=== PATIENT | male | born 1940 | race Caucasian/White ===

== ENCOUNTER → 2017-10-13 09:40 | Outpatient (CLI) | payer MEDICARE, BC, SELFPAY ==
[2017-10-13 11:01] LABS: Amphetamine Urine VISTA NEGATIVE (<1000 ng/mL); Barbiturate Urine VISTA POSITIVE (< 200 ng/mL); Benzodiazepine Urine VISTA NEGATIVE (< 200 ng/mL); Cocaine Urine VISTA NEGATIVE (< 300 ng/mL); Ecstacy Urine VISTA NEGATIVE (< 500 ng/mL); Methadone Urine VISTA NEGATIVE (< 300 ng/mL); PCP Urine VISTA NEGATIVE (< 25 ng/mL); THC Urine VISTA NEGATIVE (< 50 ng/mL); Vista UDS pH Range 5
== END ==
PROVIDERS: Family Provider Internal Medicine; PCP Internal Medicine; Visit Provider Anesthesiology Pain Medicine
DX: F11.20 Opioid dependence, uncomplicated (principal)
CPT/HCPCS: 80307

== ENCOUNTER → 2017-12-30 11:48 | Outpatient (CLI) | payer MEDICARE, BC, SELFPAY ==
--- NOTE | 2017-12-30 11:48 | DT_ITS ---
This patient was seen during an EMR downtime December 28, 2017 - January 04, 2018. This patient may have a combination of paper and electronic documentation or all paper documentation. All documentation is viewable within the e-chart portion of [facility] for each patient visit.
[2018-01-04 14:00] LABS: Vitamin B12 403 pg/mL (211-911)
[2018-01-04 15:58] LABS: Thyroid Stim Hormone (TSH) 0.75 uIU/mL (0.358-3.74)
== END ==
PROVIDERS: Family Provider Internal Medicine; PCP Internal Medicine; Visit Provider Psychiatry & Neurology Neurology
DX: R25.1 Tremor, unspecified (principal)
CPT/HCPCS: 36415; 82390; 82525; 82607; 84443

== ENCOUNTER → 2018-04-07 12:14 | Outpatient (CLI) | payer MEDICARE, BC, SELFPAY ==
[2018-04-09 07:07] LABS: Ceruloplasmin 38.6 mg/dL (16.0-31.0)
[2018-04-09 09:02] LABS: Copper, Serum or Plasma 166 ug/dL (72-166)
== END ==
PROVIDERS: Family Provider Internal Medicine; PCP Internal Medicine; Visit Provider Psychiatry & Neurology Neurology
DX: R25.1 Tremor, unspecified (principal)
CPT/HCPCS: 36415; 82390; 82525

== ENCOUNTER 2018-04-27 07:54 | Emergency (ER) | payer MEDICARE, BC, SELFPAY ==
[2018-04-27 07:55] VITALS: BP 148/79; PULSE 63; RESP 20; TEMP 37.1; O2SAT 98; BMI 23.8
--- NOTE | 2018-04-27 08:28 | RAD_ITS ---
STUDY: X-RAY CHEST REASON FOR EXAM: Male, 77 years old. One-month history of cough. TECHNIQUE: PA and lateral views of the chest. COMPARISON: Comparison is made with prior study dated January 24, 2017. FINDINGS: Since prior study, there has been progressive infiltration in the right lower lobe. Blunting of both costophrenic angles. Stable linear scarring in the left lower lobe. Normal size heart. Normal mediastinum and moises. Normal visualized pulmonary arteries. There is atherosclerotic calcification of the aortic arch with tortuosity. There are degenerative changes of the visualized thoracic spine. Normal visualized ribs, clavicles, and shoulders. There is no demonstrated abnormality of the visualized soft tissue structures of the upper abdomen. RAD/Chest PA and Lateral IMPRESSION: Progressive right lower lobe infiltrate. Blunting of both costophrenic angles. Stable linear scarring at the left lung base. Electronically Signed: Zachariah Santoro MD at 8:47 EDT Tel [phone], Service support ,
[2018-04-27 08:40] VITALS: O2SAT 95
--- NOTE | 2018-04-27 08:51 | CT_ITS ---
STUDY: CT CHEST WITHOUT CONTRAST REASON FOR EXAM: Male, 77 years old. Cough. Hemoptysis. Former smoker. RADIATION DOSAGE (If Supplied By Facility): CTDIvol = ( 12.54 ) mGy, DLP = ( 447.97 ) mGycm TECHNIQUE: Transaxial imaging was performed without the administration of intravenous contrast material. Multiplanar coronal and sagittal images were reformatted. Individualized dose optimization techniques were used for this CT. COMPARISON: None. FINDINGS: Diffuse emphysematous changes with multiple cystic changes in both lungs worse in the right upper lobe. Consolidation in the right lower lobe. This is superimposed on chronic interstitial fibrosis with bronchiectasis and honeycombing in the right lower lobe. Several tiny noncalcified nodules seen in the peripheral aspect of the right upper lobe and right middle lobe. There is a dominant 4.8 cm x 6.8 cm bulla in the anterior aspect of the left lower lobe. There is no demonstrated pleural abnormality. There are calcifications of the coronary arteries. There are multiple small lymph nodes within the mediastinum, which are normal in size and morphology most compatible with reactive lymph hyperplasia. Normal hilar regions. Normal unenhanced pulmonary arteries. There is atherosclerotic calcification of the aortic arch with tortuosity and elongation of the aortic arch and descending thoracic aorta. There are multi-level degenerative changes of the thoracic spine. There is no demonstrated abnormality of the visualized upper abdomen. CT/Chest without Contrast IMPRESSION: Right lower lobe consolidation superimposed on the emphysematous changes worse in the right lower lobe. Several tiny noncalcified nodules. A follow-up CT scan is recommended. Electronically Signed: Zachariah Santoro MD at 10:21 EDT Tel [phone], Service support ,
[2018-04-27 10:20] LABS: Absolute Lymphocyte Count 4.59 X10^3/ul (0.83-4.51); Basophil# 0.01 X10^3/uL; Basophil% 0.1 % (0-1); Eosinophil# 0.22 X10^3/uL; Eosinophils% 2.1 % (0-5); Hematocrit 38.3 % (40-54); Hemoglobin 12.3 g/dl (13.0-16.5); Lymphocyte # 4.59 X10^3/ul (4.0); Lymphocyte % 44.6 % (19-41); Mean Corp Hgb Conc 32.1 g/gl (32-36); Mean Corpuscular Hgb 27.1 pg (27.0-32.0); Mean Corpuscular Volume 84.4 fL (80-94); Mean Platelet Vol. 9.2 fl (6.2-12.0); Monocyte# 0.48 X10^3/uL; Monocyte% 4.7 % (0-10); Neutrophil # 4.96 X10^3/uL (2.7-7.7); Neutrophil % 48.1 % (47-70); POSITIVE COUNT NO; POSITIVE DIFFERENTIAL NO; POSITIVE MORPHOLOGY NO; Platelet Count 455 K/mm3 (150-450); RBC Distribution Width CV 14.3 % (11.6-14.6); RBC Distribution Width SD 44.4 fl (35.1-43.9); Red Blood Count 4.54 M/mm3 (4.6-6.2); White Blood Count 10.3 K/mm3 (4.4-11.0)
[2018-04-27 10:23] LABS: Anion Gap 6 (5-15); BUN 22 mg/dL (7-18); BUN/Creat Ratio 22.9 RATIO (10-20); Calcium,Total 9.4 mg/dL (8.5-10.1); Chloride 101 mmol/L (98-107); Creatinine, Serum 0.96 mg/dL (0.70-1.30); EST Glomerular Filtration Rate 80 mL/min (>60); Est Glom Filt Rate - Afr Amer 97 mL/min (>60); Estimated Creatinine Clearance 59.29 ml/min; Glucose 101 mg/dL (74-106); Potassium 5.1 mmol/L (3.5-5.1); Sodium Level 140 mmol/L (136-145)
[2018-04-27 10:25] LABS: Prothrombin Time (Protime)PT. 13.5 SECONDS (11.7-14.9)
[2018-04-27 10:36] VITALS: BP 162/68; PULSE 57; RESP 16; O2SAT 96
[2018-04-27] MEDS: levoFLOXacin IV 500 MG/100 ML BAG 100 MG IV (10:51)
--- NOTE | 2018-04-27 10:56 | ED.DCSUM_ITS ---
- ER Visit Summary Date of Service: 04/27/18 Chief Complaint: Bronchitis History of Present Illness: The patient is a 77 M who presents with chief complaint of bronchitis. He states he has been ill for about 1 month with persistent cough and sputum. He has it was initially seen in urgent care and treated with azithromycin. He was then seen by the nurse practitioner to his PCP and was given another round of azithromycin and also cough syrup with codeine. He saw the nurse practitioner again due to persistent cough and was now placed on amoxicillin. He states that today he had 2 episodes of hemoptysis which was mucus with blood streaks. He has been referred to pulmonology and has an appointment next month. He denies any pain. He denies any fever. He is not anticoagulated. Physical Examination: Afebrile vitals are unremarkable Moist mucous membrane Heart regular rate and rhythm Lungs clear, I do not appreciate rales rhonchi or wheezes Abdomen soft Alert Test Results: CBC BMP INR unremarkable. Chest x-ray shows right lower infiltrate. CT of the chest shows emphysematous changes and chronic interstitial changes with superimposed right lower lobe consolidation. Emergency Department Course and Treatment: Chest x-ray did show right lower infiltrate which radiology notes was progressed from prior but this was last year. Given his chronic symptoms I did obtain CT of the chest to further evaluate. This does show chronic interstitial changes but also superimposed consolidation. I do believe this represents a community-acquired pneumonia. Although clinically he appears well without hypoxia and does have stable vitals he has now been on 3 outpatient oral antibiotics without improvement so I do believe he is failed outpatient treatment. He will be discussed with the hospitalist and admitted. He was treated with IV Levaquin here. Treatment Plan: [] Disposition: Admit Impression: Community-acquired pneumonia, failed outpatient treatment This note was generated with [employer] dictation software. It may contain incorrect words, spelling, and punctuation that were not noted in review of the chart prior to signing ED Disposition - Plan for ED Patient: Chief Complaint: Cough Referrals: Dilshad Vallejo MD [Primary Care Provider] -
--- NOTE | 2018-04-27 11:37 | ED.DEP ---
ED Disposition - Plan for ED Patient: Chief Complaint: Cough Instructions: ED Pneumonia Adult Prescriptions: Levofloxacin [Levaquin] 750 mg PO DAILY #7 tab Referrals: Dilshad Vallejo MD [Primary Care Provider] -
[2018-04-27 12:15] VITALS: BP 140/80; PULSE 68; RESP 20; O2SAT 98
--- NOTE | 2018-04-28 15:56 | CM.ED ---
ED CALLBACK: Follow-up call placed to patient with no answer. No voicemail option. Will reattempt as time allows.
== END 2018-04-27 12:15 | disposition home or self-care (01) ==
PROVIDERS: Emergency Provider Emergency Medicine; Family Provider Internal Medicine; PCP Internal Medicine
DX: J18.9 Pneumonia, unspecified organism (principal); R04.2 Hemoptysis; I10 Essential (primary) hypertension; K21.9 Gastro-esophageal reflux disease without esophagitis; Z86.73 Personal history of transient ischemic attack (TIA), and cerebral infarction without residual deficits; Z79.899 Other long term (current) drug therapy
CPT/HCPCS: 71046; 71250; 80048; 85025; 85610; 96365; 99282; J7050; A4216

== ENCOUNTER 2018-05-04 14:13 | Inpatient (IN) | payer MEDICARE, BC, SELFPAY ==
[2018-05-04] VITALS (10 sets, daily range): BP systolic 131–158; BP diastolic 60–84; PULSE 65–94; RESP 20–22; TEMP 36.2–37.2; O2SAT 92–97; BMI 21.7; BMI 21.4; BMI 21.5
--- NOTE | 2018-05-04 15:15 | RAD_ITS ---
STUDY: X-RAY CHEST REASON FOR EXAM: Male, 77 years old. SOB. Pneumonia. TECHNIQUE: PA and lateral views. COMPARISON: 04/27/2018. FINDINGS: Mild airspace disease in the right lower lobe is decreased compared to the prior study. There is no pleural effusion. A large bulla or air cyst in the left lung base is unchanged. Upper lobes are clear bilaterally. Normal size heart. Normal mediastinum and moises. Normal visualized pulmonary arteries. There is mild atherosclerotic calcification of the aortic arch. Normal visualized thoracic spine. Normal visualized ribs, clavicles, and shoulders. There is no demonstrated abnormality of the visualized soft tissue structures of the upper abdomen. RAD/Chest PA and Lateral IMPRESSION: 1. Interval improvement in right lower lobe pneumonia. 2. Left lower lobe lung cyst or bulla. Electronically Signed: Romi Head MD at 16:06 EDT Tel , Service support ,
--- NOTE | 2018-05-04 15:27 | EKG12_ITS ---
Test Reason : SOB Blood Pressure : / mmHG Vent. Rate : 069 BPM Atrial Rate : 069 BPM P-R Int : 162 ms QRS Dur : 138 ms QT Int : 450 ms P-R-T Axes : 041 -57 -45 degrees QTc Int : 482 ms Sinus rhythm with occasional Premature ventricular complexes Right bundle branch block Left anterior fascicular block Bifascicular block Septal infarct , age undetermined T wave abnormality, consider lateral ischemia Abnormal ECG Confirmed by ANTONI GUNN, JOELLE ([id number]), loan expeditor HARSH ADAM ([id number]) on 05/06/2018 1:12:39 PM Referred By: DEVYN Confirmed By:JOELLE CORRALES MD
[2018-05-04] MEDS: Ipratropium/Albuterol Sulfate 3 ML AMPUL.NEB INHALATION (15:45)
[2018-05-04] MEDS: 0.9% Normal Saline 1,000 ML 150 ML IV (15:55)
[2018-05-04 15:56] LABS: Absolute Lymphocyte Count 5.69 X10^3/ul (0.83-4.51); Absolute Neutrophil Count 7.6 X10^3/uL (2.0-7.7); Basophil# 0.02 X10^3/uL; Basophil% 0.1 % (0-1); Eosinophil# 0.19 X10^3/uL; Eosinophils% 1.3 % (0-5); Hematocrit 40.6 % (40-54); Hemoglobin 13.2 g/dl (13.0-16.5); Lymphocyte # 5.69 X10^3/ul (4.0); Lymphocyte % 40.2 % (19-41); Mean Corp Hgb Conc 32.5 g/gl (32-36); Mean Platelet Vol. 8.7 fl (6.2-12.0); Monocyte# 0.62 X10^3/uL; Monocyte% 4.4 % (0-10); Neutrophil % 53.8 % (47-70); Platelet Count 364 K/mm3 (150-450); RBC Distribution Width CV 14.9 % (11.6-14.6); RBC Distribution Width SD 45.4 fl (35.1-43.9); Red Blood Count 4.89 M/mm3 (4.6-6.2); White Blood Count 14.2 K/mm3 (4.4-11.0)
[2018-05-04 16:00] LABS: D-Dimer Quantitative (DVT/PE) 0.85 FEU/ug/m (0.27-0.49)
--- NOTE | 2018-05-04 16:00 | CT_ITS ---
STUDY: CTA CHEST REASON FOR EXAM: Male, 77 years old. Dyspnea. RADIATION DOSAGE (If Supplied By Facility): CTDIvol = ( 9.47 ) mGy, DLP = ( 325.11 ) mGycm TECHNIQUE: The examination was performed with the intravenous administration of 100 ml of Isovue 370 contrast material. Post-processing of the angiographic images was performed, with multiplanar reformation and 3D reconstruction. Individualized dose optimization techniques were used for this CT. COMPARISON: None. FINDINGS: The heart and pericardium are normal. The aorta is normal in caliber, with no aneurysm or dissection. There is no mediastinal mass or adenopathy. There is no hilar or axillary adenopathy. There is no evidence of pulmonary embolus. Pulmonary arteries are unremarkable. There is no pleural effusion. Moderate centrilobular emphysematous changes are noted, greatest in the upper lobes. Large bullae are also noted in the lung bases. Mild airspace disease is noted in the right lower lobe consistent with pneumonia. Right kidney is moderately atrophic. Hypodensities in the liver measure up to 9 mm. These are too small to characterize. There is no osseous abnormality. CT/CTA Chest W/WO Contrast IMPRESSION: 1. Right lower lobe pneumonia. 2. COPD. 3. No evidence of pulmonary embolus or aortic dissection. 4. Atrophic right kidney. 5. Hepatic hypodensities, too small to characterize. Electronically Signed: Romi Head MD at 17:56 EDT Tel , Service support ,
--- NOTE | 2018-05-04 16:01 | ED.RN ---
CRITICAL D-DIMER RESULT CALLED FROM ANU, AND PRIMARY RN NOTIFIED
[2018-05-04 16:05] LABS: Anion Gap 7 (5-15); BUN 26 mg/dL (7-18); BUN/Creat Ratio 19.5 RATIO (10-20); Calcium,Total 8.8 mg/dL (8.5-10.1); Chloride 103 mmol/L (98-107); Creatinine, Serum 1.33 mg/dL (0.70-1.30); Differential Indicated SCAN CRITERIA MET; EST Glomerular Filtration Rate 55 mL/min (>60); Est Glom Filt Rate - Afr Amer 67 mL/min (>60); Estimated Creatinine Clearance 41.95 ml/min; Glucose 88 mg/dL (74-106); POSITIVE COUNT NO; POSITIVE DIFFERENTIAL YES; POSITIVE MORPHOLOGY NO; Potassium 4.3 mmol/L (3.5-5.1); Sodium Level 139 mmol/L (136-145)
[2018-05-04 16:08] LABS: Lactic Acid 1.5 mmol/L (0.4-2.0)
[2018-05-04 16:27] LABS: Differential Comment SCANNED
[2018-05-04] MEDS: DiphenhydrAMINE 50 MG/ML Syringe 25 MG IV (16:29)
[2018-05-04] MEDS: MethylPREDNISolone 125 MG/2 ML Vial IV (16:30)
[2018-05-04 16:58] LABS: Lipase 204 U/L (73-393)
[2018-05-04 17:08] LABS: AST(SGOT) 24 U/L (15-37); Alanine Aminotransfer ALT/SGPT 21 U/L (16-61); Albumin, Serum 2.8 g/dL (3.2-5.0); Alkaline Phosphatase 142 U/L (45-117); Bilirubin, Direct 0.17 mg/dL (0.00-0.30); Globulin 3.5 g/dL (2.2-4.2); Protein, Total 6.3 g/dL (6.4-8.2)
--- NOTE | 2018-05-04 18:20 | ED.DCSUM_ITS ---
- ER Visit Summary Date of Service: 05/04/18 Chief Complaint: [Breath and generalized weakness] History of Present Illness: The patient is a 77 M [presents the emergency department complaint of not feeling well for several weeks. Patient was seen in the emergency department 1 week ago and had a CT scan of his chest that showed a right lower lobe pneumonia. Patient was started on Levaquin and discharged home. Patient states that he is lost about 12 pounds in the last 2 weeks. Patient's been nauseated for the last several days and cannot keep his meds down. He complains of generalized weakness and having a hard time getting around. Patient states that about a week ago he had some episodes where he thought he had some hemoptysis but he was not sure if it was the red colored cough syrup that was making the phlegm looked that way. He denies any significant chest discomfort other than with cough. Patient does have a history of hypertension, TIA, high cholesterol, and GERD.] Physical Examination: [HEENT-PERRLA, EOMI. Cranial nerves II through XII grossly intact. TMs clear. Mucous membranes moist. No adenopathy. Cardiovascular-regular rate and rhythm without murmur or ectopy Lungs-aeration bilaterally. Patient has some expiratory wheezes bilaterally. Mild tachypnea. No accessory muscle use or retractions. Abdomen-normoactive bowel sounds, soft, nontender, no rebound or rigidity, no peritoneal signs. Extremities-intact ?4, normal range of motion, normal pulses, atraumatic] Test Results: [EKG obtained arrival showed a sinus rhythm with a ventricular rate 69 bpm with right bundle branch block and some nonspecific ST changes. CBC with differential showing a 14.2, hemoglobin 13, hematocrit 41, platelets 364. Chemistries unremarkable. Troponin was 0.018. D-dimer was 0.85 and lactate was 1.5. Chest x-ray showed improvement of right lower lobe pneumonia. CTA of the chest was obtained was negative for PE or dissection he did have a right sided consolidation.] Emergency Department Course and Treatment: [Patient was started on Zosyn and given a DuoNeb aerosol.] Treatment Plan: [Admit] Disposition: [Admit] Impression: [Pneumonia-failed outpatient therapy Generalized weakness] This note was generated with [employer] dictation software. It may contain incorrect words, spelling, and punctuation that were not noted in review of the chart prior to signing ED Disposition - Plan for ED Patient: Chief Complaint: Shortness of Breath Referrals: Dilshad Vallejo MD [Primary Care Provider] -
--- NOTE | 2018-05-04 18:27 | NURSING ---
MED SURG RLL PNEUMONIA ISIAH
--- NOTE | 2018-05-04 19:11 | PCM.HP.STD ---
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 He was seen a week ago in the ER and had a CT chest which diagnosed a RLL pneumonia. He was sent home on levaquin and has been taking that this past week and states he has been getting worse. He felt better the first 3 days and then the last two days he has had episodes of nausea and vomiting after the abx and he feels that he has gotten weaker, and has had a cough. He was unable to see his PCP so he presented to the ER. He states that he has been dealing with a respiratory issue since the beginning of march, and has been on a z-eleonora and cough syrup. He denies a h/o COPD which runs in the family. In the ER he was found to have an elevated D-dimer and a CTA r/o PE but demonstrated continued infiltrate. lactic acid was normal and CURB-65 score was 2 out of 5. 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) Anxiety (Chronic) Allergies Iodine and Iodide Containing Produc Allergy (Verified 04/27/18 07:57) Rash Sulfa (Sulfonamide Antibiotics) Allergy (Verified 04/27/18 07:57) Rash Home Medications: Ambulatory Orders Medication Instructions Recorded Atorvastatin Calcium 10 mg PO QHS 01/24/17 Hydrochlorothiazide 12.5 mg PO DAILY 01/24/17 Omeprazole [Prilosec] 20 mg PO DAILY 01/24/17 Primidone [Mysoline] 150 mg PO TID 01/24/17 Tamsulosin HCl [Flomax] 0.4 mg PO DAILY 01/24/17 Acetaminophen/Codeine #3 [Tylenol 1 tab PO BID 05/04/18 #3 Tablet] Amlodipine [Norvasc] 10 mg PO DAILY 05/04/18 Lisinopril [Zestril] 40 mg PO DAILY 05/04/18 Propranolol HCl [Propranolol HCl 120 mg PO DAILY 05/04/18 ER] Surgical History: - - laryngeal tumor resection Smoking Status: Former smoker Alcohol: None Drugs: None - *Family History Paternal History Items: Heart Disease, Pulmonary Disease Review of Systems Constitutional: Reports: Anorexia, Chills. Denies: Fever HEENT: Denies: Head Aches, Sinus Congestion, Sinus Drainage Cardiovascular: Denies: Chest Pain, Palpitations Respiratory: Reports: Cough, Shortness of Breath. Denies: Shortness of breath at rest, Sputum production Gastrointestinal: Denies: Abdominal Pain, Nausea, Vomiting Genitourinary: Denies: Dysuria Musculoskeletal: Denies: Joint Pain, Joint Tenderness Skin: Denies: Rash, Wounds Neurological: Denies: Numbness, Tingling, Focal weakness Psychiatric: Denies: Anxiety, Depression Hematologic/ Lymphatic: Denies: Easy Bruising, Easy Bleeding VTE Information - Inpt Only VTE Present on Admission: No Patient Problems: Active and Suspected Problems RLL pneumonia (Acute) - Physical Exam General: Alert, Oriented x3, Cooperative, No apparent distress HEENT: Atraumatic, PERRLA, EOMI, Normocephalic Oral: Moist Mucosa Neck: Supple, No JVD Lungs: Normal air movement, No rhonchi, No wheeze, Diminished Cardiovascular: Regular rate, Regular Rhythm, Normal S1, Normal S2, No murmurs Abdomen: Soft, Non Tender, Non-Distended, No Hepato-splenomegaly Extremities: No edema, Capillary Refill Less than 3 Seconds Skin: No rashes, No breakdown Musculoskeletal: No Tenderness to Palpation of Joints or Extremities Neurological: - - has an ue tremor, ? lead-pipe regidity Psych/Mental Status: Normal Affect, Appropriate Vital Signs Temp Pulse Resp BP Pulse Ox 97.1 F L 69 22 H 158/80 H 96 05/04/18 14:15 05/04/18 18:55 05/04/18 18:55 05/04/18 18:55 05/04/18 18:55 Oxygen Delivery Method Room Air Weight: 142 lb 13.753 oz Body Mass Index (BMI) 21.7 Laboratory Tests Past 24 Hrs 05/04/18 05/04/18 05/04/18 15:30 15:30 15:30 WBC 14.2 H RBC 4.89 Hgb 13.2 Hct 40.6 MCV 83.0 MCH 27.0 MCHC 32.5 RDW 14.9 H RDW Differential 45.4 H Plt Count 364 MPV 8.7 Immature Gran % (Auto) 0.200 Neut % (Auto) 53.8 Lymph % (Auto) 40.2 [place] % (Auto) 4.4 Eos % (Auto) 1.3 Baso % (Auto) 0.1 Absolute Neuts (auto) 7.6 Absolute Lymphs (auto) 5.69 H Total Counted Not Reportable Differential Comment SCANNED D-Dimer Quant (PE/DVT) 0.85 H* Sodium 139 Potassium 4.3 Chloride 103 Carbon Dioxide 29.0 Anion Gap 7 BUN 26 H Creatinine 1.33 H Estim Creat Clear Calc 41.95 Est GFR (MDRD) Af Amer 67 Est GFR (MDRD) Non-Af 55 L BUN/Creatinine Ratio 19.5 Glucose 88 Lactic Acid Calcium 8.8 Total Bilirubin Direct Bilirubin AST ALT Alkaline Phosphatase Troponin I 0.018 Total Protein Albumin Globulin Lipase 05/04/18 05/04/18 05/04/18 15:30 15:30 15:35 WBC RBC Hgb Hct MCV MCH MCHC RDW RDW Differential Plt Count MPV Immature Gran % (Auto) Neut % (Auto) Lymph % (Auto) [place] % (Auto) Eos % (Auto) Baso % (Auto) Absolute Neuts (auto) Absolute Lymphs (auto) Total Counted Differential Comment D-Dimer Quant (PE/DVT) Sodium Potassium Chloride Carbon Dioxide Anion Gap BUN Creatinine Estim Creat Clear Calc Est GFR (MDRD) Af Amer Est GFR (MDRD) Non-Af BUN/Creatinine Ratio Glucose Lactic Acid 1.5 Calcium Total Bilirubin 0.40 Direct Bilirubin 0.17 AST 24 ALT 21 Alkaline Phosphatase 142 H Troponin I Total Protein 6.3 L Albumin 2.8 L Globulin 3.5 Lipase 204 Assessment/Plan All Active Problems RLL pneumonia (Acute) 1. RLL Pneumonia/IVANIA - CXR in the ER is improving, but CTA continues to demonstrate pneumonia - DDimer is elevated but CTA r/o PE - Will transition to Unasyn and azithro. - Urine strep and legionella pending - IVF@100 - PT/OT and speech given his laryngeal tumor resection and h/o CVA ? aspiration 2. HTN/HLD/TIA - will c/w his norvasc, Lipitor, HCTZ and lisinopril - Stable 3. GERD - Stable - C/w PPI 4. 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 BPH - stable - C/w flomax DVT: Heparin Diet: Regular Code Visit Inpatient E&M: [id number] Init Hosp L3
[2018-05-04] MEDS: 0.9% Normal Saline 1,000 ML 100 ML IV (20:36)
[2018-05-04] MEDS: amLODIPine 10 MG Tablet PO (20:43)
[2018-05-04] MEDS: Atorvastatin Calcium 10 MG Tablet PO (20:43)
[2018-05-04] MEDS: Pantoprazole Sodium 20 MG Tablet PO (20:43)
[2018-05-04] MEDS: Tamsulosin HCl 0.4 MG Capsule PO (20:43)
[2018-05-04] MEDS: Heparin Injection (Vial) 5,000 UNIT/ML VIAL 5000 UNIT SC (20:44)
[2018-05-04] MEDS: Primidone 50 MG Tablet 150 MG PO (20:44)
[2018-05-05 01:46] VITALS: RESP 24
[2018-05-05 01:47] VITALS: BP 144/51; PULSE 74; RESP 24; TEMP 36.6; O2SAT 97
[2018-05-05] MEDS: Primidone 50 MG Tablet 150 MG PO ×3 (05:56→20:21)
[2018-05-05 06:04] LABS: Absolute Lymphocyte Count 5.81 X10^3/ul (0.83-4.51); Basophil# 0.01 X10^3/uL; Basophil% 0.1 % (0-1); Eosinophil# 0.02 X10^3/uL; Eosinophils% 0.2 % (0-5); Hematocrit 38.1 % (40-54); Hemoglobin 12.3 g/dl (13.0-16.5); Lymphocyte # 5.81 X10^3/ul (4.0); Lymphocyte % 52.2 % (19-41); Mean Corp Hgb Conc 32.3 g/gl (32-36); Mean Corpuscular Hgb 26.7 pg (27.0-32.0); Mean Corpuscular Volume 82.6 fL (80-94); Mean Platelet Vol. 8.7 fl (6.2-12.0); Monocyte# 0.34 X10^3/uL; Monocyte% 3.1 % (0-10); Neutrophil # 4.95 X10^3/uL (2.7-7.7); Neutrophil % 44.3 % (47-70); Platelet Count 310 K/mm3 (150-450); RBC Distribution Width CV 14.8 % (11.6-14.6); RBC Distribution Width SD 44.1 fl (35.1-43.9); Red Blood Count 4.61 M/mm3 (4.6-6.2); White Blood Count 11.1 K/mm3 (4.4-11.0)
[2018-05-05 06:05] LABS: Differential Indicated SCAN CRITERIA MET; POSITIVE COUNT NO; POSITIVE DIFFERENTIAL YES; POSITIVE MORPHOLOGY NO
[2018-05-05 06:09] LABS: Anion Gap 9 (5-15); BUN 26 mg/dL (7-18); BUN/Creat Ratio 21.1 RATIO (10-20); Calcium,Total 8.3 mg/dL (8.5-10.1); Chloride 107 mmol/L (98-107); Creatinine, Serum 1.23 mg/dL (0.70-1.30); EST Glomerular Filtration Rate 60 mL/min (>60); Est Glom Filt Rate - Afr Amer 73 mL/min (>60); Glucose 90 mg/dL (74-106); Sodium Level 142 mmol/L (136-145)
[2018-05-05 06:38] LABS: Differential Comment SCANNED; Reactive Lymphocyte 2+
[2018-05-05] MEDS: 0.9% Normal Saline 1,000 ML 100 ML IV (09:18)
[2018-05-05] MEDS: Propranolol LA 60 MG Capsule 120 MG PO (09:19)
[2018-05-05] MEDS: HYDROCHLOROTHIAZIDE 12.5 MG CAPSULE PO (09:19)
[2018-05-05] MEDS: Lisinopril 40 MG Tablet PO (09:20)
[2018-05-05] MEDS: amLODIPine 10 MG Tablet PO (09:25)
[2018-05-05] MEDS: Pantoprazole Sodium 20 MG Tablet PO (09:25)
[2018-05-05] MEDS: Heparin Injection (Vial) 5,000 UNIT/ML VIAL 5000 UNIT SC (09:25)
[2018-05-05 09:35] VITALS: BP 142/66; PULSE 79; RESP 18; TEMP 36.8; O2SAT 97
--- NOTE | 2018-05-05 11:50 | CASEMGMT ---
CELIA JIANG INITIAL REVIEW ASSESSMENT D/C PLAN: Home Face to Face with patient for initial transition planning/care coordination assessment. CELIA JIANG introduced self and role at [facility]. Care providers, pharmacy, and demographics verified. PCP: Dr. Vallejo [facility]erred [facility]acy: [facility] Insurance: [facility], [place] Prescription Benefit: Blue Cross Blue Shield: short term AARP: senior care Living Will/HPOA: States does not have either and is not interested in any further information. LNOK: Living Arrangements: Lives with and son. Live in a bi-level home with 5 steps going upstairs and 5 steps going down to basement level. Pt denies difficulty navigating stairs. There are no steps to enter into home. Transportation: Drives. able to drive pt home home from hospital on d/c and elsewhere if needed. DME: States only has hand rails on stairs. Denies using any other DME and denies needs. HHC: States has never had HHC in the past and declines any on D/C. Pt's plans on D/C: Wishes to return home and denieds any needs. PT/OT/ST evals pending. Pt states that even if PT/OT recommend further therapy he is not interested in doing any. States does not want HHC or out-pt therapy. Pt's voiced she thought it would be a good idea for pt to receive therapy if recommended d/t he has been becoming more weak since getting pneumonia but pt adamantly denied wanting to receive any therapy of any kind. Pt and both made aware that if he decides later, once he is discharged from hospital, to talk to his PCP to have arrangements made for therapy if he chooses to do so later. CM to follow for any further discharge planning needs that may arise. Zaria REID RN, CM
--- NOTE | 2018-05-05 13:30 | SP.MBSS_ITS ---
PRIMARY / SECONDARY DIAGNOSIS: dysphagia (R13.10) REFERRING PHYSICIAN: Dr. Faith Vela MD CURRENT DIET: regular textures, thin liquids DENTITION: upper / lower dentures in place MENTAL STATUS: appropriate for participation RESPIRATORY STATUS: O2 via room air PREVIOUS MODIFIED BARIUM SWALLOW STUDY: none REASON FOR REFERRAL: Patient is a 77 year old male referred for a modified barium swallow (MBS) study to objectively assess the Patients oropharyngeal swallow function under fluoroscopy secondary to recently diagnosed right lower lobe pneumonia with suspected aspiration component. Patient reports persistent respiratory issue since the beginning of March (ongoing productive cough, dyspnea) with evaluation via the Patients primary care provider; treated for right lower lobe pneumonia; noted nausea, emesis, and reported increased weakness over the last two days; treated for community acquired pneumonia with possible aspiration component; CURB-65 score: 2 (6.8% mortality risk). 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 Patient furthermore scheduled with [facility] neurology for possible Parkinson's disease. ADDITIONAL OBJECTIVE ASSESSMENT RESULTS: 04/27/2018 CXR revealed progressive right lower lobe infiltrate with blunting of both costophrenic angles; stable linear scarring at the left lung base. 05/04/2018 CXR revealed interval improvement in right lower lobe pneumonia; left lower lobe lung cyst or bulla. 05/04/[address] revealed right lower lobe pneumonia; COPD. 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 STUDY FINDINGS: Patient participated in a Modified Barium Swallow (MBS) study on 05/05/2018. Dr. Cain was the radiologist present for this evaluation. This study was recorded in the lateral view and images were sent to PACs for storage. The following consistencies were presented to this patient for analysis of oropharyngeal swallow function: thin liquids, nectar thickened liquids, pudding, and a regular textured, Isidra Doone cookie. Results of the MBS are as follows: PENETRATION / ASPIRATION SCALE (CASTRO): 1 = does not enter airway 2 = enters airway/above vocal folds/ejected 3 = enters airway/above vocal folds/not ejected 4 = enters airway/contacts vocal folds/ejected 5 = enters airway/contacts vocal folds/not ejected 6 = enters airway/below vocal folds/ejected 7 = enters airway/below vocal folds/not ejected despite effort 8 = enters airway/below vocal folds/no effort VIDEOFLOROSCOPIC SCALE SCORE (CASTRO): Grade I = aspiration of material that has penetrated into the laryngeal vestibule, intact cough reflex Grade II = aspiration < 10 % of the bolus, intact cough reflex Grade III = aspiration of < 10 % of the bolus, reduced cough reflex or aspiration of > 10 % of the bolus, intact cough reflex Grade IV = aspiration of > 10 % of the bolus, reduced cough reflex PENETRATION / ASPIRATION SCALE (SCORE) WITH VIDEOFLOROSCOPIC SCALE SCORE: Thin liquid - 5 mL tsp.: 1 Thin liquids via cup (single sip): 1 Thin liquids via cup (single sip): 1 Thin liquids via cup (single sip): 1 Thin liquids via cup (sequential swallows): 7 - Grade II Thin liquids via straw (single sip): 1 Thin liquids via straw (sequential swallows): 5 Pudding via spoon: 1 Regular textured cookie: 1 Thin liquids via cup (chin tuck): 1 Thin liquids via cup (chin tuck): 1 Thin liquids via cup (sequential swallows): 7 - Grade II [place] thickened liquids via cup (single sip): 1 [place] thickened liquids via cup (sequential swallows): 2 IMPRESSION: DIAGNOSIS: mild to moderate oropharyngeal dysphagia (R13.12) ORAL PHASE CHARACTERIZED BY: LABIAL SEAL: no labial escape TONGUE CONTROL DURING BOLUS MANIPULATION: cohesive bolus between tongue to palatal seal BOLUS PREPARATION / MASTICATION: timely and efficient chewing and mashing BOLUS TRANSPORT / LINGUAL MOTION: brisk tongue motion ORAL RESIDUE: residue collection on oral structures PHARYNGEAL PHASE CHARACTERIZED BY: INITIATION OF PHARYNGEAL SWALLOW: bolus head at posterior laryngeal surface of epiglottis at first hyoid excursion SOFT PALATE ELEVATION: no bolus between soft palate and pharyngeal wall LARYNGEAL ELEVATION: complete superior movement of thyroid cartilage with complete approximation of arytenoids cartilage to epiglottic petiole ANTERIOR HYOID EXCURSION: intermittent partial anterior movement EPIGLOTTIC MOVEMENT: complete epiglottic inversion LARYNGEAL VESTIBULE CLOSURE AT HEIGHT OF SWALLOW: incomplete laryngeal vestibule closure with narrow column of air/contrast in laryngeal vestibule PHARYNGEAL STRIPPING WAVE: pharyngeal stripping wave present / mildly diminished PHARYNGOESOPHAGEAL SEGMENT OPENING: partial distension and partial duration; partial obstruction of flow TONGUE BASE RETRACTION: narrow column of contrast between tongue base and posterior pharyngeal wall PHARYNGEAL RESIDUE: intermittent collection of residue within or on pharyngeal structures ESOPHAGEAL PHASE CHARACTERIZED BY: ESOPHAGEAL BOLUS CLEARANCE IN THE UPRIGHT POSITION: mild intermittent esophageal retention with retrograde flow below pharyngoesophageal segment (PES) EFFECTS OF TREATMENT STRATEGIES ATTEMPTED: Chin tuck posture = ineffective Reduced bolus size = effective DIET TEXTURE RECOMMENDATIONS: Will recommend a regular textured, thin liquid diet. 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 Swallow profile primarily marked by delayed pharyngeal swallow onset timing resulting in suboptimal bolus location upon swallow onset; reduced closure of the airway during deglutition attributed to reduced anterior hyoid excursion resulting in poor laryngeal vestibule closure / pressure / duration with insufficient laryngeal vestibule pressure generated to expel penetrated material; all deficits contributing to prandial penetration and subsequent grade II overt aspiration of thin liquids via cup (sequential swallows). All deficits ameliorated with bolus volume adjustments and appropriate positioning. No significant difference between nectar thickened liquid and thin liquid tolerance under fluoroscopy. Insufficient cough intensity to expel penetrated material / laryngotracheal aspiration. Patient noted to overtly aspirate during sequential trials of thin liquids, suggesting clinical assessment at bedside relying on identification of classic overt signs and symptoms of aspiration may be sufficient to assess for PO texture tolerance. RECOMMENDATIONS: Patient requires intensive skilled speech-language intervention targeting continued diet texture management; training and implementation of recommended compensatory strategies; Patient and caregiver education regarding dysphagia associated with chronic obstructive pulmonary disease, presbyphagia, and possible Parkinson?s disease pending workup completion. Would consider further workup via foster winder regarding the Patients persistent dysphonia, if not already completed. ADDITIONAL COMMENTS/RECOMMENDATIONS: Results and recommendations were discussed with the Patient immediately following MBS completion, with the Patient verbalizing understanding and agreement with all recommendations and education provided. IMAGE COUNT: [id number] G-CODES: SWALLOWING [id number] Current Status: CJ SWALLOWING G8997 Goal Status: CI SWALLOWING G8998 Discharge Status: THUAN David M.A., CCC-TIE INSPECTOR [facility] Speech-Language Pathology Department [email or web address]
--- NOTE | 2018-05-05 13:30 | RAD_ITS ---
STUDY: SWALLOWING STUDY REASON FOR EXAM: Male, 77 years old. Dysphagia. TECHNIQUE: The examination was performed with Speech Pathology in attendance. Under fluoroscopic observation, the patient ingested thin barium, thick barium, barium pudding and barium coated cracker. FLUOROSCOPY TIME: 2:56 minutes/seconds RADIOLOGIST INVOLVEMENT: Present during entire exam providing supervision. COMPARISON: None available. FINDINGS: Evaluation is limited as the soft tissue tissues of the shoulders partially obscure the inferior larynx and cervical esophagus. The following was observed during swallowing of the various mixtures of barium: Thin Barium: There was no finding of mild transient laryngeal penetration and aspiration without dotty aspiration below the vocal cords noted. Cough reflex noted. Thick Barium: There was no findings of aspiration or laryngeal penetration. Barium Pudding: There was no finding of aspiration or laryngeal penetration. Barium Coated Cracker: There was no finding of aspiration or laryngeal penetration. RAD/Swallowing Function w/Video IMPRESSION: Please see speech pathologist report same day for additional details. Mild transient laryngeal penetration and aspiration without dotty aspiration below the vocal cords noted. Increased risk for aspiration. Limitations noted above. The swallow study findings were discussed with the patient by the speech pathologist at the conclusion of the examination. Please see speech pathology report for more information and recommendations. The procedure was performed by Ivonne Medeiros under the direct supervision of Dr. Cain. Electronically Signed: Oleg Cain, at 15:07 EDT Tel , Service support ,
--- NOTE | 2018-05-05 14:20 | PN_ITS ---
Patient Problems: Active and Suspected Problems RLL pneumonia (Acute) Subjective: Pt continues to have productive cough. Mild dyspnea. Not requiring O2. Does not use O2 at home. Denies hx asthma/COPD. Does not smoke. C/o night sweats but that this is chronic. No fever or chills. Pt states as o/p he was getting better, but then got much worse after trying to take pills and vomiting them back up. He denies swallowing difficulties otherwise. - Physical Exam General: Alert, Oriented x3, Cooperative HEENT: Atraumatic, PERRLA, EOMI, Normocephalic Neck: Supple, No JVD, Negative Carotid Bruits Lungs: Rales Cardiovascular: Regular rate, No murmurs Abdomen: Bowel Sounds Present, Soft, Non Tender Extremities: No edema, Capillary Refill Less than 3 Seconds Skin: No rashes, No breakdown Musculoskeletal: No Tenderness to Palpation of Joints or Extremities Neurological: Cranial nerves II-XII grossly intact Psych/Mental Status: Normal Affect, Appropriate, Alert and oriented to time, place, person, mood and affect Vital Signs Temp Pulse Resp BP Pulse Ox 98.2 F 79 18 142/66 H 97 05/05/18 09:35 05/05/18 09:35 05/05/18 09:35 05/05/18 09:35 05/05/18 09:35 Oxygen Delivery Method Room Air Weight: 141 lb 6.119 oz Body Mass Index (BMI) 21.4 Intake and Output for Last 24 Hours 05/03/18 05/04/18 05/05/18 23:59 23:59 23:59 Intake Total 1174 / 1174 1092 / 1092 Balance 1174 / 1174 1092 / 1092 Microbiology Past 72 Hours 05/04/18 17:05 Gram Stain - Final Sputum, Expectorated/Coughed Respiratory Culture - Preliminary Appears to be normal respiratory shanon. Further studies to follow. 05/04/18 20:50 Streptococcus pneumoniae Antigen (M - Final Urine, Clean Catch 05/04/18 20:50 Legionella Antigen - Final Urine, Clean Catch Laboratory Tests Past 24 Hrs 05/04/18 05/04/18 05/04/18 15:30 15:30 15:30 WBC 14.2 H RBC 4.89 Hgb 13.2 Hct 40.6 MCV 83.0 MCH 27.0 MCHC 32.5 RDW 14.9 H RDW Differential 45.4 H Plt Count 364 MPV 8.7 Immature Gran % (Auto) 0.200 Neut % (Auto) 53.8 Lymph % (Auto) 40.2 [place] % (Auto) 4.4 Eos % (Auto) 1.3 Baso % (Auto) 0.1 Absolute Neuts (auto) 7.6 Absolute Lymphs (auto) 5.69 H Total Counted Not Reportable Differential Comment SCANNED Reactive Lymphocytes D-Dimer Quant (PE/DVT) 0.85 H* Sodium 139 Potassium 4.3 Chloride 103 Carbon Dioxide 29.0 Anion Gap 7 BUN 26 H Creatinine 1.33 H Estim Creat Clear Calc 41.95 Est GFR (MDRD) Af Amer 67 Est GFR (MDRD) Non-Af 55 L BUN/Creatinine Ratio 19.5 Glucose 88 Lactic Acid Calcium 8.8 Total Bilirubin Direct Bilirubin AST ALT Alkaline Phosphatase Troponin I 0.018 Total Protein Albumin Globulin Lipase 05/04/18 05/04/18 05/04/18 15:30 15:30 15:35 WBC RBC Hgb Hct MCV MCH MCHC RDW RDW Differential Plt Count MPV Immature Gran % (Auto) Neut % (Auto) Lymph % (Auto) [place] % (Auto) Eos % (Auto) Baso % (Auto) Absolute Neuts (auto) Absolute Lymphs (auto) Total Counted Differential Comment Reactive Lymphocytes D-Dimer Quant (PE/DVT) Sodium Potassium Chloride Carbon Dioxide Anion Gap BUN Creatinine Estim Creat Clear Calc Est GFR (MDRD) Af Amer Est GFR (MDRD) Non-Af BUN/Creatinine Ratio Glucose Lactic Acid 1.5 Calcium Total Bilirubin 0.40 Direct Bilirubin 0.17 AST 24 ALT 21 Alkaline Phosphatase 142 H Troponin I Total Protein 6.3 L Albumin 2.8 L Globulin 3.5 Lipase 204 05/05/18 05/05/18 05:40 05:40 WBC 11.1 H RBC 4.61 Hgb 12.3 L Hct 38.1 L MCV 82.6 MCH 26.7 L MCHC 32.3 RDW 14.8 H RDW Differential 44.1 H Plt Count 310 MPV 8.7 Immature Gran % (Auto) 0.100 Neut % (Auto) 44.3 L Lymph % (Auto) 52.2 H [place] % (Auto) 3.1 Eos % (Auto) 0.2 Baso % (Auto) 0.1 Absolute Neuts (auto) 5.0 Absolute Lymphs (auto) 5.81 H Total Counted Not Reportable Differential Comment SCANNED Reactive Lymphocytes 2+ D-Dimer Quant (PE/DVT) Sodium 142 Potassium 4.0 Chloride 107 Carbon Dioxide 26.0 Anion Gap 9 BUN 26 H Creatinine 1.23 Estim Creat Clear Calc 44.90 Est GFR (MDRD) Af Amer 73 Est GFR (MDRD) Non-Af 60 BUN/Creatinine Ratio 21.1 H Glucose 90 Lactic Acid Calcium 8.3 L Total Bilirubin Direct Bilirubin AST ALT Alkaline Phosphatase Troponin I Total Protein Albumin Globulin Lipase Medical Necessity - Tobacco Use Smoking Status: Former smoker Tobacco Use: Cigarettes Assessment/Plan All Active Problems RLL pneumonia (Acute) 1. RLL CAP pna failed outpatient therapy with levaquin. Continue unasyn/azithro. WBC improved. D dimer elevated but CTA without clots. Afebrile. Urine antigens neg. Sputum with normal respiratory shanon. Blood cultures pending. Check speech swallow eval given subjective, speech has ordered a video swallow study. 2. Hx TIA - not on asa, on statin. 3. HTN - stable 4. HLD - statin 5. Hx carotid arter dz 6. GERD - PPI 7. BPH - flomax DVT ppx: heparin DC planning: PTOT This patient was seen by Amaury Osorio PA-C under the supervision of Doctor Dane.
[2018-05-05 14:55] VITALS: BP 157/80; PULSE 85; RESP 16; TEMP 36.5; O2SAT 97
[2018-05-05] MEDS: Tamsulosin HCl 0.4 MG Capsule PO (18:09)
[2018-05-05] MEDS: Diphenoxylate/Atrop 1 Tablet PO ×2 (18:41→20:13)
[2018-05-05] MEDS: Ipratropium/Albuterol Sulfate 3 ML AMPUL.NEB INHALATION (18:53)
--- NOTE | 2018-05-05 19:01 | NURSING ---
reviewed and agree with charting by Kristin Polk, student nurse
[2018-05-05] MEDS: Atorvastatin Calcium 10 MG Tablet PO (20:22)
[2018-05-05 20:34] VITALS: BP 148/85; PULSE 72; RESP 18; TEMP 36.6; O2SAT 95
[2018-05-06] MEDS: Diphenoxylate/Atrop 1 Tablet PO ×2 (04:30→11:51)
[2018-05-06 04:31] VITALS: BP 160/77; PULSE 73; RESP 18; TEMP 36.6; O2SAT 96
[2018-05-06] MEDS: Primidone 50 MG Tablet 150 MG PO ×3 (06:22→16:49)
[2018-05-06] MEDS: Enoxaparin 40 MG/0.4 ML Syringe SC (06:22)
--- NOTE | 2018-05-06 07:08 | NURSING ---
0700 PT CALLS C/O CHEST PAIN. 10 DULL ACHY STERNAL PAIN. DENIES NAUSEA, JAW PAIN, ARM PAIN. 0705 CPS CALL FOR EKG. 0708 191/86 SPO2 95% HR 79 0710 CPS IN FOR EKG 0711 181/90 S[P2 97% HR 77
[2018-05-06 07:09] LABS: Absolute Lymphocyte Count 4.91 X10^3/ul (0.83-4.51); Absolute Neutrophil Count 3.6 X10^3/uL (2.0-7.7); Basophil# 0.01 X10^3/uL; Basophil% 0.1 % (0-1); Eosinophil# 0.13 X10^3/uL; Eosinophils% 1.4 % (0-5); Hematocrit 36.9 % (40-54); Lymphocyte # 4.91 X10^3/ul (4.0); Lymphocyte % 54.6 % (19-41); Mean Corp Hgb Conc 32.5 g/gl (32-36); Mean Corpuscular Hgb 26.9 pg (27.0-32.0); Mean Corpuscular Volume 82.7 fL (80-94); Mean Platelet Vol. 8.7 fl (6.2-12.0); Monocyte# 0.32 X10^3/uL; Monocyte% 3.6 % (0-10); Neutrophil # 3.61 X10^3/uL (2.7-7.7); Neutrophil % 40.2 % (47-70); Platelet Count 263 K/mm3 (150-450); RBC Distribution Width SD 45.6 fl (35.1-43.9); Red Blood Count 4.46 M/mm3 (4.6-6.2)
[2018-05-06 07:10] LABS: POSITIVE COUNT NO; POSITIVE DIFFERENTIAL NO; POSITIVE MORPHOLOGY NO
[2018-05-06 07:24] LABS: Anion Gap 7 (5-15); BUN 23 mg/dL (7-18); BUN/Creat Ratio 24.5 RATIO (10-20); Calcium,Total 8.1 mg/dL (8.5-10.1); Chloride 109 mmol/L (98-107); Creatinine, Serum 0.94 mg/dL (0.70-1.30); EST Glomerular Filtration Rate 83 mL/min (>60); Est Glom Filt Rate - Afr Amer 100 mL/min (>60); Estimated Creatinine Clearance 58.75 ml/min; Glucose 85 mg/dL (74-106); Potassium 4.2 mmol/L (3.5-5.1); Sodium Level 144 mmol/L (136-145)
--- NOTE | 2018-05-06 07:25 | PN_ITS ---
Patient Problems: Active and Suspected Problems RLL pneumonia (Acute) Subjective: Patient was seen and examined. He complains of severe substernal, left-sided chest pain that feels like a dullness, happened while he was lying in bed, did not radiate or was associated with diaphoresis or shortness of breath. Patient says it lasted for a few minutes and the only reason he reported up with that he has been told to call them if he has any pain. He attributes this to his pneumonia. He denies any history of heart condition. Has history of stroke. Initial EKG done shows septal T wave inversions in lead I, slight flattening of T waves in lead III, reversal of T waves in V4, V5, V6. Repeat EKG was requested as well as troponins Vitals/I&O's: Vital Signs Temp Pulse Resp BP Pulse Ox 97.9 F 73 18 160/77 H 96 05/06/18 04:31 05/06/18 04:31 05/06/18 04:31 05/06/18 04:31 05/06/18 04:31 Oxygen Delivery Method Room Air Weight: 64.13 kg Body Mass Index (BMI) 21.4 Intake and Output for Last 24 Hours 05/04/18 05/05/18 05/06/18 23:59 23:59 23:59 Intake Total 1174 / 1174 2392 / 2392 2835 / 2835 Balance 1174 / 1174 2392 / 2392 2835 / 2835 General: Alert, Oriented x3, Cooperative, No apparent distress HEENT: Atraumatic, PERRLA, EOMI, Normocephalic Oral: Moist Mucosa Neck: Supple, No JVD, Negative Carotid Bruits Lungs: Clear to auscultation, Normal air movement Cardiovascular: Regular rate, No murmurs Abdomen: Bowel Sounds Present, Soft, Non Tender, Non-Distended, No Hepato- splenomegaly Extremities: No edema, Capillary Refill Less than 3 Seconds Skin: No rashes, No breakdown Musculoskeletal: No Tenderness to Palpation of Joints or Extremities Neurological: Cranial nerves II-XII grossly intact, - - Tremors of the upper extremities Psych/Mental Status: Normal Affect, Appropriate Microbiology Past 72 Hours 05/05/18 16:30 Stool C. difficile DNA Amplification - Final 05/04/18 17:05 Sputum, Expectorated/Coughed Gram Stain - Final 05/04/18 17:05 Sputum, Expectorated/Coughed Respiratory Culture - Preliminary Appears to be normal respiratory shanon. Further studies to follow. 05/04/18 20:50 Urine, Clean Catch Streptococcus pneumoniae Antigen (M - Final 05/04/18 20:50 Urine, Clean Catch Legionella Antigen - Final Laboratory Results 05/06/18 06:45: WBC 9.0, RBC 4.46 L, Hgb 12.0 L, Hct 36.9 L, MCV 82.7, MCH 26.9 L, MCHC 32.5, RDW 15.0 H, RDW Differential 45.6 H, Plt Count 263, MPV 8.7, Immature Gran % (Auto) 0.100, Neut % (Auto) 40.2 L, Lymph % (Auto) 54.6 H, [place] % (Auto) 3.6, Eos % (Auto) 1.4, Baso % (Auto) 0.1, Absolute Neuts (auto) 3.6, Absolute Lymphs (auto) 4.91 H, Total Counted Not Reportable 05/06/18 06:45: Sodium 144, Potassium 4.2, Chloride 109 H, Carbon Dioxide 28.0, Anion Gap 7, BUN 23 H, Creatinine 0.94, Estim Creat Clear Calc 58.75, Est GFR (MDRD) Af Amer 100, Est GFR (MDRD) Non-Af 83, BUN/Creatinine Ratio 24.5 H, Glucose 85, Calcium 8.1 L 05/06/18 06:45: Troponin I Pending Current Medications Acetaminophen (Tylenol) 650 mg PO Q6H PRN PRN PRN Reason: PAIN Albuterol Sulfate (Ventolin Aerosols) 2.5 mg INHALATION Q2H PRN PRN PRN Reason: dyspnea, wheezing Albuterol/Ipratropium (Duoneb) 3 ml INHALATION Q4HWA.RT GLENDY Last Admin: 05/05/18 18:53 Dose: 3 ml Amlodipine Besylate (Norvasc) 10 mg PO DAILY GLENDY Last Admin: 05/05/18 09:25 Dose: 10 mg Atorvastatin Calcium (Lipitor) 10 mg PO QHS GLENDY Last Admin: 05/05/18 20:22 Dose: 10 mg Diphenoxylate HCl/Atropine (Lomotil) 1 tablet PO 4X/DAY PRN PRN PRN Reason: LOOSE STOOLS Last Admin: 05/06/18 04:30 Dose: 1 tablet Enoxaparin Sodium (Lovenox) 40 mg SC DAILY@0600 [facility] Last Admin: 05/06/18 06:22 Dose: 40 mg Hydrochlorothiazide (Hydrochlorothiazide) 12.5 mg PO DAILY [facility] Last Admin: 05/05/18 09:19 Dose: 12.5 mg Ampicillin Sodium/Sulbactam (Sodium 3 gm/ Sodium Chloride) 112 mls @ 150 mls/hr IV Q8 [facility] Last Admin: 05/06/18 06:22 Dose: 150 mls/hr Azithromycin 500 mg/ Dextrose 255 mls @ 250 mls/hr IV Q24@2200 [facility] Last Admin: 05/05/18 22:26 Dose: 250 mls/hr Sodium Chloride () 250 mls @ 15 mls/hr IV .[id number] PRN PRN Reason: SALINE FLUSH Lactobacillus Acidophilus (Acidophilus) 1 tablet PO 4X/DAY [facility] Last Admin: 05/05/18 22:26 Dose: Not Given Lisinopril (Zestril) 40 mg PO DAILY [facility] Last Admin: 05/05/18 09:20 Dose: 40 mg Magnesium Hydroxide (Milk Of Magnesia) 30 ml PO DAILY PRN PRN PRN Reason: Constipation Nutritional Formula (Lactose Free) (Ensure Enlive) 120 ml PO 4X/DAY [facility] Last Admin: 05/05/18 20:22 Dose: Not Given Pantoprazole Sodium (Protonix) 20 mg PO DAILY [facility] Last Admin: 05/05/18 09:25 Dose: 20 mg Primidone (Mysoline) 150 mg PO TID@0600,1200,1800 [facility] Last Admin: 05/06/18 06:22 Dose: 150 mg Propranolol HCl (Inderal La) 120 mg PO DAILY [facility] Last Admin: 05/05/18 09:19 Dose: 120 mg Sodium Chloride () 5 - 30 ml IV UD PRN PRN Reason: SALINE FLUSH Tamsulosin HCl (Flomax) 0.4 mg PO DAILY@1730 [facility] Last Admin: 05/05/18 18:09 Dose: 0.4 mg Medical Necessity - Tobacco Use Smoking Status: Former smoker Tobacco Use: Cigarettes Assessment/Plan All Active Problems RLL pneumonia (Acute) 27-year-old male with past medical history of TIA/CVA, carotid stenosis, hypertension, hyperlipidemia, essential tremors, who comes in with complaints of cough, shortness of breath and weight loss ongoing for a week. Patient was recently treated for right lower lobe pneumonia and discharged on oral Levaquin but was admitted with progressive weakness and ongoing shortness of breath. 1. Acute chest pain, unclear etiology, no history of CAD, EKG shows subtle T wave changes, initial troponin is 0.024, trend troponins, repeat EKG 2. Acute right lower lobe community-acquired pneumonia/aspiration pneumonia, on IV Unasyn and azithromycin, seen on CT scan of the chest Followed by speech therapy in the hospital and mild to moderate oropharyngeal dysphagia diagnosed. 3. Oropharyngeal dysphagia, mild to moderate, on a regular textured diet with thin liquids, followed by speech therapy 4. IVANIA, present on admission, resolved, encouraged to taking liberal fluids 5. Hypertension, uncontrolled, on amlodipine, HCTZ, lisinopril 6. Hyperlipidemia, on statin 7. Essential tremor, on propranolol, primidone 8. BPH, on Flomax 9. GERD, on PPI 10. DVT prophylaxis with Lovenox SC Code Visit Inpatient E&M: 45149 Subs Hosp L2
--- NOTE | 2018-05-06 07:32 | EKG12_ITS ---
Test Reason : REPEAT Blood Pressure : / mmHG Vent. Rate : 081 BPM Atrial Rate : 081 BPM P-R Int : 154 ms QRS Dur : 134 ms QT Int : 416 ms P-R-T Axes : 023 -46 071 degrees QTc Int : 483 ms Sinus rhythm with occasional Premature ventricular complexes Left axis deviation Right bundle branch block Septal infarct , age undetermined Abnormal ECG Confirmed by JAZZ GUNN, JUSTO ([id number]), editor trade journal JESS NOVAK ([id number]) on 05/17/2018 11:05:47 AM Referred By: AIDEN Confirmed By:JUSTO SCHULZ MD
--- NOTE | 2018-05-06 07:37 | NURSING ---
0720 DR DAVIS NOTIFIED. NEW ORDERS ENTERED. 0730 DR DAVIS IN TO ASSESS PT. REQUESTS REPEAT EKG. 0732 CPS NOTIFIED OF NEW ORDER.
--- NOTE | 2018-05-06 07:40 | NURSING ---
0733 bp 154/71 spo2 98% on ra hr 73 REPORT GIVEN TO CELIA DUNAWAY
[2018-05-06 08:00] VITALS: BP 148/70
--- NOTE | 2018-05-06 08:45 | EKG12_ITS ---
Test Reason : CP Blood Pressure : / mmHG Vent. Rate : 073 BPM Atrial Rate : 073 BPM P-R Int : 164 ms QRS Dur : 138 ms QT Int : 430 ms P-R-T Axes : 057 -47 -62 degrees QTc Int : 473 ms Normal sinus rhythm Right bundle branch block Left anterior fascicular block Bifascicular block Septal infarct , age undetermined Abnormal ECG Confirmed by JAZZ GUNN, JUSTO ([id number]), editor school photograph JESS NOVAK ([id number]) on 05/17/2018 11:06:03 AM Referred By: Confirmed By:JUSTO SCHULZ MD
[2018-05-06] MEDS: Propranolol LA 60 MG Capsule 120 MG PO (09:14)
[2018-05-06] MEDS: amLODIPine 10 MG Tablet PO (09:14)
[2018-05-06] MEDS: HYDROCHLOROTHIAZIDE 12.5 MG CAPSULE PO (09:14)
[2018-05-06 09:15] VITALS: BP 171/84; PULSE 69; RESP 18; TEMP 36.6; O2SAT 98
[2018-05-06] MEDS: Lisinopril 40 MG Tablet PO (09:15)
[2018-05-06] MEDS: Pantoprazole Sodium 20 MG Tablet PO (09:15)
[2018-05-06 14:20] VITALS: BP 138/67; PULSE 67; RESP 16; TEMP 36.5; O2SAT 97
[2018-05-06] MEDS: Tamsulosin HCl 0.4 MG Capsule PO (16:48)
[2018-05-06] MEDS: Atorvastatin Calcium 10 MG Tablet PO (16:49)
[2018-05-06 20:20] VITALS: BP 146/74; PULSE 65; RESP 16; TEMP 36.8; O2SAT 98
[2018-05-07] MEDS: Diphenoxylate/Atrop 1 Tablet PO (00:18)
[2018-05-07 02:20] VITALS: BP 150/69; PULSE 75; RESP 18; TEMP 36.9; O2SAT 95
[2018-05-07] MEDS: Enoxaparin 40 MG/0.4 ML Syringe SC (05:30)
[2018-05-07] MEDS: Primidone 50 MG Tablet 150 MG PO (05:30)
[2018-05-07 07:08] VITALS: O2SAT 95
--- NOTE | 2018-05-07 07:44 | DCINST_ITS ---
- Discharge Diagnoses Current Active Problems: Current Active and Chronic Problems RLL pneumonia (Acute) Essential tremor (Chronic) Reason(s) for Visit for Discharge Instructions: Cough, pneumonia You will use the following diet at home:: Cardiac Your food should be the consistency of: Regular Your liquids should be the consistency of: Regular/Thin Discharge Activity: Return to Normal Activity Additional Instructions: DIET TEXTURE RECOMMENDATIONS: Regular textured, thin liquid diet. COMPENSATORY STRATEGIES RECOMMENDED: sit upright at 90 degrees during meals,remain upright for 30-60 minutes post meal (GERD precaution). Complete your antibiotics. Follow-up with your neurologist. Follow-up with speech therapy in the outpatient. A listr of primary care doctors will be given to you per your request for new PCP. Allergies/Adverse Reactions: Allergies Iodine and Iodide Containing Produc Allergy (Verified 04/27/18 07:57) Rash Sulfa (Sulfonamide Antibiotics) Allergy (Verified 04/27/18 07:57) Rash Medications to take at Discharge Atorvastatin Calcium 10 mg PO QHS 01/24/17 Hydrochlorothiazide 12.5 mg PO DAILY 01/24/17 Omeprazole [Prilosec] 20 mg PO DAILY 01/24/17 Primidone [Mysoline] 150 mg PO TID 01/24/17 Tamsulosin HCl [Flomax] 0.4 mg PO DAILY 01/24/17 Amlodipine [Norvasc] 10 mg PO DAILY 05/04/18 Lisinopril [Zestril] 40 mg PO DAILY 05/04/18 Propranolol HCl [Propranolol HCl ER] 120 mg PO DAILY 05/04/18 Acetaminophen [Tylenol Tablet] 650 mg PO Q6H PRN PRN tablet 05/07/18 Acetaminophen/Codeine #3 [Tylenol #3 Tablet] 1 tablet PO BID 15 Days #30 tablet 05/07/18 Amox/Clavulanate Tablet [Augmentin Tablet] 875 mg PO Q12H #12 tablet 05/07/18 Azithromycin 500 mg PO X1 #1 tablet 05/07/18 Ensure Enlive 120 ml PO 4X/DAY #100 liquid 05/07/18 Lactobacillus Acidophilus [Acidophilus] 1 tablet PO 4X/DAY #30 tablet 05/07/18 The following prescriptions were given: Amox/Clavulanate Tablet [Augmentin Tablet] 875 mg PO Q12H #12 tablet Azithromycin 500 mg PO X1 #1 tablet Acetaminophen/Codeine #3 [Tylenol #3 Tablet] 1 tablet PO BID 15 Days #30 tablet Ensure Enlive 120 ml PO 4X/DAY #100 liquid Lactobacillus Acidophilus [Acidophilus] 1 tablet PO 4X/DAY #30 tablet Primary Care Physician: Dilshad Vallejo MD [Primary Care Provider] - Please follow up with your Primary Care Physician in: within 2 weeks Test Results: Test results from this visit will be discussed in further detail at your follow- up appointment, if applicable. When: Neurologist for follow-up on your tremors Proposed Discharge Date: 05/07/18
--- NOTE | 2018-05-07 07:49 | PCM.DC.SUM ---
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 Interval improvement in right lower lobe pneumonia. 2. Left lower lobe lung cyst or bulla. Electronically Signed: Romi Head MD at 16:06 EDT Tel , Service support , Chest CTA 05/04/18 16:00 IMPRESSION: 1. Right lower lobe pneumonia. 2. COPD. 3. No evidence of pulmonary embolus or aortic dissection. 4. Atrophic right kidney. 5. Hepatic hypodensities, too small to characterize. Electronically Signed: Romi Head MD at 17:56 EDT Tel , Service support , Videofluoroscopic Swallow 05/05/18 13:30 IMPRESSION: Please see speech pathologist report same day for additional details. Mild transient laryngeal penetration and aspiration without dotty aspiration below the vocal cords noted. Increased risk for aspiration. Limitations noted above. The swallow study findings were discussed with the patient by the speech pathologist at the conclusion of the examination. Please see speech pathology report for more information and recommendations. The procedure was performed by Ivonne Medeiros under the direct supervision of Dr. Cain. Electronically Signed: Oleg Cain at 15:07 EDT Tel , Service support , None Operations: None Procedures: None Summary of Care Provided: The patient is a 77 year old M with past medical history of TIA/CVA, carotid stenosis, hypertension, hyperlipidemia, essential tremors, who comes in with complaints of cough, shortness of breath and weight loss ongoing for a week. Patient was recently treated for right lower lobe pneumonia and discharged on oral Levaquin. He had complained of weight loss, nausea and questionable hemoptysis. Admitting blood work was significant for elevated d-dimer, CTA of the chest to rule out PE demonstrated persistent right lower lobe infiltrate. He was also found to have IVANIA secondary to dehydration. Patient was admitted to the telemetry bed, managed on IV fluids and IV antibiotics. He was seen by speech therapy for concerns of aspiration pneumonia. He was found to have mild to moderate oropharyngeal dysphagia. Recommendations were made by speech therapy. Patient was managed on IV Augmentin and azithromycin with improvement. During the course of his hospital stay, he had complained of chest pain, that was left-sided, worse with breathing. EKG had initially shown some subtle T wave changes, repeat EKGs were normal. Troponins were trended and were negative for any unstable angina or NSTEMI. He continued to improve and was discharged to follow-up with outpatient physical, occupational and speech therapy. He was recommended to follow-up in the outpatient with neurology for his bilateral upper extremity tremors, concerning for possible Parkinson's disease diagnosis. Subjective: On the day of discharge, patient felt well, denied any new complaints. Objective: General: Alert, Oriented x3, Cooperative, No apparent distress HEENT: Atraumatic, PERRLA, EOMI, Normocephalic Oral: Moist Mucosa Neck: Supple, No JVD, Negative Carotid Bruits Lungs: Clear to auscultation, Normal air movement Cardiovascular: Regular rate, No murmurs Abdomen: Bowel Sounds Present, Soft, Non Tender, Non-Distended, No Hepato-splenomegaly Extremities: No edema, Capillary Refill Less than 3 Seconds Skin: No rashes, No breakdown Musculoskeletal: No Tenderness to Palpation of Joints or Extremities Neurological: Cranial nerves II-XII grossly intact, - - Tremors of the upper extremities Psych/Mental Status: Normal Affect, Appropriate - Physical Exam Vital Signs Temp Pulse Resp BP Pulse Ox 98.4 F 75 18 150/69 H 95 05/07/18 02:20 05/07/18 02:20 05/07/18 02:20 05/07/18 02:20 05/07/18 07:08 Oxygen Delivery Method Room Air Weight: 64.13 kg Body Mass Index (BMI) 21.4 Intake and Output for Last 24 Hours 05/05/18 05/06/18 05/07/18 23:59 23:59 23:59 Intake Total 2392 / 2392 3671 / 3671 1035 / 1035 Output Total 200 / 200 Balance 2392 / 2392 3671 / 3671 835 / 835 Microbiology Past 72 Hours 05/04/18 17:05 Gram Stain - Final Sputum, Expectorated/Coughed Respiratory Culture - Final Presumptive C albicans 05/04/18 15:35 Blood Culture - Preliminary Blood Culture (Wb) - Right Forearm No growth in 48 hours. 05/04/18 15:30 Blood Culture - Preliminary Blood Culture (Wb) - Anticubital Left No growth in 48 hours. 05/05/18 16:30 C. difficile DNA Amplification - Final Stool 05/04/18 20:50 Streptococcus pneumoniae Antigen (M - Final Urine, Clean Catch 05/04/18 20:50 Legionella Antigen - Final Urine, Clean Catch Laboratory Tests Past 24 Hrs 05/06/18 05/06/18 09:42 12:32 Troponin I 0.029 0.030 Discharge Diet: Low fat/ Low Cholesterol, 2000 mg Sodium Diet, - - Thin liquids Discharge Activity: Return to Normal Activity Home Medications: Medications to take at Discharge Atorvastatin Calcium 10 mg PO QHS 01/24/17 Hydrochlorothiazide 12.5 mg PO DAILY 01/24/17 Omeprazole [Prilosec] 20 mg PO DAILY 01/24/17 Primidone [Mysoline] 150 mg PO TID 01/24/17 Tamsulosin HCl [Flomax] 0.4 mg PO DAILY 01/24/17 Amlodipine [Norvasc] 10 mg PO DAILY 05/04/18 Lisinopril [Zestril] 40 mg PO DAILY 05/04/18 Propranolol HCl [Propranolol HCl ER] 120 mg PO DAILY 05/04/18 Acetaminophen [Tylenol Tablet] 650 mg PO Q6H PRN PRN tablet 05/07/18 Acetaminophen/Codeine #3 [Tylenol #3 Tablet] 1 tablet PO BID 15 Days #30 tablet 05/07/18 Amox/Clavulanate Tablet [Augmentin Tablet] 875 mg PO Q12H #12 tablet 05/07/18 Azithromycin 500 mg PO X1 #1 tablet 05/07/18 Ensure Enlive 120 ml PO 4X/DAY #100 liquid 05/07/18 Lactobacillus Acidophilus [Acidophilus] 1 tablet PO 4X/DAY #30 tablet 05/07/18 Following Prescrptions Were Given to Patient: Amox/Clavulanate Tablet [Augmentin Tablet] 875 mg PO Q12H #12 tablet Azithromycin 500 mg PO X1 #1 tablet Acetaminophen/Codeine #3 [Tylenol #3 Tablet] 1 tablet PO BID 15 Days #30 tablet Ensure Enlive 120 ml PO 4X/DAY #100 liquid Lactobacillus Acidophilus [Acidophilus] 1 tablet PO 4X/DAY #30 tablet Primary Care Physician: Dilshad Vallejo MD [Primary Care Provider] - Please follow up with your Primary Care Physician in: within 2 weeks When: Neurologist for follow-up on your tremors Disposition: Home - Outpatient therapy at [facility] Minutes spent on discharge:: 40 Patient Condition:: Stable Medical Necessity - Tobacco Use Smoking Status: Former smoker Tobacco Use: Cigarettes Meaningful Use Info Meaningful Use Diagnoses (Choose all that apply): None applicable Code Visit Inpatient E&M: 85939 Disch Hosp
[2018-05-07 08:03] VITALS: BP 177/74; PULSE 79; RESP 18; TEMP 36.8; O2SAT 97
[2018-05-07] MEDS: HYDROCHLOROTHIAZIDE 12.5 MG CAPSULE PO (08:12)
[2018-05-07] MEDS: Lisinopril 40 MG Tablet PO (08:12)
[2018-05-07] MEDS: Pantoprazole Sodium 20 MG Tablet PO (08:12)
[2018-05-07] MEDS: amLODIPine 10 MG Tablet PO (08:12)
[2018-05-07] MEDS: Propranolol LA 60 MG Capsule 120 MG PO (08:13)
--- NOTE | 2018-05-07 11:01 | NURSING ---
patient requested information regarding PCP that has office in hospital and was adamant that his new doctor must be here. Given information for Dr. Horton, as well as other doctors in area. Patient notified this RN that he does not agree that he obtained pneumonia by aspiration- but due to the fact that he sweats at night and has air conditioner that blows on him. Pt refused any therapy evals. This RN spoke with patient had his and educated them on role that therapy can play in preventing future hospitalizations. Understanding verbalized. Patient voiced concern about having to pay out of pocket. Advised patient to call his insurance prior to going to make sure it will be covered by insurance. Again pt. and verbalized understanding. Patient given address and phone number for [facility] and advised to call for appointment. Educated to make sure order is taken with him to appointment- understanding verbalized. Hector with ST went in to reinforce education regarding follow up with therapy. Patient requested flu vaccine prior to d/c. He states that the nurse in ER told him to refuse upon arrival to unit and then at time of discharge tell staff that he wanted it. Flu vaccine given. Patient remained on unit for 30 minutes afterward prior to being discharged. Pt tolerated well. Wheelchair obtained and pt taken down to 's awaiting car. Pt discharge instructions given with list of times that meds were given and highlighted medication times that need to be taken for remainder of day. Pt verbalized understanding
--- NOTE | 2018-05-11 16:04 | CASEMGMT ---
CELIA JIANG Discharge Follow-Up Phone Call. LACE: 12 Strata: 4 Discharge Date: 05/07/18 Adm Dx: RLL Pneumonia CELIA JIANG spoke with pt to see how he has been doing since he left the hospital. Pt states he has been getting along pretty good. Pt reports he was able to pickle solution maker all of his prescriptions and denies having any questions. Pt reports that he was able to get established with a new PCP, Dr Rawls, and has already been in to see Dr Rawls on this past Thursday. Pt states he did start having some diarrhea since he has been home and that he did address this with Dr Rawls at the appt. Pt reports he went to [facility] today for Speech therapy appt but that he does not need physical or occupational therapy and is not interested in seeing any other therapists. Pt reports that he had an existing appt with his neurologist prior to coming to the hospital but that it isn't until October and that he is planning on calling tomorrow to get an earlier appt for his tremors. Pt denies having any questions about his discharge instructions or other questions/concerns. CELIA JIANG thanked pt for taking the time to talk to CELIA JIANG and thanked him for choosing [facility]. Zaria REID RN, CM
== END 2018-05-07 10:58 | disposition home or self-care (01) | DRG 190 ==
LOC: ED 15:41 → MS2 18:41
PROVIDERS: Physician Assistant; Admitting Provider Family Medicine; Emergency Provider Emergency Medicine; Family Provider Internal Medicine; PCP Internal Medicine; Visit Provider Internal Medicine
DX: J44.0 Chronic obstructive pulmonary disease with (acute) lower respiratory infection (principal); J18.9 Pneumonia, unspecified organism; J69.0 Pneumonitis due to inhalation of food and vomit; E86.0 Dehydration; I12.9 Hypertensive chronic kidney disease with stage 1 through stage 4 chronic kidney disease, or unspecified chronic kidney disease; N18.2 Chronic kidney disease, stage 2 (mild); I27.9 Pulmonary heart disease, unspecified; R13.12 Dysphagia, oropharyngeal phase; R74.8 Abnormal levels of other serum enzymes; E78.5 Hyperlipidemia, unspecified; N40.0 Benign prostatic hyperplasia without lower urinary tract symptoms; R19.7 Diarrhea, unspecified; K21.9 Gastro-esophageal reflux disease without esophagitis; F41.9 Anxiety disorder, unspecified; Z79.899 Other long term (current) drug therapy; Z87.891 Personal history of nicotine dependence; Z86.73 Personal history of transient ischemic attack (TIA), and cerebral infarction without residual deficits
CPT/HCPCS: 36415; 71046; 71275; 74230; 80048; 80076; 83605; 83690; 84484; 85025; 85379; 87040; 87070; 87205; 87449; 87493; 92526; 92611; 93005; 94640; 94760; 97162; 97165; 97802; 99285; J7030; J7040; Q9967; 90686; A4216; J0295

== ENCOUNTER 2018-05-11 08:21 | Outpatient (RCR) | payer MEDICARE, BC, SELFPAY ==
--- NOTE | 2018-05-11 11:48 | HP.SP.AD ---
History - History Date of Eval: 05/11/18 Medical Diagnosis (from RX): Oropharyngeal dysphagia Date of Onset of Diagnosis: 05/04/18 Previous speech therapy: Yes Results: In the Hospital during recent stay. Other Relevant Medical History/Diagnoses/Surgery: Pt had a growth removed in his throat at age 44. Patient reported that he has a an appointment to get his lungs evaluated on June 10 with a specialist. ssential tremor (Chronic). HTN (hypertension) (Chronic). Hyperlipidemia (Chronic). History of tobacco use (Chronic). Esophageal reflux (Chronic). 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 Carotid artery occlusion without infarction (Chronic). Spinal stenosis of lumbar region without neurogenic claudication (Chronic). 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 Anxiety (Chronic) Medications related to this diagnosis: Atorvastatin Calcium 10 mg PO QHS 01/24/17. Hydrochlorothiazide 12.5 mg PO DAILY 01/24/17. Omeprazole [Prilosec] 20 mg PO DAILY 01/24/17. Primidone [Mysoline] 150 mg PO TID 01/24/17. Tamsulosin HCl [Flomax] 0.4 mg PO DAILY 01/24/17. Amlodipine [Norvasc] 10 mg PO DAILY 05/04/18. Lisinopril [Zestril] 40 mg PO DAILY 05/04/18. Propranolol HCl [Propranolol HCl ER] 120 mg PO DAILY 05/04/18. Acetaminophen [Tylenol Tablet] 650 mg PO Q6H PRN PRN tablet 05/07/18. Acetaminophen/Codeine #3 [Tylenol #3 Tablet] 1 tablet PO BID 15 Days #30 tablet 05/07/18. Amox/Clavulanate Tablet [Augmentin Tablet] 875 mg PO Q12H #12 tablet 05/07/18. Azithromycin 500 mg PO X1 #1 tablet 05/07/18. Ensure Enlive 120 ml PO 4X/DAY #100 liquid 05/07/18. Lactobacillus Acidophilus [Acidophilus] 1 tablet PO 4X/DAY #30 tablet 05/07/18 Smoking Status: Former smoker Hx Smoking: Yes - quit at age 44 Years Smokin Hx Tobacco Use: No - Pain Is pain an issue with your current prescribed condition?: No - Personal Education History: 12th grade and most of college degree. Occupation: Retired. Right Hearing Abillity: Hard of Hearing Left Hearing Abillity: Hard of Hearing Visual Assistive Devices: Glasses Patients Living Arrangements: With Significant Other Patient Allergies - Allergies Allergies Iodine and Iodide Containing Produc Allergy (Verified 04/27/18 07:57) Rash Sulfa (Sulfonamide Antibiotics) Allergy (Verified 04/27/18 07:57) Rash Subjective Dysphagia - Symptoms Reported Symptoms/Problems with: Hx of Pneumonia - Current Diet Solids Current Diet: Regular - Current Diet Liquids Current Liquids: Thin [place] free water Protocol: No Objective Dysphagia - Administered by Administered by: Self - Thin Liquids Administred via: Cup Laryngeal Elevation: WFL Oral Holding: No Gagging: No - Regular Laryngeal Elevation: WFL Oral Holding: No Gagging: No Patient Report: No reported deficits by patient. - Results Swallowing Within Normal Limits: No Swallowing Diagnosis: Oropharyngeal Phase Dysphagia Severity: Mild Modified Barium Results Hx MBS Report Entered: Yes MBS Results (from prior exam): 05/11/18 11:46 Speech Therapy by John Vela Modified Barium Swallow Study MR#: [id number] Acct: [id number] Name: MELY HATCH Rep #: [id number] : [id number] 77 From: Hector David M.A. CFY-ELECTRICIAN HELPER [employer]OWER[employer] PRIMARY / SECONDARY DIAGNOSIS: dysphagia (R13.10) REFERRING PHYSICIAN: Dr. Faith Vela MD CURRENT DIET: regular textures, thin liquids DENTITION: upper / lower dentures in place MENTAL STATUS: appropriate for participation RESPIRATORY STATUS: O2 via room air PREVIOUS MODIFIED BARIUM SWALLOW STUDY: none REASON FOR REFERRAL: Patient is a 77 year old male referred for a modified barium swallow (MBS) study to objectively assess the Patients oropharyngeal swallow function under fluoroscopy secondary to recently diagnosed right lower lobe pneumonia with suspected aspiration component. Patient reports persistent respiratory issue since the beginning of March (ongoing productive cough, dyspnea) with evaluation via the Patients primary care provider; treated for right lower lobe pneumonia; noted nausea, emesis, and reported increased weakness over the last two days; treated for community acquired pneumonia with possible aspiration component; CURB-65 score: 2 (6.8% mortality risk). 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 Patient furthermore scheduled with [facility] neurology for possible Parkinson's disease. ADDITIONAL OBJECTIVE ASSESSMENT RESULTS: 04/27/2018 CXR revealed progressive right lower lobe infiltrate with blunting of both costophrenic angles; stable linear scarring at the left lung base. 05/04/2018 CXR revealed interval improvement in right lower lobe pneumonia; left lower lobe lung cyst or bulla. 05/04/[address] revealed right lower lobe pneumonia; COPD. 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 STUDY FINDINGS: Patient participated in a Modified Barium Swallow (MBS) study on 05/05/2018. Dr. Cain was the radiologist present for this evaluation. This study was recorded in the lateral view and images were sent to PACs for storage. The following consistencies were presented to this patient for analysis of oropharyngeal swallow function: thin liquids, nectar thickened liquids, pudding, and a regular textured, Isidra Doone cookie. Results of the MBS are as follows: PENETRATION / ASPIRATION SCALE (CASTRO): 1 = does not enter airway 2 = enters airway/above vocal folds/ejected 3 = enters airway/above vocal folds/not ejected 4 = enters airway/contacts vocal folds/ejected 5 = enters airway/contacts vocal folds/not ejected 6 = enters airway/below vocal folds/ejected 7 = enters airway/below vocal folds/not ejected despite effort 8 = enters airway/below vocal folds/no effort VIDEOFLOROSCOPIC SCALE SCORE (CASTRO): Grade I = aspiration of material that has penetrated into the laryngeal vestibule, intact cough reflex Grade II = aspiration < 10 % of the bolus, intact cough reflex Grade III = aspiration of < 10 % of the bolus, reduced cough reflex or aspiration of > 10 % of the bolus, intact cough reflex Grade IV = aspiration of > 10 % of the bolus, reduced cough reflex PENETRATION / ASPIRATION SCALE (SCORE) WITH VIDEOFLOROSCOPIC SCALE SCORE: Thin liquid - 5 mL tsp.: 1 Thin liquids via cup (single sip): 1 Thin liquids via cup (single sip): 1 Thin liquids via cup (single sip): 1 Thin liquids via cup (sequential swallows): 7 - Grade II Thin liquids via straw (single sip): 1 Thin liquids via straw (sequential swallows): 5 Pudding via spoon: 1 Regular textured cookie: 1 Thin liquids via cup (chin tuck): 1 Thin liquids via cup (chin tuck): 1 Thin liquids via cup (sequential swallows): 7 - Grade II [place] thickened liquids via cup (single sip): 1 [place] thickened liquids via cup (sequential swallows): 2 IMPRESSION: DIAGNOSIS: mild to moderate oropharyngeal dysphagia (R13.12) ORAL PHASE CHARACTERIZED BY: LABIAL SEAL: no labial escape TONGUE CONTROL DURING BOLUS MANIPULATION: cohesive bolus between tongue to palatal seal BOLUS PREPARATION / MASTICATION: timely and efficient chewing and mashing BOLUS TRANSPORT / LINGUAL MOTION: brisk tongue motion ORAL RESIDUE: residue collection on oral structures PHARYNGEAL PHASE CHARACTERIZED BY: INITIATION OF PHARYNGEAL SWALLOW: bolus head at posterior laryngeal surface of epiglottis at first hyoid excursion SOFT PALATE ELEVATION: no bolus between soft palate and pharyngeal wall LARYNGEAL ELEVATION: complete superior movement of thyroid cartilage with complete approximation of arytenoids cartilage to epiglottic petiole ANTERIOR HYOID EXCURSION: intermittent partial anterior movement EPIGLOTTIC MOVEMENT: complete epiglottic inversion LARYNGEAL VESTIBULE CLOSURE AT HEIGHT OF SWALLOW: incomplete laryngeal vestibule closure with narrow column of air/contrast in laryngeal vestibule PHARYNGEAL STRIPPING WAVE: pharyngeal stripping wave present / mildly diminished PHARYNGOESOPHAGEAL SEGMENT OPENING: partial distension and partial duration; partial obstruction of flow TONGUE BASE RETRACTION: narrow column of contrast between tongue base and posterior pharyngeal wall PHARYNGEAL RESIDUE: intermittent collection of residue within or on pharyngeal structures ESOPHAGEAL PHASE CHARACTERIZED BY: ESOPHAGEAL BOLUS CLEARANCE IN THE UPRIGHT POSITION: mild intermittent esophageal retention with retrograde flow below pharyngoesophageal segment (PES) EFFECTS OF TREATMENT STRATEGIES ATTEMPTED: Chin tuck posture = ineffective Reduced bolus size = effective DIET TEXTURE RECOMMENDATIONS: Will recommend a regular textured, thin liquid diet. COMPENSATORY STRATEGIES RECOMMENDED: Supervision, reduced bolus volume, reduced rate of intake, seated upright at 90 degrees during PO intake, remain upright for 30-60 minutes post meal (GERD precaution) INTERPRETATION OF RESULTS: Patient presents with mild to moderate oropharyngeal dysphagia (R13.12) likely influenced by a combination of factors, to include prior laryngeal tumor status post resection resulting in persistent and moderate dysphonia, chronic obstructive pulmonary disease (per recent imaging), prior cerebral infarction without residual deficit, and secondary presbyphagia; reported workup for Parkinson?s disease at [facility] ongoing, possibly representing another contributing factor. Swallow profile primarily marked by delayed pharyngeal swallow onset timing resulting in suboptimal bolus location upon swallow onset; reduced closure of the airway during deglutition attributed to reduced anterior hyoid excursion resulting in poor laryngeal vestibule closure / pressure / duration with insufficient laryngeal vestibule pressure generated to expel penetrated material; all deficits contributing to prandial penetration and subsequent grade II overt aspiration of thin liquids via cup (sequential swallows). All deficits ameliorated with bolus volume adjustments and appropriate positioning. No significant difference between nectar thickened liquid and thin liquid tolerance under fluoroscopy. Insufficient cough intensity to expel penetrated material / laryngotracheal aspiration. Patient noted to overtly aspirate during sequential trials of thin liquids, suggesting clinical assessment at bedside relying on identification of classic overt signs and symptoms of aspiration may be sufficient to assess for PO texture tolerance. RECOMMENDATIONS: Patient requires intensive skilled speech-language intervention targeting continued diet texture management; training and implementation of recommended compensatory strategies; Patient and caregiver education regarding dysphagia associated with chronic obstructive pulmonary disease, presbyphagia, and possible Parkinson?s disease pending workup completion. Would consider further workup via wafer fab operator regarding the Patients persistent dysphonia, if not already completed. ADDITIONAL COMMENTS/RECOMMENDATIONS: Results and recommendations were discussed with the Patient immediately following MBS completion, with the Patient verbalizing understanding and agreement with all recommendations and education provided. IMAGE COUNT: [id number] G-CODES: SWALLOWING [id number] Current Status: SWALLOWING G8997 Goal Status: SWALLOWING G8998 Discharge Status: THUAN David M.A., CCC-[employer]LECT[employer] Initialized on 05/11/18 11:46 - END OF NOTE Subjective Clinical Impression - Adult Clinical Impression Harshness: irregular vocal fold vibrations creating a 'raspy' or unmusical tone; a combination of hoarseness and breathiness: Present Other Impressions - Comments Voice -: Patient reported that his vioce has been raspy since he had surgery at age 44 for a growth removed from his throat. He stated his voice is at baseline. Volume was appropriate. Plan - Plan Plan: No further therapy necessary. - Recommendations MBS: No Treatment Warranted: No Education - Patient Instruction Patient Education: Diagnosis, Safety Precautions Other Education: Extensive education provided for swallow strategies. Provided in written and verbal form. Person Taught: Patient Teaching Method: Discussion, Handout Response to teaching: Verbalize understanding, Has Prior Knowledge
== END 2018-05-11 19:00 | disposition home or self-care (01) ==
LOC: SP 08:21
PROVIDERS: Family Provider Internal Medicine; PCP Internal Medicine; Referring Provider Internal Medicine
DX: R13.12 Dysphagia, oropharyngeal phase (principal); M48.061 Spinal stenosis, lumbar region without neurogenic claudication
CPT/HCPCS: 92610

== ENCOUNTER → 2018-07-01 11:01 | Outpatient (CLI) | payer MEDICARE, BC, SELFPAY ==
[2018-07-01 11:53] LABS: PSA,Total - Annual Screen 2.69 ng/mL (0.00-4.00)
== END ==
PROVIDERS: Family Provider Internal Medicine; PCP Internal Medicine; Referring Provider Urology; Visit Provider Urology
DX: Z12.5 Encounter for screening for malignant neoplasm of prostate (principal)
CPT/HCPCS: 36415; 84153; G0103

== ENCOUNTER → 2018-09-27 09:42 | Outpatient (CLI) | payer MEDICARE, BC, SELFPAY ==
--- NOTE | 2018-09-27 09:52 | RAD_ITS ---
STUDY: X-RAY - RIGHT SHOULDER REASON FOR EXAM: Male, 78 years old. Pain TECHNIQUE: 4 view(s) of the shoulder. COMPARISON: None. FINDINGS: Normal glenohumeral articulation. Mild degenerative changes at the acromioclavicular joint. Normal acromion. Normal humeral head and visualized proximal humerus. The soft tissue structures are unremarkable. Normal visualized pulmonary apex. RAD/Shoulder min 2 Views IMPRESSION: Mild degenerative changes of the shoulder. Electronically Signed: Kofi Syed DO at 20:56 EST Tel [phone], Service support ,
== END ==
PROVIDERS: Family Provider Internal Medicine; PCP Internal Medicine; Referring Provider Anesthesiology Pain Medicine; Visit Provider Anesthesiology Pain Medicine
DX: M25.511 Pain in right shoulder (principal)
CPT/HCPCS: 73030

== ENCOUNTER → 2018-10-05 11:56 | Outpatient (CLI) | payer MEDICARE, BC, SELFPAY ==
[2018-10-05 12:39] LABS: Hematocrit 42.2 % (40-54); Mean Corp Hgb Conc 33.2 g/gl (32-36); Mean Corpuscular Hgb 28.3 pg (27.0-32.0); Mean Corpuscular Volume 85.4 fL (80-94); Platelet Count 223 K/mm3 (150-450); RBC Distribution Width CV 14.6 % (11.6-14.6); RBC Distribution Width SD 44.9 fl (35.1-43.9); Red Blood Count 4.94 M/mm3 (4.6-6.2)
[2018-10-05 12:40] LABS: Scan Indicated on CBC? Y/N NO
[2018-10-05 13:12] LABS: ALB/GLOB Ratio 1.1 RATIO (0.9-2.4); AST(SGOT) 21 U/L (15-37); Alanine Aminotransfer ALT/SGPT 19 U/L (16-61); Albumin, Serum 3.5 g/dL (3.2-5.0); Alkaline Phosphatase 118 U/L (45-117); Anion Gap 8 (5-15); BUN 25 mg/dL (7-18); BUN/Creat Ratio 21.2 RATIO (10-20); Calcium,Total 8.7 mg/dL (8.5-10.1); Chloride 108 mmol/L (98-107); Creatinine, Serum 1.18 mg/dL (0.70-1.30); EST Glomerular Filtration Rate 63 mL/min (>60); Est Glom Filt Rate - Afr Amer 77 mL/min (>60); Globulin 3.1 g/dL (2.2-4.2); Glucose 94 mg/dL (74-106); Potassium 4.1 mmol/L (3.5-5.1); Protein, Total 6.6 g/dL (6.4-8.2); Sodium Level 147 mmol/L (136-145)
[2018-10-07 07:07] LABS: Ceruloplasmin 38.1 mg/dL (16.0-31.0)
[2018-10-08 09:11] LABS: Copper, Serum or Plasma 149 ug/dL (72-166)
== END ==
PROVIDERS: Family Provider Internal Medicine; PCP Internal Medicine; Referring Provider Psychiatry & Neurology Neurology; Visit Provider Psychiatry & Neurology Neurology
DX: R25.1 Tremor, unspecified (principal)
CPT/HCPCS: 36415; 80053; 82390; 82525; 85027

== ENCOUNTER → 2018-12-27 09:24 | Outpatient (CLI) | payer MEDICARE, BC, SELFPAY ==
--- NOTE | 2018-12-27 09:46 | RAD_ITS ---
STUDY: X-RAY - PELVIS AND BILATERAL HIPS REASON FOR EXAM: Male, 78 years old. Hip pain. TECHNIQUE: AP view of the pelvis.? 2 views of the right hip, and 2 views of the left hip were obtained. COMPARISON: None. FINDINGS: Surgical sutures are seen consistent with previous bilateral inguinal hernia repair. Normal bilateral iliac wings, sacroiliac joints and visualized sacrum. Normal bilateral superior and inferior pubic rami. Normal pubic symphysis. Normal bilateral ischial tuberosities. Normal visualized right femoral head. Normal right acetabulum. There is mild articular joint space narrowing of the right hip. Normal visualized left femoral head. Normal left acetabulum. There is mild articular joint space narrowing of the left hip. RAD/Hips B/L min 2 views w/ Pelvis IMPRESSION: No acute abnormality. Relatively mild osteoarthritis of both hips. Electronically Signed: Kwaku Najera MD at 17:46 EDT , Service support ,
== END ==
PROVIDERS: Family Provider Internal Medicine; PCP Internal Medicine; Referring Provider Anesthesiology Pain Medicine; Visit Provider Anesthesiology Pain Medicine
DX: M25.551 Pain in right hip (principal); M25.552 Pain in left hip
CPT/HCPCS: 73521

== ENCOUNTER → 2019-06-29 09:32 | Outpatient (CLI) | payer MEDICARE, BC, SELFPAY ==
--- NOTE | 2019-06-29 09:35 | RAD_ITS ---
STUDY: X-RAY - RIGHT SHOULDER REASON FOR EXAM: Male, 79 years old. Pain TECHNIQUE: 4 view(s) of the shoulder. COMPARISON: None. FINDINGS: Normal glenohumeral articulation. Normal acromioclavicular joint. Normal acromion. There is a fracture through the distal aspect of the clavicle. Normal humeral head and visualized proximal humerus. The soft tissue structures are unremarkable. Normal visualized pulmonary apex. RAD/Shoulder min 2 Views IMPRESSION: Distal clavicular fracture. Electronically Signed: Kofi Syed DO at 23:55 EST Tel [phone], Service support ,
== END ==
PROVIDERS: Family Provider Internal Medicine; PCP Internal Medicine; Referring Provider Anesthesiology Pain Medicine; Visit Provider Anesthesiology Pain Medicine
DX: S42.031A Displaced fracture of lateral end of right clavicle, initial encounter for closed fracture (principal); W19.XXXA Unspecified fall, initial encounter; Y93.9 Activity, unspecified; Y92.9 Unspecified place or not applicable; Y99.9 Unspecified external cause status
CPT/HCPCS: 73030

== ENCOUNTER 2019-12-19 12:14 | Emergency (ER) | payer MEDICARE, BC, SELFPAY ==
[2019-12-19 12:15] VITALS: BP 136/60; PULSE 60; RESP 14; TEMP 36.7; O2SAT 97; BMI 22.4
--- NOTE | 2019-12-19 12:36 | ED.VIS.GEN ---
History of Present Illness Chief Complaint: Wound Check Informant: Patient Narrative: Patient presents with concern for infection to his bellybutton. He states he would have been having abdominal pain for several weeks. He contacted his physician who worked him up for gallbladder disease and nothing was found. Patient states his pain dissipated. He is scheduled to have a colonoscopy this coming . Patient states that today he noted black material in his bellybutton is concerned he may have a scab or infection. He denies that it is painful. 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 residual deficit Status: Chronic (11) Spinal stenosis of lumbar region without neurogenic claudication Status: Chronic Past Medical History - Allergies and Home Meds Allergies/Adverse Reactions: Allergies Iodine and Iodide Containing Produc Allergy (Verified 12/19/19 12:15) Rash Sulfa (Sulfonamide Antibiotics) Allergy (Verified 12/19/19 12:15) Rash Primary Care Physician: Ivett Rawls MD [Primary Care Provider] - Prior records reviewed: Yes Surgical History: - - laryngeal tumor resection Smoking Status: Former smoker - Family History Paternal Family History: Reports: Heart Disease, Pulmonary Disease Review of Systems General: Denies: Chills, Fever Eyes: Denies: Visual changes - bilaterally ENT: Denies: Bilateral ear pain Cardiovascular: Denies: Chest pain Respiratory: Denies: Dyspnea Gastrointestinal: Denies: Abdominal pain Skin: Reports: Wounds Neurological: Denies: Headache Hematologic: Denies: Easy bruising, Easy bleeding Allergy: Denies: Uticaria Physical Exam Vital Signs/Narrative: Vital Signs Temp Pulse Resp BP Pulse Ox 12/19/19 12:15 98.1 F 60 14 136/60 H 97 Inital Vital Signs reviewed: Yes General: Well nourished, Well developed ENT: Moist mucous membranes Neck: Supple Cardiovascular: Regular rate, Regular rhythm Respiratory: No distress Abdomen: Soft, Nontender, - - Dark area noted within patient's umbilicus. No surrounding drainage or tenderness. Neurological: Alert, Oriented x3 Psychological: Normal affect Diagnostic/Tx/Re-eval - Medical Decision Making Patient's umbilicus was cleansed. There is a thick sticky material with some hair stuck to the inside of his umbilicus. Once this is cleansed there is no evidence of scab or open wound. ED Disposition - Plan for ED Patient: Disposition: Home or Assisted Living Diagnosis: Visit for wound check Instructions: Wound Care Referrals: Ivett Rawls MD [Primary Care Provider] -
[2019-12-19 12:57] VITALS: RESP 16
== END 2019-12-19 12:59 | disposition home or self-care (01) ==
LOC: ED 12:49
PROVIDERS: Emergency Provider Emergency Medicine; PCP Internal Medicine
DX: R10.9 Unspecified abdominal pain (principal); I12.9 Hypertensive chronic kidney disease with stage 1 through stage 4 chronic kidney disease, or unspecified chronic kidney disease; N18.2 Chronic kidney disease, stage 2 (mild); N41.1 Chronic prostatitis; E78.5 Hyperlipidemia, unspecified; M48.061 Spinal stenosis, lumbar region without neurogenic claudication; G25.0 Essential tremor; K21.9 Gastro-esophageal reflux disease without esophagitis; F41.9 Anxiety disorder, unspecified; Z79.899 Other long term (current) drug therapy; Z88.8 Allergy status to other drugs, medicaments and biological substances; Z88.2 Allergy status to sulfonamides; Z87.891 Personal history of nicotine dependence; Z86.73 Personal history of transient ischemic attack (TIA), and cerebral infarction without residual deficits
CPT/HCPCS: 99282

== ENCOUNTER → 2019-12-26 09:07 | Outpatient (CLI) | payer MEDICARE, BC, SELFPAY ==
[2019-12-19 12:15] VITALS: BMI 22.4
--- NOTE | 2019-12-26 09:20 | RAD_ITS ---
STUDY: X-RAY - LEFT KNEE REASON FOR EXAM: Male, 79 years old. PAIN IN LEFT KNEE FOR A LONG TIME. TECHNIQUE: 2 view(s) of the knee. COMPARISON: None. FINDINGS: Normal visualized distal femur. Normal visualized proximal tibia and fibula. Normal proximal tibiofibular articulation. There is mild degenerative arthrosis of the medial femorotibial compartment. Normal lateral femorotibial compartment. Normal patellofemoral articulation. The soft tissue structures are unremarkable. RAD/Knee 1 or 2 Views IMPRESSION: Mild medial compartment arthrosis, otherwise unremarkable left knee Electronically Signed: Per Bañuelos MD at 17:24 EDT , Service support ,
== END ==
PROVIDERS: PCP Internal Medicine; Referring Provider Anesthesiology Pain Medicine; Visit Provider Anesthesiology Pain Medicine
DX: M25.562 Pain in left knee (principal)
CPT/HCPCS: 73560

== ENCOUNTER 2020-01-28 11:23 | Emergency (ER) | payer MEDICARE, BC, SELFPAY ==
[2020-01-28 11:24] VITALS: BP 139/67; PULSE 63; RESP 17; O2SAT 98
[2020-01-28 11:26] VITALS: BP 139/86; PULSE 63; RESP 20; TEMP 36.9; O2SAT 98; BMI 21.4
--- NOTE | 2020-01-28 11:26 | EKG12_ITS ---
Test Reason : CP SHINGLES Blood Pressure : / mmHG Vent. Rate : 063 BPM Atrial Rate : 063 BPM P-R Int : 168 ms QRS Dur : 146 ms QT Int : 438 ms P-R-T Axes : 036 -50 -54 degrees QTc Int : 448 ms Sinus rhythm with Premature atrial complexes Right bundle branch block Left anterior fascicular block Bifascicular block T wave abnormality, consider inferolateral ischemia Abnormal ECG Confirmed by AUGUST FERRARA ([id number]), editor in chief newspaper ANGEL LUIS MARADIAGA ([id number]) on 01/30/2020 2:07:35 PM Referred By: ROSELINE Confirmed By:AUGUST FERRARA
--- NOTE | 2020-01-28 11:30 | ED.DCSUM_ITS ---
History of Present Illness Chief Complaint: Chest Pain Informant: Patient Onset: Days Current Severity: Mild Maximum Severity: Mild Narrative: Patient present secondary to left-sided chest pain. He states he noted some t ingling last night and then more pain today. On arrival to the ER room he is noted to have a rash consistent with shingles. He was not aware that he had shingles. He denies fever or chills. - Past Medical History (1) COPD (chronic obstructive pulmonary disease) Status: Chronic (2) History of common carotid artery stent placement Status: Chronic (3) Anxiety Status: Chronic (4) CKD (chronic kidney disease), stage II Status: Chronic (5) Esophageal reflux Status: Chronic (6) Essential tremor Status: Chronic (7) HTN (hypertension) Status: Chronic (8) Hyperlipidemia Status: Chronic (9) Personal history of transient ischemic attack (TIA) and cerebral infarction without residual deficit Status: Chronic (10) Spinal stenosis of lumbar region without neurogenic claudication Status: Chronic Past Medical History - Allergies and Home Meds Allergies/Adverse Reactions: Allergies Iodine and Iodide Containing Produc Allergy (Verified 12/19/19 12:15) Rash Sulfa (Sulfonamide Antibiotics) Allergy (Verified 12/19/19 12:15) Rash Primary Care Physician: Ivett Rawls MD [Primary Care Provider] - Prior records reviewed: Yes Surgical History: - - laryngeal tumor resection Lives: Spouse/ Significant Other Smoking Status: Former smoker - Family History Paternal Family History: Reports: Heart Disease, Pulmonary Disease Review of Systems General: Denies: Chills, Fever Eyes: Denies: Visual changes - bilaterally ENT: Denies: Bilateral ear pain Cardiovascular: Reports: Chest pain. Denies: Palpitations Respiratory: Denies: Dyspnea, Cough Gastrointestinal: Denies: Abdominal pain, Nausea, Vomiting, Diarrhea Genitourinary: Denies: Dysuria Musculoskeletal: Denies: Swelling, Extremity Pain Skin: Reports: Rash Neurological: Denies: Headache Hematologic: Denies: Easy bruising, Easy bleeding Physical Exam Inital Vital Signs reviewed: Yes General: Well nourished, Well developed Head: Normocephalic ENT: Moist mucous membranes Neck: Supple Cardiovascular: Regular rate, Regular rhythm Respiratory: No distress, CTA bilaterally Abdomen: Soft, Nontender Skin: Normal color, - - Erythematous rash around the left chest consistent with shingles. Neurological: Alert, Oriented x3 Psychological: Normal affect Diagnostic/Tx/Re-eval Chest X-Ray - ED: 1 View, Read by ED Physician, Chronic Changes 01/28/20 11:46 Chest 1 View (Portable) [RAD] Stat Laboratory Results 01/28/20 01/28/20 11:34 11:34 WBC 7.2 RBC 4.95 Hgb 14.4 Hct 43.3 MCV 87.5 MCH 29.1 MCHC 33.3 RDW Std Deviation 45.1 H RDW Coeff of Aj 14.3 Plt Count 139 L MPV 9.4 Immature Gran % (Auto) 0.300 Neut % (Auto) 47.5 Lymph % (Auto) 44.6 H [place] % (Auto) 5.2 Eos % (Auto) 2.1 Baso % (Auto) 0.3 Absolute Neuts (auto) 3.4 Absolute Lymphs (auto) 3.20 Nucleated RBC % 0 Sodium 140 Potassium 4.2 Chloride 107 Carbon Dioxide 30.0 Anion Gap 3 L BUN 30 H Creatinine 1.11 Estim Creat Clear Calc 47.95 Est GFR (MDRD) Af Amer 82 Est GFR (MDRD) Non-Af 68 BUN/Creatinine Ratio 27.0 H Glucose 97 Calcium 8.6 Troponin I < 0.015 - EKG Initial EKG Interpretation: Sinus Rhythm - Sinus at 63 with bifascicular block. Largely unchanged when compared to prior study of April 2018. - Medical Decision Making Patient was given prednisone and acyclovir here. Test results discussed with patient and at bedside. He will be given a one-week supply of acyclovir and a 5-day burst of steroids. Patient is given return instructions. ED Disposition - Plan for ED Patient: Disposition: Home or Assisted Living Diagnosis: Shingles Instructions: ED Shingles Prescriptions: Prednisone [Deltasone] 40 mg PO DAILY #10 tab Transmission Status: Pending to [facility] Acyclovir [Zovirax] 800 mg PO 5X/DAY #35 tab Transmission Status: Pending to [facility] Referrals: Ivett Rawls MD [Primary Care Provider] - 1-2 Weeks
[2020-01-28] MEDS: Acyclovir 800 MG Tablet PO (11:38)
[2020-01-28] MEDS: predniSONE 20 MG Tablet 40 MG PO (11:38)
--- NOTE | 2020-01-28 11:46 | RAD_ITS ---
STUDY: X-RAY CHEST REASON FOR EXAM: Male, 79 years old. Chest pain that started yesterday Now shingle like rash discovered. TECHNIQUE: Single AP portable view of the chest. COMPARISON: May 04, 2018 chest x-ray FINDINGS: Is improved aeration of the lung bases when compared to prior study. History scarring in the right costophrenic angle. There is no demonstrated pleural abnormality. Normal size heart. Normal mediastinum and moises. Normal visualized pulmonary arteries. There is atherosclerotic calcification of the aortic arch with tortuosity. There are diffuse degenerative changes of the visualized thoracic spine. Normal visualized ribs, clavicles, and shoulders. There is no demonstrated abnormality of the visualized soft tissue structures of the upper abdomen. RAD/Chest 1 View (Portable) IMPRESSION: Minimal scarring remaining at the right lung base improved aeration of the lung bases when compared to prior study. Electronically Signed: Raegan Paris MD at 12:16 EDT Tel , Service support ,
[2020-01-28 11:57] LABS: Absolute Neutrophil Count 3.4 X10^3/uL (2.0-7.7); Basophil# 0.02 X10^3/uL; Basophil% 0.3 % (0-1); Eosinophil# 0.15 X10^3/uL; Eosinophils% 2.1 % (0-5); Hematocrit 43.3 % (40-54); Hemoglobin 14.4 g/dL (13.0-16.5); Lymphocyte % 44.6 % (19-41); Mean Corp Hgb Conc 33.3 g/dL (32-36); Mean Corpuscular Hgb 29.1 pg (27.0-32.0); Mean Corpuscular Volume 87.5 fL (80-94); Mean Platelet Vol. 9.4 fl (6.2-12.0); Monocyte# 0.37 X10^3/uL; Monocyte% 5.2 % (0-10); NRBC Flagged by Analyzer 0 % (0-5); Neutrophil # 3.41 X10^3/uL (2.7-7.7); Neutrophil % 47.5 % (47-70); Platelet Count 139 K/mm3 (150-450); RBC Distribution Width CV 14.3 % (11.6-14.6); RBC Distribution Width SD 45.1 fl (35.1-43.9); Red Blood Count 4.95 M/mm3 (4.6-6.2); White Blood Count 7.2 K/mm3 (4.4-11.0)
[2020-01-28 11:58] LABS: Anion Gap 3 (5-15); BUN 30 mg/dL (7-18); Calcium,Total 8.6 mg/dL (8.5-10.1); Chloride 107 mmol/L (98-107); Creatinine, Serum 1.11 mg/dL (0.70-1.30); EST Glomerular Filtration Rate 68 mL/min (>60); Est Glom Filt Rate - Afr Amer 82 mL/min (>60); Estimated Creatinine Clearance 47.95 ml/min; Glucose 97 mg/dL (74-106); Potassium 4.2 mmol/L (3.5-5.1); Sodium Level 140 mmol/L (136-145)
== END 2020-01-28 12:35 | disposition home or self-care (01) ==
PROVIDERS: Emergency Provider Emergency Medicine; PCP Internal Medicine
DX: B02.9 Zoster without complications (principal); I12.9 Hypertensive chronic kidney disease with stage 1 through stage 4 chronic kidney disease, or unspecified chronic kidney disease; N18.2 Chronic kidney disease, stage 2 (mild); J44.9 Chronic obstructive pulmonary disease, unspecified; G25.0 Essential tremor; E78.5 Hyperlipidemia, unspecified; M48.061 Spinal stenosis, lumbar region without neurogenic claudication; K21.9 Gastro-esophageal reflux disease without esophagitis; F41.9 Anxiety disorder, unspecified; Z86.73 Personal history of transient ischemic attack (TIA), and cerebral infarction without residual deficits; Z87.891 Personal history of nicotine dependence
CPT/HCPCS: 71045; 80048; 84484; 85025; 93005; 99285; A4216

== ENCOUNTER 2020-02-27 15:25 | Emergency (ER) | payer MEDICARE, BC, SELFPAY ==
[2020-02-27 15:26] VITALS: BP 139/75; PULSE 59; RESP 17; TEMP 36.6; O2SAT 97; BMI 22.6
--- NOTE | 2020-02-27 16:04 | CT_ITS ---
STUDY: CT ABDOMEN AND PELVIS WITHOUT CONTRAST REASON FOR EXAM: Male, 79 years old. Abdominal PAIN X 3 DAYS RADIATION DOSAGE (If Supplied By Facility): CTDIvol = ( 6.64 ) mGy, DLP = ( 308.57 ) mGycm TECHNIQUE: Transaxial images were obtained from the dome of the diaphragm to the symphysis pubis without oral contrast, and without intravenous contrast. Sagittal and coronal images were reconstructed. Individualized dose optimization techniques were used for this CT. COMPARISON: None. FINDINGS: There are chronic interstitial fibrotic changes of the lung bases. Blebs and bulla seen in both lung bases. The visualized portions of the heart are within normal limits. Normal liver. The gallbladder is contracted. Normal spleen. Normal pancreas. Normal bilateral adrenal glands. No acute abnormalities of the kidneys. Extensive scarring of the right kidney resulting in atrophy. Evaluation of the GI tract is limited by absence of oral contrast. Cannot exclude stomach wall thickening. No dilated loops of bowel or evidence for obstruction. Cannot exclude segmental thickening of the lyn of the small or large bowel. Cannot exclude enteritis or colitis. Moderate diffuse fecal retention. Appendix within normal limits. There is diffuse atherosclerotic calcification of the abdominal aorta, without a demonstrated aneurysm. Normal inferior vena cava. Normal retroperitoneum. Normal urinary bladder. There are findings consistent with previous surgical repair of bilateral inguinal hernias, currently negative abdominal wall. There are diffuse degenerative changes of the visualized lumbar spine. CT/Abdomen/Pelvis without Cont IMPRESSION: No definite acute or significant abnormality seen. Electronically Signed: Kwaku Najera MD at 17:13 EDT , Service support ,
--- NOTE | 2020-02-27 16:05 | EKG12_ITS ---
Test Reason : Blood Pressure : / mmHG Vent. Rate : 053 BPM Atrial Rate : 053 BPM P-R Int : 168 ms QRS Dur : 142 ms QT Int : 478 ms P-R-T Axes : 039 -48 -56 degrees QTc Int : 448 ms Sinus bradycardia Right bundle branch block Left anterior fascicular block Bifascicular block Minimal voltage criteria for LVH, may be normal variant T wave abnormality, consider lateral ischemia Abnormal ECG Confirmed by ANTONI GUNN, JOELLE ([id number]), offline editor SONIA MEANS ([id number]) on 02/29/2020 10:58:37 AM Referred By: AINSLEY Confirmed By:JOELLE CORRALES MD
[2020-02-27 16:40] VITALS: BP 174/70; PULSE 56; RESP 18; O2SAT 98
--- NOTE | 2020-02-27 16:40 | ED.VISSUMM ---
- ER Visit Summary Date of Service: 02/27/20 Chief Complaint: Abdominal pain History of Present Illness: The patient is a [address] Otero. Patient reports that for the past 3 days he has had left upper quadrant abdominal pain. Reports that yesterday and the day before the pain lasted 2 to 3 hours. Today it had lasted all day. He describes it as a sharp pain that is 8 out of 10 at worst and he is pain-free currently. Pain is worsened by movement. It is relieved by gabapentin. He denies any associated nausea or vomiting. No diarrhea. His last bowel movements today. No mild hematochezia. No dysuria or frequency. He denies chest pain or shortness of breath. Patient reports that he has a history of shingles that were diagnosed January 27. He states that he has been using 4% lidocaine gel on them. He feels that when he put that on my nipple today that the pain became much worse. Patient also had a colonoscopy approximately [address] Ramírez. Physical Examination: Vitals: Stable. Afebrile. General: Well-nourished and well-developed. Head: Normocephalic atraumatic. Neck: Supple, no lymphadenopathy. No JVD. Nontender. Cardiovascular: Regular rate and rhythm. 2 out of 6 systolic murmur. Respiratory: No respiratory distress. Clear to auscultation bilaterally. Abdominal: Soft, nontender, nondistended, normal bowel sounds. No guarding, rebound, or peritoneal signs. Back: Nontender. Extremities: Nontender, no edema. Skin: Healing rash consistent with shingles on the left that is just beneath his pectoralis major muscle. There are multiple healed areas. There are no scabbed lesions at this point. There is no erythema, induration, or fluctuance to suggest infection. Neurologic: Alert and oriented ?3. Cranial nerves II through XII are intact. Normal strength and sensation. Psych: Normal affect. Test Results: EKG is sinus bradycardia at 53 with a bifascicular block. The only change from January 27 is the rate. At that time his rate was 63. CBC shows an H&H 12.9 30.4, 7 neutrophils with 36, lymphocytes 54. Chem-7 shows a chloride of 126. LFTs show an total protein of 6.2 and albumin of 3.0. UA is normal. Troponin is negative. Clinical Impression(s) from Imaging Studies Abdomen/Pelvis CT 02/27/20 16:04 IMPRESSION: No definite acute or significant abnormality seen. Electronically Signed: Kwaku Najera MD at 17:13 EDT , Service support , Emergency Department Course and Treatment: Patient denies any pain or nausea at this point. He refused medications. He is resting comfortably. Treatment Plan: I had a prolonged scratch the patient and his this time I do not have an explanation for his pain. However, it does not appear to be cardiac in origin. He will be discharged with instructions to follow-up his primary care physician 1 to 2 days if not improving. Return to the emergency department for any worsening symptoms. Disposition: To home in improved and stable condition. Impression: 1. Abdominal pain, uncertain cause. 2. Shingles in a T6 distribution on the left, improving. This note was generated with [employer] dictation software. It may contain incorrect words, spelling, and punctuation that were not noted in review of the chart prior to signing ED Disposition - Plan for ED Patient: Disposition: Home or Assisted Living Instructions: ED Unknown Causes of Abdominal Pain Male Referrals: Ivett Rawls MD [Primary Care Provider] - 1-2 Days if not improving
[2020-02-27 16:48] LABS: Absolute Lymphocyte Count 5.18 X10^3/uL (0.83-4.51); Absolute Neutrophil Count 3.4 X10^3/uL (2.0-7.7); Basophil# 0.03 X10^3/uL; Basophil% 0.3 % (0-1); Eosinophil# 0.18 X10^3/uL; Eosinophils% 1.9 % (0-5); Hematocrit 38.4 % (40-54); Hemoglobin 12.9 g/dL (13.0-16.5); Lymphocyte # 5.18 X10^3/ul (4.0); Lymphocyte % 54.4 % (19-41); Mean Corp Hgb Conc 33.6 g/dL (32-36); Mean Corpuscular Hgb 29.9 pg (27.0-32.0); Mean Corpuscular Volume 88.9 fL (80-94); Mean Platelet Vol. 9.1 fl (6.2-12.0); Monocyte# 0.68 X10^3/uL; Monocyte% 7.1 % (0-10); NRBC Flagged by Analyzer 0 % (0-5); Neutrophil # 3.44 X10^3/uL (2.7-7.7); Neutrophil % 36.1 % (47-70); POSITIVE DIFFERENTIAL YES; Platelet Count 221 K/mm3 (150-450); RBC Distribution Width CV 15.3 % (11.6-14.6); RBC Distribution Width SD 49.1 fl (35.1-43.9); Red Blood Count 4.32 M/mm3 (4.6-6.2); White Blood Count 9.5 K/mm3 (4.4-11.0)
[2020-02-27 16:50] LABS: Bacteria 0 SEEN /hpf (None Seen); Mucous, Urine 0 SEEN /hpf (<or=2+); Red Blood Cells-Urine 0 SEEN /hpf (0-5); White Blood Cells 0 SEEN /hpf (0-5)
[2020-02-27 16:55] LABS: Color, Urine Yellow (Yellow); Glucose, Dipstick Normal (Normal); Ketone-Dipstick Negative (Negative); Leukocyte Esterase-Dipstick Negative /ul (Negative); Nitrite-Dipstick Negative (Negative); Occult Blood-Urine Negative /ul (Negative); Protein-Dipstick Negative (Negative); Urine Bilirubin Dipstick Negative (Negative); Urine Clarity Sl. Cloudy (Clear); Urine Urobilinogen Normal (Normal)
[2020-02-27 17:02] LABS: Differential Indicated SCAN CRITERIA MET
[2020-02-27 17:05] LABS: Squamous Epithelial Cells - UA 0-5 SEEN /hpf (0-5)
[2020-02-27 17:06] LABS: ALB/GLOB Ratio 0.9 RATIO (0.9-2.4); AST(SGOT) 19 U/L (15-37); Alanine Aminotransfer ALT/SGPT 18 U/L (16-61); Alkaline Phosphatase 106 U/L (45-117); Anion Gap 3 (5-15); BUN 26 mg/dL (7-18); BUN/Creat Ratio 24.8 RATIO (10-20); Calcium,Total 8.6 mg/dL (8.5-10.1); Chloride 109 mmol/L (98-107); Creatinine, Serum 1.05 mg/dL (0.70-1.30); EST Glomerular Filtration Rate 72 mL/min (>60); Est Glom Filt Rate - Afr Amer 87 mL/min (>60); Globulin 3.2 g/dL (2.2-4.2); Glucose 77 mg/dL (74-106); Potassium 4.2 mmol/L (3.5-5.1); Protein, Total 6.2 g/dL (6.4-8.2); Sodium Level 143 mmol/L (136-145)
[2020-02-27 17:48] LABS: Platelet Estimate ADEQUATE (ADEQ); Reactive Lymphocyte 1+; Red Cell Morphology NORM C+C NORMAL (NORM C&C)
[2020-02-27 17:56] VITALS: BP 124/83; PULSE 71; RESP 16; O2SAT 97
== END 2020-02-27 18:06 | disposition home or self-care (01) ==
LOC: ED 17:08
PROVIDERS: Emergency Provider Emergency Medicine; PCP Internal Medicine
DX: R10.12 Left upper quadrant pain (principal); B02.9 Zoster without complications; I45.10 Unspecified right bundle-branch block; I10 Essential (primary) hypertension; J44.9 Chronic obstructive pulmonary disease, unspecified; Z86.73 Personal history of transient ischemic attack (TIA), and cerebral infarction without residual deficits; Z79.899 Other long term (current) drug therapy
CPT/HCPCS: 74176; 80053; 81001; 84484; 85025; 93005; 99283; A4216

== ENCOUNTER → 2020-12-21 08:00 | Outpatient (CLI) | payer MEDICARE, BC, SELFPAY ==
[2020-12-20 16:12] VITALS: BMI 22.6
[2020-12-21 13:10] LABS: Absolute Lymphocyte Count 4.18 X10^3/uL (0.83-4.51); Absolute Neutrophil Count 5.1 X10^3/uL (2.0-7.7); Basophil# 0.04 X10^3/uL; Basophil% 0.4 % (0-1); Eosinophil# 0.21 X10^3/uL; Eosinophils% 2.1 % (0-5); Hematocrit 46.6 % (40-54); Hemoglobin 14.8 g/dL (13.0-16.5); Lymphocyte # 4.18 X10^3/ul (0.83-4.51); Lymphocyte % 41.2 % (19-41); Mean Corp Hgb Conc 31.8 g/dL (32-36); Mean Corpuscular Hgb 27.3 pg (27.0-32.0); Mean Platelet Vol. 10.1 fl (6.2-12.0); Monocyte# 0.59 X10^3/uL; Monocyte% 5.8 % (0-10); NRBC Flagged by Analyzer 0 % (0-5); Neutrophil # 5.09 X10^3/uL (2.7-7.7); Neutrophil % 50.2 % (47-70); Platelet Count 254 K/mm3 (150-450); RBC Distribution Width CV 15.8 % (11.6-14.6); RBC Distribution Width SD 48.7 fl (35.1-43.9); Red Blood Count 5.42 M/mm3 (4.6-6.2); White Blood Count 10.1 K/mm3 (4.4-11.0)
[2020-12-21 13:24] LABS: Vitamin D,25 Hydroxy 18.9 ng/mL
[2020-12-21 13:39] LABS: ALB/GLOB Ratio 1.1 RATIO (0.9-2.4); AST(SGOT) 26 U/L (15-37); Alanine Aminotransfer ALT/SGPT 21 U/L (16-61); Albumin, Serum 3.5 g/dL (3.2-5.0); Alkaline Phosphatase 135 U/L (45-117); Anion Gap 4 (5-15); BUN 23 mg/dL (7-18); BUN/Creat Ratio 20.7 RATIO (10-20); Chloride 103 mmol/L (98-107); Creatinine, Serum 1.11 mg/dL (0.70-1.30); EST Glomerular Filtration Rate 68 mL/min (>60); Est Glom Filt Rate - Afr Amer 82 mL/min (>60); Globulin 3.3 g/dL (2.2-4.2); Glucose 102 mg/dL (74-106); PSA,Total - Annual Screen 2.42 ng/mL (0.00-4.00); Potassium 4.2 mmol/L (3.5-5.1); Protein, Total 6.8 g/dL (6.4-8.2); Sodium Level 140 mmol/L (136-145); Thyroid Stim Hormone (TSH) 0.93 uIU/mL (0.358-3.74)
== END ==
PROVIDERS: PCP Internal Medicine; Visit Provider Internal Medicine
DX: E55.9 Vitamin D deficiency, unspecified (principal); F41.9 Anxiety disorder, unspecified; I27.9 Pulmonary heart disease, unspecified; I12.9 Hypertensive chronic kidney disease with stage 1 through stage 4 chronic kidney disease, or unspecified chronic kidney disease; N18.2 Chronic kidney disease, stage 2 (mild); J44.9 Chronic obstructive pulmonary disease, unspecified; G25.0 Essential tremor; M19.90 Unspecified osteoarthritis, unspecified site; Z12.5 Encounter for screening for malignant neoplasm of prostate
CPT/HCPCS: 36415; 80053; 82306; 84153; 84443; 85025; G0103

== ENCOUNTER 2021-08-20 13:27 | Outpatient (CLI) | payer MEDICARE, BC, SELFPAY ==
[2021-08-20 15:15] LABS: Absolute Lymphocyte Count 3.76 X10^3/uL (0.83-4.51); Absolute Neutrophil Count 3.6 X10^3/uL (2.0-7.7); Basophil# 0.02 X10^3/uL; Basophil% 0.3 % (0-1); Eosinophil# 0.18 X10^3/uL; Eosinophils% 2.3 % (0-5); Hematocrit 42.4 % (40-54); Hemoglobin 14.1 g/dL (13.0-16.5); Lymphocyte # 3.76 X10^3/ul (0.83-4.51); Lymphocyte % 47.8 % (19-41); Mean Corp Hgb Conc 33.3 g/dL (32-36); Mean Corpuscular Hgb 29.3 pg (27.0-32.0); Mean Platelet Vol. 10.1 fl (6.2-12.0); Monocyte# 0.35 X10^3/uL; Monocyte% 4.4 % (0-10); NRBC Flagged by Analyzer 0 % (0-5); Neutrophil # 3.55 X10^3/uL (2.7-7.7); Neutrophil % 45.1 % (47-70); Platelet Count 195 K/mm3 (150-450); RBC Distribution Width CV 13.8 % (11.6-14.6); RBC Distribution Width SD 44.2 fl (35.1-43.9); Red Blood Count 4.82 M/mm3 (4.6-6.2); White Blood Count 7.9 K/mm3 (4.4-11.0)
[2021-08-20 15:29] LABS: Vitamin D,25 Hydroxy 40.3 ng/mL
[2021-08-20 15:36] LABS: ALB/GLOB Ratio 1.1 RATIO (0.9-2.4); AST(SGOT) 24 U/L (15-37); Alanine Aminotransfer ALT/SGPT 22 U/L (16-61); Albumin, Serum 3.2 g/dL (3.2-5.0); Alkaline Phosphatase 138 U/L (45-117); Anion Gap 7 (5-15); BUN 27 mg/dL (7-18); BUN/Creat Ratio 22.7 RATIO (10-20); Calcium,Total 8.6 mg/dL (8.5-10.1); Chloride 106 mmol/L (98-107); Cholesterol 149 mg/dL (200); Creatinine, Serum 1.19 mg/dL (0.70-1.30); EST Glomerular Filtration Rate 62 mL/min (>60); Est Glom Filt Rate - Afr Amer 75 mL/min (>60); Globulin 2.9 g/dL (2.2-4.2); Glucose 91 mg/dL (74-106); High Density Lipoprotein 70 mg/dL; Lipase 288 U/L (73-393); Potassium 3.7 mmol/L (3.5-5.1); Protein, Total 6.1 g/dL (6.4-8.2); Sodium Level 142 mmol/L (136-145); Triglycerides 80 mg/dL; Very Low Density Lipoprotein 16 mg/dL (5-40)
== END 2021-08-20 23:59 | disposition short-term general hospital (02) ==
LOC: BIMLAB 13:29
PROVIDERS: PCP Internal Medicine; Visit Provider Internal Medicine
DX: I65.29 Occlusion and stenosis of unspecified carotid artery (principal); J44.9 Chronic obstructive pulmonary disease, unspecified; E55.9 Vitamin D deficiency, unspecified; M19.90 Unspecified osteoarthritis, unspecified site; M48.061 Spinal stenosis, lumbar region without neurogenic claudication; N18.2 Chronic kidney disease, stage 2 (mild); Z87.891 Personal history of nicotine dependence; E78.5 Hyperlipidemia, unspecified; I12.9 Hypertensive chronic kidney disease with stage 1 through stage 4 chronic kidney disease, or unspecified chronic kidney disease; Z98.890 Other specified postprocedural states; Z95.828 Presence of other vascular implants and grafts; G25.0 Essential tremor; R10.9 Unspecified abdominal pain
CPT/HCPCS: 36415; 80053; 80061; 82306; 83690; 84443; 85025

== ENCOUNTER 2022-04-02 17:07 | Emergency (ER) | payer MEDICARE, BC, SELFPAY ==
[2022-04-02 17:09] VITALS: BP 134/51; PULSE 64; RESP 14; TEMP 36.6; O2SAT 95; BMI 20.8
--- NOTE | 2022-04-02 17:52 | ED.VIS.GI ---
HPI HPI - GI History of Present Illness Chief Complaint: Abd Pain Informant: patient and spouse/S.O. Abdominal Pain/Flank Pain Onset: Today and Hours Context: Gradual Onset Timing: Continuous Location: RLQ Current Severity: Moderate Maximum Severity: Moderate Nausea/Vomiting/Emesis GI Symptom: Negative for Nausea or Vomiting Diarrhea/Melena/Hematochezia GI Symptom: Negative for Diarrhea, Melena or Hematochezia Associated Symptoms Associated Symptoms: Negative for Dysuria, Frequency, Hematuria or Urgency Narrative Narrative: 81-year-old male with right lower quadrant pain its been there all day since 530 this morning. Constant pain. Nothing specific makes it better or worse. He denies any nausea, vomiting or diarrhea. Has had recent constipation but took a stool softener and had a bowel movement today. Denies any dysuria. No fever or chills. He has had a prior hernia repair but no other abdominal surgery. 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), stage II COPD (chronic obstructive pulmonary disease) Esophageal reflux Essential tremor Hearing problem Heart murmur History of common carotid artery stent placement History of stroke History of tobacco use HTN (hypertension) Hyperlipidemia IBS (irritable bowel syndrome) Osteoarthritis Personal history of transient ischemic attack (TIA) and cerebral infarction without residual deficit Pneumonia RLL pneumonia Spinal stenosis of lumbar region without neurogenic claudication Stroke Home Medications ibuprofen 400 mg tablet 400 mg PO Q8H 07/18/21 [History Last Taken Unknown] budesonide-formoterol HFA 160 mcg-4.5 mcg/actuation aerosol inhaler (Symbicort) 2 puff inhalation BID #3 ea 07/29/21 [Rx Last Taken Unknown] amlodipine 10 mg tablet 10 mg PO DAILY blood pressure #90 tabs 02/13/22 [Rx Last Taken Unknown] lisinopril 40 mg tablet 40 mg PO DAILY blood pressure #90 tabs 02/13/22 [Rx Last Taken Unknown] omeprazole 20 mg capsule,delayed release 20 mg PO DAILY gerd #90 caps 02/13/22 [Rx Last Taken Unknown] atorvastatin 10 mg tablet (Lipitor) 40 mg PO QHS 03/26/22 [History Last Taken Unknown] hydralazine 50 mg tablet 50 mg PO BID 03/26/22 [History Last Taken Unknown] propranolol 80 mg capsule,24 hr,extended release 80 mg PO DAILY 03/26/22 [History Last Taken Unknown] quetiapine 25 mg tablet (Seroquel) 25 mg PO .COMPLEX 03/26/22 [History Last Taken Unknown] quetiapine 25 mg tablet (Seroquel) 50 mg PO QHS 03/26/22 [History Last Taken Unknown] tamsulosin 0.4 mg capsule (Flomax) 0.4 mg PO QHS #30 caps 04/02/22 [Rx Last Taken Unknown] Allergy/AdvReac Type Severity Reaction Status Date / Time Iodine and Iodide Containing Allergy Rash Verified 04/02/22 17:24 Produc Sulfa (Sulfonamide Allergy Rash Verified 04/02/22 17:24 Antibiotics) Family History Daughter Alcoholism Sister Alcoholism Surgical History History of colonoscopy History of hernia repair Social History Smoking Status: Former smoker quit date: 07/27/78 Tobacco: How many years used: 30 alcohol intake: never substance use type: does not use what type of physical activity do you participate in: none ROS ROS ED ROS Narrative Right lower quadrant abdominal pain. Denies vomiting, diarrhea or fever. Recent constipation with a bowel movement today. Review of Systems ROS Unobtainable: Denies due to encephalopathy Constitutional Constitutional ED: Denies chills or fever(s) ENT ENT ED: Denies ear pain Cardiovascular Cardiovascular: Denies chest pain Respiratory/Chest Respiratory/Chest: Denies cough Gastrointestinal Gastrointestinal: Reports abdominal pain and constipation; Denies diarrhea, melena, nausea or vomiting Genitourinary Genitourinary ED: Denies dysuria or hematuria Musculoskeletal Musculoskeletal: Denies arthralgias Integumentary Denies abscess Neurologic Neurologic: Denies headache(s) Psychiatric Psychiatric: Denies anxiety Endocrine Endocrinology: Denies polydipsia Hematologic/Lymphatic Hematologic/Lymphatic: Denies easy bleeding Allergic/Immunologic Allergic/Immunologic ED: Denies mouth swelling EXAM Physical Exam Narrative Exam Narrative: 7-year-old male distress. Vital signs stable afebrile. H EENT unremarkable. Moist Ri[place] members. Neck nontender. Lungs clear. Heart regular rhythm. Abdomen soft nondistended. Normal bowel sounds. No peritoneal signs. Reproducible tender right lower quadrant. No obvious hernia or mass. No pulsatile mass. Right upper quadrant unremarkable. Left-sided abdomen nontender. No obstruction. Moving all 4 extremities. Nontender. Neurologically is awake and alert. Answering questions following commands. Const Vital Signs: 04/02/22 17:09 04/02/22 19:49 Temperature 97.8 F Temperature Source Temporal Pulse Rate 64 61 Respiratory Rate 14 16 Blood Pressure 134/51 H 129/55 H Blood Pressure Mean 78 79 Pulse Ox 95 95 Oxygen Delivery Method Room Air Room Air Positive well nourished and well developed; Negative for obese, cachectic, contractures or unkempt General Appearance ED: well developed and NAD; Negative for unkempt, cachectic, contractures or pallor Nutritional Appearance: Negative for cachectic or obese HEENT Reports moist mucous membranes normocephalic and atraumatic; Negative for trauma or tenderness Eyes PERRL and EOMs intact bilaterally General Eye ED: Negative for pale conjunctiva Neck no lymphadenopathy, supple and no JVD General: Negative for tenderness Carotids: Negative for other Lymph Lymphatic: Negative for other Resp normal respiratory effort and clear to auscultation bilaterally Effort and Inspection: Negative for respiratory distress Auscultation: Negative for rales, rhonchi or wheezes Cardio regular rate, regular rhythm, S1 normal heart sound, S2 normal heart sound and no murmurs Rate: Negative for bradycardia Rhythm: Negative for abnormal rhythm GI non-distended and no masses; Negative for non-tender Inspection: Negative for abdominal distention Auscultation: normoactive bowel sounds Palpation: soft and tender; Negative for guarding, rigid, hepatomegaly, splenomegaly, hernia, mass or pulsatile mass Back/Spine no CVA tenderness General Back: Negative for CVA tenderness Cervical Spine: Negative for cervical spine tenderness Thoracic Spine / Upper Back: Negative for thoracic spinal tenderness Lumbar Spine / Lower Back: Negative for lumbar spinal tenderness Coccyx: Negative for other Extremity full ROM General Extremety ED: Negative for edema General Extremity: Negative for edema Neuro CN's II-XII intact bilaterally and moves all extremities Sensorium / Orientation: alert, oriented to person, oriented to place and oriented to time; Negative for orientation impaired, confused, lethargic or stuporous Sensory Exam: No sensory level loss detected Motor Exam: strength 5/5 throughout Psych mental status grossly normal and thought process normal Appearance: Negative for unkempt Attitude: No agitated Mood & Affect: Negative for depressed, anxious or tearful Skin no wounds General Skin Exam: Negative for jaundice or pallor Lesions: no lesions and No lesion noted Rashes: no rashes Trauma: Negative for abrasion Nails: Negative for discolored MDM MDM MDM Narrative Medical decision making narrative: 79-year-old male with right lower quadrant abdominal pain. Treated with morphine for pain Zofran. CAT scan labs being obtained concern for possible appendicitis versus other etiologies. He has a allergy to CAT scan dye so will be pretreated with Solu-Medrol and Benadryl prior to the CAT scan being obtained. CAT scan unremarkable per the radiologist. Patient was having difficulty giving us a urine sample. Nurses did a bladder scan was over 400. Placed a Vergara catheter again greater than 400 cc of urine out. Appear to be orange but not bloody or cloudy. His pain resolved. This may be secondary to urinary retention. Patient be discharged home. Started on Flomax. And follow-up with his urologist Dr. Scott Willson. Repeat exam at 1015 his abdomen is benign. No hernia. External exam is unremarkable. No hernia or mass. Circumcised. Lab Data Attestation: I reviewed the patient's lab results. Lab results narrative: CBC shows a white count 9.6. H&H 11.5 and 34. Platelets 195. Electrolytes sodium 146 gap is 7 BUN 31 creatinine 1 consistent with dehydration. Liver enzymes unremarkable lipase normal 182. Urine also is normal. CAT scan unremarkable per the radiologist. Labs: Laboratory Results - last 24 hr 04/02/22 04/02/22 04/02/22 18:00 18:00 20:30 WBC 9.6 RBC 3.98 L Hgb 11.5 L Hct 34.9 L MCV 87.7 MCH 28.9 MCHC 33.0 RDW Std Deviation 45.2 H RDW Coeff of Aj 14.0 Plt Count 195 MPV 9.3 Immature Gran % (Auto) 0.300 Neut % (Auto) 52.6 Lymph % (Auto) 36.0 [place] % (Auto) 8.0 Eos % (Auto) 2.7 Baso % (Auto) 0.4 Absolute Neuts (auto) 5.0 Absolute Lymphs (auto) 3.45 Nucleated RBC % 0 Sodium 146 H Potassium 4.2 Chloride 114 H Carbon Dioxide 25.0 Anion Gap 7 BUN 31 H Creatinine 1.09 Estim Creat Clear Calc 45.93 Est GFR (MDRD) Af Amer 83 Est GFR (MDRD) Non-Af 69 BUN/Creatinine Ratio 28.4 H Glucose 95 Calcium 9.3 Total Bilirubin 0.90 AST 22 ALT 20 Alkaline Phosphatase 82 Total Protein 6.0 L Albumin 3.0 L Globulin 3.0 Albumin/Globulin Ratio 1.0 Lipase 182 Urine Color Yellow Urine Clarity Clear Urine pH 5.0 Ur Specific [place] 1.020 Urine Protein 15 H Urine Glucose (UA) Normal Urine Ketones Negative Urine Occult Blood Negative Urine Nitrite Negative Urine Bilirubin Negative Urine Urobilinogen 1 H Ur Leukocyte Esterase Negative Urine RBC 0 SEEN Urine WBC 0 SEEN Ur Squamous Epith Cells 0 SEEN Urine Bacteria 0 SEEN Urine Mucus 0 SEEN Radiography Diagnostic Testing: Clinical Impression(s) from Imaging Studies Abdomen/Pelvis CT 04/02/22 19:22 IMPRESSION: No acute abnormalities in the abdomen or pelvis. Electronically Signed: Rudolph Graham MD at 20:11 EDT , Discharge Plan Triage Chief Complaint: Abd Pain ED Provider: Gaurav Toro Dx/Rx/DC Orders Clinical Impression: Abdominal pain, COPD (chronic obstructive pulmonary disease), Acute on chronic urinary retention Instructions: Abdominal Pain, ED Urinary Retention, Male Prescriptions: New tamsulosin [Flomax] 0.4 mg capsule 0.4 mg PO QHS Qty: 30 0RF No Action ibuprofen 400 mg tablet 400 mg PO Q8H hydralazine 50 mg tablet 50 mg PO BID atorvastatin [Lipitor] 10 mg tablet 40 mg PO QHS Rx Instructions: 40mg in total propranolol 80 mg capsule,extended release 24 hr 80 mg PO DAILY quetiapine [Seroquel] 25 mg tablet 50 mg PO QHS quetiapine [Seroquel] 25 mg tablet 25 mg PO .COMPLEX Rx Instructions: 25 mg orally am; budesonide-formoterol [Symbicort] 160-4.5 mcg/actuation HFA aerosol inhaler 2 puff inhalation BID Qty: 3 3RF Rx Instructions: Please fill for 90-day supply, 3 inhalers. amlodipine 10 mg tablet 10 mg PO DAILY Qty: 90 1RF lisinopril 40 mg tablet 40 mg PO DAILY Qty: 90 1RF omeprazole 20 mg capsule,delayed release(DR/EC) 20 mg PO DAILY Qty: 90 1RF Primary Care Provider: Leda Verdin Referrals: All Willson MD [Med Staff - Active Staff] - As soon as possible Leda Verdin MD [Primary Care Provider] - As Needed Activity Restrictions/Additional Instructions: Your abdominal pain we cannot find any specific cause it may be secondary to urinary retention due to enlarged prostate. You will be started on Flomax to help you urinate. Call and follow-up with your urologist Dr. Scott Willson. Return if feeling worse or unable to urinate. At this time you do not need a urinary catheter. Disposition Disposition: Home, Self Care
[2022-04-02] MEDS: Ondansetron 4 MG/2 ML Vial IV (17:58)
[2022-04-02] MEDS: Morphine 4 MG/ML Syringe 6 MG IV (17:58)
[2022-04-02] MEDS: 0.9% Normal Saline 1,000 ML 1000 ML IV (18:00)
[2022-04-02] MEDS: MethylPREDNISolone 125 MG/2 ML Vial IV (18:11)
[2022-04-02 18:15] LABS: Absolute Lymphocyte Count 3.45 X10^3/uL (0.83-4.51); Basophil# 0.04 X10^3/uL; Basophil% 0.4 % (0-1); Eosinophil# 0.26 X10^3/uL; Eosinophils% 2.7 % (0-5); Hematocrit 34.9 % (40-54); Hemoglobin 11.5 g/dL (13.0-16.5); Lymphocyte # 3.45 X10^3/ul (0.83-4.51); Mean Corpuscular Hgb 28.9 pg (27.0-32.0); Mean Corpuscular Volume 87.7 fL (80-94); Mean Platelet Vol. 9.3 fl (6.2-12.0); Monocyte# 0.77 X10^3/uL; NRBC Flagged by Analyzer 0 % (0-5); Neutrophil # 5.04 X10^3/uL (2.7-7.7); Neutrophil % 52.6 % (47-70); Platelet Count 195 K/mm3 (150-450); RBC Distribution Width SD 45.2 fl (35.1-43.9); Red Blood Count 3.98 M/mm3 (4.6-6.2); White Blood Count 9.6 K/mm3 (4.4-11.0)
[2022-04-02] MEDS: DiphenhydrAMINE 50 MG/ML Syringe 25 MG IV (18:15)
[2022-04-02 18:36] LABS: AST(SGOT) 22 U/L (15-37); Alanine Aminotransfer ALT/SGPT 20 U/L (16-61); Alkaline Phosphatase 82 U/L (45-117); Anion Gap 7 (5-15); BUN 31 mg/dL (7-18); BUN/Creat Ratio 28.4 RATIO (10-20); Calcium,Total 9.3 mg/dL (8.5-10.1); Chloride 114 mmol/L (98-107); Creatinine, Serum 1.09 mg/dL (0.70-1.30); EST Glomerular Filtration Rate 69 mL/min (>60); Est Glom Filt Rate - Afr Amer 83 mL/min (>60); Estimated Creatinine Clearance 45.93 ml/min; Glucose 95 mg/dL (74-106); Lipase 182 U/L (73-393); Potassium 4.2 mmol/L (3.5-5.1); Sodium Level 146 mmol/L (136-145)
--- NOTE | 2022-04-02 19:22 | CT_ITS ---
INDICATION: RLQ abd pain EXAMINATION: CT Abdomen And Pelvis W/ Contrast Injection TECHNIQUE: Helically acquired images were obtained of the abdomen and pelvis after IV contrast. A radiation dose optimization technique was used for this scan. IV Contrast dosage and agent: IV 100mL [id number]-300 Oral contrast: None. COMPARISON: None. FINDINGS: Visualized lung bases: Severe emphysematous changes. Liver: Scattered subcentimeter hypodensities are too small to characterize but most likely cysts. Gallbladder: Unremarkable Spleen: Unremarkable Pancreas: Unremarkable Adrenal Glands: Unremarkable Kidneys: Right kidney is atrophic. Vasculature: Severe aortoiliac atherosclerotic disease. GI Tract: Scattered diverticula throughout the colon without evidence of inflammation. The appendix is normal. Lymphadenopathy: None Peritoneum: No ascites. Bladder: Unremarkable Reproductive organs: Unremarkable Bones/Soft tissues: There are diffuse degenerative changes of the spine. CT/Abdomen/Pelvis W IV Cont ONLY IMPRESSION: No acute abnormalities in the abdomen or pelvis. Electronically Signed: Rudolph Graham MD at 20:11 EDT ,
[2022-04-02 19:49] VITALS: BP 129/55; PULSE 61; RESP 16; O2SAT 95
--- NOTE | 2022-04-02 20:40 | ED.RN ---
PT ASSISTED UP TO RESTROOM, WAS UNABLE TO URINATE FOR URINE SAMPLE. PT ASSISTED BACK TO ROOM AND BLADDER SCANNED FOR 350ML. PT STRAIGHT CATHED FOR A URINE SAMPLE. BLADDER EMPTIED. DR. OLIVEIRA INFORMED.
[2022-04-02 20:41] LABS: Bacteria 0 SEEN /hpf (None Seen); Mucous, Urine 0 SEEN /hpf (<or=2+); Red Blood Cells-Urine 0 SEEN /hpf (0-5); Squamous Epithelial Cells - UA 0 SEEN /hpf (0-5); White Blood Cells 0 SEEN /hpf (0-5)
[2022-04-02 20:43] LABS: Color, Urine Yellow (Yellow); Glucose, Dipstick Normal (Normal); Ketone-Dipstick Negative (Negative); Leukocyte Esterase-Dipstick Negative /ul (Negative); Nitrite-Dipstick Negative (Negative); Occult Blood-Urine Negative /ul (Negative); Protein-Dipstick 15 mg/dl (Negative); Urine Bilirubin Dipstick Negative (Negative); Urine Clarity Clear (Clear); Urine Urobilinogen 1 mg/dl (Normal)
[2022-04-02 22:21] VITALS: BP 141/93; PULSE 57; PULSE 73; RESP 16; O2SAT 96
== END 2022-04-02 22:23 | disposition home or self-care (01) ==
PROVIDERS: Emergency Provider Emergency Medicine; PCP Internal Medicine; Visit Provider Emergency Medicine
DX: R33.9 Retention of urine, unspecified (principal); J44.9 Chronic obstructive pulmonary disease, unspecified; R10.31 Right lower quadrant pain; Z91.041 Radiographic dye allergy status; I13.10 Hypertensive heart and chronic kidney disease without heart failure, with stage 1 through stage 4 chronic kidney disease, or unspecified chronic kidney disease; N18.2 Chronic kidney disease, stage 2 (mild); E78.5 Hyperlipidemia, unspecified; K21.9 Gastro-esophageal reflux disease without esophagitis; M19.90 Unspecified osteoarthritis, unspecified site; Z79.899 Other long term (current) drug therapy; Z86.73 Personal history of transient ischemic attack (TIA), and cerebral infarction without residual deficits; Z87.891 Personal history of nicotine dependence
CPT/HCPCS: 74177; 80053; 81001; 83690; 85025; 96361; 96374; 96375; 99282; J7030; Q9967; A4216; J2405

== ENCOUNTER → 2022-09-29 | Outpatient (CLI) | payer MEDICARE, BC, SELFPAY ==
[2022-09-29 10:39] LABS: Anion Gap 8 (5-15); BUN 41 mg/dL (7-18); BUN/Creat Ratio 29.3 RATIO (10-20); Calcium,Total 9.1 mg/dL (8.5-10.1); Chloride 113 mmol/L (98-107); EST Glomerular Filtration Rate 51 mL/min (>60); Est Glom Filt Rate - Afr Amer 62 mL/min (>60); Glucose 108 mg/dL (74-106); Magnesium 2.1 mg/dL (1.6-2.6); Potassium 4.5 mmol/L (3.5-5.1); Sodium Level 146 mmol/L (136-145)
== END | disposition home or self-care (01) ==
LOC: LAB 09:33
PROVIDERS: PCP Internal Medicine; Referring Provider Internal Medicine; Visit Provider Internal Medicine
DX: I12.9 Hypertensive chronic kidney disease with stage 1 through stage 4 chronic kidney disease, or unspecified chronic kidney disease (principal); N18.2 Chronic kidney disease, stage 2 (mild); R60.0 Localized edema
CPT/HCPCS: 36415; 80048; 83735

== ENCOUNTER → 2022-10-17 | Outpatient (CLI) | payer MEDICARE, BC, SELFPAY ==
[2022-10-17 08:51] LABS: Absolute Lymphocyte Count 3.25 X10^3/uL (0.83-4.51); Absolute Neutrophil Count 5.5 X10^3/uL (2.0-7.7); Basophil# 0.01 X10^3/uL; Basophil% 0.1 % (0-1); Hematocrit 39.2 % (40-54); Hemoglobin 12.2 g/dL (13.0-16.5); Lymphocyte # 3.25 X10^3/ul (0.83-4.51); Mean Corp Hgb Conc 31.1 g/dL (32-36); Mean Corpuscular Volume 80.3 fL (80-94); Mean Platelet Vol. 9.3 fl (6.2-12.0); Monocyte# 0.45 X10^3/uL; Monocyte% 4.8 % (0-10); NRBC Flagged by Analyzer 0 % (0-5); Neutrophil # 5.52 X10^3/uL (2.7-7.7); Neutrophil % 59.6 % (47-70); Platelet Count 251 K/mm3 (150-450); RBC Distribution Width CV 16.1 % (11.6-14.6); RBC Distribution Width SD 46.6 fl (35.1-43.9); Red Blood Count 4.88 M/mm3 (4.6-6.2); White Blood Count 9.3 K/mm3 (4.4-11.0)
[2022-10-17 09:08] LABS: Vitamin D,25 Hydroxy 48.1 ng/mL
[2022-10-17 09:16] LABS: ALB/GLOB Ratio 1.1 RATIO (0.9-2.4); AST(SGOT) 20 U/L (15-37); Alanine Aminotransfer ALT/SGPT 19 U/L (16-61); Albumin, Serum 3.3 g/dL (3.2-5.0); Alkaline Phosphatase 83 U/L (45-117); Anion Gap 6 (5-15); BUN 39 mg/dL (7-18); BUN/Creat Ratio 26.9 RATIO (10-20); Calcium,Total 8.9 mg/dL (8.5-10.1); Chloride 114 mmol/L (98-107); Cholesterol 122 mg/dL (200); Creatinine, Serum 1.45 mg/dL (0.70-1.30); EST Glomerular Filtration Rate 49 mL/min (>60); Est Glom Filt Rate - Afr Amer 60 mL/min (>60); Globulin 3.1 g/dL (2.2-4.2); Glucose 106 mg/dL (74-106); High Density Lipoprotein 62 mg/dL; PSA,Total - Annual Screen 0.62 ng/mL (0.00-4.00); Potassium 4.2 mmol/L (3.5-5.1); Protein, Total 6.4 g/dL (6.4-8.2); Sodium Level 145 mmol/L (136-145); Thyroid Stim Hormone (TSH) 0.54 uIU/mL (0.358-3.74); Triglycerides 69 mg/dL; Very Low Density Lipoprotein 14 mg/dL (5-40)
== END | disposition home or self-care (01) ==
LOC: LAB 08:08
PROVIDERS: PCP Internal Medicine; Referring Provider Internal Medicine; Visit Provider Internal Medicine
DX: E55.9 Vitamin D deficiency, unspecified (principal); J44.9 Chronic obstructive pulmonary disease, unspecified; N18.2 Chronic kidney disease, stage 2 (mild); G25.0 Essential tremor; I12.9 Hypertensive chronic kidney disease with stage 1 through stage 4 chronic kidney disease, or unspecified chronic kidney disease; E78.5 Hyperlipidemia, unspecified; Z87.891 Personal history of nicotine dependence; Z86.73 Personal history of transient ischemic attack (TIA), and cerebral infarction without residual deficits; Z12.5 Encounter for screening for malignant neoplasm of prostate
CPT/HCPCS: 36415; 80053; 80061; 82306; 84153; 84443; 85025; G0103

== ENCOUNTER 2022-12-21 10:58 | Emergency (ER) | payer MEDICARE, BC, SELFPAY ==
[2022-12-21 10:58] VITALS: BP 175/79; PULSE 59; RESP 16; TEMP 36.7; O2SAT 100
--- NOTE | 2022-12-21 11:15 | RAD_ITS ---
STUDY: X-RAY - RIGHT ELBOW REASON FOR EXAM: Male, 82 years old. Fall TECHNIQUE: 3 view(s) of the elbow. COMPARISON: None. FINDINGS: There is no evidence of fracture or dislocation. There is soft tissue swelling overlying the olecranon. There are no radiodense foreign bodies. RAD/Elbow min 3 Views IMPRESSION: No fracture or dislocation in the right elbow. Soft tissue swelling overlying the olecranon. Electronically Signed: Peewee Garcia MD at 12:14 EDT ,
--- NOTE | 2022-12-21 11:15 | EX.ED.UPPERE ---
HPI History of Present Illness Chief Complaint: Upper Extremity Injury Detail of Chief Complaint: Fall with injury to both elbows Informant: patient and spouse/S.O. Narrative Narrative: Patient presents to the emergency department complaint of a fall that occurred 2 weeks ago. Patient states that he caught himself on his elbows. He denies striking his head or loss consciousness. Patient thought he was getting better but noticed that he can continue to have swelling to the posterior aspect of the elbows and his convinced him to come get evaluated for this. Patient denies any fevers or chills or sweats. Denies any other injuries. 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), stage II COPD (chronic obstructive pulmonary disease) Degenerative disc disease Esophageal reflux Essential tremor Hearing problem Heart murmur History of common carotid artery stent placement History of stroke History of tobacco use HTN (hypertension) Hyperlipidemia IBS (irritable bowel syndrome) Osteoarthritis Personal history of transient ischemic attack (TIA) and cerebral infarction without residual deficit Pneumonia RLL pneumonia Spinal stenosis of lumbar region without neurogenic claudication Stroke Home Medications ibuprofen 400 mg tablet 400 mg PO Q8H 07/18/21 [History Last Taken Unknown] omeprazole 20 mg capsule,delayed release 20 mg PO DAILY gerd #90 caps 02/13/22 [Rx Last Taken Unknown] tamsulosin 0.4 mg capsule (Flomax) 0.4 mg PO QHS #30 caps 04/02/22 [Rx Last Taken Unknown] hydralazine 50 mg tablet 50 mg PO BID #180 tabs 04/14/22 [Rx Last Taken Unknown] propranolol 80 mg capsule,24 hr,extended release 80 mg PO DAILY #90 caps 04/14/22 [Rx Last Taken Unknown] quetiapine 25 mg tablet (Seroquel) See Rx Instructions PO .COMPLEX #270 tabs 04/14/22 [Rx Last Taken Unknown] finasteride 5 mg tablet 5 mg PO DAILY 04/23/22 [History Last Taken Unknown] Disability Placard #1 ea 05/20/22 [Rx Last Taken Unknown] bumetanide 1 mg tablet 1 mg PO DAILY 09/18/22 [History Last Taken Unknown] Symbicort 160 mcg-4.5 mcg/actuation HFA aerosol inhaler (budesonide-formoterol) 2 puff inhalation BID #10.2 grams 10/17/22 [Rx Last Taken Unknown] lisinopril 40 mg tablet 40 mg PO DAILY blood pressure #90 tabs 10/22/22 [Rx Last Taken Unknown] atorvastatin 40 mg tablet 40 mg PO QHS #90 tabs 12/02/22 [Rx Last Taken Unknown] Allergy/AdvReac Type Severity Reaction Status Date / Time Iodine and Iodide Containing Allergy Rash Verified 12/21/22 11:00 Produc Sulfa (Sulfonamide Allergy Rash Verified 12/21/22 11:00 Antibiotics) Family History Daughter Alcoholism Sister Alcoholism Surgical History History of colonoscopy History of hernia repair Social History Smoking Status: Former smoker quit date: 07/27/78 Tobacco: How many years used: 30 alcohol intake: never substance use type: does not use what type of physical activity do you participate in: none ROS ROS ED Review of Systems ROS Unobtainable: other Constitutional Constitutional ED: Reports lethargy; Denies chills, fever(s), sweats or weight loss Eyes Eyes: Denies blurry vision, change in vision or diplopia ENT ENT ED: Denies rhinorrhea or sore throat Cardiovascular Cardiovascular: Denies chest pain, orthopnea or racing heartbeat Respiratory/Chest Respiratory/Chest: Denies cough, dyspnea, dyspnea on exertion, orthopnea or sputum Gastrointestinal Gastrointestinal: Denies abdominal pain, diarrhea, nausea or vomiting Genitourinary Genitourinary ED: Denies dysuria, hematuria or urinary frequency Musculoskeletal Musculoskeletal: Reports other Details: Bilateral elbow pain and swelling ; Denies arthralgias, back pain, myalgias or neck pain Integumentary Denies abscess, Abrasions or rash Neurologic Neurologic: Denies headache(s) or weakness Psychiatric Psychiatric: Denies anxiety, depression or suicidal thoughts Endocrine Endocrinology: Denies polydipsia, polyphagia or polyuria Hematologic/Lymphatic Hematologic/Lymphatic: Denies easy bleeding, easy bruising or lymphadenopathy Allergic/Immunologic Allergic/Immunologic ED: Denies mouth swelling, tongue swelling or urticaria EXAM Physical Exam Const Vital Signs: 12/21/22 10:58 Temperature 98.0 F Temperature Source Temporal Pulse Rate 59 L Respiratory Rate 16 Blood Pressure 175/79 H Blood Pressure Mean 111 Pulse Ox 100 Oxygen Delivery Method Room Air Positive well nourished and well developed General Appearance ED: well developed and NAD HEENT Reports TM's clear and moist mucous membranes normocephalic and atraumatic; Negative for trauma or tenderness Tympanic Membrane ED: Yes TM's clear Eyes PERRL and EOMs intact bilaterally General Eye ED: Negative for pale conjunctiva or scleral icterus Neck no lymphadenopathy, supple and no JVD General: Negative for tenderness Chest Wall inspection of chest normal and palpation of chest normal Chest: Negative for tenderness Resp normal respiratory effort and clear to auscultation bilaterally Effort and Inspection: Negative for respiratory distress or pain with movement Auscultation: Negative for rhonchi, wheezes or diminished lung sounds Cardio regular rate, regular rhythm, S1 normal heart sound, S2 normal heart sound and no murmurs Peripheral Pulses: pulses 2+ throughout GI normal to inspection, nondistended, normoactive bowel sounds, soft to palpation, non-tender, non-distended and no masses Back/Spine no CVA tenderness and no thoracic nor lumbar tenderness Extremity Extremity Narrative: Upper extremities-patient has soft tissue swelling noted to both posterior olecranon bursa without evidence of erythema or cellulitic changes. Neurovascularly intact distally. Patient has some mild tenderness to palpation over both olecranon's. No obvious deformity. There is no ecchymosis or bruising. General Extremety ED: Negative for edema General Extremity: Negative for edema Neuro oriented x3, CN's II-XII intact bilaterally, no sensory deficits noted and gait normal Sensorium / Orientation: awake, alert, oriented to person, oriented to place and oriented to time Motor Exam: strength 5/5 throughout and strength abnormal Psych mental status grossly normal Skin no rashes or lesions noted and no wounds MDM MDM MDM Narrative Medical decision making narrative: Patient presents after a fall with injury to both elbows 2 weeks ago. Continues to have some discomfort and swelling. Clinically looks like olecranon bursitis bilaterally from prior trauma. No evidence of cellulitis or infection. Patient had x-rays that were negative for fracture or dislocation. At this point suspect a traumatic bilateral olecranon bursitis and elbow contusions. No signs of infection at this time. No antibiotics indicated. Patient advised to follow-up with primary care physician within next 5 to 7 days. Advised to return if increasing pain, redness, swelling, fever, or condition worsening way. Radiography Diagnostic Testing: Three-view x-ray of bilateral elbows obtained interpreted by myself no acute fractures or dislocations. There was evidence of some soft tissue swelling over the olecranon. Radiology in agreement. Discharge Plan Triage Chief Complaint: Upper Extremity Injury ED Provider: Davie Rosas Dx/Rx/DC Orders Clinical Impression: Bursitis, olecranon, Contusion of elbow Instructions: ED Contusion, Elbow, ED Bursitis Elbow Olecranon Prescriptions: No Action ibuprofen 400 mg tablet 400 mg PO Q8H finasteride 5 mg tablet 5 mg PO DAILY (DME) Disability Placard See Rx Instructions .Route .MEDSUPPLY Qty: 1 0RF Rx Instructions: . bumetanide 1 mg tablet 1 mg PO DAILY tamsulosin [Flomax] 0.4 mg capsule 0.4 mg PO QHS Qty: 30 0RF omeprazole 20 mg capsule,delayed release(DR/EC) 20 mg PO DAILY Qty: 90 1RF hydralazine 50 mg tablet 50 mg PO BID Qty: 180 3RF propranolol 80 mg capsule,extended release 24hr 80 mg PO DAILY Qty: 90 3RF quetiapine [Seroquel] 25 mg tablet See Rx Instructions PO .COMPLEX Qty: 270 3RF Rx Instructions: Take 1 tab each morning and 2 tabs each evening; budesonide-formoterol [Symbicort] 160-4.5 mcg/actuation HFA aerosol inhaler 2 puff inhalation BID Qty: 10.2 3RF Rx Instructions: Please fill for 90-day supply, 3 inhalers. lisinopril 40 mg tablet 40 mg PO DAILY Qty: 90 3RF atorvastatin 40 mg tablet 40 mg PO QHS Qty: 90 3RF Rx Instructions: 40mg in total Primary Care Provider: Leda Verdin Referrals: Leda Verdin MD [Primary Care Provider] - 5-7 Days Disposition Disposition: Home, Self Care
--- NOTE | 2022-12-21 11:19 | RAD_ITS ---
STUDY: X-RAY - LEFT ELBOW REASON FOR EXAM: Male, 82 years old. Fall TECHNIQUE: 3 view(s) of the elbow. COMPARISON: None. FINDINGS: There is no evidence of fracture or dislocation. There is soft tissue swelling noted overlying the olecranon. There are no radiodense foreign bodies. RAD/Elbow min 3 Views IMPRESSION: No fracture or dislocation in the left elbow. Soft tissue swelling overlying the olecranon. Electronically Signed: Peewee Garcia MD at 12:11 EDT ,
== END 2022-12-21 12:50 | disposition home or self-care (01) ==
PROVIDERS: Emergency Provider Emergency Medicine; PCP Internal Medicine; Visit Provider Emergency Medicine
DX: M70.21 Olecranon bursitis, right elbow (principal); M70.22 Olecranon bursitis, left elbow; N18.2 Chronic kidney disease, stage 2 (mild); S50.01XA Contusion of right elbow, initial encounter; S50.02XA Contusion of left elbow, initial encounter; Z86.73 Personal history of transient ischemic attack (TIA), and cerebral infarction without residual deficits; W19.XXXA Unspecified fall, initial encounter; Z87.891 Personal history of nicotine dependence
CPT/HCPCS: 73080; 99282

== ENCOUNTER → 2023-04-22 | Outpatient (CLI) | payer MEDICARE, BC, SELFPAY ==
[2023-04-22 10:59] LABS: Absolute Lymphocyte Count 4.26 X10^3/uL (0.83-4.51); Absolute Neutrophil Count 5.6 X10^3/uL (2.0-7.7); Basophil# 0.02 X10^3/uL; Basophil% 0.2 % (0-1); Eosinophil# 0.27 X10^3/uL; Eosinophils% 2.5 % (0-5); Hematocrit 36.9 % (40-54); Hemoglobin 11.9 g/dL (13.0-16.5); Lymphocyte # 4.26 X10^3/ul (0.83-4.51); Lymphocyte % 39.9 % (19-41); Mean Corp Hgb Conc 32.2 g/dL (32-36); Mean Corpuscular Volume 83.9 fL (80-94); Mean Platelet Vol. 9.8 fl (6.2-12.0); Monocyte# 0.52 X10^3/uL; Monocyte% 4.9 % (0-10); NRBC Flagged by Analyzer 0 % (0-5); Neutrophil # 5.57 X10^3/uL (2.7-7.7); Neutrophil % 52.2 % (47-70); Platelet Count 210 K/mm3 (150-450); RBC Distribution Width CV 15.5 % (11.6-14.6); White Blood Count 10.7 K/mm3 (4.4-11.0)
[2023-04-22 11:23] LABS: ALB/GLOB Ratio 1.1 RATIO (0.9-2.4); AST(SGOT) 16 U/L (15-37); Alanine Aminotransfer ALT/SGPT 21 U/L (16-61); Albumin, Serum 3.1 g/dL (3.2-5.0); Alkaline Phosphatase 70 U/L (45-117); Anion Gap 2 (5-15); BUN 49 mg/dL (7-18); BUN/Creat Ratio 25.3 RATIO (10-20); Calcium,Total 8.6 mg/dL (8.5-10.1); Chloride 118 mmol/L (98-107); Creatinine, Serum 1.94 mg/dL (0.70-1.30); EST Glomerular Filtration Rate 35 mL/min (>60); Est Glom Filt Rate - Afr Amer 43 mL/min (>60); Globulin 2.8 g/dL (2.2-4.2); Glucose 106 mg/dL (74-106); Magnesium 2.3 mg/dL (1.6-2.6); Potassium 4.4 mmol/L (3.5-5.1); Protein, Total 5.9 g/dL (6.4-8.2); Sodium Level 147 mmol/L (136-145)
== END | disposition home or self-care (01) ==
LOC: LAB 10:41
PROVIDERS: PCP Internal Medicine; Referring Provider Internal Medicine; Visit Provider Internal Medicine
DX: I12.9 Hypertensive chronic kidney disease with stage 1 through stage 4 chronic kidney disease, or unspecified chronic kidney disease (principal); J44.9 Chronic obstructive pulmonary disease, unspecified; N18.2 Chronic kidney disease, stage 2 (mild); Z86.73 Personal history of transient ischemic attack (TIA), and cerebral infarction without residual deficits
CPT/HCPCS: 36415; 80053; 83735; 85025

== ENCOUNTER → 2023-06-30 | Outpatient (CLI) | payer MEDICARE, BC, SELFPAY ==
[2023-06-30 09:38] LABS: Anion Gap 4 (5-15); BUN 42 mg/dL (7-18); BUN/Creat Ratio 18.9 RATIO (10-20); Calcium,Total 8.7 mg/dL (8.5-10.1); Chloride 115 mmol/L (98-107); Creatinine, Serum 2.22 mg/dL (0.70-1.30); EST Glomerular Filtration Rate 30 mL/min (>60); Est Glom Filt Rate - Afr Amer 37 mL/min (>60); Glucose 106 mg/dL (74-106); Potassium 4.6 mmol/L (3.5-5.1); Sodium Level 145 mmol/L (136-145)
[2023-06-30 10:13] LABS: Protein, Urine (Random) 40.7 mg/dL (<11.9); Protein:Creat Ratio 395 mg/g CRE (0-200)
== END | disposition home or self-care (01) ==
LOC: LAB 08:28
PROVIDERS: PCP Internal Medicine; Referring Provider Internal Medicine Nephrology; Visit Provider Internal Medicine Nephrology
DX: N18.2 Chronic kidney disease, stage 2 (mild) (principal)
CPT/HCPCS: 36415; 80048; 82570; 84156

== ENCOUNTER → 2023-07-06 | Outpatient (CLI) | payer MEDICARE, BC, SELFPAY ==
--- NOTE | 2023-07-06 12:06 | US_ITS ---
STUDY: RENAL ULTRASOUND - COMPLETE REASON FOR EXAM: Male, 83 years old. CKD, STAGE 2 TECHNIQUE: Ultrasound evaluation of the kidneys was performed with real-time and static baca-scale imaging. COMPARISON: None. FINDINGS: RIGHT KIDNEY: Normal location of the right kidney, which is normal in size. The right kidney measures 10.3 cm x 5.7 cm x 4.5 cm. There is diffuse thinning of the renal cortex. The renal cortex measures 5.4 cm. There is no right renal mass or cyst. There are no right renal calculi. There is no right hydronephrosis. DISTAL RIGHT URETER: There is non-visualization of the distal right ureter. There is no demonstrated right ureterovesical junction calculus. There is a visualized right ureteral jet. LEFT KIDNEY: Normal location of the left kidney, which is normal in size. The left kidney measures 9.6 cm x 3.7 cm x 4.1 cm. There is diffuse thinning of the renal cortex. The renal cortex measures 0.9 cm. There is a 2 cm x 1.7 cm x 1.7 cm cyst in the lower pole. There are no left renal calculi. There is no left hydronephrosis. DISTAL LEFT URETER: There is non-visualization of the distal left ureter. There is no demonstrated left ureterovesical junction calculus. There is no demonstrated left ureteral jet. BLADDER: The distended urinary bladder has a volume of 91 ml. There is a normal wall thickness of the distended urinary bladder. There is no demonstrated mass within the urinary bladder. There are no demonstrated bladder calculi. US/Kidney and Bladder IMPRESSION: Mild degree of bilateral renal cortical thinning. Small cyst in the lower pole of the left kidney. Electronically Signed: Zachariah Santoro MD at 13:14 EST ,
== END | disposition home or self-care (01) ==
LOC: US 12:05
PROVIDERS: PCP Internal Medicine; Referring Provider Internal Medicine Nephrology; Visit Provider Internal Medicine Nephrology
DX: N18.2 Chronic kidney disease, stage 2 (mild) (principal)
CPT/HCPCS: 76770

== ENCOUNTER → 2023-08-31 | Outpatient (CLI) | payer MEDICARE, BC, SELFPAY ==
--- OUTSIDE RECORDS SUMMARY | 2023-08-31 12:31 | XMS RPT_ITS | CCD ---
Author Name Unknown Address [address] [place] [address] Organization [facility] Care Team Providers Care Professor Of Rhetoric Name Role Phone RAHEEL AMIN Admitting Unavailable RAHEEL AMIN Attending Unavailable ANISHA GUNN, DR JACKY Flaherty Primary Care Physician John PT, Salena Unavailable Unavailable PHYSICIAN, NOT RECORDED Primary Care Physician U gisselle FITZPATRICK MD, ALEX Primary Care Physician [phone] COLLEEN HOWELL Referring Unavailable COLLEEN HOWELL Primary Care Unavailable GARY WEN Attending Unavailable NANETTE GUNN, ALEX Primary Care Unavailable NANETTE GUNN, ALEX Primary Care Unavailable MARY MORILLO MD Attending Unavail able NANETTE GUNN, ALEX Primary Care Unavailable CYNDY SOLE MOLDING MACHINE OPERATOR-MEDICAL RECORDS CODER, ENRIQUE Admitting Unavailab lolita MULLER, LOREN Consulting Unavailab YRIS Sanz DO Attending Unavailable Allergies Allergy Classification Reported Allergen(s) Allergy Type Date of Onset Reaction(s) Facility (9 sources) Ciprofloxacin; Translations: [CIPROFLOXACIN] Drug Allergy 7 [facility] Repository (2 sources) Codeine; Translations: [CODEINE] Drug Allergy 8 [facility] (2 sources) Contrast media; Translations: [CONTRAST DYE] Propensity to adverse reactions to drug (disorder) 9 [facility] (2 sources) Doxycycline; Translations: [DOXYCYCLINE] Drug Allergy 4 [facility] Repository (5 sources) Iodine; Translations: [iodine] Drug Allergy Weal (disorder) [facility] CV Medications Current Medications Medication Drug Class(es) Dates Sig (Normalized) Sig (Original) amLODIPine 10 mg oral tablet (4 sources) Dihydropyridine Calcium Channel Zoe Start: 03-18-2022 amLODIPine 10 mg oral tablet Dose : 10 mg = 1 tab(s), Oral, qDay, # 30 tab(s), 0 Refill(s), [facility]: [id number], 170, cm, 03/11/22 18:36:00 EDT, Height Start Date: 03/18/22 Status: Ordered Problems Active Problems Problem Classification Problem Date Documented Da te Episodic/Chronic Acute and unspecified renal failure (1 source) Acute renal failure syndrome; Translations: [Acute kidney failure, unspecified] Onset: 3 Episodic Acute cerebrovascular disease (7 sources) Ischemic stroke 05-28-2015 Chronic Anxiety disorders (7 sources) Anxiety 05-28-2015 Chronic Cardiac and circulatory congenital anomalies (5 sources) Patent foramen ovale 04-11-2022 Chronic Cardiac dysrhythmias (10 sources) Atrial fibrillation; Translations: [Nonsustained ventricular tachycardia ] Onset: 3 04-11-2022 Chronic Chronic kidney disease (7 sources) Chronic kidney disease stage 3 05-28-2015 Chronic Chronic obstructive pulmonary disease and bronchiectasis (7 sources) Chronic obstructive lung disease 12-24-2018 Chronic Congestive heart failure; nonhypertensive (3 sources) Heart failure; Translations: [Heart failure, unspecified] Onset: 3 Chronic Disorders of lipid metabolism (8 sources) Hyperlipidemia; Translations: [Mixed hyperlipidemia] Onset: 6 05-28-2015 Chronic Esophageal disorders (7 sources) Gastroesophageal reflux disease 05-28-2015 Chronic Essential hypertension (9 sources) Hypertensive disorder; Translations: [Essential (primary) hypertension] Onset: 6 05-28-2015 Chronic Genitourinary symptoms and ill-defined conditions (1 source) Unspecified urinary incontinence; Translations: [Unspecified urinary incontinence] Onset: 4 Chronic Inflammatory conditions of male genital organs (7 sources) Chronic prostatitis 05-28-2015 Chronic Malaise and fatigue (5 sources) Asthenia 03-12-2022 Episodic Nonspecific chest pain (4 sources) Chest pain 05-12-2022 Episodic Nutritional deficiencies (7 sources) Vitamin D deficiency 05-28-2015 Chronic Other and ill-defined heart disease (5 sources) Left ventricular hypertrophy 09-16-2022 Chronic Other circulatory disease (7 sources) Disorder of carotid artery 05-28-2015 Chronic Other connective tissue disease (14 sources) H/O: musculoskeletal disease 05-28-2015 Episodic Other connective tissue disease (7 sources) H/O: osteoarthritis 05-28-2015 Episodic Other connective tissue disease (7 sources) Pain in lower limb 05-28-2015 Episodic Other fractures (1 source) Closed fracture of one rib; Translations: [Fracture of one rib, unspecified side, initial encounter for closed fracture] Onset: 1 Episodic Other gastrointestinal disorders (7 sources) Irritable bowel syndrome 05-28-2015 Chronic Other lower respiratory disease (1 source) Other nonspecific abnormal finding of lung field; Translations: [Other nonspecific abnormal finding of lung field] Onset: 8 Episodic Other nervous system disorders (7 sources) Intermittent tremor 05-28-2015 Episodic Other nutritional; endocrine; and metabolic disorders (5 sources) Amyloidosis; Translations: [Amyloidosis, unspecified] Onset: 3 05-12-2022 Chronic Natalie-; endo-; and myocarditis; cardiomyopathy (except that caused by tuberculosis or sexually transmitted disease) (3 sources) Cardiomyopathy 08-12-2022 Chronic Pleurisy; pneumothorax; pulmonary collapse (1 source) Pleural effusion; Translations: [Pleural effusion, not elsewhere classified] Onset: 3 Episodic Pneumonia (except that caused by tuberculosis or sexually transmitted disease) (2 sources) Pneumonia, unspecified organism; Translations: [Pneumonia] Onset: 8 Episodic Residual codes; unclassified (5 sources) Agitation due to dementia 03-12-2022 Chronic Residual codes; unclassified (7 sources) Chronic back pain 05-28-2015 Episodic Residual codes; unclassified (1 source) Localized edema; Translations: [Localized edema] Onset: 3 Episodic Spondylosis; intervertebral disc disorders; other back problems (7 sources) Degeneration of lumbar intervertebral disc 05-28-2015 Chronic Past or Other Problems Problem Classification Problem Date Documented Da te Episodic/Chronic Diabetes mellitus without complication (1 source) Hyperglycemia, unspecified; Translations: [Elevated blood sugar] Onset: 10-29-2020 Episodic Results Test Name Value Interpretation Reference Range Facil ity Vital Signs Date Time Vital Sign Value Performing Clinician Faci lity 08-01-2023 07:00-0500 Diastolic Blood Pressure Non-Invasive 83 mm[Hg] DR GARY WEN MD [facility] 08-01-2023 07:00-0500 Heart rate 86 /min DR GARY WEN MD [facility] 08-01-2023 07:00-0500 Respiratory rate 16 /min DR GARY WEN MD [facility] 08-01-2023 07:00-0500 Systolic Blood Pressure Non-Invasive 166 mm[Hg] DR GARY WEN MD [facility] 08-01-2023 04:03-0500 Body height 172.[address] GARY WEN MD [facility] 08-01-2023 04:03-0500 Body temperature 97.34 [degF] DR GARY WEN MD [facility] 08-01-2023 04:03-0500 Body weight 57.[address] GARY WEN MD [facility] 08-01-2023 04:03-0500 Diastolic Blood Pressure Non-Invasive 138 mm[Hg] DR GARY WEN MD [facility] 08-01-2023 04:03-0500 Heart rate 110 /min DR GARY WEN MD [facility] 08-01-2023 04:03-0500 Respiratory rate 18 /min DR GARY WEN MD [facility] 08-01-2023 04:03-0500 Systolic Blood Pressure Non-Invasive 152 mm[Hg] DR GARY WEN MD [facility] 07-15-2023 13:16-0500 Body temperature 97.34 [degF] ENRIQUE NAYLOR APRN-MEDICAL RECORDS CODER [facility] 07-15-2023 13:16-0500 Diastolic Blood Pressure Non-Invasive 73 mm[Hg] ENRIQUE NAYLOR SOLE MOLDING MACHINE OPERATOR-MEDICAL RECORDS CODER [facility] 07-15-2023 13:16-0500 Heart rate 62 /min ENRIQUE NAYLOR SOLE MOLDING MACHINE OPERATOR-MEDICAL RECORDS CODER [facility] 07-15-2023 13:16-0500 Reason For Taking VItal Signs ENRIQUE NAYLOR SOLE MOLDING MACHINE OPERATOR-MEDICAL RECORDS CODER [facility] 07-15-2023 13:16-0500 Respiratory rate 18 /min ENRIQUE NAYLOR SOLE MOLDING MACHINE OPERATOR-MEDICAL RECORDS CODER [facility] 07-15-2023 13:16-0500 Systolic Blood Pressure Non-Invasive 132 mm[Hg] ENRIQUE NAYLOR SOLE MOLDING MACHINE OPERATOR-MEDICAL RECORDS CODER [facility] 07-15-2023 10:20-0500 Heart rate 78 /min ENRIQUE NAYLOR SOLE MOLDING MACHINE OPERATOR-MEDICAL RECORDS CODER [facility] 07-15-2023 10:20-0500 Respiratory rate 20 /min ENRIQUE NAYLOR SOLE MOLDING MACHINE OPERATOR-MEDICAL RECORDS CODER [facility] 07-15-2023 09:44-0500 Diastolic Blood Pressure Non-Invasive 67 mm[Hg] ENRIQUE NAYLOR SOLE MOLDING MACHINE OPERATOR-MEDICAL RECORDS CODER [facility] 07-15-2023 09:44-0500 Heart rate 68 /min ENRIQUE NAYLOR SOLE MOLDING MACHINE OPERATOR-MEDICAL RECORDS CODER [facility] 07-15-2023 09:44-0500 Systolic Blood Pressure Non-Invasive 168 mm[Hg] ENRIQUE NAYLOR SOLE MOLDING MACHINE OPERATOR-MEDICAL RECORDS CODER [facility] 07-15-2023 07:22-0500 Body temperature 98.06 [degF] ENRIQUE NAYLOR SOLE MOLDING MACHINE OPERATOR-MEDICAL RECORDS CODER [facility] 07-15-2023 07:22-0500 Diastolic Blood Pressure Non-Invasive 68 mm[Hg] ENRIQUE NAYLOR SOLE MOLDING MACHINE OPERATOR-MEDICAL RECORDS CODER [facility] 07-15-2023 07:22-0500 Heart rate 43 /min ENRIQUE NAYLOR SOLE MOLDING MACHINE OPERATOR-MEDICAL RECORDS CODER [facility] 07-15-2023 07:22-0500 Respiratory rate 16 /min ENRIQUE NAYLOR SOLE MOLDING MACHINE OPERATOR-MEDICAL RECORDS CODER [facility] 07-15-2023 07:22-0500 Systolic Blood Pressure Non-Invasive 168 mm[Hg] ENRIQUE NAYLOR SOLE MOLDING MACHINE OPERATOR-MEDICAL RECORDS CODER [facility] 07-15-2023 04:25-0500 Body temperature 97.52 [degF] ENRIQUE NAYLOR SOLE MOLDING MACHINE OPERATOR-MEDICAL RECORDS CODER [facility] 07-15-2023 04:25-0500 Heart rate 48 /min ENRIQUE NAYLOR SOLE MOLDING MACHINE OPERATOR-MEDICAL RECORDS CODER [facility] 07-15-2023 04:25-0500 Reason For Taking VItal Signs ENRIQUE NAYLOR SOLE MOLDING MACHINE OPERATOR-MEDICAL RECORDS CODER [facility] 07-14-2023 23:50-0500 Heart rate 61 /min ENRIQUE NAYLOR SOLE MOLDING MACHINE OPERATOR-MEDICAL RECORDS CODER [facility] 07-14-2023 23:50-0500 Reason For Taking VItal Signs ENRIQUE NAYLOR SOLE MOLDING MACHINE OPERATOR-MEDICAL RECORDS CODER [facility] 07-14-2023 18:41-0500 Body temperature 98.06 [degF] ENRIQUE NAYLOR SOLE MOLDING MACHINE OPERATOR-MEDICAL RECORDS CODER [facility] 07-14-2023 18:41-0500 Heart rate 55 /min ENRIQUE NAYLOR SOLE MOLDING MACHINE OPERATOR-MEDICAL RECORDS CODER [facility] 07-14-2023 18:25-0500 Heart rate 60 /min ENRIQUE CYNDY SOLE MOLDING MACHINE OPERATOR-MEDICAL RECORDS CODER [facility] 07-14-2023 11:30-0500 Heart rate 57 /min ENRIQUE NAYLOR SOLE MOLDING MACHINE OPERATOR-MEDICAL RECORDS CODER [facility] 07-12-2023 07:45-0500 Blood Pressure Cuff Size ENRIQUE NAYLOR SOLE MOLDING MACHINE OPERATOR-MEDICAL RECORDS CODER [facility] 07-12-2023 07:45-0500 Blood Pressure Location ENRIQUE NAYLOR SOLE MOLDING MACHINE OPERATOR-MEDICAL RECORDS CODER [facility] 07-12-2023 07:45-0500 Blood Pressure Method ENRIQUE NAYLOR SOLE MOLDING MACHINE OPERATOR-MEDICAL RECORDS CODER [facility] 07-12-2023 04:26-0500 Body height 172.7 cm ENRIQUE NAYLOR SOLE MOLDING MACHINE OPERATOR-MEDICAL RECORDS CODER [facility] 07-12-2023 04:26-0500 Body weight 59.4 kg ENRIQUE NAYLOR SOLE MOLDING MACHINE OPERATOR-MEDICAL RECORDS CODER [facility] 07-12-2023 04:26-0500 Body weight 19.92 kg/m2 ENRIQUE NAYLOR SOLE MOLDING MACHINE OPERATOR-MEDICAL RECORDS CODER [facility] 09-14-2022 19:50-0500 Diastolic Blood Pressure Non-Invasive 62 1 MARY MORILLO MD [facility] 09-14-2022 19:50-0500 Heart rate 72 /min MARY MORILLO MD [facility] 09-14-2022 19:50-0500 Respiratory rate 18 /min MARY MORILLO MD [facility] 09-14-2022 19:50-0500 Systolic Blood Pressure Non-Invasive 146 1 MARY MORILLO MD [facility] 09-14-2022 18:07-0500 Body temperature 97.52 [degF] MARY MORILLO MD [facility] 09-14-2022 18:07-0500 Diastolic Blood Pressure Non-Invasive 65 1 MARY MORILLO MD [facility] 09-14-2022 18:07-0500 Heart rate 61 /min MARY MORILLO MD [facility] 09-14-2022 18:07-0500 Respiratory rate 18 /min MARY MORILLO MD [facility] 09-14-2022 18:07-0500 Systolic Blood Pressure Non-Invasive 145 1 MARY MORILLO MD [facility] 02-22-2022 10:13-0400 Diastolic blood pressure 78 mm[Hg] BRADY ADAM DO [facility] 02-22-2022 10:13-0400 Heart rate 45 /min BRADY ADAM DO [facility] 02-22-2022 10:13-0400 Respiratory rate 16 /min BRADY ADAM DO [facility] 02-22-2022 10:13-0400 Systolic blood pressure 132 mm[Hg] BRADY ADAM DO [facility] 02-22-2022 09:18-0400 Diastolic blood pressure 86 mm[Hg] BRADY ADAM DO [facility] 02-22-2022 09:18-0400 Heart rate 43 /min BRADY ADAM DO [facility] 02-22-2022 09:18-0400 Respiratory rate 15 /min BRADY ADAM DO [facility] 02-22-2022 09:18-0400 Systolic blood pressure 110 mm[Hg] BRADY ADAM DO [facility] 02-22-2022 09:03-0400 Diastolic blood pressure 94 mm[Hg] BRADY ADAM DO [facility] 02-22-2022 09:03-0400 Heart rate 42 /min BRADY ADAM DO [facility] 02-22-2022 09:03-0400 Respiratory rate 14 /min BRADY ADAM DO [facility] 02-22-2022 09:03-0400 Systolic blood pressure 131 mm[Hg] BRADY ADAM DO [facility] 02-22-2022 08:38-0400 Heart rate 43 /min BRADY ADAM DO [facility] 02-22-2022 08:20-0400 Heart rate 43 /min BRADY ADAM DO [facility] 02-22-2022 06:46-0400 Body temperature 98.78 [degF] BRADY ADAM DO [facility] 07-17-2021 17:08-0500 Diastolic blood pressure 80 mm[Hg] MARY MORILLO MD [facility] 07-17-2021 17:08-0500 Heart rate 63 /min MARY MORILLO MD [facility] 07-17-2021 17:08-0500 Mean blood pressure 116 mm[Hg] MARY MORILLO MD [facility] 07-17-2021 17:08-0500 Respiratory rate 16 /min MARY MORILLO MD [facility] 07-17-2021 17:08-0500 Systolic blood pressure 189 mm[Hg] MARY MORILLO MD [facility] 07-17-2021 15:51-0500 Body temperature 98.24 [degF] MARY MORILLO MD [facility] 07-17-2021 15:51-0500 Diastolic blood pressure 86 mm[Hg] MARY MORILLO MD [facility] 07-17-2021 15:51-0500 Heart rate 65 /min MARY MORILLO MD [facility] 07-17-2021 15:51-0500 Mean blood pressure 124 mm[Hg] MARY MORILLO MD [facility] 07-17-2021 15:51-0500 Respiratory rate 16 /min MARY MORILLO MD [facility] 07-17-2021 15:51-0500 Systolic blood pressure 200 mm[Hg] MARY MORILLO MD [facility] Encounters Encounter Date Encounter Type Care Provider Facility Start: 08-01-2023 End: 08-01-2023 Emergency department patient visit GARY WEN Facility:B Start: 08-01-2023 End: 08-01-2023 Emergency department patient visit DR GARY WEN MD [facility] Start: 07-12-2023 End: 07-15-2023 Evaluation and management of inpatient ALEX FITZPATRICK MD Facility:[facility] Start: 07-11-2023 End: 07-15-2023 Evaluation and management of inpatient ENRIQUE NAYLOR SOLE MOLDING MACHINE OPERATOR-MEDICAL RECORDS CODER [facility] Start: 09-14-2022 End: 09-14-2022 Emergency department patient visit ALEX FITZPATRICK MD Facility:[facility] Start: 09-14-2022 End: 09-14-2022 Emergency department patient visit MARY MORILLO MD [facility] Start: 06-05-2022 End: 06-05-2022 Patient encounter procedure DARA GREY [facility] Start: 04-15-2022 End: 04-15-2022 Patient encounter procedure DARA GREY MD [facility] Start: 02-22-2022 End: 02-22-2022 Emergency department patient visit BRADY ADAM DO [facility] Start: 07-17-2021 End: 07-17-2021 Emergency department patient visit MARY MORILLO MD [facility] Start: 10-29-2020 End: 10-29-2020 ambulatory COLLEEN [facility] Start: 07-07-2018 End: 07-07-2018 Patient encounter procedure [facility] Procedures Date Procedure Procedure Detail Performing Clinician Start: 06-05-2022 Cardiovascular stres s testing MARY MORILLO MD Immunizations Immunization Date Immunization Notes Care Provider Fa brittani 01-07-2020 tetanus toxoid, redu abner diphtheria toxoid, and acellular pertussis vaccine, adsorbed; Translations: [Boostrix (Tdap)] MARY MORILLO MD [facility] 05-28-2015 tetanus toxoid, redu abner diphtheria toxoid, and acellular pertussis vaccine, adsorbed MARY MORILLO MD [facility] Payers Date Payer Category Payer Unknown [id number] 2004 Medicare [id number] 1940 Unknown [id number] 1940 Unknown [id number] 1940 Unknown [id number] Social History Date Type Detail Facility Start: 12-24-2018 Ex-smoker (finding) [facility] Sex Assigned At [facility] Start: 07-11-2023 Tobacco smoking status Never s moked tobacco (finding) [facility] Functional Status Date Assessment Result Facility 08-01-2023 Functional Status ID band on, Allergy Band on, Safety level maintained [facility] 07-15-2023 Functional Status Nurse Safety C hecks q2hrs Performed 7am-3pm [facility] 07-15-2023 Functional Status Sequential Com pression Device bilateral knee high removed/off [facility] 07-15-2023 Functional Status Kaushik Storm [facility] 07-15-2023 Functional Status Identified as high risk, Fall ID band on, Bed alert on, Door open, Non-Slip footwear, Room check performed [facility] 07-15-2023 Functional Status Kaushik Storm [facility] 07-14-2023 Functional Status Kaushik [facility] 07-14-2023 Functional Status Kaushik [facility] 07-14-2023 Functional Status Kaushik [facility] 07-14-2023 Functional Status Min A 1 Kaushik [facility] 07-14-2023 Functional Status Supervised Kaushik [facility] 07-14-2023 Functional Status Breakfast Percent 85 [facility] 07-13-2023 Functional Status Kaushik Storm [facility] 07-13-2023 Functional Status Split level home [facility] 07-13-2023 Functional Status Kaushik Storm [facility] 07-13-2023 Functional Status Kaushik Storm [facility] 07-13-2023 Functional Status Kaushik Storm [facility] 07-13-2023 Functional Status Repositions self [facility] 07-12-2023 Functional Status Kaushik Storm [facility] 07-12-2023 Functional Status Kaushik Storm [facility] 07-12-2023 Functional Status Sensory Defici ts Cognitive deficit [facility] 09-14-2022 Functional Status Independent Comfort Emeterio shrestha [facility] 09-14-2022 Functional Status Standard Safet y ID band on, Allergy Band on, Call device within reach, Bed in low position, Wheels locked, Upper/Half-Length side-rails up, Phone within reach, personal items within reach, Bedside Cart Locked, Visitor at bedside [facility] 02-22-2022 Functional Status Assistive Device None A [facility] 02-22-2022 Functional Status Standard Safet y ID band on, Call device within reach, Bed in low position, Wheels locked [facility] Mental Status Date Assessment Result Facility 08-01-2023 Mental Status Forgetful, Follows simple commands [facility] 07-15-2023 Mental Status Not oriented to time, Forgetful [facility] 07-14-2023 Mental Status [facility] 07-14-2023 Mental Status [facility] 07-14-2023 Mental Status [facility] 09-14-2022 Mental Status Orientation Oriented x 4 [facility] 09-14-2022 Mental Status [facility] 02-22-2022 Mental Status Orientation Does not intera ct [facility] 02-22-2022 Mental Status [facility] Clinical Notes 07-17-2021 to 08-01-2023 Note Date & Type Note Facility 08-01-2023 Hospital Discharge instructions Patient Education 08/01/2023 06:42:03 Urinary Incontinence, Male (Adult) Urinary Incontinence (Male) Urinary incontinence means not being able to control the release of urine from the bladder. Causes Common causes of urinary incontinence in men include: Infection Certain medicines Aging Poor pelvic muscle tone Bladder spasms Obesity Urinary retention Nervous system diseases, diabetes, sleep apnea, urinary tract infections, prostate surgery, and pelvic trauma can also cause incontinence. Constipation and smoking have also been identified as risk factors. Symptoms Urge incontinence (also called overactive bladder ) is a sudden urge to urinate even though there may not be much urine in the bladder. The need to urinate often during the night is common. It is due to bladder spasms. Stress incontinence is involuntary urine leakage that can occur with sneezing, coughing, and other actions that put stress on the bladder. Treatment Treatment of urinary incontinence depends on the cause. Infections of the bladder are treated with antibiotics. Urinary retention is treated with a bladder catheter. Home care Follow these guidelines when caring for yourself at home: Don't consume foods and drinks that may irritate the bladder. These include drinks containing alcohol, caffeinate, or carbonation; chocolate; and acidic fruits and juices. Limit fluid intake to 6 to 8 cups a day. Lose weight if you are overweight. This will reduce your symptoms. If needed, wear absorbent pads to catch urine. Change pads frequently to maintain hygiene and prevent skin and bladder infections. Bathe daily to maintain good hygiene. If an antibiotic was prescribed to treat a bladder infection, be sure to take it until finished, even if you are feeling better before then. This is to make sure your infection has cleared. If a catheter was left in place, it is important to keep bacteria from getting into the collection bag. Don't disconnect the catheter from the collection bag. Use a leg band to secure the catheter drainage tube, so it does not pull on the catheter. Drain the collection bag when it becomes full using the drain spout at the bottom of the bag. Don't disconnect the bag from the catheter. Don't pull on or try to remove a catheter. The catheter must be removed by a healthcare provider. Follow-up care Follow up with your healthcare provider, or as advised. When to seek medical advice Call your healthcare provider right away if any of these occur: Fever over 100.4 F (38 C), or as directed by your healthcare provider Bladder pain or fullness Abdominal swelling, nausea, or vomiting Back pain Weakness, dizziness, or fainting If a catheter was left in place, return if: oCatheter falls out oCatheter stops draining for 6 hours 4671-2225 [employer]. [address] [place] [address], [place] [address]. All rights reserved. This information is not intended as a substitute for professional medical care. Always follow your healthcare professional's instructions. Follow Up Care 08/01/2023 03:57:29 With:JOEL BROOKE Address: [address] [place] [phone] Business (1) When:2-4 days [facility] 08-01-2023 Note Discharge Instructions Thank you for allowing [facility] to assist you with your healthcare needs. The following is important discharge information regarding your hospital visit. Diagnosis from Today's Visit Frequent Urination Urinary incontinence What to Do Next Instructions from Your Care Team No qualifying data available. Post Acute Orders No qualifying data available. You Need to Schedule the Following Appointments Follow Up with JOEL BROOKE When Within 2-4 days Where: [address] [place] [phone] Business (1) Allergies Cipro iodine (Hives) Medications Please ask your primary doctor or pharmacist before taking any other medication not listed, including over the counter drugs, herbal medications, vitamins and or supplements as they may interact with your home medications. What How Much When Instructions Last Dose Unchanged aspirin 81 Milligram by mouth Once a day Unchanged atorvastatin (atorvastatin 40 mg oral tablet) 1 tab(s) by mouth Once a day Unchanged budesonide-formoterol (Symbicort 160 mcg-4.5 mcg/ inh Inhaler) 2 puff(s) by inhalation Two (2) times a day Unchanged carvedilol (Coreg 25 mg oral tablet) 1 tab(s) by mouth Two (2) times a day Unchanged cholecalciferol (cholecalciferol 1000 intl units oral tablet) 1 tab(s) by mouth Every day Unchanged finasteride (finasteride 5 mg oral tablet) take 1 tablet by mouth once daily Unchanged hydrALAZINE (hydrALAZINE 25 mg oral tablet) 4 tab(s) by mouth Two (2) times a day Unchanged hydrocortisone/ neomycin/ polymyxin B otic (hydrocortisone/ neomycin/ polymyxin B 1%-0.35%-10,000 units/ mL otic solution) 4 Drops Both ears Three (3) times a day Unchanged QUEtiapine (SEROquel 25 mg oral tablet) 2 tab(s) by mouth Once a day (in the evening) Unchanged QUEtiapine (SEROquel 25 mg oral tablet) 1 tab(s) by mouth Once a day (in the morning) Please take this list to your next doctor s visit. Bring all medications you take, including over the counter medications, herbals and other supplements with you to your doctor s visit. Patients and families are reminded to discard old lists and to update any records with all medication providers or retail pharmacies. Education Materials Urinary Incontinence (Male) Urinary incontinence means not being able to control the release of urine from the bladder. Causes Common causes of urinary incontinence in men include: Infection Certain medicines Aging Poor pelvic muscle tone Bladder spasms Obesity Urinary retention Nervous system diseases, diabetes, sleep apnea, urinary tract infections, prostate surgery, and pelvic trauma can also cause incontinence. Constipation and smoking have also been identified as risk factors. Symptoms Urge incontinence (also called overactive bladder ) is a sudden urge to urinate even though there may not be much urine in the bladder. The need to urinate often during the night is common. It is due to bladder spasms. Stress incontinence is involuntary urine leakage that can occur with sneezing, coughing, and other actions that put stress on the bladder. Treatment Treatment of urinary incontinence depends on the cause. Infections of the bladder are treated with antibiotics. Urinary retention is treated with a bladder catheter. Home care Follow these guidelines when caring for yourself at home: Don't consume foods and drinks that may irritate the bladder. These include drinks containing alcohol, caffeinate, or carbonation; chocolate; and acidic fruits and juices. Limit fluid intake to 6 to 8 cups a day. Lose weight if you are overweight. This will reduce your symptoms. If needed, wear absorbent pads to catch urine. Change pads frequently to maintain hygiene and prevent skin and bladder infections. Bathe daily to maintain good hygiene. If an antibiotic was prescribed to treat a bladder infection, be sure to take it until finished, even if you are feeling better before then. This is to make sure your infection has cleared. If a catheter was left in place, it is important to keep bacteria from getting into the collection bag. Don't disconnect the catheter from the collection bag. Use a leg band to secure the catheter drainage tube, so it does not pull on the catheter. Drain the collection bag when it becomes full using the drain spout at the bottom of the bag. Don't disconnect the bag from the catheter. Don't pull on or try to remove a catheter. The catheter must be removed by a healthcare provider. Follow-up care Follow up with your healthcare provider, or as advised. When to seek medical advice Call your healthcare provider right away if any of these occur: Fever over 100.4 F (38 C), or as directed by your healthcare provider Bladder pain or fullness Abdominal swelling, nausea, or vomiting Back pain Weakness, dizziness, or fainting If a catheter was left in place, return if: oCatheter falls out oCatheter stops draining for 6 hours [id number] [employer]. [address] [place] [address]. All rights reserved. This information is not intended as a substitute for professional medical care. Always follow your healthcare professional's instructions. Additional Information VACCINATE! IT SAVES LIVES! Members of the community who have not yet received the COVID-19 vaccine and would like to receive it can visit one of [facility] vaccine clinics. There are many vaccine clinic locations within the [facility]. For locations and available times, please visit [email or web address] It is important to note that some COVID mobile vaccine clinics are held outdoors and may be canceled in rainy or stormy conditions. To learn more about pediatric vaccinations (ages 5-11), we invite you to visit the [facility] webpage. [email or web address] [email or web address]-Freq [email or web address] To learn more about the COVID-19 vaccine, we invite you to visit the CDC website for a list of frequently asked questions. https://www.cdc.gov/coronavirus/ 2019-ncov/vaccines/faq.html [facility] Patient Portal Access Instructions: Stay connected with your healthcare team and access your personal medical information anytime with the [facility] Patient Portal. If you would like a full copy of your medical records please contact the [facility] Medical Records Department Thursday through Thursday between 8a.m. and 4:30p.m. Please follow the directions below to access the portal: 1.Access the email account you provided upon registration to the [facility].2.Look for an invitation email from [facility].3.Open the email and access the invitation link: Accept Invitation to [facility]4.Fill in the required dennis to create your account. Sign into [email or web address] with your username and password that you created in the above steps to stay up to date. You can then view a summary of results, a summary of your visits, and the ability to download your summaries to your computer or send the information securely to a physician. Remember that your healthcare information is confidential, so carefully consider who you will allow to register on the [employer] Patient Portal for access to your information. You can also access the [employer] Patient Portal on the [employer]. Simply click on Health Records under [employer] and then click on the [employer] logo. HOW TO SAFELY DISPOSE OF PRESCRIPTION MEDICATIONS Please use one of the following methods to safely dispose of your unused medications. 1.Use a drug disposal kit: the drug disposal pouch allows you to safely discard your old and unused drugs. Ask your nurse to give you one when you are discharged.2.Visit a local take-back location: Many local pharmacies and police departments have programs that collect old and unwanted prescription drugs. Call your local pharmacy or go to http://Pyreos/7A0Vg9l to find one close to you.3.Make use of household items: Use cat litter or old coffee grounds to dispose medications if other options are not available. Mix your drugs with these household products, seal them in an airtight container and throw it into the garbage. Call [facility]: [phone] to be sure your drugs can be disposed of in this way. Some medicines may require a different approach.4.Never flush your medications down the toilet. IF YOU HAVE BEEN PRESCRIBED AN OPIOIDS FOR PAIN If you have been prescribed an opioid (such as hydrocodone, oxycodone or morphine), it is critical to understand the possible side effects and risks of opioid pain medications. Even when taken as directed, opioids can have several side effects including: Tolerance, meaning you might need to take more of a medication for the same pain relief. Nausea, vomiting and/or constipation. Sleepiness, dizziness, dry mouth, confusion, depression or itching. Physical dependence, meaning you have withdrawal symptoms when a medication is stopped ? this can develop within a few days. KNOW YOUR RESPONSIBILITIES It is important to know exactly how much and how often to take the opioid pain medications you are prescribed. Never take opioids in higher amounts or more often than prescribed. Do not combine opioids with alcohol or other drugs that cause drowsiness, such as benzodiazepines, also known as benzos, including diazepam and alprazolam, muscle relaxants or sleep aids. Never sell or share prescription opioids. This is illegal. Store opioids in a secure place and out of reach of others (including children, family, friends and visitors). The last page(s) of this document has been signed and retained as a CHART COPY Signatures Patient Education Materials Urinary Incontinence, Male (Adult) Medication Leaflets My discharge plan and instructions have been reviewed and explained to me and I,MELY HATCH understand my current condition and have read and understand these discharge instructions. I have received a written copy of the plan/instructions. If I have questions, I am aware that I should contact my doctor. Patient/Supply Requirements Officer Signature: Date/Time: Relationship to Patient: Witness Name/Signature: Date/Time: [facility] 07-18-2023 Note . MICRO - Microbiology PROCEDURE: Blood Culture (bacterial) [*1] SOURCE: Blood BODY SITE: COLLECTED DATE/TIME: 07/12/2023 06:34 EST RECEIVED DATE/TIME: 07/12/2023 23:30 EST START DATE/TIME: 07/12/2023 23:30 EST FREE TEXT SOURCE: FINAL REPORTS Final Report [] Verified Date/Time/Personnel: 07/17/2023 23:59 EST Blood Culture: No Growth at 5 days. PRELIMINARY REPORTS Preliminary Report [] Verified Date/Time/Personnel: 07/13/2023 01:59 EST Culture has been received in lab and is no growth to date. Routine cultures are held for 5 days. Performing Locations *1: This test was performed at: [address], [address] , [facility]) 07-18-2023 Note . MICRO - Microbiology PROCEDURE: Blood Culture (bacterial) [*1] SOURCE: Blood BODY SITE: COLLECTED DATE/TIME: 07/12/2023 06:34 EST RECEIVED DATE/TIME: 07/12/2023 23:30 EST START DATE/TIME: 07/12/2023 23:30 EST FREE TEXT SOURCE: FINAL REPORTS Final Report [] Verified Date/Time/Personnel: 07/17/2023 23:59 EST Blood Culture: No Growth at 5 days. PRELIMINARY REPORTS Preliminary Report [] Verified Date/Time/Personnel: 07/13/2023 01:59 EST Culture has been received in lab and is no growth to date. Routine cultures are held for 5 days. Performing Locations *1: This test was performed at: [address], [id number] [place] [address] ([place]) 07-15-2023 Hospital Discharge instructions Patient Education 07/15/2023 14:33:40 5- Lomeli Care (04/2018)(CUSTOM) Lomeli Catheter Care, Adult A Lomeli catheter is a soft, flexible tube that is placed into the bladder to drain urine. A Lomeli catheter may be inserted if: You leak urine or are not able to control when you urinate (urinary incontinence). You are not able to urinate when you need to (urinary retention). You had prostate surgery or surgery on the genitals. You have certain medical conditions, such as multiple sclerosis, dementia, or a spinal cord injury. If you are going home with a Lomeli catheter in place, follow the instructions below. TAKING CARE OF THE CATHETER 1.Wash your hands with soap and water. 2.Using mild soap and warm water on a clean washcloth: Clean the area on your body closest to the catheter insertion site using a circular motion, moving away from the catheter. Never wipe toward the catheter because this could sweep bacteria up into the urethra and cause infection. 3.Remove all traces of soap. Pat the area dry with a clean towel. For males, reposition the foreskin. 4.Attach the catheter to your leg so there is no tension on the catheter. Use adhesive tape or a leg strap. If you are using adhesive tape, remove any sticky residue left behind by the previous tape you used. 5.Keep the drainage bag below the level of the bladder, but keep it off the floor. 6.Check throughout the day to be sure the catheter is working and urine is draining freely. Make sure the tubing does not become kinked. 7.Do not pull on the catheter or try to remove it. Pulling could damage internal tissues. TAKING CARE OF THE DRAINAGE BAGS You will be given two drainage bags to take home. One is a large overnight drainage bag, and the other is a smaller leg bag that fits underneath clothing. You may wear the overnight bag at any time, but you should never wear the smaller leg bag at night. Follow the instructions below for how to empty, change, and clean your drainage bags. Emptying the Drainage Bag You must empty your drainage bag when it is ? full or at least 2 3 times a day. 1.Wash your hands with soap and water. 2.Keep the drainage bag below your hips, below the level of your bladder. This stops urine from going back into the tubing and into your bladder. 3.Hold the dirty bag over the toilet or a clean container. 4.Open the pour spout at the bottom of the bag and empty the urine into the toilet or container. Do not let the pour spout touch the toilet, container, or any other surface. Doing so can place bacteria on the bag, which can cause an infection. 5.Clean the pour spout with a gauze pad or cotton ball that has rubbing alcohol on it. 6.Close the pour spout. 7.Attach the bag to your leg with adhesive tape or a leg strap. 8.Wash your hands well. Changing the Drainage Bag Change your drainage bag once a month or sooner if it starts to smell bad or look dirty. Below are steps to follow when changing the drainage bag. 1.Wash your hands with soap and water. 2. Pinch off the rubber catheter so that urine does not spill out. 3.Disconnect the catheter tube from the drainage tube at the connection valve. Do not let the tubes touch any surface. 4.Clean the end of the catheter tube with an alcohol wipe. Use a different alcohol wipe to clean the end of the drainage tube. 5.Connect the catheter tube to the drainage tube of the clean drainage bag. 6.Attach the new bag to the leg with adhesive tape or a leg strap. Avoid attaching the new bag too tightly. 7.Wash your hands well. Cleaning the Drainage Bag 1.Wash your hands with soap and water. 2.Wash the bag in warm, soapy water. 3.Rinse the bag thoroughly with warm water. 4.Fill the bag with a solution of white vinegar and water (1 cup vinegar to 3 cups of warm water. Close the bag and soak it for 30 minutes in the solution. 5.Rinse the bag with warm water. 6.Hang the bag to dry with the pour spout open and hanging downward. 7.Store the clean bag (once it is dry) in a clean plastic bag. 8.Wash your hands well. PREVENTING INFECTION Wash your hands before and after handling your catheter. Take showers daily and wash the area where the catheter enters your body. Do not take baths. Replace wet leg straps with dry ones, if this applies. Do not use powders, sprays, or lotions on the genital area. Only use creams, lotions, or ointments as directed by your caregiver. For females, wipe from front to back after each bowel movement. Drink enough fluids to keep your urine clear or pale yellow unless you have a fluid restriction. Do not let the drainage bag or tubing touch or lie on the floor. Wear cotton underwear to absorb moisture and to keep your pelts skinner. SEEK MEDICAL CARE IF: Your urine is cloudy or smells unusually bad. Your catheter becomes clogged. You are not draining urine into the bag or your bladder feels full. Your catheter starts to leak. SEEK IMMEDIATE MEDICAL CARE IF: You have pain, swelling, redness, or pus where the catheter enters the body. You have pain in the abdomen, legs, lower back, or bladder. You have a fever. You see blood fill the catheter, or your urine is pink or red. You have nausea, vomiting, or chills. Your catheter gets pulled out. MAKE SURE YOU: Understand these instructions. Will watch your condition. Will get help right away if you are not doing well or get worse. Document Released: 07/13/2006 Document Revised: 06/29/2013 Document Reviewed: 07/14/2014 ExitCare Patient Information 2015 [employer] [facility]. This information is not intended to replace advice given to you by your health care provider. Make sure you discuss any questions you have with your health care provider. 07/15/2023 14:33:37 Indwelling Urinary Catheter Care, Adult Indwelling Urinary Catheter Care, Adult An indwelling urinary catheter is a thin, flexible, germ-free (sterile) tube that is placed into the bladder to help drain urine out of the body. The catheter is inserted into the part of the body that drains urine from the bladder (urethra). Urine drains from the catheter into a drainage bag outside of the body. Taking good care of your catheter will keep it working properly and help to prevent problems from developing. What are the risks? Bacteria may get into your bladder and cause a urinary tract infection. Urine flow can become blocked. This can happen if the catheter is not working correctly, or if you have sediment or a blood clot in your bladder or the catheter. Tissue near the catheter may become irritated and bleed. How to wear your catheter and your drainage bag Supplies needed Adhesive tape or a leg strap. Alcohol wipe or soap and water (if you use tape). A clean towel (if you use tape). Overnight drainage bag. Smaller drainage bag (leg bag). Wearing your catheter and bag Use adhesive tape or a leg strap to attach your catheter to your leg. Make sure the catheter is not pulled tight. If a leg strap gets wet, replace it with a dry one. If you use adhesive tape: 1.Use an alcohol wipe or soap and water to wash off any stickiness on your skin where you had tape before. 2.Use a clean towel to pat-dry the area. 3.Apply the new tape. You should have received a large overnight drainage bag and a smaller leg bag that fits underneath clothing. You may wear the overnight bag at any time, but you should not wear the leg bag at night. Always wear the leg bag below your knee. Make sure the overnight drainage bag is always lower than the level of your bladder, but do not let it touch the floor. Before you go to sleep, hang the bag inside a wastebasket that is covered by a clean plastic bag. How to care for your skin around the catheter Supplies needed A clean washcloth. Water and mild soap. A clean towel. Caring for your skin and catheter Every day, use a clean washcloth and soapy water to clean the skin around your catheter. 1.Wash your hands with soap and water. 2.Wet a washcloth in warm water and mild soap. 3.Clean the skin around your urethra. ?If you are female: ?Use one hand to gently spread the folds of skin around your vagina (labia). ?With the washcloth in your other hand, wipe the inner side of your labia on each side. Do this in a bawms-lq-peum direction. ?If you are male: ?Use one hand to pull back any skin that covers the end of your penis (foreskin). ?With the washcloth in your other hand, wipe your penis in small circles. Start wiping at the tip of your penis, then move outward from the catheter. ?Move the foreskin back in place, if this applies. 4.With your free hand, hold the catheter close to where it enters your body. Keep holding the catheter during cleaning so it does not get pulled out. 5.Use your other hand to clean the catheter with the washcloth. ?Only wipe downward on the catheter. ?Do not wipe upward toward your body, because that may push bacteria into your urethra and cause infection. 6.Use a clean towel to pat-dry the catheter and the skin around it. Make sure to wipe off all soap. 7.Wash your hands with soap and water. Shower every day. Do not take baths. Do not use cream, ointment, or lotion on the area where the catheter enters your body, unless your health care provider tells you to do that. Do not use powders, sprays, or lotions on your genital area. Check your skin around the catheter every day for signs of infection. Check for: ?Redness, swelling, or pain. ?Fluid or blood. ?Warmth. ?Pus or a bad smell. How to empty the drainage bag Supplies needed Rubbing alcohol. Gauze pad or cotton ball. Adhesive tape or a leg strap. Emptying the bag Empty your drainage bag (your overnight drainage bag or your leg bag) when it is ? full, or at least 2 3 times a day. Clean the drainage bag according to the stained glass window designer's instructions or as told by your health care provider. 1.Wash your hands with soap and water. 2.Detach the drainage bag from your leg. 3.Hold the drainage bag over the toilet or a clean container. Make sure the drainage bag is lower than your hips and bladder. This stops urine from going back into the tubing and into your bladder. 4.Open the pour spout at the bottom of the bag. 5.Empty the urine into the toilet or container. Do not let the pour spout touch any surface. This precaution is important to prevent bacteria from getting in the bag and causing infection. 6.Apply rubbing alcohol to a gauze pad or cotton ball. 7.Use the gauze pad or cotton ball to clean the pour spout. 8.Close the pour spout. 9.Attach the bag to your leg with adhesive tape or a leg strap. 10.Wash your hands with soap and water. How to change the drainage bag Supplies needed: Alcohol wipes. A clean drainage bag. Adhesive tape or a leg strap. Changing the bag Replace your drainage bag with a clean bag if it leaks, starts to smell bad, or looks dirty. 1.Wash your hands with soap and water. 2.Detach the dirty drainage bag from your leg. 3.Pinch the catheter with your fingers so that urine does not spill out. 4.Disconnect the catheter tube from the drainage tube at the connection valve. Do not let the tubes touch any surface. 5.Clean the end of the catheter tube with an alcohol wipe. Use a different alcohol wipe to clean the end of the drainage tube. 6.Connect the catheter tube to the drainage tube of the clean bag. 7.Attach the clean bag to your leg with adhesive tape or a leg strap. Avoid attaching the new bag too tightly. 8.Wash your hands with soap and water. General instructions Never pull on your catheter or try to remove it. Pulling can damage your internal tissues. Always wash your hands before and after you handle your catheter or drainage bag. Use a mild, fragrance-free soap. If soap and water are not available, use hand head greenskeeper. Always make sure there are no twists or bends (kinks) in the catheter tube. Always make sure there are no leaks in the catheter or drainage bag. Drink enough fluid to keep your urine pale yellow. Do not take baths, swim, or use a hot tub. If you are female, wipe from front to back after having a bowel movement. Contact a health care provider if: Your urine is cloudy. Your urine smells unusually bad. Your catheter gets clogged. Your catheter starts to leak. Your bladder feels full. Get help right away if: You have redness, swelling, or pain where the catheter enters your body. You have fluid, blood, pus, or a bad smell coming from the area where the catheter enters your body. The area where the catheter enters your body feels warm to the touch. You have a fever. You have pain in your abdomen, legs, lower back, or bladder. You see blood in the catheter. Your urine is pink or red. You have nausea, vomiting, or chills. Your urine is not draining into the bag. Your catheter gets pulled out. Summary An indwelling urinary catheter is a thin, flexible, germ-free (sterile) tube that is placed into the bladder to help drain urine out of the body. The catheter is inserted into the part of the body that drains urine from the bladder (urethra). Take good care of your catheter to keep it working properly and help prevent problems from developing. Always wash your hands before and after you handle your catheter or drainage bag. Never pull on your catheter or try to remove it. This information is not intended to replace advice given to you by your health care provider. Make sure you discuss any questions you have with your health care provider. Document Released: 07/13/2006 Document Revised: 11/04/2019 Document Reviewed: 02/26/2018 [place] Patient Education 2020 [employer]. 07/15/2023 12:00:23 Heart Failure Exacerbation Heart Failure Exacerbation Heart failure is a condition in which the heart does not fill up with enough blood, and therefore does not pump enough blood and oxygen to the body. When this happens, parts of the body do not get the blood and oxygen they need to function properly. This can cause symptoms such as breathing problems, fatigue, swelling, and confusion. Heart failure exacerbation refers to heart failure symptoms that get worse. The symptoms may get worse suddenly or develop slowly over time. Heart failure exacerbation is a serious medical problem that should be treated right away. What are the causes? A heart failure exacerbation can be triggered by: Not taking your heart failure medicines correctly. Infections. Eating an unhealthy diet or a diet that is high in salt (sodium). Drinking too much fluid. Drinking alcohol. Taking illegal drugs, such as cocaine or methamphetamine. Not exercising. Other causes include: Other heart conditions such as an irregular heartbeat (arrhythmia). Anemia. Other medical problems, such as kidney failure. Sometimes the cause of the exacerbation is not known. What are the signs or symptoms? When heart failure symptoms suddenly or slowly get worse, this may be a sign of heart failure exacerbation. Symptoms of heart failure include: Breathing problems or shortness of breath. Chronic coughing or wheezing. Fatigue. Nausea or lack of appetite. Feeling light-headed. Confusion or memory loss. Increased heart rate or irregular heartbeat. Buildup of fluid in the legs, ankles, feet, or abdomen. Difficulty breathing when lying down. How is this diagnosed? This condition is diagnosed based on: Your symptoms and medical history. A physical exam. You may also have tests, including: Electrocardiogram (ECG). This test measures the electrical activity of your heart. Echocardiogram. This test uses sound waves to take a picture of your heart to see how well it works. Blood tests. Imaging tests, such as: ?Chest X-ray. ?MRI. ?Ultrasound. Stress test. This test examines how well your heart functions when you exercise. Your heart is monitored while you exercise on a treadmill or exercise bike. If you cannot exercise, medicines may be used to increase your heartbeat in place of exercise. Cardiac catheterization. During this test, a thin, flexible tube (catheter) is inserted into a blood vessel and threaded up to your heart. This test allows your health care provider to check the arteries that lead to your heart (coronary arteries). Right heart catheterization. During this test, the pressure in your heart is measured. How is this treated? This condition may be treated by: Adjusting your heart medicines. Maintaining a healthy lifestyle. This includes: ?Eating a heart-healthy diet that is low in sodium. ?Not using any products that contain nicotine or tobacco, such as cigarettes and e-cigarettes. ?Regular exercise. ?Monitoring your fluid intake. ?Monitoring your weight and reporting changes to your health care provider. Treating sleep apnea, if you have this condition. Surgery. This may include: ?Implanting a device that helps both sides of your heart contract at the same time (cardiac resynchronization therapy device). This can help with heart function and relieve heart failure symptoms. ?Implanting a device that can correct heart rhythm problems (implantable cardioverter defibrillator). ?Connecting a device to your heart to help it pump blood (ventricular assist device). ?Heart transplant. Follow these instructions at home: Medicines Take [id number] and prescription medicines only as told by your health care provider. Do not stop taking your medicines or change the amount you take. If you are having problems or side effects from your medicines, talk to your health care provider. If you are having difficulty paying for your medicines, contact a social worker delinquency prevention or your clinic. There are many programs to assist with medicine costs. Talk to your health care provider before starting any new medicines or supplements. Make sure your health care provider and pharmacist have a list of all the medicines you are taking. Eating and drinking Avoid drinking alcohol. Eat a heart-healthy diet as told by your health care provider. This includes: ?Plenty of fruits and vegetables. ?Lean proteins. ?Low-fat dairy. ?Whole grains. ?Foods that are low in sodium. Activity Exercise regularly as told by your health care provider. Balance exercise with rest. Ask your health care provider what activities are safe for you. This includes sexual activity, exercise, and daily tasks at home or work. Lifestyle Do not use any products that contain nicotine or tobacco, such as cigarettes and e-cigarettes. If you need help quitting, ask your health care provider. Maintain a healthy weight. Ask your health care provider what weight is healthy for you. Consider joining a patient support group. This can help with emotional problems you may have, such as stress and anxiety. General instructions Talk to your health care provider about flu and pneumonia vaccines. Keep a list of medicines that you are taking. This may help in emergency situations. Keep all follow-up visits as told by your health care provider. This is important. Contact a health care provider if: You have questions about your medicines or you miss a dose. You feel anxious, depressed, or stressed. You have swelling in your feet, ankles, legs, or abdomen. You have shortness of breath during activity or exercise. You have a cough. You have a fever. You have trouble sleeping. You gain 2 3 lb (1 1.4 kg) in 24 hours or 5 lb (2.3 kg) in a week. Get help right away if: You have chest pain. You have shortness of breath while resting. You have severe fatigue. You are confused. You have severe dizziness. You have a rapid or irregular heartbeat. You have nausea or you vomit. You have a cough that is worse at night or you cannot lie flat. You have a cough that will not go away. You have severe depression or sadness. Summary When heart failure symptoms get worse, it is called heart failure exacerbation. Common causes of this condition include taking medicines incorrectly, infections, and drinking alcohol. This condition may be treated by adjusting medicines, maintaining a healthy lifestyle, or surgery. Do not stop taking your medicines or change the amount you take. If you are having problems or side effects from your medicines, talk to your health care provider. This information is not intended to replace advice given to you by your health care provider. Make sure you discuss any questions you have with your health care provider. Document Released: 11/24/2017 Document Revised: 06/25/2018 Document Reviewed: 11/24/2017 [place] Patient Education 2020 [employer]. 07/15/2023 12:00:17 Acute Kidney Injury, Adult Acute Kidney Injury, Adult Acute kidney injury is a sudden worsening of kidney function. The kidneys are organs that have several jobs. They filter the blood to remove waste products and extra fluid. They also maintain a healthy balance of minerals and hormones in the body, which helps control blood pressure and keep bones strong. With this condition, your kidneys do not do their jobs as well as they should. This condition ranges from mild to severe. Over time it may develop into long-lasting (chronic) kidney disease. Early detection and treatment may prevent acute kidney injury from developing into a chronic condition. What are the causes? Common causes of this condition include: A problem with blood flow to the kidneys. This may be caused by: ?Low blood pressure (hypotension) or shock. ?Blood loss. ?Heart and blood vessel (cardiovascular) disease. ?Severe palumbo. ?Liver disease. Direct damage to the kidneys. This may be caused by: ?Certain medicines. ?A kidney infection. ?Poisoning. ?Being around or in contact with toxic substances. ?A surgical wound. ?A hard, direct hit to the kidney area. A sudden blockage of urine flow. This may be caused by: ?Cancer. ?Kidney stones. ?An enlarged prostate in males. What are the signs or symptoms? Symptoms of this condition may not be obvious until the condition becomes severe. Symptoms of this condition can include: Tiredness (lethargy), or difficulty staying awake. Nausea or vomiting. Swelling (edema) of the face, legs, ankles, or feet. Problems with urination, such as: ?Abdominal pain, or pain along the side of your stomach (flank). ?Decreased urine production. ?Decrease in the force of urine flow. Muscle twitches and cramps, especially in the legs. Confusion or trouble concentrating. Loss of appetite. Fever. How is this diagnosed? This condition may be diagnosed with tests, including: Blood tests. Urine tests. Imaging tests. A test in which a sample of tissue is removed from the kidneys to be examined under a microscope (kidney biopsy). How is this treated? Treatment for this condition depends on the cause and how severe the condition is. In mild cases, treatment may not be needed. The kidneys may heal on their own. In more severe cases, treatment will involve: Treating the cause of the kidney injury. This may involve changing any medicines you are taking or adjusting your dosage. Fluids. You may need specialized IV fluids to balance your body's needs. Having a catheter placed to drain urine and prevent blockages. Preventing problems from occurring. This may mean avoiding certain medicines or procedures that can cause further injury to the kidneys. In some cases treatment may also require: A procedure to remove toxic wastes from the body (dialysis or continuous renal replacement therapy - CRRT). Surgery. This may be done to repair a torn kidney, or to remove the blockage from the urinary system. Follow these instructions at home: Medicines Take sdti-yum-andmcza and prescription medicines only as told by your health care provider. Do not take any new medicines without your health care provider's approval. Many medicines can worsen your kidney damage. Do not take any vitamin and mineral supplements without your health care provider's approval. Many nutritional supplements can worsen your kidney damage. Lifestyle If your health care provider prescribed changes to your diet, follow them. You may need to decrease the amount of protein you eat. Achieve and maintain a healthy weight. If you need help with this, ask your health care provider. Start or continue an exercise plan. Try to exercise at least 30 minutes a day, 5 days a week. Do not use any tobacco products, such as cigarettes, chewing tobacco, and e-cigarettes. If you need help quitting, ask your health care provider. General instructions Keep track of your blood pressure. Report changes in your blood pressure as told by your health care provider. Stay up to date with immunizations. Ask your health care provider which immunizations you need. Keep all follow-up visits as told by your health care provider. This is important. Where to find more information [employer]: www.aakp.org National Kidney Foundation: www.kidney.org [employer]: www.akfinc.org Life [employer] Rehabilitation Program: ?www.lifeoptions.org ?www.kidneyschool.org Contact a health care provider if: Your symptoms get worse. You develop new symptoms. Get help right away if: You develop symptoms of worsening kidney disease, which include: ?Headaches. ?Abnormally dark or light skin. ?Easy bruising. ?Frequent hiccups. ?Chest pain. ?Shortness of breath. ?End of menstruation in women. ?Seizures. ?Confusion or altered mental status. ?Abdominal or back pain. ?Itchiness. You have a fever. Your body is producing less urine. You have pain or bleeding when you urinate. Summary Acute kidney injury is a sudden worsening of kidney function. Acute kidney injury can be caused by problems with blood flow to the kidneys, direct damage to the kidneys, and sudden blockage of urine flow. Symptoms of this condition may not be obvious until it becomes severe. Symptoms may include edema, lethargy, confusion, nausea or vomiting, and problems passing urine. This condition can usually be diagnosed with blood tests, urine tests, and imaging tests. Sometimes a kidney biopsy is done to diagnose this condition. Treatment for this condition often involves treating the underlying cause. It is treated with fluids, medicines, dialysis, diet changes, or surgery. This information is not intended to replace advice given to you by your health care provider. Make sure you discuss any questions you have with your health care provider. Document Released: 01/26/2012 Document Revised: 06/25/2018 Document Reviewed: 07/03/2017 [place] Patient Education 2020 [employer]. Follow Up Care 07/11/2023 23:21:28 With:ALEX FITZPATRICK MD Address: [address] [place] [address] [place] [phone] When:3-5 days Comments:Please call to schedule your post-hospital follow-up appointment. [facility] Note Discharge Instructions Thank you for allowing [facility] to assist you with your healthcare needs. The following is important discharge information regarding your hospital visit. Your Care Team ALEX FITZPATRICK MD Your Diagnosis IVANIA (acute kidney injury) Amyloidosis CHF exacerbation HTN (hypertension) Pleural effusion Pneumonia PVCs (premature ventricular contractions) What to do next Instructions From Your Doctor You were admitted due to shortness of breath we believe was from a CHF exacerbation. We consulted cardiology (Loren Florian CNP) to help with managing medications in light of your worsening kidney function. We gave you Lasix 40 mg IV daily for 2 days with improvement in your shortness of breath. You are now on room air with acceptable oxygen saturations. We did have to insert a lomeli catheter due to urinary retention. Due to the difficulty nursing had in inserting the catheter, we feel that it would be best to leave it in place to go home. Please follow-up with your urologist as soon as possible to see what they recommend. We also recommend scheduling an appointment with your pallet rectifier due to your kidney function being a little worse than it was earlier this month. We recommend stopping the Lisinopril and starting Hydralazine twice daily. A prescription will be sent in for the hydralazine. Please follow-up with Dr. Mohr, [facility], in the next 2-3 weeks for further recommendations. Please follow-up with your PCP in the next week or so for post-hospitalization follow-up. If you have any new or worsening symptoms, please return to the ED. Follow Up Appointments Follow Up with ALEX FITZPATRICK MD When Within 3-5 days Why: Please call to schedule your post-hospital follow-up appointment. Where: [address] [facility] [address] [place] [address]- [phone] The Following Activity and Diet Have Been Ordered for You Discharge Activity - Ordered -- Resume your pre-hospitalization activity, 07/15/23 12:06:00 EST Discharge Diet - Ordered -- No changes were made to your diet during your hospital stay. Please resume your pre hospitalization diet on discharge., 07/15/23 12:06:00 EST Allergies Cipro iodine (Hives) Medications Please ask your primary doctor or pharmacist before taking any other medication not listed, including over the counter drugs, herbal medications, vitamins and or supplements as they may interact with your home medications. What How Much When Instructions Last Dose Changed hydrALAZINE (hydrALAZINE 25 mg oral tablet) 4 tab(s) by mouth Two (2) times a day Pickup at [facility] #[id number] Unchanged aspirin 81 Milligram by mouth Once a day Unchanged atorvastatin (atorvastatin 40 mg oral tablet) 1 tab(s) by mouth Once a day Unchanged budesonide-formoterol (Symbicort 160 mcg-4.5 mcg/ inh Inhaler) 2 puff(s) by inhalation Two (2) times a day Unchanged carvedilol (Coreg 25 mg oral tablet) 1 tab(s) by mouth Two (2) times a day Unchanged cholecalciferol (cholecalciferol 1000 intl units oral tablet) 1 tab(s) by mouth Every day Unchanged finasteride (finasteride 5 mg oral tablet) take 1 tablet by mouth once daily Unchanged hydrocortisone/ neomycin/ polymyxin B otic (hydrocortisone/ neomycin/ polymyxin B 1%-0.35%-10,000 units/ mL otic solution) 4 Drops Both ears Three (3) times a day Unchanged QUEtiapine (SEROquel 25 mg oral tablet) 2 tab(s) by mouth Once a day (in the evening) Unchanged QUEtiapine (SEROquel 25 mg oral tablet) 1 tab(s) by mouth Once a day (in the morning) Pharmacy Information [facility] #[id number]: [address], [place] [phone] What How Much When Why Comments Stop Taking bumetanide (bumetanide 1 mg oral tablet) 1 tab(s) by mouth Every day Dependent edema Stop Taking lisinopril (lisinopril 40 mg oral tablet) 1 tab(s) by mouth Every day Stop Taking lisinopril (Zestril 40 mg oral tablet) 1 tab(s) by mouth Every day Please take this list to your next doctor s visit. Bring all medications you take, including over the counter medications, herbals and other supplements with you to your doctor s visit. Patients and families are reminded to discard old lists and to update any records with all medication providers or retail pharmacies. Education Materials Lomeli Catheter Care, Adult A Lomeli catheter is a soft, flexible tube that is placed into the bladder to drain urine. A Lo[place]li catheter may be inserted if: You leak urine or are not able to control when you urinate (urinary incontinence). You are not able to urinate when you need to (urinary retention). You had prostate surgery or surgery on the genitals. You have certain medical conditions, such as multiple sclerosis, dementia, or a spinal cord injury. If you are going home with a Lomeli catheter in place, follow the instructions below. TAKING CARE OF THE CATHETER 1. Wash your hands with soap and water. 2. Using mild soap and warm water on a clean washcloth: Clean the area on your body closest to the catheter insertion site using a circular motion, moving away from the catheter. Never wipe toward the catheter because this could sweep bacteria up into the urethra and cause infection. 3. Remove all traces of soap. Pat the area dry with a clean towel. For males, reposition the foreskin. 4. Attach the catheter to your leg so there is no tension on the catheter. Use adhesive tape or a leg strap. If you are using adhesive tape, remove any sticky residue left behind by the previous tape you used. 5. Keep the drainage bag below the level of the bladder, but keep it off the floor. 6. Check throughout the day to be sure the catheter is working and urine is draining freely. Make sure the tubing does not become kinked. 7. Do not pull on the catheter or try to remove it. Pulling could damage internal tissues. TAKING CARE OF THE DRAINAGE BAGS You will be given two drainage bags to take home. One is a large overnight drainage bag, and the other is a smaller leg bag that fits underneath clothing. You may wear the overnight bag at any time, but you should never wear the smaller leg bag at night. Follow the instructions below for how to empty, change, and clean your drainage bags. Emptying the Drainage Bag You must empty your drainage bag when it is ? full or at least 2 3 times a day. 1. Wash your hands with soap and water. 2. Keep the drainage bag below your hips, below the level of your bladder. This stops urine from going back into the tubing and into your bladder. 3. Hold the dirty bag over the toilet or a clean container. 4. Open the pour spout at the bottom of the bag and empty the urine into the toilet or container. Do not let the pour spout touch the toilet, container, or any other surface. Doing so can place bacteria on the bag, which can cause an infection. 5. Clean the pour spout with a gauze pad or cotton ball that has rubbing alcohol on it. 6. Close the pour spout. 7. Attach the bag to your leg with adhesive tape or a leg strap. 8. Wash your hands well. Changing the Drainage Bag Change your drainage bag once a month or sooner if it starts to smell bad or look dirty. Below are steps to follow when changing the drainage bag. 1. Wash your hands with soap and water. 2. Pinch off the rubber catheter so that urine does not spill out. 3. Disconnect the catheter tube from the drainage tube at the connection valve. Do not let the tubes touch any surface. 4. Clean the end of the catheter tube with an alcohol wipe. Use a different alcohol wipe to clean the end of the drainage tube. 5. Connect the catheter tube to the drainage tube of the clean drainage bag. 6. Attach the new bag to the leg with adhesive tape or a leg strap. Avoid attaching the new bag too tightly. 7. Wash your hands well. Cleaning the Drainage Bag 1. Wash your hands with soap and water. 2. Wash the bag in warm, soapy water. 3. Rinse the bag thoroughly with warm water. 4. Fill the bag with a solution of white vinegar and water (1 cup vinegar to 3 cups of warm water. Close the bag and soak it for 30 minutes in the solution. 5. Rinse the bag with warm water. 6. Hang the bag to dry with the pour spout open and hanging downward. 7. Store the clean bag (once it is dry) in a clean plastic bag. 8. Wash your hands well. PREVENTING INFECTION Wash your hands before and after handling your catheter. Take showers daily and wash the area where the catheter enters your body. Do not take baths. Replace wet leg straps with dry ones, if this applies. Do not use powders, sprays, or lotions on the genital area. Only use creams, lotions, or ointments as directed by your caregiver. For females, wipe from front to back after each bowel movement. Drink enough fluids to keep your urine clear or pale yellow unless you have a fluid restriction. Do not let the drainage bag or tubing touch or lie on the floor. Wear cotton underwear to absorb moisture and to keep your pelts skinner. SEEK MEDICAL CARE IF: Your urine is cloudy or smells unusually bad. Your catheter becomes clogged. You are not draining urine into the bag or your bladder feels full. Your catheter starts to leak. SEEK IMMEDIATE MEDICAL CARE IF: You have pain, swelling, redness, or pus where the catheter enters the body. You have pain in the abdomen, legs, lower back, or bladder. You have a fever. You see blood fill the catheter, or your urine is pink or red. You have nausea, vomiting, or chills. Your catheter gets pulled out. MAKE SURE YOU: Understand these instructions. Will watch your condition. Will get help right away if you are not doing well or get worse. Document Released: 07/13/2006 Document Revised: 06/29/2013 Document Reviewed: 07/14/2014 [facility] Patient Information 2015 [employer]. This information is not intended to replace advice given to you by your health care provider. Make sure you discuss any questions you have with your health care provider. Indwelling Urinary Catheter Care, Adult An indwelling urinary catheter is a thin, flexible, germ-free (sterile) tube that is placed into the bladder to help drain urine out of the body. The catheter is inserted into the part of the body that drains urine from the bladder (urethra). Urine drains from the catheter into a drainage bag outside of the body. Taking good care of your catheter will keep it working properly and help to prevent problems from developing. What are the risks? Bacteria may get into your bladder and cause a urinary tract infection. Urine flow can become blocked. This can happen if the catheter is not working correctly, or if you have sediment or a blood clot in your bladder or the catheter. Tissue near the catheter may become irritated and bleed. How to wear your catheter and your drainage bag Supplies needed Adhesive tape or a leg strap. Alcohol wipe or soap and water (if you use tape). A clean towel (if you use tape). Overnight drainage bag. Smaller drainage bag (leg bag). Wearing your catheter and bag Use adhesive tape or a leg strap to attach your catheter to your leg. Make sure the catheter is not pulled tight. If a leg strap gets wet, replace it with a dry one. If you use adhesive tape: 1. Use an alcohol wipe or soap and water to wash off any stickiness on your skin where you had tape before. 2. Use a clean towel to pat-dry the area. 3. Apply the new tape. You should have received a large overnight drainage bag and a smaller leg bag that fits underneath clothing. You may wear the overnight bag at any time, but you should not wear the leg bag at night. Always wear the leg bag below your knee. Make sure the overnight drainage bag is always lower than the level of your bladder, but do not let it touch the floor. Before you go to sleep, hang the bag inside a wastebasket that is covered by a clean plastic bag. How to care for your skin around the catheter Supplies needed A clean washcloth. Water and mild soap. A clean towel. Caring for your skin and catheter Every day, use a clean washcloth and soapy water to clean the skin around your catheter. 1. Wash your hands with soap and water. 2. Wet a washcloth in warm water and mild soap. 3. Clean the skin around your urethra. ? If you are female: ? Use one hand to gently spread the folds of skin around your vagina (labia). ? With the washcloth in your other hand, wipe the inner side of your labia on each side. Do this in a xoubs-zj-[id number] direction. ? If you are male: ? Use one hand to pull back any skin that covers the end of your penis (foreskin). ? With the washcloth in your other hand, wipe your penis in small circles. Start wiping at the tip of your penis, then move outward from the catheter. ? Move the foreskin back in place, if this applies. 4. With your free hand, hold the catheter close to where it enters your body. Keep holding the catheter during cleaning so it does not get pulled out. 5. Use your other hand to clean the catheter with the washcloth. ? Only wipe downward on the catheter. ? Do not wipe upward toward your body, because that may push bacteria into your urethra and cause infection. 6. Use a clean towel to pat-dry the catheter and the skin around it. Make sure to wipe off all soap. 7. Wash your hands with soap and water. Shower every day. Do not take baths. Do not use cream, ointment, or lotion on the area where the catheter enters your body, unless your health care provider tells you to do that. Do not use powders, sprays, or lotions on your genital area. Check your skin around the catheter every day for signs of infection. Check for: ? Redness, swelling, or pain. ? Fluid or blood. ? Warmth. ? Pus or a bad smell. How to empty the drainage bag Supplies needed Rubbing alcohol. Gauze pad or cotton ball. Adhesive tape or a leg strap. Emptying the bag Empty your drainage bag (your overnight drainage bag or your leg bag) when it is ? full, or at least 2 3 times a day. Clean the drainage bag according to the stained glass window designer's instructions or as told by your health care provider. 1. Wash your hands with soap and water. 2. Detach the drainage bag from your leg. 3. Hold the drainage bag over the toilet or a clean container. Make sure the drainage bag is lower than your hips and bladder. This stops urine from going back into the tubing and into your bladder. 4. Open the pour spout at the bottom of the bag. 5. Empty the urine into the toilet or container. Do not let the pour spout touch any surface. This precaution is important to prevent bacteria from getting in the bag and causing infection. 6. Apply rubbing alcohol to a gauze pad or cotton ball. 7. Use the gauze pad or cotton ball to clean the pour spout. 8. Close the pour spout. 9. Attach the bag to your leg with adhesive tape or a leg strap. 10. Wash your hands with soap and water. How to change the drainage bag Supplies needed: Alcohol wipes. A clean drainage bag. Adhesive tape or a leg strap. Changing the bag Replace your drainage bag with a clean bag if it leaks, starts to smell bad, or looks dirty. 1. Wash your hands with soap and water. 2. Detach the dirty drainage bag from your leg. 3. Pinch the catheter with your fingers so that urine does not spill out. 4. Disconnect the catheter tube from the drainage tube at the connection valve. Do not let the tubes touch any surface. 5. Clean the end of the catheter tube with an alcohol wipe. Use a different alcohol wipe to clean the end of the drainage tube. 6. Connect the catheter tube to the drainage tube of the clean bag. 7. Attach the clean bag to your leg with adhesive tape or a leg strap. Avoid attaching the new bag too tightly. 8. Wash your hands with soap and water. General instructions Never pull on your catheter or try to remove it. Pulling can damage your internal tissues. Always wash your hands before and after you handle your catheter or drainage bag. Use a mild, fragrance-free soap. If soap and water are not available, use hand head greenskeeper. Always make sure there are no twists or bends (kinks) in the catheter tube. Always make sure there are no leaks in the catheter or drainage bag. Drink enough fluid to keep your urine pale yellow. Do not take baths, swim, or use a hot tub. If you are female, wipe from front to back after having a bowel movement. Contact a health care provider if: Your urine is cloudy. Your urine smells unusually bad. Your catheter gets clogged. Your catheter starts to leak. Your bladder feels full. Get help right away if: You have redness, swelling, or pain where the catheter enters your body. You have fluid, blood, pus, or a bad smell coming from the area where the catheter enters your body. The area where the catheter enters your body feels warm to the touch. You have a fever. You have pain in your abdomen, legs, lower back, or bladder. You see blood in the catheter. Your urine is pink or red. You have nausea, vomiting, or chills. Your urine is not draining into the bag. Your catheter gets pulled out. Summary An indwelling urinary catheter is a thin, flexible, germ-free (sterile) tube that is placed into the bladder to help drain urine out of the body. The catheter is inserted into the part of the body that drains urine from the bladder (urethra). Take good care of your catheter to keep it working properly and help prevent problems from developing. Always wash your hands before and after you handle your catheter or drainage bag. Never pull on your catheter or try to remove it. This information is not intended to replace advice given to you by your health care provider. Make sure you discuss any questions you have with your health care provider. Document Released: 07/13/2006 Document Revised: 11/04/2019 Document Reviewed: 02/26/2018 [employer] Patient Education 2020 [employer]. Heart Failure Exacerbation Heart failure is a condition in which the heart does not fill up with enough blood, and therefore does not pump enough blood and oxygen to the body. When this happens, parts of the body do not get the blood and oxygen they need to function properly. This can cause symptoms such as breathing problems, fatigue, swelling, and confusion. Heart failure exacerbation refers to heart failure symptoms that get worse. The symptoms may get worse suddenly or develop slowly over time. Heart failure exacerbation is a serious medical problem that should be treated right away. What are the causes? A heart failure exacerbation can be triggered by: Not taking your heart failure medicines correctly. Infections. Eating an unhealthy diet or a diet that is high in salt (sodium). Drinking too much fluid. Drinking alcohol. Taking illegal drugs, such as cocaine or methamphetamine. Not exercising. Other causes include: Other heart conditions such as an irregular heartbeat (arrhythmia). Anemia. Other medical problems, such as kidney failure. Sometimes the cause of the exacerbation is not known. What are the signs or symptoms? When heart failure symptoms suddenly or slowly get worse, this may be a sign of heart failure exacerbation. Symptoms of heart failure include: Breathing problems or shortness of breath. Chronic coughing or wheezing. Fatigue. Nausea or lack of appetite. Feeling light-headed. Confusion or memory loss. Increased heart rate or irregular heartbeat. Buildup of fluid in the legs, ankles, feet, or abdomen. Difficulty breathing when lying down. How is this diagnosed? This condition is diagnosed based on: Your symptoms and medical history. A physical exam. You may also have tests, including: Electrocardiogram (ECG). This test measures the electrical activity of your heart. Echocardiogram. This test uses sound waves to take a picture of your heart to see how well it works. Blood tests. Imaging tests, such as: ? Chest X-ray. ? MRI. ? Ultrasound. Stress test. This test examines how well your heart functions when you exercise. Your heart is monitored while you exercise on a treadmill or exercise bike. If you cannot exercise, medicines may be used to increase your heartbeat in place of exercise. Cardiac catheterization. During this test, a thin, flexible tube (catheter) is inserted into a blood vessel and threaded up to your heart. This test allows your health care provider to check the arteries that lead to your heart (coronary arteries). Right heart catheterization. During this test, the pressure in your heart is measured. How is this treated? This condition may be treated by: Adjusting your heart medicines. Maintaining a healthy lifestyle. This includes: ? Eating a heart-healthy diet that is low in sodium. ? Not using any products that contain nicotine or tobacco, such as cigarettes and e-cigarettes. ? Regular exercise. ? Monitoring your fluid intake. ? Monitoring your weight and reporting changes to your health care provider. Treating sleep apnea, if you have this condition. Surgery. This may include: ? Implanting a device that helps both sides of your heart contract at the same time (cardiac resynchronization therapy device). This can help with heart function and relieve heart failure symptoms. ? Implanting a device that can correct heart rhythm problems (implantable cardioverter defibrillator). ? Connecting a device to your heart to help it pump blood (ventricular assist device). ? Heart transplant. Follow these instructions at home: Medicines Take zfmv-rqa-[id number] and prescription medicines only as told by your health care provider. Do not stop taking your medicines or change the amount you take. If you are having problems or side effects from your medicines, talk to your health care provider. If you are having difficulty paying for your medicines, contact a social worker delinquency prevention or your clinic. There are many programs to assist with medicine costs. Talk to your health care provider before starting any new medicines or supplements. Make sure your health care provider and pharmacist have a list of all the medicines you are taking. Eating and drinking Avoid drinking alcohol. Eat a heart-healthy diet as told by your health care provider. This includes: ? Plenty of fruits and vegetables. ? Lean proteins. ? Low-fat dairy. ? Whole grains. ? Foods that are low in sodium. Activity Exercise regularly as told by your health care provider. Balance exercise with rest. Ask your health care provider what activities are safe for you. This includes sexual activity, exercise, and daily tasks at home or work. Lifestyle Do not use any products that contain nicotine or tobacco, such as cigarettes and e-cigarettes. If you need help quitting, ask your health care provider. Maintain a healthy weight. Ask your health care provider what weight is healthy for you. Consider joining a patient support group. This can help with emotional problems you may have, such as stress and anxiety. General instructions Talk to your health care provider about flu and pneumonia vaccines. Keep a list of medicines that you are taking. This may help in emergency situations. Keep all follow-up visits as told by your health care provider. This is important. Contact a health care provider if: You have questions about your medicines or you miss a dose. You feel anxious, depressed, or stressed. You have swelling in your feet, ankles, legs, or abdomen. You have shortness of breath during activity or exercise. You have a cough. You have a fever. You have trouble sleeping. You gain 2 3 lb (1 1.4 kg) in 24 hours or 5 lb (2.3 kg) in a week. Get help right away if: You have chest pain. You have shortness of breath while resting. You have severe fatigue. You are confused. You have severe dizziness. You have a rapid or irregular heartbeat. You have nausea or you vomit. You have a cough that is worse at night or you cannot lie flat. You have a cough that will not go away. You have severe depression or sadness. Summary When heart failure symptoms get worse, it is called heart failure exacerbation. Common causes of this condition include taking medicines incorrectly, infections, and drinking alcohol. This condition may be treated by adjusting medicines, maintaining a healthy lifestyle, or surgery. Do not stop taking your medicines or change the amount you take. If you are having problems or side effects from your medicines, talk to your health care provider. This information is not intended to replace advice given to you by your health care provider. Make sure you discuss any questions you have with your health care provider. Document Released: 11/24/2017 Document Revised: 06/25/2018 Document Reviewed: 11/24/2017 [employer] Patient Education 2020 [employer] Acute Kidney Injury, Adult Acute kidney injury is a sudden worsening of kidney function. The kidneys are organs that have several jobs. They filter the blood to remove waste products and extra fluid. They also maintain a healthy balance of minerals and hormones in the body, which helps control blood pressure and keep bones strong. With this condition, your kidneys do not do their jobs as well as they should. This condition ranges from mild to severe. Over time it may develop into long-lasting (chronic) kidney disease. Early detection and treatment may prevent acute kidney injury from developing into a chronic condition. What are the causes? Common causes of this condition include: A problem with blood flow to the kidneys. This may be caused by: ? Low blood pressure (hypotension) or shock. ? Blood loss. ? Heart and blood vessel (cardiovascular) disease. ? Severe palumbo. ? Liver disease. Direct damage to the kidneys. This may be caused by: ? Certain medicines. ? A kidney infection. ? Poisoning. ? Being around or in contact with toxic substances. ? A surgical wound. ? A hard, direct hit to the kidney area. A sudden blockage of urine flow. This may be caused by: ? Cancer. ? Kidney stones. ? An enlarged prostate in males. What are the signs or symptoms? Symptoms of this condition may not be obvious until the condition becomes severe. Symptoms of this condition can include: Tiredness (lethargy), or difficulty staying awake. Nausea or vomiting. Swelling (edema) of the face, legs, ankles, or feet. Problems with urination, such as: ? Abdominal pain, or pain along the side of your stomach (flank). ? Decreased urine production. ? Decrease in the force of urine flow. Muscle twitches and cramps, especially in the legs. Confusion or trouble concentrating. Loss of appetite. Fever. How is this diagnosed? This condition may be diagnosed with tests, including: Blood tests. Urine tests. Imaging tests. A test in which a sample of tissue is removed from the kidneys to be examined under a microscope (kidney biopsy). How is this treated? Treatment for this condition depends on the cause and how severe the condition is. In mild cases, treatment may not be needed. The kidneys may heal on their own. In more severe cases, treatment will involve: Treating the cause of the kidney injury. This may involve changing any medicines you are taking or adjusting your dosage. Fluids. You may need specialized IV fluids to balance your body's needs. Having a catheter placed to drain urine and prevent blockages. Preventing problems from occurring. This may mean avoiding certain medicines or procedures that can cause further injury to the kidneys. In some cases treatment may also require: A procedure to remove toxic wastes from the body (dialysis or continuous renal replacement therapy - CRRT). Surgery. This may be done to repair a torn kidney, or to remove the blockage from the urinary system. Follow these instructions at home: Medicines Take oxnp-ura-trifhya and prescription medicines only as told by your health care provider. Do not take any new medicines without your health care provider's approval. Many medicines can worsen your kidney damage. Do not take any vitamin and mineral supplements without your health care provider's approval. Many nutritional supplements can worsen your kidney damage. Lifestyle If your health care provider prescribed changes to your diet, follow them. You may need to decrease the amount of protein you eat. Achieve and maintain a healthy weight. If you need help with this, ask your health care provider. Start or continue an exercise plan. Try to exercise at least 30 minutes a day, 5 days a week. Do not use any tobacco products, such as cigarettes, chewing tobacco, and e-cigarettes. If you need help quitting, ask your health care provider. General instructions Keep track of your blood pressure. Report changes in your blood pressure as told by your health care provider. Stay up to date with immunizations. Ask your health care provider which immunizations you need. Keep all follow-up visits as told by your health care provider. This is important. Where to find more information [employer]: www.aakp.org National Kidney Foundation: www.kidney.org [employer]: www.akfinc.org Life Options Rehabilitation Program: ? www.lifeoptions.org ? www.kidneyschool.org Contact a health care provider if: Your symptoms get worse. You develop new symptoms. Get help right away if: You develop symptoms of worsening kidney disease, which include: ? Headaches. ? Abnormally dark or light skin. ? Easy bruising. ? Frequent hiccups. ? Chest pain. ? Shortness of breath. ? End of menstruation in women. ? Seizures. ? Confusion or altered mental status. ? Abdominal or back pain. ? Itchiness. You have a fever. Your body is producing less urine. You have pain or bleeding when you urinate. Summary Acute kidney injury is a sudden worsening of kidney function. Acute kidney injury can be caused by problems with blood flow to the kidneys, direct damage to the kidneys, and sudden blockage of urine flow. Symptoms of this condition may not be obvious until it becomes severe. Symptoms may include edema, lethargy, confusion, nausea or vomiting, and problems passing urine. This condition can usually be diagnosed with blood tests, urine tests, and imaging tests. Sometimes a kidney biopsy is done to diagnose this condition. Treatment for this condition often involves treating the underlying cause. It is treated with fluids, medicines, dialysis, diet changes, or surgery. This information is not intended to replace advice given to you by your health care provider. Make sure you discuss any questions you have with your health care provider. Document Released: 01/26/2012 Document Revised: 06/25/2018 Document Reviewed: 07/03/2017 [employer] Patient Education 2020 [employer]. Additional Information VACCINATE! IT SAVES LIVES! Members of the community who have not yet received the COVID-19 vaccine and would like to receive it can visit one of [facility] vaccine clinics. There are many vaccine clinic locations within the [facility] [address] [facility]. For locations and available times, please visit https://[email or web address].o ido.gov/. It is important to note that some COVID mobile vaccine clinics are held outdoors and may be canceled in rainy or stormy conditions. To learn more about pediatric vaccinations (ages 5-11), we invite you to visit the [employer] [facility] webpage. https://www.Anedots.org/p ages/5532-Jdrbo-Jkjfgrhwpbo-Freq cpviyg-Knvdb-Akyqtdzku.html To learn more about the COVID-19 vaccine, we invite you to visit the CDC website for a list of frequently asked questions.https://www.cdc.gov/co ronavirus/2019-ncov/vaccines/faq .html [employer] Patient Portal Access Instructions: Stay connected with your healthcare team and access your personal medical information anytime with the [employer] Patient Portal. Please follow the directions below to create your [facility] [employer] account: 1.Access the email account you provided upon registration to the hospital/physician office.2.Look for an invitation email from [facility].3.Open the email and access the invitation link: Accept Invitation to [facility] [employer].4.Fill in the required dennis to create your account. To access your account, visit [email or web address]. Click the blue button labeled Access Patient Portal and then log in with the username and password that you created in the steps above. You will be able to view your test results, lab results, a summary of your visits, upcoming appointments and more. There is also a convenient messaging option where you can send secure messages to your provider. In addition, you will have the ability to download any documents or summaries to your computer and/or send the information securely to a physician. Remember that your healthcare information is confidential, so carefully consider who you will allow to register on the [facility] to your information. You can also access the [facility] on the [employer] te. Simply click on Patient Portal and then log into your account. If you would like to receive a full copy of your medical records, please contact the [facility] Records Department by calling [phone], Thursday through Thursday between 8 a.m. and 4:30 p.m. HOW TO SAFELY DISPOSE OF PRESCRIPTION MEDICATIONS Please use one of the following methods to safely dispose of your unused medications. 1.Use a drug disposal kit: the drug disposal pouch allows you to safely discard your old and unused drugs. Ask your nurse to give you one when you are discharged.2.Visit a local take-back location: Many local pharmacies and police departments have programs that collect old and unwanted prescription drugs. Call your local pharmacy or go to http://[employer].TrulySocial/6U7Wt2q to find one close to you.3.Make use of household items: Use cat litter or old coffee grounds to dispose medications if other options are not available. Mix your drugs with these household products, seal them in an airtight container and throw it into the garbage. Call [facility]: [phone] to be sure your drugs can be disposed of in this way. Some medicines may require a different approach.4.Never flush your medications down the toilet. IF YOU HAVE BEEN PRESCRIBED AN OPIOID FOR PAIN If you have been prescribed an opioid (such as hydrocodone, oxycodone or morphine), it is critical to understand the possible side effects and risks of opioid pain medications. Even when taken as directed, opioids can have several side effects including: Tolerance, meaning you might need to take more of a medication for the same pain relief. Nausea, vomiting and/or constipation. Sleepiness, dizziness, dry mouth, confusion, depression or itching. Physical dependence, meaning you have withdrawal symptoms when a medication is stopped, can develop within a few days. KNOW YOUR RESPONSIBILITIES It is important to know exactly how much and how often to take the opioid pain medications you are prescribed. Never take opioids in higher amounts or more often than prescribed. Do not combine opioids with alcohol or other drugs that cause drowsiness, such as benzodiazepines, also known as benzos, including diazepam and alprazolam, muscle relaxants or sleep aids. Never sell or share prescription opioids. This is illegal. Store opioids in a secure place and out of reach of others (including children, family, friends and visitors). The last page of this document has been signed and retained as a CHART COPY. Signatures Patient Education Materials - [facility] (04/2018)(CUSTOM) Indwelling Urinary Catheter Care, Adult Heart Failure Exacerbation Acute Kidney Injury, Adult Medication Leaflets My discharge plan and instructions have been reviewed and explained to me and I,MELY HATCH understand my current condition and have read and understand these discharge instructions. I have received a written copy of the plan/instructions. If I have questions, I am aware that I should contact my doctor. Patient/Supply Requirements Officer Signature: Date/Time: Relationship to Patient: Witness Name/Signature: Date/Time: [facility] 07-14-2023 Note Date of Service 07/14/2023 Chief Complaint weakness Subjective Patient seen and evaluated this morning while resting in bed. He appears to be much calmer today over yesterday. He denies any new problems or concerns. He states that he feels pretty good this morning. Patient was just taken off of oxygen this morning and seems to do well off oxygen during the day. He has been dropping to the lower 90's though overnight and ends up back on oxygen. We will check him for oxygen needs at home tomorrow. Cardiology saw patient today and recommended giving another dose of IV lasix today and observing another night. Patient's kidney function has stayed about the same despite having a catheter placed yesterday. He apparently is seeing a pallet rectifier in [place] due to worsening renal function. Patient just saw a Dr. Wharton on 06/30 and had a creatinine of 2.22 and GFR of 30 at that visit. He had a lomeli catheter placed yesterday due to urinary retention. 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 We will recheck renal function again in the morning. If patient's overall status is improved, we will discharge him home tomorrow. All questions answered. Objective Vitals and Measurements T: 36.5 C (Oral) TMIN: 36.4 C (Oral) TMAX: 36.8 C (Oral) HR: 62 RR: 16 BP: 169/61 SpO2: 95% WT: 59.5 kg Intake and Output 7AM Yesterday to 7AM Today Intake and Output (Last 24 hours) Intake Output Urinary Catheter Output: 1575.00 Total Summary Total Intake 0.00 Total Output 1575.00 Physical Exam General: No acute distress. Patient is alert, calm, chronically ill-appearing. Skin: No rash. Skin is warm, dry and intact. HEENT: Head is normocephalic, atraumatic. Pupils are equal, round and reactive. Neck: Supple. No lymphadenopathy, thyromegaly. Lungs: Bilaterally clear but diminished without crepitation or wheeze. Unlabored. Heart: Heart is regular rhythm, S1, S2. No murmurs, gallops or rubs. Abdomen: Abdomen is soft, nontender. Bowels sounds present in all quadrants. Extremities: No clubbing, cyanosis, or edema. Peripheral pulses palpable. No calf tenderness. Neurological: Patient is awake and alert to person. Following simple commands, moving all extremities. Weight Current Weight Dosing Weight: 59.4 kg (07/12/23) Current Weight: 59.5 kg (07/14/23) Current Weight: 61.1 kg (07/13/23) Medications Medications (22) Active Scheduled: (11) albuterol - ipratropium 2.5 mg-0.5 mg/3 mL Inhal Sarai UD 3 mL, Inhalation, QIDRT aspirin 81 mg Chewable 81 mg 1 tab(s), Oral, qDay atorvastatin 40 mg tablet 40 mg 1 tab(s), Oral, qDay budesonide 0.5 mg/2 mL Susp UD 0.5 mg 2 mL, Inhalation, BIDRT carvedilol 12.5 mg tablet 25 mg 2 tab(s), Oral, BID finasteride 5 mg tablet 5 mg 1 tab(s), Oral, qDay hydralazine 25 mg Tablet 100 mg 4 tab(s), Oral, BID hydrocortisone/neomycin/polymyxi n B OTIC SUSPENSION 1%-0.35%-85414 u/mL 4 drop(s), Ear, both, TID pantoprazole 20 mg EC tablet 40 mg 2 tab(s), Oral, BIDAC QUEtiapine 25 mg tablet 50 mg 2 tab(s), Oral, qPM QUEtiapine 25 mg tablet 25 mg 1 tab(s), Oral, qAM Continuous: (0) PRN: (11) acetaminophen 325 mg Tablet 650 mg 2 tab(s), Oral, q4h acetaminophen 325 mg Tablet 650 mg 2 tab(s), Oral, q4h Al hydrox/Mg hydrox/simethicone 200-200-20 mg/5 mL Susp UD 15 mL, Oral, q4h albuterol - ipratropium 2.5 mg-0.5 mg/3 mL Inhal Sarai UD 3 mL, Inhalation, q4hRT calcium carbonate 500 mg Chewable 500 mg 1 tab(s), Chewed, TID diphenhyDRAMINE 50 mg/mL (1 mL) INJ 25 mg 0.5 mL, IV Push, Once docusate sodium 100 mg Capsule 100 mg 1 cap(s), Oral, BID haloperidol 1 mg Tablet 0.5 mg 0.5 tab(s), Oral, TID LORAZEPam 0.5 mg tablet 0.25 mg 0.5 tab(s), Oral, q6h melatonin 3 mg tablet 6 mg 2 tab(s), Oral, qHS ondansetron 2 mg/ 1 mL 2 mL INJ 4 mg 2 mL, IV Push, q4h Lab Results 07/14 05:29 Glucose Level: 82 L Sodium Level: 147 H Potassium Level: 4.1 BUN: 42 H Creatinine Lvl (s): 2.53 H 07/13 05:10 WBC: 8.4 Hgb: 11.9 L Hct: 36.2 L Platelet: 165 Neutrophil %: 52.2 Glucose Level: 96 Sodium Level: 148 H Potassium Level: 4.5 BUN: 45 H Creatinine Lvl (s): 2.41 H Imaging Results and Diagnostics US Renal Result Date: July 14, 2023 Verified By: KAREEN MCKEON MD CLINICAL STATEMENT: IMPRESSION: 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 No evidence of obstruction. Areas of severe cortical scarring in the right kidney. Collapsed urinary bladder with Lomeli catheter in place. I have personally reviewed the images of this examination, agree with resident's findings and interpretation. CT Thorax w/o Contrast Result Date: July 13, 2023 Verified By: CHAN MYRICK MD CLINICAL STATEMENT: IMPRESSION: 1. Prominent emphysema.2. Small right and small to moderate left pleural effusions, with some adjacent atelectasis.3. Bilateral lower lobe small airway wall thickening and mucous plugging compatible with bronchitis. No focal pneumonia is visible.4. Right lower lobe nodule. See recommendations below. RECOMMENDATIONS:11 mm right solid pulmonary nodule. Per Fleischner Society Guidelines,consider a non-contrast Chest CT at 3 months, a PET/CT, or tissue sampling. These guidelines do not apply to immunocompromised patients and patients with cancer. Follow up in patients with significant comorbidities as clinically warranted. For lung cancer screening, adhere to Lung-RADS guidelines.Reference: Radiology. 2017; 284(1):228-43. XR Chest 1 View Result Date: July 11, 2023 Verified By: MARIA LUISA GUNN, JUAN JOSÉ Dickerson CLINICAL STATEMENT: IMPRESSION: Heterogeneous bilateral lung infiltrates may represent pulmonary edema or atypical pneumonia. Small bilateral pleural effusions. EKG No qualifying data available. Assessment/Plan 1. IVANIA (acute kidney injury) Acute, new onset, unknown etiology. Patient follows with a pallet rectifier in [place], Dr. Wharton for worsening renal function. Last creatinine on 06/30 was 2.22 and GFR 30. This morning creatinine 2.53/GFR 24. Will encourage PO intake and hold off on additional IV fluids for now. Cardiology consulted and ordered 40 mg Lasix IV x 1 again today. If patient's overall status is improved tomorrow, we will discharge him home and have him follow-up with his pallet rectifier. Repeat BMP in the am. 2. Pneumonia Resolved. 3. CHF exacerbation Acute on chronic. Patient had seen Dr. Mohr in 07/2022 and was supposed to follow-up in 3 months but never did. Consulted Loren Florian CNP for recommendation on management of this CHF exacerbation. Repeated echocardiogram this am - no report yet. Cardiology ordered 40 mg Lasix IV x 1 today. Will check patient tomorrow to see if he requires home oxygen. Weaned to room air currently. BNP trending down. 4. HTN (hypertension) Chronic. Continue current home antihypertensives. SBP goal of 140 or less. 5. Amyloidosis Chronic. Patient had been referred to oncology but unsure whether he followed up. DVT prophylaxis with SCDs. Code status: Full Code. Labs, diagnostic test and progress notes reviewed as noted in HPI. Plan of care discussed with patient. All questions answered. Patient verbalizes understanding and is agreeable with plan of care. This case was discussed with collaborating physician, Dr. Yris Carranza. Time Spent 35 minutes spent reviewing past diagnostic tests, reviewing lab results, vital sign trends, medical history, reviewing medications and ordering home medications, examining patient, collaborating with physician, and documenting in chart. Digitally Signed by SALENA RAMOS on 07/14/2023 05:06 PM [facility] 07-14-2023 Note Date of Service 07/14/23 Chief Complaint CHF Subjective This is a pleasant 83-year-old male patient who was admitted to the hospital for shortness of breath and weakness. Patient has had some confusion and agitation in the last 24 hours. He denies chest pain, chest pressure, dizziness, diaphoresis, and syncope. Patient had gone to the bathroom and it felt very shaky and his heart was racing so his called EMS. EMS reported patient was tachypneic and placed him on oxygen. They transported him to the emergency room. In the emergency room chest x-ray showed bilateral lung infiltrates which represent pulmonary edema versus atypical pneumonia. Small bilateral pleural effusions were also noted. BNP was elevated along with creatinine. Patient was admitted for further evaluation. Yesterday I saw patient and I ordered a CT of the chest for further evaluation of pleural effusion and give patient 40 mg of Lasix IV. Historical data has seen Dr. Mohr in the past. He has a history of cardiomyopathy, nonsustained VT, amyloid, and hypertension. Last echocardiogram was 03/10/2022 and it showed an EF of 45 to 50%. Last stress test was 06/05/2022 and it showed no ischemia. Holter monitor done in March 2022 showed 6% PVC burden. Echo Summary: 1. Left ventricle: The cavity size is mildly increased. Wall thickness is moderately increased. Systolic function is mildly reduced by visual assessment. The estimated ejection fraction is 45-50%. There is mild diffuse hypokinesis. Regional wall motion abnormalities cannot be excluded. Grade I diastolic dysfunction. 2. Ventricular septum: Thickness is moderately increased. 3. Aortic valve: Right coronary cusp mobility is mildly restricted. There is mild regurgitation. 4. Mitral valve: There is mild regurgitation. 5. Right ventricle: The RV systolic pressure by Doppler is 65 mm Hg. 6. Atrial septum: There is a possible, small patent foramen ovale. Recommendations: Consider Definity for better assessment of LV function. Mod LVH. Consider infiltrative cardiomyopathy. [1] (06/05/2022 10:16 EST NM Myocardial Spect Rest/Stress) IMPRESSION: 1. No reversible perfusion defects suggestive of ischemia. 2. No fixed defect suggestive of myocardial infarct. 3. Mildly Reduced systolic function with LVEF 40% with mild global hypokinesis 4. Abnormality attenuation artifact is present. 5. No prior studies for comparison. Objective Vitals and Measurements T: 36.5 C (Oral) TMIN: 36.4 C (Oral) TMAX: 36.8 C (Oral) HR: 57(Monitored) RR: 16 BP: 169/61 SpO2: 96% WT: 59.5 kg Intake and Output 7AM Yesterday to 7AM Today Intake and Output (Last 24 hours) Intake Output Urinary Catheter Output: 2024. Total Summary Total Intake 0.00 Total Output 2024. Fluid Balance -2024. Physical Exam GENERAL: Well nourished; no acute distress. PSYCHIATRIC: Alert and oriented x 3, cooperative, mood normal, affect normal. HEAD: Normocephalic, nontraumatic head. EYES: No drainage noted. NECK: Supple, no posterior midline tenderness. Normal range of motion. No JVD noted. CARDIAC: Regular rate, regular rhythm, no murmurs noted. No S3 or S4 noted. RESPIRATORY: Regular rate and depth; no distress, lung sounds clear bilaterally. ABDOMEN: Soft, nontender. Normal bowel sounds. EXTREMITIES: No edema noted. Dorsalis Pedis pulse +2/4 bilaterally. Posterior Tibialis pulse +2/4 bilaterally. DERM: Warm and dry. Normal turgor. Weight Current Weight Dosing Weight: 59.4 kg (07/12/23) Current Weight: 59.5 kg (07/14/23) Current Weight: 61.1 kg (07/13/23) Medications Medications (23) Active Scheduled: (12) albuterol - ipratropium 2.5 mg-0.5 mg/3 mL Inhal Sarai UD 3 mL, Inhalation, QIDRT aspirin 81 mg Chewable 81 mg 1 tab(s), Oral, qDay atorvastatin 40 mg tablet 40 mg 1 tab(s), Oral, qDay budesonide 0.5 mg/2 mL Susp UD 0.5 mg 2 mL, Inhalation, BIDRT carvedilol 12.5 mg tablet 25 mg 2 tab(s), Oral, BID finasteride 5 mg tablet 5 mg 1 tab(s), Oral, qDay furosemide 40 mg/4 mL vial 40 mg 4 mL, IV Push, Once hydralazine 50 mg Tablet 100 mg 2 tab(s), Oral, BID hydrocortisone/neomycin/polymyxi n B OTIC SUSPENSION 1%-0.35%-58634 u/mL 4 drop(s), Ear, both, TID pantoprazole 20 mg EC tablet 40 mg 2 tab(s), Oral, BIDAC QUEtiapine 25 mg tablet 50 mg 2 tab(s), Oral, qPM QUEtiapine 25 mg tablet 25 mg 1 tab(s), Oral, qAM Continuous: (0) PRN: (11) acetaminophen 325 mg Tablet 650 mg 2 tab(s), Oral, q4h acetaminophen 325 mg Tablet 650 mg 2 tab(s), Oral, q4h Al hydrox/Mg hydrox/simethicone 200-200-20 mg/5 mL Susp UD 15 mL, Oral, q4h albuterol - ipratropium 2.5 mg-0.5 mg/3 mL Inhal Sarai UD 3 mL, Inhalation, q4hRT calcium carbonate 500 mg Chewable 500 mg 1 tab(s), Chewed, TID diphenhyDRAMINE 50 mg/mL (1 mL) INJ 25 mg 0.5 mL, IV Push, Once docusate sodium 100 mg Capsule 100 mg 1 cap(s), Oral, BID haloperidol 1 mg Tablet 0.5 mg 0.5 tab(s), Oral, TID LORAZEPam 0.5 mg tablet 0.25 mg 0.5 tab(s), Oral, q6h melatonin 3 mg tablet 6 mg 2 tab(s), Oral, qHS ondansetron 2 mg/ 1 mL 2 mL INJ 4 mg 2 mL, IV Push, q4h Lab Results 07/14 05:29 Glucose Level: 82 L Sodium Level: 147 H Potassium Level: 4.1 BUN: 42 H Creatinine Lvl (s): 2.53 H 07/13 05:10 WBC: 8.4 Hgb: 11.9 L Hct: 36.2 L Platelet: 165 Neutrophil %: 52.2 Glucose Level: 96 Sodium Level: 148 H Potassium Level: 4.5 BUN: 45 H Creatinine Lvl (s): 2.41 H EKG No qualifying data available. Assessment/Plan 1. Pleural effusion CT of the chest shows mild to moderate left pleural effusion and mild right pleural effusion. Breathing appears improved today. Will give 1 more dose of Lasix 40 mg IV push. 2. CHF exacerbation Patient continues to appear euvolemic. He was given Lasix 40 mg IV push yesterday. Creatinine bumped a smidge up to 2.53. BNP was improved. Will give patient 1 more dose of Lasix 40 mg IV push today. 3. PVCs (premature ventricular contractions) Patient has a history of frequent PVCs. He is on carvedilol. 4. HTN (hypertension) Blood pressure elevated. Will hold lisinopril due to creatinine. Will increase hydralazine to 100 mg twice daily. 5. IVANIA (acute kidney injury) Creatinine 2.5 today after being given a dose of Lasix 40 mg yesterday. Patient did start with the pallet rectifier last month at [facility]. They did do a renal ultrasound which patient is waiting for results. They have an appointment with her pallet rectifier 08/03/2023. 6. Amyloidosis Patient had been referred to oncology, it does not look like he followed through with that. Orders: furosemide, Start: 07/14/23 14:00:00 EST, Dose = 40 mg, = 4 mL, IV Push, Once, Stop: 07/14/23 14:00:00 EST, 07/14/23 13:49:00 EST hydrALAZINE, Start: 07/14/23 13:50:00 EST, Dose = 100 mg, = 2 tab(s), Oral, BID, 07/14/23 13:50:00 EST I reviewed notes, labs, and tests from hospitalist TE today. I discussed plan of care with hospitalist TE Salena Ramos. This note was generated using a voice recognition system. There may be incorrect words, spelling's, and punctuation that were missed in checking this note before saving. Time Spent 37 Digitally Signed by LOREN FLORIAN on 07/14/2023 01:56 PM [facility] 07-14-2023 Note ORIGINAL EXAMINATION: ULTRASOUND OF THE KIDNEYS 07/14/2023 8:35 am COMPARISON: None. HISTORY: ORDERING SYSTEM PROVIDED HISTORY: Reason for Exam: r/o obstructive uropathy FINDINGS: The urinary bladder is collapsed with Lomeli catheter in place limiting evaluation. The right kidney measures 10.1 x 4.1 x 4.3 cm. Increased renal cortical echogenicity and areas of high-grade renal cortical thinning. No solid renal mass. No hydronephrosis or evidence of nephrolithiasis. The left kidney measures 8.1 x 4.2 x 4.3 cm. Slight increased renal cortical echogenicity. Borderline renal cortical thickness.. No solid renal mass. Simple renal cyst in the lower pole measures up to 1.8 cm. No hydronephrosis or evidence of nephrolithiasis. 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 No evidence of obstruction. Areas of severe cortical scarring in the right kidney. Collapsed urinary bladder with Lomeli catheter in place. I have personally reviewed the images of this examination, agree with resident's findings and interpretation. Interpreted by: Kareen Mckeon MD Preliminary Report By: Rudolph Muniz Electronically signed By Kareen Mckeon MD Dictated Date: 07/14/2023 10:11:30 AM Prelim Date: 07/14/2023 11:07:42 AM Sign Date: 07/14/2023 11:07:42 AM Ordering Provider: SALENA RAMOS [facility] 07-13-2023 Note Date of Service 07/13/2023 Chief Complaint shortness of breath Subjective Patient seen and evaluated this morning while resting in bed. He is more agitated today and constantly yelling for help. He states that he is having chest pain because the last person in his room was jabbing things into his chest. Patient explained that the echocardiogram should not cause chest pain. When asked how bad his pain is, he states I'm not having pain right now but I am just upset about it. Patient was already given lorazepam x 1 dose to calm him before the CT of the chest. It has already apparently worn off and he is constantly trying to get out of bed. Patient is on Seroquel in the morning and should have gotten that dose. Nursing calling to see if patient can have a sitter or asking patient's to come back in to sit with him. Patient's renal function was the same again today. Cardiology consulted and recommended noncontrast CT of the chest to better evaluate his pleural effusions. They also ordered 40 mg Lasix IV x 1 today. Patient denies any fever, chills, cough, shortness of breath, abdominal pain, or nausea. All questions answered. Objective Vitals and Measurements T: 36.8 C (Oral) TMIN: 36.6 C (Oral) TMAX: 36.8 C (Oral) HR: 57 RR: 16 BP: 176/82 SpO2: 99% WT: 61.1 kg Intake and Output 7AM Yesterday to 7AM Today Intake and Output (Last 24 hours) Intake Oral Intake 720.00 Output Urine Voided 200.00 Stool Count 1.00 Urine Count 1.00 Total Summary Total Intake 720.00 Total Output 200.00 Fluid Balance 520.00 Physical Exam General: Moderate distress. Patient is alert, chronically ill-appearing. Skin: No rash. Skin is warm, dry and intact. HEENT: Head is normocephalic, atraumatic. Pupils are equal, round and reactive. Neck: Supple. No lymphadenopathy, thyromegaly. Lungs: Bilaterally clear but diminished without crepitation or wheeze. Unlabored. Heart: Heart is regular rhythm, S1, S2. No murmurs, gallops or rubs. Abdomen: Abdomen is soft, nontender. Bowels sounds present in all quadrants. Extremities: No clubbing, cyanosis, or edema. Peripheral pulses palpable. No calf tenderness. Neurological: Patient is awake and alert to person only. Following simple commands, moving all extremities. Weight Current Weight Dosing Weight: 59.4 kg (07/12/23) Current Weight: 61.1 kg (07/13/23) Medications Medications (20) Active Scheduled: (11) albuterol - ipratropium 2.5 mg-0.5 mg/3 mL Inhal Sarai UD 3 mL, Inhalation, QIDRT aspirin 81 mg Chewable 81 mg 1 tab(s), Oral, qDay atorvastatin 40 mg tablet 40 mg 1 tab(s), Oral, qDay budesonide 0.5 mg/2 mL Susp UD 0.5 mg 2 mL, Inhalation, BIDRT carvedilol 12.5 mg tablet 25 mg 2 tab(s), Oral, BID finasteride 5 mg tablet 5 mg 1 tab(s), Oral, qDay hydralazine 25 mg Tablet 50 mg 2 tab(s), Oral, BID hydrocortisone/neomycin/polymyxi n B OTIC SUSPENSION 1%-0.35%-11558 u/mL 4 drop(s), Ear, both, TID pantoprazole 20 mg EC tablet 40 mg 2 tab(s), Oral, BIDAC QUEtiapine 25 mg tablet 50 mg 2 tab(s), Oral, qPM QUEtiapine 25 mg tablet 25 mg 1 tab(s), Oral, qAM Continuous: (0) PRN: (9) acetaminophen 325 mg Tablet 650 mg 2 tab(s), Oral, q4h acetaminophen 325 mg Tablet 650 mg 2 tab(s), Oral, q4h Al hydrox/Mg hydrox/simethicone 200-200-20 mg/5 mL Susp UD 15 mL, Oral, q4h albuterol - ipratropium 2.5 mg-0.5 mg/3 mL Inhal Sarai UD 3 mL, Inhalation, q4hRT calcium carbonate 500 mg Chewable 500 mg 1 tab(s), Chewed, TID diphenhyDRAMINE 50 mg/mL (1 mL) INJ 25 mg 0.5 mL, IV Push, Once docusate sodium 100 mg Capsule 100 mg 1 cap(s), Oral, BID melatonin 3 mg tablet 6 mg 2 tab(s), Oral, qHS ondansetron 2 mg/ 1 mL 2 mL INJ 4 mg 2 mL, IV Push, q4h Lab Results 07/13 05:10 WBC: 8.4 Hgb: 11.9 L Hct: 36.2 L Platelet: 165 Neutrophil %: 52.2 Glucose Level: 96 Sodium Level: 148 H Potassium Level: 4.5 BUN: 45 H Creatinine Lvl (s): 2.41 H 07/12 06:34 WBC: 7.5 Hgb: 11.3 L Hct: 34.2 L Platelet: 156 Neutrophil %: 53.4 Glucose Level: 132 H Sodium Level: 150 H Potassium Level: 4.9 BUN: 50 H Creatinine Lvl (s): 2.40 H Imaging Results and Diagnostics CT Thorax w/o Contrast Result Date: July 13, 2023 Verified By: CHAN MYRICK MD CLINICAL STATEMENT: IMPRESSION: 1. Prominent emphysema. 2. Small right and small to moderate left pleural effusions, with some adjacent atelectasis. 3. Bilateral lower lobe small airway wall thickening and mucous plugging compatible with bronchitis. No focal pneumonia is visible.4. Right lower lobe nodule. See recommendations below. RECOMMENDATIONS:11 mm right solid pulmonary nodule. Per Fleischner Society Guidelines,consider a non-contrast Chest CT at 3 months, a PET/CT, or tissue sampling. These guidelines do not apply to immunocompromised patients and patients with cancer. Follow up in patients with significant comorbidities as clinically warranted. For lung cancer screening, adhere to Lung-RADS guidelines.Reference: Radiology. 2017; 284(1):228-43. XR Chest 1 View Result Date: July 11, 2023 Verified By: MARIA LUISA GUNN, JUAN JOSÉ Dickerson CLINICAL STATEMENT: IMPRESSION: Heterogeneous bilateral lung infiltrates may represent pulmonary edema or atypical pneumonia. Small bilateral pleural effusions. EKG No qualifying data available. Assessment/Plan 1. IVANIA (acute kidney injury) Acute, new onset, unknown etiology. Creatinine from 08/2022 was 1.45 but up to 2.71 on arrival last night. Baseline GFR 46 - down to 23 on arrival. Patient administered 500 cc NS in ED. Renal function about the same this morning - creatinine to 2.41/GFR 26. Will encourage PO intake and hold off on additional IV fluids for now. Cardiology consulted and ordered 40 mg Lasix IV x 1. Repeat BMP in the am. 2. Pneumonia Resolved. Patient has no leukocytosis and is afebrile. Will hold off on additional antibiotics at this point. Atypicals negative. 3. CHF exacerbation Acute on chronic. Patient had seen Dr. Mohr in 07/2022 and was supposed to follow-up in 3 months but never did. Consulted Loren Florian CNP for recommendation on management of this CHF exacerbation. Repeated echocardiogram this am - no report yet. Cardiology ordered 40 mg Lasix IV as well as CT of the chest. Monitor oxygen saturations. Weaned to room air currently. BNP greater than 35,000 this am. 4. HTN (hypertension) Chronic. Continue current home antihypertensives. SBP goal of 140 or less. 5. Amyloidosis Chronic. Patient had been referred to oncology but unsure whether he followed up. DVT prophylaxis with SCDs. Code status: Full Code. Labs, diagnostic test and progress notes reviewed as noted in HPI. Plan of care discussed with patient. All questions answered. Patient verbalizes understanding and is agreeable with plan of care. This case was discussed with collaborating physician, Dr. Yris Carranza. Time Spent 35 minutes spent reviewing past diagnostic tests, reviewing lab results, vital sign trends, medical history, reviewing medications and ordering home medications, examining patient, discussed plan of care with cardiology and nursing, collaborating with physician, and documenting in chart. Digitally Signed by SALENA RAMOS on 07/13/2023 02:01 PM [facility] 12-18-2023 Note ORIGINAL EXAMINATION: CT OF THE CHEST WITHOUT CONTRAST 07/13/2023 9:45 am TECHNIQUE: CT of the chest was performed without the administration of intravenous contrast. Multiplanar reformatted images are provided for review. Automated exposure control, iterative reconstruction, and/or weight based adjustment of the mA/kV was utilized to reduce the radiation dose to as low as reasonably achievable. COMPARISON: Chest x-ray July 12, 2023 HISTORY: ORDERING SYSTEM PROVIDED HISTORY: Reason for Exam: pleural effusion FINDINGS: [id number] degenerative changes are noted in the spine. No other osseous abnormality seen. Prominent emphysema is evident and there are scattered areas of pulmonary and pleural scarring seen. An 11 mm nodule is present at the right lower lobe. There is some scarring identified at the inferior lingula next to a cystic airspace. No lobar consolidation is visible. Small right and small to moderate left pleural effusions are present, with some adjacent atelectasis. There is additional bilateral lower lobe small airway wall thickening and scattered mucous plugging noted. No definite mediastinal adenopathy is evident within the constraints of a noncontrast exam. Coronary calcification is visible. No additional contributory finding. IMPRESSION: 1. Prominent emphysema. 2. Small right and small to moderate left pleural effusions, with some adjacent atelectasis. 3. Bilateral lower lobe small airway wall thickening and mucous plugging compatible with bronchitis. No focal pneumonia is visible. 4. Right lower lobe nodule. See recommendations below. RECOMMENDATIONS: 11 mm right solid pulmonary nodule. Per Fleischner Society Guidelines, consider a non-contrast Chest CT at 3 months, a PET/CT, or tissue sampling. These guidelines do not apply to immunocompromised patients and patients with cancer. Follow up in patients with significant comorbidities as clinically warranted. For lung cancer screening, adhere to Lung-RADS guidelines. Reference: Radiology. 2017; 284(1):228-43. Interpreted by: Chan Myrick MD Preliminary Report By: Chan Myrick MD Electronically signed By Chan Myrick MD Dictated Date: 07/13/2023 10:07:48 AM Prelim Date: 07/13/2023 10:19:01 AM Sign Date: 07/13/2023 10:19:01 AM Ordering Provider: [facility]12-18-2023 Note. MICRO - Microbiology PROCEDURE: Legionella Urine Ag [*1] SOURCE: Urine BODY SITE: COLLECTED DATE/TIME: 07/12/2023 02:27 EST RECEIVED DATE/TIME: 07/12/2023 23:18 EST START DATE/TIME: 07/12/2023 23:18 EST FREE TEXT SOURCE: FINAL REPORTS Final Report [] Verified Date/Time/Personnel: 07/12/2023 23:38 EST Presumptive negative for L. pneumophila serogroup 1 antigen in urine, suggesting no recent or current infection. Legionnaire's disease cannot be ruled out since other serogroups and species may also cause disease. Performing Locations *1: This test was performed at: [facility], [address] [place] [address], [phone] , [facility] ([place])07-12-2023 Evaluation + Plan noteExtracted from: Title:History and Physical Author:SALENA RAMOS APRN-MEDICAL RECORDS CODER Date:07/12/23 1. IVANIA (acute kidney injury) Acute, new onset, unknown etiology. Creatinine from 08/2022 was 1.45 but up to 2.71 on arrival last night. Baseline GFR 46 - down to 23 on arrival. Patient administered 500 cc NS last night in ED with improved in creatinine to 2.40/GFR 26. Will encourage PO intake and hold off on additional IV fluids for now. Repeat BMP in the am. 2. Pneumonia Acute, questionable atypical on x-ray. Patient has no leukocytosis and is afebrile. Will hold off on additional antibiotics at this point. Atypicals pending. 3. CHF exacerbation Acute on chronic. Patient had seen Dr. Mohr in 07/2022 and was supposed to follow-up in 3 months but never did. Will consult Loren Florian CNP for recommendation on management of this CHF exacerbation. Will obtain echocardiogram in the am. Monitor oxygen saturations and consider low-dose bumex if requiring more oxygen. BNP greater than 35,000 this am. 4. HTN (hypertension) Chronic. Continue current home antihypertensives. SBP goal of 140 or less. 5. Amyloidosis Chronic. Patient had been referred to oncology but unsure whether he followed up. DVT prophylaxis with SCDs. Code status: Full Code. Labs, diagnostic test and progress notes reviewed as noted in HPI. Plan of care discussed with patient. All questions answered. Patient verbalizes understanding and is agreeable with plan of care. This case was discussed with collaborating physician, Dr. Yris Carranza. 75 minutes spent reviewing past diagnostic tests, reviewing lab results, vital sign trends, medical history, reviewing medications and ordering home medications, examining patient, discussed plan of care with nursing, collaborating with physician, and documenting in chart. [facility] 12-17-2023 Note Date of Service 07/12/2023 Chief Complaint c/o weakness and sob today s/p cough x 1 week History of Present Illness Patient is an 83-year-old male, who follows with Dr. Alex Fitzpatrick with a past medical history significant for hypertension, hyperlipidemia, amyloidosis, chronic kidney disease, CVA and dementia, presented to [facility] emergency department with the chief complaint of shortness of breath and weakness. Patient reports that he has been feeling intermittently weak for the past week. Last night, he got up to use the bathroom and felt very shaky and like his heart was racing. He had his call EMS. On arrival, EMS reported that patient was tachypneic and placed him on oxygen. This seemed to improve his overall respiratory status right away. He also reports some intermittent mild left chest pressure. Patient last saw Dr. Mohr about a year ago for his cardiac issues. He was supposed to follow-up in 3 months but there is no record of this having taken place. Patient reports a nonproductive cough. He denies any fever, chills, abdominal pain, nausea or dysuria. In the emergency department, chest x-ray revealed heterogeneous bilateral lung infiltrates which may represent pulmonary edema or atypical pneumonia. Small bilateral pleural effusions. CBC remarkablefor hemoglobin 11.7 and hematocrit 35.9. BMP significant for glucose 148, sodium 150, BUN 54 and creatinine 2.71. BNP 60594. Troponin negative. COVID-19, RSV, and Flu A and B negative. Urinalysis unremarkable. Patient was administered 500cc NS, 2 grams Ceftriaxone IV and 500 mg Azithromycin IV in the ED. The case was discussed with the ED physician who recommended admission due to hypoxia with a recorded oxygen saturation of 88% on room air as well as an acute kidney injury. Patient will be transferred to telemetry for further evaluation and treatment. We will discontinue Ceftriaxone 1 gram IV and Azithromycin 500 mg IV as this is likely a CHF exacerbation. We will check mycoplasma antibodyand urine for legionella and strep pneumoniae. We will continue breathing treatments as needed and s cheduled. Continue supplemental oxygen as needed to maintain oxygen saturations above 92%. Baselinecreatinine 1.45 from 08/2022 but up to 2.71 last night on arrival. Patient was given 500 cc NS. Willencourage PO intake and hold off on additional IV fluids due to history of CHF. BNP markedly elevated but patient not taking a diuretic at home. Repeat echocardiogram in the am. Consider cardiology consult for further recommendations. Repeat CBC, BMP and BNP in the am. Patient seen and evaluated this morning while resting in bed. He had taken his oxygen off and it was wrapped around his hand. Replaced oxygen at this time. Patient states that he is breathing better this morning and denies any complaints. Faint crackles auscultated in all dennis. Patient advised that we will continue antibiotics for today and work to get him off oxygen. All questions answered. Review of Systems Review of Systems: Reviewed in detail, including general health, HEENT, cardiovascular, respiratory, gastrointestinal, genitourinary, endocrine, musculoskeletal, neurologic, vascular, skin, and psychiatric. All are negative except for those listed in the History of Present Illness. Physical Exam Vitals and Measurements T: 36.6 C (Oral) TMIN: 36.4 C (Oral) TMAX: 36.6 C (Oral) HR: 84 RR: 24 BP: 187/67 SpO2: 96% HT: 172.7 cm WT: 59.4 kg BMI: 19.92 Weight Dosing Weight: 59.4 kg (07/12/23) General: No acute distress. Patient is alert, chronically ill-appearing. Skin: No rash. Skin is warm, dry and intact. HEENT: Head is normocephalic, atraumatic. Pupils are equal, round and reactive. Neck: Supple. No lymphadenopathy, thyromegaly. Lungs: Faint, scattered crackles auscultated in all dennis. Unlabored. Heart: Heart is irregular rhythm. No murmurs, gallops or rubs. Abdomen: Abdomen is soft, nontender. Bowels sounds present in all quadrants. Extremities: No clubbing, cyanosis; trace of lower extremity edema. Peripheral pulses palpable. No calf tenderness. Neurological: Patient is awake and alert to person. Following simple commands, moving all extremities. Lab Results 07/12 06:34 WBC: 7.5 Hgb: 11.3 L Hct: 34.2 L Platelet: 156 Neutrophil %: 53.4 Glucose Level: 132 H Sodium Level: 150 H Potassium Level: 4.9 BUN: 50 H Creatinine Lvl (s): 2.40 H 07/11 23:29 WBC: 8.9 Hgb: 11.7 L Hct: 35.9 L Platelet: 180 Neutrophil %: 57.4 Glucose Level: 148 H Sodium Level: 150 H Potassium Level: 4.8 BUN: 54 H Creatinine Lvl (s): 2.71 H Imaging Results and Diagnostics XR Chest 1 View Result Date: July 11, 2023 Verified By: MARIA LUISA GUNN, JUAN JOSÉ Dickerson CLINICAL STATEMENT: IMPRESSION: Heterogeneous bilateral lung infiltrates may represent pulmonary edema or atypical pneumonia. Small bilateral pleural effusions. Assessment/Plan 1. IVANIA (acute kidney injury) Acute, new onset, unknown etiology. Creatinine from 08/2022 was 1.45 but up to 2.71 on arrival last night. Baseline GFR 46 - down to 23 on arrival. Patient administered 500 cc NS last night in ED withimproved in creatinine to 2.40/GFR 26. Will encourage PO intake and hold off on additional IV fluids for now. Repeat BMP in the am. 2. Pneumonia Acute, questionable atypical on x-ray. Patient has no leukocytosis and is afebrile. Will hold off on additional antibiotics at this point. Atypicals pending. 3. CHF exacerbation Acute on chronic. Patient had seen Dr. Mohr in 07/2022 and was supposed to follow-up in 3 months but never did. Will consult Loren Florian CNP for recommendation on management of this CHF exacerbation. Will obtain echocardiogram in the am. Monitor oxygen saturations and consider low-dose bumex if requiring more oxygen. BNP greater than 35,000 this am. 4. HTN (hypertension) Chronic. Continue current home antihypertensives. SBP goal of 140 or less. 5. Amyloidosis Chronic. Patient had been referred to oncology but unsure whether he followed up. DVT prophylaxis with SCDs. Code status: Full Code. Labs, diagnostic test and progress notes reviewed as noted in HPI. Plan of care discussed with patient. All questions answered. Patient verbalizes understanding and is agreeable with plan of care. This case was discussed with collaborating physician, Dr. Yris Carranza. 75 minutes spent reviewing past diagnostic tests, reviewing lab results, vital sign trends, medicalhistory, reviewing medications and ordering home medications, examining patient, discussed plan of care with nursing, collaborating with physician, and documenting in chart. Problem List/Past Medical History Ongoing Acute leg pain Agitation due to dementia Amyloidosis Anxiety Asthenia Atrial fibrillation Cardiomyopathy Carotid arterial disease Chest pain Chronic back pain Chronic kidney disease (CKD) stage G3a/A2, moderately decreased glomerular filtration rate (GFR) between 45-59 mL/min/1.73 square meter and albuminuria creatinine ratio between 30-299 mg/g Chronic prostatitis COPD (chronic obstructive pulmonary disease) Disc degeneration, lumbar GERD (gastroesophageal reflux disease) History of osteopenia History of spinal stenosis HTN (hypertension) Hx of osteoarthritis Hyperlipidemia IBS (irritable bowel syndrome) LVH (left ventricular hypertrophy) NSVT (nonsustained ventricular tachycardia) Occasional tremors PFO (patent foramen ovale) Resolved stroke Vitamin D deficiency Historical No qualifying data Procedure/Surgical History Cardiovascular stress testin06/05/22 Ultrasound of carotid artery: 03/10/22 Echocardiogram: 03/10/22 Stent Inguinal hernia Medications Home Medications (12) Active aspirin 81 mg, Oral, qDay atorvastatin 40 mg oral tablet 40 mg = 1 tab(s), Oral, qDay bumetanide 1 mg oral tablet 1 mg = 1 tab(s), Oral, Daily cholecalciferol 1000 intl units oral tablet 1,000 unit(s) = 1 tab(s), Oral, Daily Coreg 25 mg oral tablet 25 mg = 1 tab(s), Oral, BID finasteride 5 mg oral tablet hydrALAZINE 50 mg oral tablet 50 mg = 1 tab(s), Oral, BID hydrocortisone/neomycin/polymyxin B 1%-0.35%-10,000 units/mL otic solution 4 drop(s), Ear, both, TID SEROquel 25 mg oral tablet 25 mg = 1 tab(s), Oral, qAM SEROquel 25 mg oral tablet 50 mg = 2 tab(s), Oral, qPM Symbicort 160 mcg-4.5 mcg/inh Inhaler 2 puff(s), Inhalation, BID Zestril 40 mg oral tablet 40 mg = 1 tab(s), Oral, Daily Allergies Cipro iodine (Hives) Social History Smoking Status - 05/28/2015 Never smoker Alcohol Use: Never., 12/24/2018 Nutrition/Health Caffeine intake amount: none., 04/11/2022 Substance Abuse Use: Never., 12/24/2018 Tobacco Nicotine Use: Never (less than 100 in lifetime)., 07/11/2023 Tobacco Use: Former smoker, quit more than 30 days ago., 12/24/2018 Family History Family history is unknown Immunizations tetanus/diphth/pertuss (Tdap) adult/adol: 0.5 mL (01/07/20) tetanus/diphth/pertuss (Tdap) adult/adol: 0.5 mL (05/28/15) Code Status Code Status - Ordered -- 07/12/23 2:24:00 EST, Full Code, Constant Order Digitally Signed by SALENA RAMOS on 07/12/2023 03:07 PM [facility]12-16-2023 Note ORIGINAL EXAMINATION: ONE XRAY VIEW OF THE CHEST 07/11/2023 11:59 pm COMPARISON: Chest x-ray on 09/14/2022 HISTORY: ORDERING SYSTEM PROVIDED HISTORY: Reason for Exam: sob FINDINGS: The heart size is normal. Small bilateral pleural effusions are increased in size since 09/14/2022. There are increased widespread bilateral lung infiltrates that are predominantly interstitial with mild patchy airspace disease. There is no pneumothorax. No acute skeletal abnormality is present. IMPRESSION: Heterogeneous bilateral lung infiltrates may represent pulmonary edema or atypical pneumonia. Small bilateral pleural effusions. Interpreted by: Juan José Ruiz MD Preliminary Report By: Juan José Ruiz MD Electronically signed By Juan José Ruiz MD Dictated Date: 07/12/2023 12:04:50 AM Prelim Date: 07/12/2023 12:06:38 AM Sign Date: 07/12/2023 12:06:38 AM Ordering [facility] NoteSinus rhythm Multiform ventricular premature complexes Probable left atrial enlargement RBBB and LAFB LVH with secondary repolarization abnormality Electronic Signature: GARY WEN MD 07/11/2023 23:53:42[facility] 12-16-2023 SARS-CoV-2 (COVID-19) RNA TYESHA+probe Ql (Nph) Negative *NA* (07/11/23 11:29 PM)AO Auto Urine [id number] Hospital Discharge instructions Patient Education 09/14/2022 19:12:19 PERIPHERAL EDEMA, Bilateral Leg Swelling in Both Legs Swelling of the feet, ankles, and legs is called edema. It is caused by excess fluid that has collected in the tissues. Extra fluid in the body settles in the lowest part because of gravity. This is why the legs and feet are most affected. Some of the causes for edema include: Disease of the heart like congestive heart failure Standing or sitting for long periods of time. Sitting with your legs in the down position may do this. Infection of the feet or legs Blood pooling in the veins of your legs (venous insufficiency) Dilated veins in your lower leg (varicose veins) Garters or other clothing that is tight on your legs. This will cause blood to pool in your legs because the clothing limits blood flow. Some medicines. These include hormones like control pills. They also include some blood pressure medicines like calcium channel blockers and steroids. Other medicines include some antidepressants like MAO inhibitors and tricyclics. Menstrual periods that cause you to retain fluids Many types of renal disease Liver failure or cirrhosis . Some swelling is normal, but a sudden increase in leg swelling or weight gain can be a sign of a dangerous complication of .. Poor nutrition Medical treatment will depend on what is causing the swelling in your legs. Your health care provider may prescribe water pills (diuretics) to get rid of the extra fluid. Home care Follow these guidelines when caring for yourself at home: Don't wear clothing like garters that is tight on your legs. Keep your legs up while lying or sitting. If infection, injury, or recent surgery is causing the swelling, stay off your legs as much as possible until symptoms get better. If your health care provider says that your leg swelling is caused by venous insufficiency or varicose veins, don't sit or preforming machine operator one place for long periods of time. Take breaks and walk about every few hours. Brisk walking is a good exercise. It helps circulate the blood that has collected in your leg. Talk with your provider about using support stockings to stop daytime leg swelling. If your provider says that heart disease is causing your leg swelling, follow a low-salt diet to stop extra fluid from staying in your body. Follow-up care Follow up with your health care provider, or as advised. When to seek medical advice Call your health care provider right away if any of these occur: New shortness of breath or chest pain Shortness of breath or chest pain that gets worse Swelling in both legs or ankles that gets worse Swelling of the abdomen Redness, warmth, or swelling in one leg Fever of 100.4 F (38 C) or higher, or as directed by your health care provider Yellow color to your skin or eyes Rapid, unexplained weight gain [phone] [employer]. [address] [place] [address], [place] [address]. All rights reserved. This information is not intended as a substitute for professional medical care. Always follow yourhealthcare professional's instructions. Follow Up Care 09/14/2022 17:54:20 With:ALEX FITZPATRICK MD Address: [address] [place] [phone] When:3-5 days [facility] 02-19-2023 Note Discharge Instructions Thank you for allowing [facility] to assist you with your healthcare needs. The following is importantdischarge information regarding your hospital visit. Diagnosis from Today's Visit Dependent edema Edema of lower extremity What to Do Next Instructions from Your Care Team No qualifying data available. Post Acute Orders No qualifying data available. You Need to Schedule the Following Appointments Follow Up with ALEX FITZPATRICK MD When Within 3-5 days Where: [address] [facility] [address] [place] [address]- [phone] Allergies Cipro iodine (Hives) Medications Please ask your primary doctor or pharmacist before taking any other medication not listed, including over the counter drugs, herbal medications, vitamins and or supplements as they may interact withyour home medications. What How Much When Why Instructions Last Dose New bumetanide (bumetanide 1 mg oral tablet) 1 tab(s) by mouth Every day Dependent edema Printed Prescription Unchanged aspirin 81 Milligram by mouth Once a day Unchanged atorvastatin (atorvastatin 40 mg oral tablet) 1 tab(s) by mouth Once a day Unchanged budesonide-formoterol (Symbicort 160 mcg-4.5 mcg/ inh Inhaler) 2 puff(s) by inhalation Two (2) times a day Unchanged carvedilol (Coreg 25 mg oral tablet) 1 tab(s) by mouth Twice daily with meals Unchanged cholecalciferol (cholecalciferol 1000 intl units oral tablet) 1 tab(s) by mouth Every day Unchanged finasteride (finasteride 5 mg oral tablet) take 1 tablet by mouth once daily Unchanged hydrALAZINE (hydrALAZINE 50 mg oral tablet) 1 tab(s) by mouth Two (2) times a day Unchanged lisinopril (Zestril 40 mg oral tablet) 1 tab(s) by mouth Every day Unchanged metoprolol (Metoprolol Succinate ER 50 mg oral TABLET extended release) 1 tab(s) by mouth Once a day Unchanged metoprolol (Metoprolol Succinate ER 50 mg oral TABLET extended release) 1 tab(s) by mouth Once a day Unchanged omeprazole (NF) (PriLOSEC 20 mg oral delayed release capsule (NF)) 1 cap by mouth Once a day before a meal Unchanged propranolol (propranolol 80 mg oral capsule, extended release) 1 cap by mouth Every day Unchanged QUEtiapine (SEROquel 25 mg oral tablet) 2 tab(s) by mouth Once a day (in the evening) Unchanged QUEtiapine (SEROquel 25 mg oral tablet) 1 tab(s) by mouth Once a day (in the morning) Please take this list to your next doctor s visit. Bring all medications you take, including over the counter medications, herbals and other supplements with you to your doctor s visit. Patients and families are reminded to discard old lists and to update any records with all medication providers or retail pharmacies. Education Materials Leg Swelling in Both Legs Swelling of the feet, ankles, and legs is called edema. It is caused by excess fluid that has collected in the tissues. Extra fluid in the body settles in the lowest part because of gravity. This is why the legs and feet are most affected. Some of the causes for edema include: Disease of the heart like congestive heart failure Standing or sitting for long periods of time. Sitting with your legs in the down position may do this. Infection of the feet or legs Blood pooling in the veins of your legs (venous insufficiency) Dilated veins in your lower leg (varicose veins) Garters or other clothing that is tight on your legs. This will cause blood to pool in your legs because the clothing limits blood flow. Some medicines. These include hormones like control pills. They also include some blood pressure medicines like calcium channel blockers and steroids. Other medicines include some antidepressants like MAO inhibitors and tricyclics. Menstrual periods that cause you to retain fluids Many types of renal disease Liver failure or cirrhosis . Some swelling is normal, but a sudden increase in leg swelling or weight gain can be a sign of a dangerous complication of .. Poor nutrition Medical treatment will depend on what is causing the swelling in your legs. Your health care provider may prescribe water pills (diuretics) to get rid of the extra fluid. Home care Follow these guidelines when caring for yourself at home: Don't wear clothing like garters that is tight on your legs. Keep your legs up while lying or sitting. If infection, injury, or recent surgery is causing the swelling, stay off your legs as much as possible until symptoms get better. If your health care provider says that your leg swelling is caused by venous insufficiency or varicose veins, don't sit or preforming machine operator one place for long periods of time. Take breaks and walk about every few hours. Brisk walking is a good exercise. It helps circulate the blood that has collected in your leg. Talk with your provider about using support stockings to stop daytime leg swelling. If your provider says that heart disease is causing your leg swelling, follow a low-salt diet to stop extra fluid from staying in your body. Follow-up care Follow up with your health care provider, or as advised. When to seek medical advice Call your health care provider right away if any of these occur: New shortness of breath or chest pain Shortness of breath or chest pain that gets worse Swelling in both legs or ankles that gets worse Swelling of the abdomen Redness, warmth, or swelling in one leg Fever of 100.4 F (38 C) or higher, or as directed by your health care provider Yellow color to your skin or eyes Rapid, unexplained weight gain [id number] [employer]. [address] [place] [address]. All rights reserved. This information is not intended as a substitute for professional medical care. Always follow yourhealthcare professional's instructions. Additional Information VACCINATE! IT SAVES LIVES! Members of the community who have not yet received the COVID-19 vaccine and would like to receive it can visit one of [facility] vaccine clinics. There are many vaccine clinic locations within the [facility]. For locations and available times, please visit www.[email or web address].[place].gov/. It is important to note that some COVID mobile vaccine clinics are held outdoors and may be canceled in rainy or stormy conditions. To learn more about pediatric vaccinations (ages 5-11), we invite you to visit the [facility] webpage. [email or web address] learn more about the COVID-19 vaccine, we invite you to visit the CDC website for a list of frequently asked questions. https://www.cdc.gov/coronavirus/2019-ncov/vaccines/faq.html [facility] Patient Portal Access Instructions: Stay connected with your healthcare team and access your personal medical information anytime with the [facility] Patient Portal. If you would like a full copy of your medical records please contact the [facility] Medical Records Department Thursday through Thursday between 8a.m. and 4:30p.m. Please follow the directions below to access the portal: 1.Access the email account you provided upon registration to the [facility].2.Look for an invitation email from [facility].3.Open the email and access the invitation link: Accept Invitation to [facility]4.Fill in the required dennis to create your account. Sign into [email or web address] with your username and password that you created in the above steps to stay up to date. You can then view a summary of results, a summary of your visits, and the ability to download your summaries to your computer or send the information securely to a physician. Remember that your healthcare information is confidential, so carefully consider who you will allow to register on the [facility] Patient Portal for access to your information. You can also access the [facility] Patient Portal on the [employer] te. Simply click on Health Records under [employer]Collect and then click on the [facility] logo. HOW TO SAFELY DISPOSE OF PRESCRIPTION MEDICATIONS Please use one of the following methods to safely dispose of your unused medications. 1.Use a drug disposal kit: the drug disposal pouch allows you to safely discard your old and unuseddrugs. Ask your nurse to give you one when you are discharged.2.Visit a local take-back location: Many local pharmacies and police departments have programs that collect old and unwanted prescriptiondrugs. Call your local pharmacy or go to http://[employer].TrulySocial/1U5Um6e to find one close to you.3.Make use of household items: Use cat litter or old coffee grounds to dispose medications if other options arenot available. Mix your drugs with these household products, seal them in an airtight container andthrow it into the garbage. Call [facility]: [phone] to be sure your drugs can be disposed of in this way. Some medicines may require a different approach.4.Never flush your medications down the toilet. IF YOU HAVE BEEN PRESCRIBED AN OPIOIDS FOR PAIN If you have been prescribed an opioid (such as hydrocodone, oxycodone or morphine), it is critical to understand the possible side effects and risks of opioid pain medications. Even when taken as directed, opioids can have several side effects including: Tolerance, meaning you might need to take more of a medication for the same pain relief. Nausea, vomiting and/or constipation. Sleepiness, dizziness, dry mouth, confusion, depression or itching. Physical dependence, meaning you have withdrawal symptoms when a medication is stopped ? this can develop within a few days. KNOW YOUR RESPONSIBILITIES It is important to know exactly how much and how often to take the opioid pain medications you are prescribed. Never take opioids in higher amounts or more often than prescribed. Do not combine opioids with alcohol or other drugs that cause drowsiness, such as benzodiazepines, also known as benzos,including diazepam and alprazolam, muscle relaxants or sleep aids. Never sell or share prescriptionopioids. This is illegal. Store opioids in a secure place and out of reach of others (including children, family, friends and visitors). The last page(s) of this document has been signed and retained as a CHART COPY Signatures Patient Education Materials PERIPHERAL EDEMA, Bilateral Medication Leaflets My discharge plan and instructions have been reviewed and explained to me and I,MELY HATCH understand my current condition and have read and understand these discharge instructions. I have received a written copy of the plan/instructions. If I have questions, I am aware that I should contact my doctor. Patient/Supply Requirements Officer Signature: Date/Time: Relationship to Patient: Witness Name/Signature: Date/Time: [facility]02-19-2023 Note ORIGINAL EXAMINATION: ONE XRAY VIEW OF THE CHEST 09/14/2022 6:46 pm COMPARISON: 03/05/2022. HISTORY: ORDERING SYSTEM PROVIDED HISTORY: Reason for Exam: chest pain FINDINGS: Stable heart size. Atherosclerotic aorta. There is improved right mid to lower lung aeration from prior exam. Similar opacities of right lower lung zone are seen. Small bilateral pleural effusions are centrally unchanged. No congestion or pulmonary no visible pneumothorax. Suspect skin fold of the left upper lung zone. Advanced degenerative changes of the spine. IMPRESSION: 1. Small bilateral pleural effusions with adjacent bilateral mild subsegmental atelectasis and/or pneumonia. Right mid to lower lung zone aeration has improved from prior exam 03/05/2022. Interpreted by: Brady Gerardo DO Preliminary Report By: Brady Gerardo DO Electronically signed By Brady Gerrado DO Dictated Date: 09/14/2022 6:56:09 PM Prelim Date: 09/14/2022 6:57:36 PM Sign Date: 09/14/2022 6:57:36 PM Ordering Provider: [facility]02-19-2023 Note ORIGINAL EXAMINATION: ONE XRAY VIEW OF THE CHEST 09/14/2022 6:46 pm COMPARISON: 03/05/2022. HISTORY: ORDERING SYSTEM PROVIDED HISTORY: Reason for Exam: chest pain FINDINGS: Stable heart size. Atherosclerotic aorta. There is improved right mid to lower lung aeration from prior exam. Similar opacities of right lower lung zone are seen. Small bilateral pleural effusions are centrally unchanged. No congestion or pulmonary no visible pneumothorax. Suspect skin fold of the left upper lung zone. Advanced degenerative changes of the spine. IMPRESSION: 1. Small bilateral pleural effusions with adjacent bilateral mild subsegmental atelectasis and/or pneumonia. Right mid to lower lung zone aeration has improved from prior exam 03/05/2022. Interpreted by: Brady Gerardo DO Preliminary Report By: Brady Gerardo DO Electronically signed By Brady Gerardo DO Dictated Date: 09/14/2022 6:56:09 PM Prelim Date: 09/14/2022 6:57:36 PM Sign Date: 09/14/2022 6:57:36 PM Ordering Provider: [facility]11-10-2022 Note ORIGINAL NM MYOCARDIAL SPECT STRESS/REST CLINICAL STATEMENT: Chest pain TECHNIQUE: Adenosine dose:33.6 mg Radiopharmaceutical (stress): Tc-99m Sestamibi Dose:27 mCi Radiopharmaceutical (rest): Tc-99m Sestamibi Dose:7.9 mCi SPECT acquisition and processing Reconstruction and reorientation of SPECT images into short axis, vertical and horizontal long axisplanes Quantitative LVEF assessment COMPARISON:None REPORT:Low-dose CT demonstrates coronary and aortic calcifications. Previous coronary stent appreciated. The rotating planar images demonstrates minimal motion from patient. Image quality is adequate. SPECT Perfusion images reveal decreased radiotracer uptake in the inferior myocardial segments on rest and stress images which improves with attenuation correction. This is consistent with diaphragmatic attenuation artifact. Remaining myocardial segments with homogenous radiotracer uptake. No evidence of ischemia or infarct. Gated SPECT images demonstrate normal myocardial thickening and wall motion. LVEF 40% with end-diastolic volume 145 mL. TID ratio is 0.96 IMPRESSION: 1. No reversible perfusion defects suggestive of ischemia. 2. No fixed defect suggestive of myocardial infarct. 3. Mildly Reduced systolic function with LVEF 40% with mild global hypokinesis 4. Abnormality attenuation artifact is present. 5. No prior studies for comparison. Interpreted By: Kayode Haywood MD Preliminary Report By: Mila Matias Electronically Signed By: Kayode Haywood MD Dictated Date: 06/05/2022 10:37:12 AM Prelim Date: 06/05/2022 11:16:29 AM Sign Date: 06/05/2022 12:27:17 PM Ordering Provider:[facility]11-10-2022 Note ORIGINAL NM MYOCARDIAL SPECT STRESS/REST CLINICAL STATEMENT: Chest pain TECHNIQUE: Adenosine dose:33.6 mg Radiopharmaceutical (stress): Tc-99m Sestamibi Dose:27 mCi Radiopharmaceutical (rest): Tc-99m Sestamibi Dose:7.9 mCi SPECT acquisition and processing Reconstruction and reorientation of SPECT images into short axis, vertical and horizontal long axisplanes Quantitative LVEF assessment COMPARISON:None REPORT:Low-dose CT demonstrates coronary and aortic calcifications. Previous coronary stent appreciated. The rotating planar images demonstrates minimal motion from patient. Image quality is adequate. SPECT Perfusion images reveal decreased radiotracer uptake in the inferior myocardial segments on rest and stress images which improves with attenuation correction. This is consistent with diaphragmatic attenuation artifact. Remaining myocardial segments with homogenous radiotracer uptake. No evidence of ischemia or infarct. Gated SPECT images demonstrate normal myocardial thickening and wall motion. LVEF 40% with end-diastolic volume 145 mL. TID ratio is 0.96 IMPRESSION: 1. No reversible perfusion defects suggestive of ischemia. 2. No fixed defect suggestive of myocardial infarct. 3. Mildly Reduced systolic function with LVEF 40% with mild global hypokinesis 4. Abnormality attenuation artifact is present. 5. No prior studies for comparison. Interpreted By: Kayode Haywood MD Preliminary Report By: Mila Matias Electronically Signed By: Kayode Haywood MD Dictated Date: 06/05/2022 10:37:12 AM Prelim Date: 06/05/2022 11:16:29 AM Sign Date: 06/05/2022 12:27:17 PM Ordering Provider:[facility]09-20-2022 Evaluation + Plan note Diagnostic Tests Pending * .Immunofixation Screen, Serum 04/15/22 * SILVA (urine) 04/15/22 * [place]/Lambda, Free, Serum 04/15/22 [facility] 07-30-2022 Note ORIGINAL EXAMINATION: CT OF THE HEAD WITHOUT CONTRAST 02/22/2022 7:38 am TECHNIQUE: CT of the head was performed without the administration of intravenous contrast. Automated exposure control, iterative reconstruction, and/or weight based adjustment of the mA/kV was utilized to reduce the radiation dose to as low as reasonably achievable. COMPARISON: None. HISTORY: ORDERING SYSTEM PROVIDED HISTORY: Reason for Exam: Altered mental status FINDINGS: BRAIN/VENTRICLES: There is no acute intracranial hemorrhage, mass effect or midline shift. No abnormal extra-axial fluid collection. The stephens-white differentiation is maintained without evidence of an acute infarct. There is no evidence of hydrocephalus. Moderate generalized parenchymal volume loss with commensurate ventricular, sulcal and cisternal enlargement. Remote left parietal infarct with encephalomalacia. 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 ORBITS: Right intra-ocular lens implant. The visualized portion of the orbits demonstrate no acute abnormality. SINUSES: Left maxillary sinus is opacified. SOFT TISSUES/SKULL: No acute abnormality of the visualized skull or soft tissues. IMPRESSION: No acute intracranial hemorrhage or acute large vessel territory infarct. Remote left parietal infarct with encephalomalacia. Left maxillary sinusitis. I have personally reviewed the images of this examination, and agree with the resident's findings and interpretation. Interpreted by: Juan José Ruiz MD Preliminary Report By: Rosalva Nunes Electronically signed By Juan José Ruiz MD Dictated Date: 02/22/2022 7:44:49 AM Prelim Date: 02/22/2022 7:51:11 AM Sign Date: 02/22/2022 8:07:24 AM Ordering Provider: [facility]07-30-2022 Note ORIGINAL EXAMINATION: ONE XRAY VIEW OF THE CHEST 02/22/2022 7:37 am COMPARISON: Chest x-ray on 07/17/2021 HISTORY: ORDERING SYSTEM PROVIDED HISTORY: Reason for Exam: Altered mental status FINDINGS: The cardiomediastinal silhouette is within normal limits. There is elevation of the left hemidiaphragm. Patchy bibasilar airspace disease. No large pleural effusion, vascular congestion or pneumothorax. There are degenerative changes throughout the thoracic spine. IMPRESSION: Patchy bibasilar airspace disease could reflect atelectasis versus consolidation. I have personally reviewed the images of this examination, and agree with the resident's findings and interpretation. Interpreted by: Juan José Ruiz MD Preliminary Report By: Rosalva Nunes Electronically signed By Juan José Ruiz MD Dictated Date: 02/22/2022 7:43:27 AM Prelim Date: 02/22/2022 7:44:43 AM Sign Date: 02/22/2022 8:05:31 AM Ordering Provider: [facility]07-30-2022 Note ORIGINAL EXAMINATION: CT OF THE CERVICAL SPINE WITHOUT CONTRAST 02/22/2022 7:39 am TECHNIQUE: CT of the cervical spine was performed without the administration of intravenous contrast. Multiplanar reformatted images are provided for review. Automated exposure control, iterative reconstruction, and/or weight based adjustment of the mA/kV was utilized to reduce the radiation dose to as low as reasonably achievable. COMPARISON: None. HISTORY: ORDERING SYSTEM PROVIDED HISTORY: Reason for Exam: Altered mental status FINDINGS: BONES/ALIGNMENT: There is no acute fracture or traumatic malalignment. DEGENERATIVE CHANGES: There is moderately severe multilevel degenerative disc disease. SOFT TISSUES: There is no prevertebral soft tissue swelling. Lung apices are emphysematous. IMPRESSION: No acute abnormality of the cervical spine. Interpreted by: Juan José Ruiz MD Preliminary Report By: Juan José Ruiz MD Electronically signed By Juan José Ruiz MD Dictated Date: 02/22/2022 7:48:11 AM Prelim Date: 02/22/2022 7:50:27 AM Sign Date: 02/22/2022 7:50:27 AM Ordering Provider: [facility]07-30-2022 SARS-CoV-2 (COVID-19) RNA TYESHA+probe Ql (Nph)Negative (02/22/22 7:43 AM)AO Auto Urine [id number] Note ORIGINAL EXAMINATION: CT OF THE CERVICAL SPINE WITHOUT CONTRAST 02/22/2022 7:39 am TECHNIQUE: CT of the cervical spine was performed without the administration of intravenous contrast. Multiplanar reformatted images are provided for review. Automated exposure control, iterative reconstruction, and/or weight based adjustment of the mA/kV was utilized to reduce the radiation dose to as low as reasonably achievable. COMPARISON: None. HISTORY: ORDERING SYSTEM PROVIDED HISTORY: Reason for Exam: Altered mental status FINDINGS: BONES/ALIGNMENT: There is no acute fracture or traumatic malalignment. DEGENERATIVE CHANGES: There is moderately severe multilevel degenerative disc disease. SOFT TISSUES: There is no prevertebral soft tissue swelling. Lung apices are emphysematous. IMPRESSION: No acute abnormality of the cervical spine. Interpreted by: Juan José Ruiz MD Preliminary Report By: Juan José Ruiz MD Electronically signed By Juan José Ruiz MD Dictated Date: 02/22/2022 7:48:11 AM Prelim Date: 02/22/2022 7:50:27 AM Sign Date: 02/22/2022 7:50:27 AM Ordering Provider: [facility]07-30-2022 Note ORIGINAL EXAMINATION: CT OF THE HEAD WITHOUT CONTRAST 02/22/2022 7:38 am TECHNIQUE: CT of the head was performed without the administration of intravenous contrast. Automated exposure control, iterative reconstruction, and/or weight based adjustment of the mA/kV was utilized to reduce the radiation dose to as low as reasonably achievable. COMPARISON: None. HISTORY: ORDERING SYSTEM PROVIDED HISTORY: Reason for Exam: Altered mental status FINDINGS: BRAIN/VENTRICLES: There is no acute intracranial hemorrhage, mass effect or midline shift. No abnormal extra-axial fluid collection. The stephens-white differentiation is maintained without evidence of an acute infarct. There is no evidence of hydrocephalus. Moderate generalized parenchymal volume loss with commensurate ventricular, sulcal and cisternal enlargement. Remote left parietal infarct with encephalomalacia. 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 ORBITS: Right intra-ocular lens implant. The visualized portion of the orbits demonstrate no acute abnormality. SINUSES: Left maxillary sinus is opacified. SOFT TISSUES/SKULL: No acute abnormality of the visualized skull or soft tissues. IMPRESSION: No acute intracranial hemorrhage or acute large vessel territory infarct. Remote left parietal infarct with encephalomalacia. Left maxillary sinusitis. I have personally reviewed the images of this examination, and agree with the resident's findings and interpretation. Interpreted by: Juan José Ruiz MD Preliminary Report By: Rosalva Nunes Electronically signed By Juan José Ruiz MD Dictated Date: 02/22/2022 7:44:49 AM Prelim Date: 02/22/2022 7:51:11 AM Sign Date: 02/22/2022 8:07:24 AM Ordering Provider: [facility]07-30-2022 Note ORIGINAL EXAMINATION: ONE XRAY VIEW OF THE CHEST 02/22/2022 7:37 am COMPARISON: Chest x-ray on 07/17/2021 HISTORY: ORDERING SYSTEM PROVIDED HISTORY: Reason for Exam: Altered mental status FINDINGS: The cardiomediastinal silhouette is within normal limits. There is elevation of the left hemidiaphragm. Patchy bibasilar airspace disease. No large pleural effusion, vascular congestion or pneumothorax. There are degenerative changes throughout the thoracic spine. IMPRESSION: Patchy bibasilar airspace disease could reflect atelectasis versus consolidation. I have personally reviewed the images of this examination, and agree with the resident's findings and interpretation. Interpreted by: Juan José Ruiz MD Preliminary Report By: Rosalva Nunes Electronically signed By Juan José Ruiz MD Dictated Date: 02/22/2022 7:43:27 AM Prelim Date: 02/22/2022 7:44:43 AM Sign Date: 02/22/2022 8:05:31 AM Ordering Provider: [facility]12-22-2021 Hospital Discharge instructions Patient Education 07/17/2021 18:23:16 FRACTURE, Rib Rib Fracture You have a fracture (break) of one or more ribs. Rib fractures do not require a cast like other bones. They will heal by themselves in about 4-6 weeks. The first 3-4 weeks will be the most painful because deep breathing, coughing or changing position from sitting to lying down, may cause the brokenends to move slightly. Home Care: Rest. You should not be doing any heavy lifting or strenuous exertion until the pain goes away. Because it hurts to breathe when you have a broken rib, there is risk of getting pneumonia from poor airflow through your lungs. To prevent this: Take four very deep breaths at least four times a day (exhale through pursed lips as if you are blowing up a balloon). If an incentive spirometer (breathing exercise device) was given to you, use it at least four times a day, or as directed. Apply an ice pack (ice cubes in a plastic bag, wrapped in a towel) over the injured area for 20 minutes every 1-2 hours the first day. Continue with ice packs 3-4 times a day for the next two days, then as needed for the relief of pain and swelling. You may use acetaminophen (Tylenol) or ibuprofen (Motrin, Advil) to control pain, unless another pain medicine was prescribed. [NOTE: If you have chronic liver or kidney disease or ever had a stomachulcer or GI bleeding, talk with your doctor before using these medicines.] If your pain is not controlled by the treatment given, contact your doctor. Sometimes a stronger pain medicine may be needed. A nerve block (numbing the nerve between the ribs) can be performed in case of severe pain. Follow Up with your doctor during the next week, or as advised. Rarely, a broken rib will cause complicationswithin the first few days that may not be evident during your initial exam (such as, collapsed lung, bleeding around the lung or into the abdomen, or pneumonia). Therefore, watch for the signs below. [NOTE: If x-rays were taken, they will be reviewed by a radiologist. You will be notified of any new findings that may affect your care.] Get Prompt Medical Attention if any of the following occur: Shortness of breath Increasing chest pain with breathing Dizziness, weakness or fainting New or worsening abdominal pain Fever of 100.4 F (38 C) or higher, or as directed by your healthcare provider Congested cough [id number] [employer]. [address] [place] [address], [place] [address]. All rights reserved. This information is not intended as a substitute for professional medical care. Always follow yourhealthcare professional's instructions. Follow Up Care 07/17/2021 15:41:54 With:JACKY LANCASTER MD, Internal Medicine Address: [address] [place] [id number] When:2-4 days [facility] Evaluation + Plan note No data available for this section [facility] Evaluation + Plan note Future Appointments Appointment Date:07/11/2022 09:15:00 AM Scheduled Provider: Location:[facility] Appointment Type:CV [facility] Discharge instructions No data available for this section [facility] Note* BRADY ADAM DO: SIGN, VERIFY Event Display: EKG [ED AO] - CV Authored Date: [id number] [facility] [facility] Progress note No data available for this section [facility] Summary Purpose Family History No Family History Records FoundNo Family History Records Found No data available for this section No data available for this section No Family History Records Found Advance Directives No Advanced Directives Records FoundNo Advanced Directives Records FoundNo Advanced Directives Records Found Procedure Findings Note HNO ID: [id number] Author: Justina Amin Service: Pulmonary Disease Author Type: Physician Type: Operative Report Filed: 07/07/2018 12:39 PM Note Text: See Epic Procedure note. Raheel Amin MD, [facility] [place] [address] P: [phone] F: [phone] Additional Source Comments (unrecognized sect ion and content) No Status Records FoundNo Status Records FoundNo Status Records Found INFORMATION SOURCE (unrecogn ized section and content) DATE CREATED AUTHOR AUTHOR'S ORGANIZ ATION 05/30/2022 [facility] DATE CREATED AUTHOR AUTHOR'S ORGANIZ ATION 08/07/2023 [facility] ([place] Care Team (unrecognized sect ion and content) Care Team Personnel Name: Jevon Lopezrdeb Martino PT Position: P3 Scheduling - [employer] Advanced Member Role: Other Name: PHYSICIAN, NOT RECORDED Member Role: Primary Care Physician Care Team Related Persons Name: JEREMIAS HATCH Address: Home [address] Care Team Personnel Name: Jevon Lopez PT Position: P3 Scheduling - [employer]k [employer]ader Advanced Member Role: Other Name: ALEX FITZPATRICK MD Member Role: Primary Care Physician Address: Address: [address] [place] [address]- Care Team Related Persons Name: HOLDEN, JEREMIAS Dickerson Address: Home [address] [place] [id number] Care Team Personnel Name: Jevon Lopez PT Position: P3 Scheduling - Raw [employer]k Grader Advanced Member Role: Other Name: ALEX FITZPATRICK MD Member Role: Primary Care Physician Address: Address: [address] [place], [place] [id number]- Care Team Related Persons Name: JEREMIAS HATCH Address: Home [address] [place], [place] [id number] Care Team Personnel Name: Jevon Lopez PT Position: P3 Scheduling - [employer]k Grader Advanced Member Role: Other Name: ALEX FITZPATRICK MD Member Role: Primary Care Physician Address: Address: [address] [place] [address] [place] [address]- Name: DUYEN NUR MD Position: ED Physician Member Role: ED Physician Address: Address: [address] [place] [address]- Care Team Related Persons Name: JEREMIAS HATCH Address: Home [address] [place], [place] [id number] [place] Patient Care team informatio n (unrecognized section and content) Care Team Personnel Name: Jevon Lopez Clerk Salena PT Position: P3 Scheduling - Raw Silk Grader Advanced Member Role: Other Name: ALEX FITZPATRICK MD Member Role: Primary Care Physician Address: Address: [address] [place] [address]- Name: GARY WEN MD Position: ED Physician Member Role: ED Physician Address: Address: [address] [place] [address] Care Team Related Persons Name: JEREMIAS HATCH Address: Home [address] [place] [id number] Care Team Personnel Name: Jevon Lopez Clerk [place] PT Position: P3 Scheduling - Raw Silk Grader Advanced Member Role: Other Name: ALEX FITZPATRICK MD Member Role: Primary Care Physician Address: Address: [address] [place] [address]- Name: GARY WEN MD Position: ED Physician Member Role: ED Physician Address: Address: [address] [place] [address] Care Team Related Persons Name: JEREMIAS HATCH Address: Home [address] [place], [place] [id number] FOR RECORDS PERTAINING TO PATIENTS WHO ARE OR HAVE BEEN ENROLLED IN A CHEMICAL DEPENDENCY/SUBSTANCEABUSE PROGRAM, SOME INFORMATION MAY BE OMITTED. This clinical summary was aggregated from multiple sources. Caution should be exercised in using it in the provision of clinical care. This summary normalizes information from multiple sources, and as a consequence, information in this document may materially change the coding, format and clinical context of patient data. In addition, data may be omitted in some cases. CLINICAL DECISIONS SHOULD BE BASED ON THE PRIMARY CLINICAL RECORDS. [facility] [employer] provides no warranty or guarantee of the accuracy or completeness of information in this document.
--- NOTE | 2023-08-31 12:35 | RAD_ITS ---
STUDY: X-RAY CHEST REASON FOR EXAM: Male, 83 years old. cough/copd TECHNIQUE: Frontal and lateral views of the chest. COMPARISON: 01/28/2020. FINDINGS: There is hyperinflation of the lungs consistent with chronic obstructive lung disease (COPD). Probable scarring and fibrosis along with bullous disease. Possible atelectasis or infiltrate in the mid and lower right lung. Probable bilateral small pleural effusions. Normal size heart. Normal mediastinum and moises. Normal visualized pulmonary arteries. There is atherosclerotic calcification of the aortic arch with tortuosity. Normal visualized thoracic spine. Normal visualized ribs, clavicles, and shoulders. There is no demonstrated abnormality of the visualized soft tissue structures of the upper abdomen. 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 CT scan is recommended. Electronically Signed: Kwaku Najera MD at 23:01 EST ,
[2023-08-31 12:40] LABS: Absolute Lymphocyte Count 3.46 X10^3/uL (0.83-4.51); Absolute Neutrophil Count 4.1 X10^3/uL (2.0-7.7); Basophil# 0.02 X10^3/uL; Basophil% 0.3 % (0-1); Eosinophil# 0.07 X10^3/uL; Eosinophils% 0.9 % (0-5); Hematocrit 39.5 % (40-54); Hemoglobin 12.2 g/dL (13.0-16.5); Lymphocyte # 3.46 X10^3/ul (0.83-4.51); Lymphocyte % 43.5 % (19-41); Mean Corp Hgb Conc 30.9 g/dL (32-36); Mean Corpuscular Hgb 25.1 pg (27.0-32.0); Mean Corpuscular Volume 81.3 fL (80-94); Mean Platelet Vol. 9.8 fl (6.2-12.0); Monocyte# 0.33 X10^3/uL; Monocyte% 4.2 % (0-10); NRBC Flagged by Analyzer 0 % (0-5); Neutrophil # 4.05 X10^3/uL (2.7-7.7); Neutrophil % 50.8 % (47-70); Platelet Count 234 K/mm3 (150-450); RBC Distribution Width SD 49.8 fl (35.1-43.9); Red Blood Count 4.86 M/mm3 (4.6-6.2)
[2023-08-31 13:11] LABS: Vitamin D,25 Hydroxy 35.5 ng/mL
[2023-08-31 13:20] LABS: ALB/GLOB Ratio 1.1 RATIO (0.9-2.4); AST(SGOT) 22 U/L (15-37); Alanine Aminotransfer ALT/SGPT 31 U/L (16-61); Albumin, Serum 3.1 g/dL (3.2-5.0); Alkaline Phosphatase 114 U/L (45-117); Anion Gap 4 (5-15); BUN 36 mg/dL (7-18); BUN/Creat Ratio 18.7 RATIO (10-20); Calcium,Total 8.8 mg/dL (8.5-10.1); Chloride 111 mmol/L (98-107); Cholesterol 127 mg/dL (200); Creatinine, Serum 1.93 mg/dL (0.70-1.30); EST Glomerular Filtration Rate 35 mL/min (>60); Est Glom Filt Rate - Afr Amer 43 mL/min (>60); Globulin 2.8 g/dL (2.2-4.2); Glucose 119 mg/dL (74-106); High Density Lipoprotein 66 mg/dL; Potassium 4.1 mmol/L (3.5-5.1); Protein, Total 5.9 g/dL (6.4-8.2); Sodium Level 141 mmol/L (136-145); Thyroid Stim Hormone (TSH) 1.38 uIU/mL (0.358-3.74); Triglycerides 68 mg/dL; Very Low Density Lipoprotein 14 mg/dL (5-40)
[2023-08-31 16:36] LABS: Color, Urine Yellow (Yellow); Glucose, Dipstick Normal (Normal); Ketone-Dipstick Negative (Negative); Leukocyte Esterase-Dipstick 25 /ul (Negative); Nitrite-Dipstick Negative (Negative); Occult Blood-Urine Negative /ul (Negative); Protein-Dipstick 100 mg/dl (Negative); Specific Gravity, Urine 1.025 (1.002-1.030); Urine Clarity Clear (Clear); Urine Urobilinogen 1 mg/dl (Normal)
[2023-08-31 16:49] LABS: Urine Bilirubin Dipstick 1 mg/dL (Negative)
[2023-08-31 16:56] LABS: Protein, Urine (Random) 116.6 mg/dL (<11.9); Protein:Creat Ratio 720 mg/g CRE (0-200)
== END | disposition home or self-care (01) ==
PROVIDERS: PCP Internal Medicine; Referring Provider Internal Medicine Nephrology; Visit Provider Internal Medicine Nephrology
DX: I12.9 Hypertensive chronic kidney disease with stage 1 through stage 4 chronic kidney disease, or unspecified chronic kidney disease (principal); J44.9 Chronic obstructive pulmonary disease, unspecified; N18.32 Chronic kidney disease, stage 3b; F41.9 Anxiety disorder, unspecified; D89.0 Polyclonal hypergammaglobulinemia; E78.5 Hyperlipidemia, unspecified; G25.0 Essential tremor; E55.9 Vitamin D deficiency, unspecified; R05.9 Cough, unspecified; I65.29 Occlusion and stenosis of unspecified carotid artery; Z13.220 Encounter for screening for lipoid disorders; Z86.73 Personal history of transient ischemic attack (TIA), and cerebral infarction without residual deficits
CPT/HCPCS: 71046; 80053; 80061; 81002; 82306; 82570; 83735; 84156; 84443; 85025

== ENCOUNTER → 2023-09-17 | Outpatient (CLI) | payer MEDICARE, BC, SELFPAY ==
[2023-09-17 10:30] VITALS: PULSE 61; PULSE 69; PULSE 71; PULSE 72; PULSE 73; O2SAT 91; O2SAT 92; O2SAT 94; O2SAT 95
--- NOTE | 2023-09-17 10:51 | CPS ---
Pt arrived this morning for his PFT. After multiple attempts to do PFT pt was not able to perform proper techniques due to the inability to follow commands. It was decided to cancel the PFT and to proceed with pt's walk test so he did not need to come back next week. During walk pt needed multiple breaks to sit in wheelchair and rest. At 5 minutes 30 seconds the test was ended with pt sitting in chair.
--- OUTSIDE RECORDS SUMMARY | 2023-09-17 10:59 | XMS RPT_ITS | CCD ---
Author Name Unknown Address [address] [place] [address] Organization [facility] Care Team Providers Care Hardscape Foreman Name Role Phone RAHEEL AMIN Admitting Unavailable [...] NANETTE GUNN, ALEX Primary Care Unavailable CYNDY RETAIL PARTS PROFESSIONAL-SAW CLEANER, ENRIQUE Admitting Unavailab lolita MULLER, LOREN Consulting Unavailab YRIS Sanz DO Attending Unavailable Allergies Allergy Classification Reported Allergen(s) Allergy Type Date of Onset Reaction(s) Facility (9 sources) Ciprofloxacin; Translations: [CIPROFLOXACIN] Drug Allergy 7 [facility] Repository (2 sources) Codeine; Translations: [CODEINE] Drug Allergy 8 [facility] Repository (2 sources) Contrast media; Translations: [CONTRAST DYE] Propensity to adverse reactions to drug (disorder) 9 [facility] Repository (2 sources) Doxycycline; Translations: [DOXYCYCLINE] Drug Allergy 4 [facility] Repository (5 sources) Iodine; Translations: [iodine] Drug Allergy Weal (disorder) [facility] CV Medications Current Medications Medication Drug Class(es) Dates Sig (Normalized) Sig (Original) amLODIPine 10 mg oral tablet (4 sources) Dihydropyridine Calcium Channel Zoe Start: 03-18-2022 amLODIPine 10 mg oral tablet Dose : 10 mg = 1 tab(s), Oral, qDay, # 30 tab(s), 0 Refill(s), [facility]: [id number], 170, cm, 03/11/22 18:36:00 EDT, Height Start [...] Non-Invasive 83 mm[Hg] DR GARY WEN MD [facility] 08-01-2023 07:00-0500 Heart rate 86 /min DR GARY WEN MD [facility] 08-01-2023 07:00-0500 Respiratory rate 16 /min DR GARY WEN MD [facility] 08-01-2023 07:00-0500 Systolic Blood Pressure Non-Invasive 166 mm[Hg] DR GARY WEN MD [facility] 08-01-2023 04:03-0500 Body height 172.[address] GARY WEN MD [facility] 08-01-2023 04:03-0500 Body temperature 97.34 [degF] DR GARY WEN MD [facility] 08-01-2023 04:03-0500 Body weight 57.[address] GARY WEN MD [facility] 08-01-2023 04:03-0500 Diastolic Blood Pressure Non-Invasive 138 mm[Hg] DR GARY WEN MD [facility] 08-01-2023 04:03-0500 Heart rate 110 /min DR GARY WEN MD [facility] 08-01-2023 04:03-0500 Respiratory rate 18 /min DR GARY WEN MD [facility] 08-01-2023 04:03-0500 Systolic Blood Pressure Non-Invasive 152 mm[Hg] DR GARY WEN MD [facility] 07-15-2023 13:16-0500 Body temperature 97.34 [degF] ENRIQUE NAYLOR APRN-SAW CLEANER [facility] 07-15-2023 13:16-0500 Diastolic Blood Pressure Non-Invasive 73 mm[Hg] ENRIQUE NAYLOR RETAIL PARTS PROFESSIONAL-SAW CLEANER [facility] 07-15-2023 13:16-0500 Heart rate 62 /min ENRIQUE NAYLOR RETAIL PARTS PROFESSIONAL-SAW CLEANER [facility] 07-15-2023 13:16-0500 Reason For Taking VItal Signs ENRIQUE NAYLOR RETAIL PARTS PROFESSIONAL-SAW CLEANER [facility] 07-15-2023 13:16-0500 Respiratory rate 18 /min ENRIQUE NAYLOR RETAIL PARTS PROFESSIONAL-SAW CLEANER [facility] 07-15-2023 13:16-0500 Systolic Blood Pressure Non-Invasive 132 mm[Hg] ENRIQUE NAYLOR RETAIL PARTS PROFESSIONAL-SAW CLEANER [facility] 07-15-2023 10:20-0500 Heart rate 78 /min ENRIQUE NAYLOR RETAIL PARTS PROFESSIONAL-SAW CLEANER [facility] 07-15-2023 10:20-0500 Respiratory rate 20 /min ENRIQUE NAYLOR RETAIL PARTS PROFESSIONAL-SAW CLEANER [facility] 07-15-2023 09:44-0500 Diastolic Blood Pressure Non-Invasive 67 mm[Hg] ENRIQUE NAYLOR RETAIL PARTS PROFESSIONAL-SAW CLEANER [facility] 07-15-2023 09:44-0500 Heart rate 68 /min ENRIQUE NAYLOR RETAIL PARTS PROFESSIONAL-SAW CLEANER [facility] 07-15-2023 09:44-0500 Systolic Blood Pressure Non-Invasive 168 mm[Hg] ENRIQUE NAYLOR RETAIL PARTS PROFESSIONAL-SAW CLEANER [facility] 07-15-2023 07:22-0500 Body temperature 98.06 [degF] ENRIQUE NAYLOR RETAIL PARTS PROFESSIONAL-SAW CLEANER [facility] 07-15-2023 07:22-0500 Diastolic Blood Pressure Non-Invasive 68 mm[Hg] ENRIQUE NAYLOR RETAIL PARTS PROFESSIONAL-SAW CLEANER [facility] 07-15-2023 07:22-0500 Heart rate 43 /min ENRIQUE NAYLOR RETAIL PARTS PROFESSIONAL-SAW CLEANER [facility] 07-15-2023 07:22-0500 Respiratory rate 16 /min ENRIQUE NAYLOR RETAIL PARTS PROFESSIONAL-SAW CLEANER [facility] 07-15-2023 07:22-0500 Systolic Blood Pressure Non-Invasive 168 mm[Hg] ENRIQUE NAYLOR RETAIL PARTS PROFESSIONAL-SAW CLEANER [facility] 07-15-2023 04:25-0500 Body temperature 97.52 [degF] ENRIQUE NAYLOR RETAIL PARTS PROFESSIONAL-SAW CLEANER [facility] 07-15-2023 04:25-0500 Heart rate 48 /min ENRIQUE NAYLOR RETAIL PARTS PROFESSIONAL-SAW CLEANER [facility] 07-15-2023 04:25-0500 Reason For Taking VItal Signs ENRIQUE NAYLOR RETAIL PARTS PROFESSIONAL-SAW CLEANER [facility] 07-14-2023 23:50-0500 Heart rate 61 /min ENRIUQE NAYLOR RETAIL PARTS PROFESSIONAL-SAW CLEANER [facility] 07-14-2023 23:50-0500 Reason For Taking VItal Signs ENRIQUE NAYLOR RETAIL PARTS PROFESSIONAL-SAW CLEANER [facility] 07-14-2023 18:41-0500 Body temperature 98.06 [degF] ENRIQUE NAYLOR RETAIL PARTS PROFESSIONAL-SAW CLEANER [facility] 07-14-2023 18:41-0500 Heart rate 55 /min ENRIQUE NAYLOR RETAIL PARTS PROFESSIONAL-SAW CLEANER [facility] 07-14-2023 18:25-0500 Heart rate 60 /min ENRIQUE CYNDY RETAIL PARTS PROFESSIONAL-SAW CLEANER [facility] 07-14-2023 11:30-0500 Heart rate 57 /min ENRIQUE NAYLOR RETAIL PARTS PROFESSIONAL-SAW CLEANER [facility] 07-12-2023 07:45-0500 Blood Pressure Cuff Size ENRIQUE NAYLOR RETAIL PARTS PROFESSIONAL-SAW CLEANER [facility] 07-12-2023 07:45-0500 Blood Pressure Location ENRIQUE NAYLOR RETAIL PARTS PROFESSIONAL-SAW CLEANER [facility] 07-12-2023 07:45-0500 Blood Pressure Method ENRIQUE NAYLOR RETAIL PARTS PROFESSIONAL-SAW CLEANER [facility] 07-12-2023 04:26-0500 Body height 172.7 cm ENRIQUE NAYLOR RETAIL PARTS PROFESSIONAL-SAW CLEANER [facility] 07-12-2023 04:26-0500 Body weight 59.4 kg ENRIQUE NAYLOR RETAIL PARTS PROFESSIONAL-SAW CLEANER [facility] 07-12-2023 04:26-0500 Body weight 19.92 kg/m2 ENRIQUE NAYLOR RETAIL PARTS PROFESSIONAL-SAW CLEANER [facility] 09-14-2022 19:50-0500 Diastolic Blood Pressure Non-Invasive 62 1 MARY MORILLO MD [facility] 09-14-2022 19:50-0500 Heart rate 72 /min MARY MORILLO MD [facility] 09-14-2022 19:50-0500 Respiratory rate 18 /min MARY MORILLO MD [facility] 09-14-2022 19:50-0500 Systolic Blood Pressure Non-Invasive 146 1 MARY MORILLO MD [facility] 09-14-2022 18:07-0500 Body temperature 97.52 [degF] MARY MORILLO MD [facility] 09-14-2022 18:07-0500 Diastolic Blood Pressure Non-Invasive 65 1 MARY MORILLO MD [facility] 09-14-2022 18:07-0500 Heart rate 61 /min MARY MORILLO MD [facility] 09-14-2022 18:07-0500 Respiratory rate 18 /min MARY MORILLO MD [facility] 09-14-2022 18:07-0500 Systolic Blood Pressure Non-Invasive 145 1 MARY MORILLO MD [facility] 02-22-2022 10:13-0400 Diastolic blood pressure 78 mm[Hg] BRADY ADAM DO [facility] 02-22-2022 10:13-0400 Heart rate 45 /min BRADY ADAM DO [facility] 02-22-2022 10:13-0400 Respiratory rate 16 /min BRADY ADAM DO [facility] 02-22-2022 10:13-0400 Systolic blood pressure 132 mm[Hg] BRADY ADAM DO [facility] 02-22-2022 09:18-0400 Diastolic blood pressure 86 mm[Hg] BRADY ADAM DO [facility] 02-22-2022 09:18-0400 Heart rate 43 /min BRADY ADAM DO [facility] 02-22-2022 09:18-0400 Respiratory rate 15 /min BRADY ADAM DO [facility] 02-22-2022 09:18-0400 Systolic blood pressure 110 mm[Hg] BRADY ADAM DO [facility] 02-22-2022 09:03-0400 Diastolic blood pressure 94 mm[Hg] BRADY ADAM DO [facility] 02-22-2022 09:03-0400 Heart rate 42 /min BRADY ADAM DO [facility] 02-22-2022 09:03-0400 Respiratory rate 14 /min BRADY ADAM DO [facility] 02-22-2022 09:03-0400 Systolic blood pressure 131 mm[Hg] BRADY ADAM DO [facility] 02-22-2022 08:38-0400 Heart rate 43 /min BRADY ADAM DO [facility] 02-22-2022 08:20-0400 Heart rate 43 /min BRADY ADAM DO [facility] 02-22-2022 06:46-0400 Body temperature 98.78 [degF] BRADY ADAM DO [facility] 07-17-2021 17:08-0500 Diastolic blood pressure 80 mm[Hg] MARY MORILLO MD [facility] 07-17-2021 17:08-0500 Heart rate 63 /min MARY MORILLO MD [facility] 07-17-2021 17:08-0500 Mean blood pressure 116 mm[Hg] MARY MORILLO MD [facility] 07-17-2021 17:08-0500 Respiratory rate 16 /min MARY MORILLO MD [facility] 07-17-2021 17:08-0500 Systolic blood pressure 189 mm[Hg] MARY MORILLO MD [facility] 07-17-2021 15:51-0500 Body temperature 98.24 [degF] MARY MORILLO MD [facility] 07-17-2021 15:51-0500 Diastolic blood pressure 86 mm[Hg] MARY MORILLO MD [facility] 07-17-2021 15:51-0500 Heart rate 65 /min MARY MORILLO MD [facility] 07-17-2021 15:51-0500 Mean blood pressure 124 mm[Hg] MARY MORILLO MD [facility] 07-17-2021 15:51-0500 Respiratory rate 16 /min MARY MORILLO MD [facility] 07-17-2021 15:51-0500 Systolic blood pressure 200 mm[Hg] MARY MORILLO MD [facility] Encounters Encounter Date Encounter Type Care Provider Facility Start: 08-01-2023 End: 08-01-2023 Emergency department patient visit GARY WEN Facility:B Start: 08-01-2023 End: 08-01-2023 Emergency department patient visit DR GARY WEN MD [facility] Start: 07-12-2023 End: 07-15-2023 Evaluation and management of inpatient ALEX FITZPATRICK MD Facility:B Start: 07-11-2023 End: 07-15-2023 Evaluation and management of inpatient ENRIQUE NAYLOR RETAIL PARTS PROFESSIONAL-SAW CLEANER [facility] Start: 09-14-2022 End: 09-14-2022 Emergency department patient visit ALEX FITZPATRICK MD Facility:B Start: 09-14-2022 End: 09-14-2022 Emergency department patient visit MARY MORILLO MD [facility] Start: 06-05-2022 End: 06-05-2022 Patient encounter procedure DARA GREY MD [facility] Start: 04-15-2022 End: 04-15-2022 Patient encounter procedure DARA GREY MD [facility] Start: 02-22-2022 End: 02-22-2022 Emergency department patient visit BRADY ADAM DO [facility] Start: 07-17-2021 End: 07-17-2021 Emergency department patient visit MARY MORILLO MD [facility] Start: 10-29-2020 End: 10-29-2020 ambulatory COLLEEN [facility] Start: 07-07-2018 End: 07-07-2018 Patient encounter procedure [facility] Procedures Date Procedure Procedure Detail Performing Clinician Start: 06-05-2022 Cardiovascular stres s testing MARY MORILLO MD Immunizations Immunization Date Immunization Notes Care Provider Fa brittani 01-07-2020 tetanus toxoid, redu abner diphtheria toxoid, and acellular pertussis vaccine, adsorbed; Translations: [Boostrix (Tdap)] MARY MORILLO MD [facility] 05-28-2015 tetanus toxoid, redu abner diphtheria toxoid, and acellular pertussis vaccine, adsorbed MARY MORILLO MD [facility] Payers Date Payer Category Payer Unknown [id number] 2004 Medicare [id number] 1940 Unknown [id number] 1940 Unknown [id number] 1940 Unknown [id number] Social History Date Type Detail Facility Start: 12-24-2018 Ex-smoker (finding) [place] [facility] Start: 07-11-2023 Tobacco smoking status Never s moked tobacco (finding) [facility] Functional Status Date Assessment Result Facility 08-01-2023 Functional Status ID band on, Allergy Band on, Safety level maintained [facility] 07-15-2023 Functional Status Nurse Safety C hecks q2hrs Performed 7am-3pm [facility] 07-15-2023 Functional Status Sequential Com pression Device bilateral knee high removed/off [facility] 07-15-2023 Functional Status [facility] 07-15-2023 Functional Status Identified as high risk, Fall ID band on, Bed alert on, Door open, Non-Slip footwear, Room check performed [facility] 07-15-2023 Functional Status K[facility] 07-14-2023 Functional Status K[facility] 07-14-2023 Functional Status Kaushik [facility] 07-14-2023 Functional Status Kaushik [facility] 07-14-2023 Functional Status Min A 1 [facility]aus[facility] 07-14-2023 Functional Status Supervised Kaushik [facility] 07-14-2023 Functional Status Breakfast Percent 85 [facility] 07-13-2023 Functional Status Kaushik [facility] 07-13-2023 Functional Status [facility] level home [facility] 07-13-2023 Functional Status Kaushik [facility] 07-13-2023 Functional Status Kaushik [facility] 07-13-2023 Functional Status Kaushik [facility] 07-13-2023 Functional Status Repositions self [facility] 07-12-2023 Functional Status Kaushik [facility] 07-12-2023 Functional Status Kaushik [facility] 07-12-2023 Functional Status Sensory Defici ts Cognitive deficit [facility] 09-14-2022 Functional Status Independent [facility] Emeterio shrestha [facility] 09-14-2022 Functional Status Standard Safet y ID band on, Allergy Band on, Call device within reach, Bed in low position, Wheels locked, Upper/Half-Length side-rails up, Phone within reach, personal items within reach, Bedside Cart Locked, Visitor at bedside [facility] 02-22-2022 Functional Status Assistive Device None A [facility] 02-22-2022 Functional Status Standard Safet y ID band on, Call device within reach, Bed in low position, Wheels locked [facility] Mental Status Date Assessment Result Facility 08-01-2023 Mental Status Forgetful, Follows simple commands [facility] 07-15-2023 Mental Status Not oriented to time, Forgetful [facility] 07-14-2023 Mental Status [facility] 07-14-2023 Mental Status [facility] 07-14-2023 Mental Status [facility] 09-14-2022 Mental Status Orientation Oriented x 4 [facility] 09-14-2022 Mental Status [facility] 02-22-2022 Mental Status Orientation Does not intera ct [facility] 02-22-2022 Mental Status [facility] [...] out oCatheter stops draining for 6 hours 1011-1453 [employer]. [address] [place] [address], [place] [address]. All rights reserved. This information is not intended as a substitute for professional medical care. Always follow your healthcare professional's instructions. Follow Up Care 08/01/2023 03:57:29 With:JOEL BROOKE Address: [address] [place] [phone] Business (1) When:2-4 days [facility] 08-01-2023 Note Discharge Instructions Thank you for allowing [facility] to assist you with your healthcare needs. The following is important discharge information regarding your hospital visit. Diagnosis from Today's Visit Frequent Urination Urinary incontinence What to Do Next Instructions from Your Care Team No qualifying data available. Post Acute Orders No qualifying data available. You Need to Schedule the Following Appointments Follow Up with JOEL BROOKE When Within 2-4 days Where: [address] [place] [phone] Business (1) Allergies Cipro iodine (Hives) Medications [...] out oCatheter stops draining for 6 hours 3170-8951 [employer]. [address] [place] [address]. All rights reserved. This information is not intended as a substitute for professional medical care. Always follow your healthcare professional's instructions. Additional Information VACCINATE! IT SAVES LIVES! Members of the community who have not yet received the COVID-19 vaccine and would like to receive it can visit one of [facility] vaccine clinics. There are many vaccine clinic locations within the [facility]. For locations and available times, please visit [email or web address] [email or web address] It is important to note that some COVID mobile vaccine clinics are held outdoors and may be canceled in rainy or stormy conditions. To learn more about pediatric vaccinations (ages 5-11), we invite you to visit the [facility] webpage. https://www.[email or web address].org/p ages/[email or web address]-Mzbyc-Hyksksixltc-Freq eshaww-[email or web address]-Eufrdkrxi.html To learn more about the COVID-19 vaccine, we invite you to visit the CDC website for a list of frequently asked questions. https://www.cdc.gov/coronavirus/ 2019-ncov/vaccines/faq.html [facility] Patient [facility] Access Instructions: Stay connected with your healthcare team and access your personal medical information anytime with the [facility] Patient Portal. If you would like a full copy of your medical records please contact the [facility] Medical Records Department Thursday through Thursday between 8a.m. and 4:30p.m. Please follow the directions below to access the portal: 1.Access the email account you provided upon registration to the [facility].2.Look for an invitation email from [facility].3.Open the email and access the invitation link: Accept Invitation to [facility]4.Fill in the required dennis to create your account. Sign into [email or web address] with your username and password that you [...] you will allow to register on the [facility] Portal for access to your information. You can also access the [facility] Patient Portal on the [employer]. Simply click on Health Records under [employer] and then click on the [employer] logo. HOW TO SAFELY DISPOSE OF PRESCRIPTION [...] Call your local pharmacy or go to [email or web address]/7T4Fj3w to find one close to you.3.Make use of household items: Use cat litter or old coffee grounds to dispose medications if other options are not available. Mix your drugs with these household products, seal them in an airtight container and throw it into the garbage. Call [facility]: [phone] to be sure your drugs can be [...] aware that I should contact my doctor. 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 Signature: Date/Time: Relationship to Patient: Witness Name/Signature: Date/Time: [facility] 07-18-2023 Note . MICRO - Microbiology [...] Locations *1: This test was performed at: [address], [address]- , [facility]) 07-18-2023 Note . MICRO - Microbiology PROCEDURE: [...] Locations *1: This test was performed at: [address], [id number] [place] [address] ([place]) 07-15-2023 Hospital Discharge instructions Patient Education 07/15/2023 [...] to absorb moisture and to keep your skein yarn drier. SEEK MEDICAL CARE IF: Your urine is [...] Document Reviewed: 07/14/2014 ExitCare Patient Information 2015 [employer] [facility]. This information is not intended to replace [...] on each side. Do this in a kqxdo-qw-gmzl direction. ?If you are male: ?Use one [...] Clean the drainage bag according to the tank setter's instructions or as told by your health [...] and water are not available, use hand health and fitness instructor. Always make sure there are no twists [...] 07/13/2006 Document Revised: 11/04/2019 Document Reviewed: 02/26/2018 [employer] Patient Education 2020 [employer]. 07/15/2023 12:00:23 Heart Failure Exacerbation Heart Failure [...] Follow these instructions at home: Medicines Take jcen-bro-dqhmnvy and prescription medicines only as told by your health care provider. Do not stop taking your medicines or change the amount you take. If you are having problems or side effects from your medicines, talk to your health care provider. If you are having difficulty paying for your medicines, contact a social and political studies professor or your clinic. There are many programs [...] 11/24/2017 Document Revised: 06/25/2018 Document Reviewed: 11/24/2017 [employer] Patient Education 2020 [employer]. 07/15/2023 12:00:17 Acute Kidney Injury, Adult Acute [...] Follow these instructions at home: Medicines Take bqki-lbo-mquhxhp and prescription medicines only as told by [...] is important. Where to find more information [employer] Kidney Patients: www.aakp.org National Kidney Foundation: www.kidney.org [employer]: www.akfinc.org [facility]: [...] 01/26/2012 Document Revised: 06/25/2018 Document Reviewed: 07/03/2017 [employer] Patient Education 2020 [employer]. Follow Up Care 07/11/2023 23:21:28 With:ALEX FITZPATRICK MD Address: [address] [place] [address] [place] [phone] When:3-5 days Comments:Please call to schedule your post-hospital follow-up appointment. [facility] Kaushikalisa Lundy 07-15-2023 Note Discharge Instructions Thank you for allowing [facility] to assist you with your healthcare needs. [...] also recommend scheduling an appointment with your electrotype finisher due to your kidney function being a [...] to schedule your post-hospital follow-up appointment. Where: [address] [facility] [address] [place] [address]- [phone] The Following Activity and Diet Have Been [...] times a day Pickup at [id number] Unchanged aspirin 81 Milligram by mouth Once [...] (in the morning) Pharmacy Information [id number]: [address], [place] [phone] What How Much When Why Comments Stop [...] to absorb moisture and to keep your skein yarn drier. SEEK MEDICAL CARE IF: Your urine is [...] 07/14/2014 [facility] Patient Information 2015 [employer]. This information is not intended to replace [...] on each side. Do this in a svezs-lz-akyt direction. ? If you are male: ? [...] Clean the drainage bag according to the tank setter's instructions or as told by your health [...] and water are not available, use hand health and fitness instructor. Always make sure there are no twists [...] 07/13/2006 Document Revised: 11/04/2019 Document Reviewed: 02/26/2018 [employer] Patient Education 2020 [employer]. Heart Failure Exacerbation Heart failure is a [...] Follow these instructions at home: Medicines Take hwjw-mxi-eyauxix and prescription medicines only as told by your health care provider. Do not stop taking your medicines or change the amount you take. If you are having problems or side effects from your medicines, talk to your health care provider. If you are having difficulty paying for your medicines, contact a social and political studies professor or your clinic. There are many programs [...] 11/24/2017 Document Revised: 06/25/2018 Document Reviewed: 11/24/2017 [employer] Patient Education 2020 [employer] Acute Kidney Injury, Adult Acute kidney [...] Follow these instructions at home: Medicines Take wual-eyl-vwxyutm and prescription medicines only as told by [...] is important. Where to find more information [employer]: www.aakp.org National Kidney Foundation: www.kidney.org [employer]: www.akfinc.org [facility]: [...] 01/26/2012 Document Revised: 06/25/2018 Document Reviewed: 07/03/2017 [employer] Patient Education 2020 [employer]. Additional Information VACCINATE! IT SAVES LIVES! Members of the community who have not yet received the COVID-19 vaccine and would like to receive it can visit one of [facility] vaccine clinics. There are many vaccine clinic locations within the [facility]. For locations and available times, please visit https://gettheshot.coronavirus.[place].gov/. It is important to note that some COVID mobile vaccine clinics are held outdoors and may be canceled in rainy or stormy conditions. To learn more about pediatric vaccinations (ages 5-11), we invite you to visit the [facility] webpage. https://www.Socialites.org/p ages/8374-Byatl-Deslvngtscb-Freq jfawmc-Noloz-Hfecurrco.html To learn more about the COVID-19 vaccine, we invite you to visit the CDC website for a list of frequently asked questions.https://www.cdc.gov/co ronavirus/2019-ncov/vaccines/faq .html [facility] Patient Portal Access Instructions: Stay connected with your healthcare team and access your personal medical information anytime with the [facility] Patient Portal. Please follow the directions below to create your [facility] account: 1.Access the email account you provided upon registration to the hospital/physician office.2.Look for an invitation email from [facility].3.Open the email and access the invitation link: Accept Invitation to [facility].4.Fill in the required dennis to create your account. To access your account, visit [email or web address]. Click the blue button labeled Access Patient [...] you will allow to register on the [facility] for access to your information. You can also access the [facility] Patient Portal on the [employer] te. Simply click on Patient Portal and then log into your account. If you would like to receive a full copy of your medical records, please contact the [facility] Medical Records Department by calling [phone], Thursday through Thursday between 8 a.m. and [...] Call your local pharmacy or go to http://[employer]MediaTrust/3O8Du4r to find one close to you.3.Make use of household items: Use cat litter or old coffee grounds to dispose medications if other options are not available. Mix your drugs with these household products, seal them in an airtight container and throw it into the garbage. Call [facility]: [phone] to be sure your drugs can be [...] CHART COPY. Signatures Patient Education Materials - [facility] (04/2018)(CUSTOM) Indwelling Urinary Catheter Care, Adult Heart [...] aware that I should contact my doctor. 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 Signature: Date/Time: Relationship to Patient: Witness Name/Signature: Date/Time: [facility] 07-14-2023 Note Date of Service 07/14/2023 [...] placed yesterday. He apparently is seeing a electrotype finisher in [place] due to worsening renal function. Patient just [...] Oral, BID hydrocortisone/neomycin/polymyxi n B OTIC SUSPENSION 1%-0.35%-56786 u/mL 4 drop(s), Ear, both, TID pantoprazole [...] onset, unknown etiology. Patient follows with a electrotype finisher in [place], Dr. Wharton for worsening renal function. Last creatinine on 06/30 was 2.22 and GFR 30. This morning creatinine 2.53/GFR 24. Will encourage PO intake and hold off on additional IV fluids for now. Cardiology consulted and ordered 40 mg Lasix IV x 1 again today. If patient's overall status is improved tomorrow, we will discharge him home and have him follow-up with his electrotype finisher. Repeat BMP in the am. 2. Pneumonia [...] by SALENA RAMOS on 07/14/2023 05:06 PM [facility] 07-14-2023 Note Date of Service 07/14/23 [...] Oral, BID hydrocortisone/neomycin/polymyxi n B OTIC SUSPENSION 1%-0.35%-94799 u/mL 4 drop(s), Ear, both, TID pantoprazole [...] mg yesterday. Patient did start with the electrotype finisher last month at [facility]. They did do a renal ultrasound which patient is waiting for results. They have an appointment with her electrotype finisher 08/03/2023. 6. Amyloidosis Patient had been referred [...] by LOREN FLORIAN on 07/14/2023 01:56 PM [facility] 07-14-2023 Note ORIGINAL EXAMINATION: ULTRASOUND OF [...] 07/14/2023 11:07:42 AM Ordering Provider: SALENA RAMOS [facility] 07-13-2023 Note Date of Service 07/13/2023 [...] Oral, BID hydrocortisone/neomycin/polymyxi n B OTIC SUSPENSION 1%-0.35%-27095 u/mL 4 drop(s), Ear, both, TID pantoprazole [...] Date: July 13, 2023 Verified By: CHAN MYRCIK MD CLINICAL STATEMENT: IMPRESSION: 1. Prominent emphysema. [...] by SALENA RAMOS on 07/13/2023 02:01 PM [facility] 12-18-2023 Note ORIGINAL EXAMINATION: CT OF [...] HISTORY: Reason for Exam: pleural effusion FINDINGS: Plcs-lk-jqiyqqgl degenerative changes are noted in the spine. [...] Sign Date: 07/13/2023 10:19:01 AM Ordering Provider: [facility]12-18-2023 Note. MICRO - Microbiology PROCEDURE: Legionella Urine [...] Locations *1: This test was performed at: [facility], [address] [place] [address], [id number] , [facility]ly [facility], [facility] ([place])07-12-2023 Evaluation + Plan noteExtracted from: Title:History and Physical Author:SALENA RAMOS APRN-SAW CLEANER Date:07/12/23 1. IVANIA (acute kidney injury) Acute, [...] collaborating with physician, and documenting in chart. [facility] 12-17-2023 Note Date of Service 07/12/2023 Chief Complaint c/o weakness and sob today s/p cough x 1 week History of Present Illness Patient is an 83-year-old male, who follows with Dr. Alex Fitzpatrick with a past medical history significant for hypertension, hyperlipidemia, amyloidosis, chronic kidney disease, CVA and dementia, presented to [facility] emergency department with the chief complaint [...] 150, BUN 54 and creatinine 2.71. BNP 87345. Troponin negative. 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 [...] skin or eyes Rapid, unexplained weight gain [phone] [employer]. [address] [place] [address], [place] [address]. All rights reserved. This information is not intended as a substitute for professional medical care. Always follow yourhealthcare professional's instructions. Follow Up Care 09/14/2022 17:54:20 With:ALEX FITZPATRICK MD Address: [address] [place] [phone]- [phone] When:3-5 days [facility] 02-19-2023 Note Discharge Instructions Thank you [...] MD When Within 3-5 days Where: [address] [facility] [address] [place] [address]- [phone] Allergies Cipro iodine (Hives) Medications Please ask [...] insufficiency or varicose veins, don't sit or flight operations inspector one place for long periods of time. [...] skin or eyes Rapid, unexplained weight gain [phone] [employer]. [address] [place] [address]. All rights reserved. This information is not intended as a substitute for professional medical care. Always follow yourhealthcare professional's instructions. Additional Information VACCINATE! IT SAVES LIVES! Members of the community who have not yet received the COVID-19 vaccine and would like to receive it can visit one of [facility] vaccine clinics. There are many vaccine clinic locations within the [facility]. For locations and available times, please visit www.gettheshot.coronavirus.[place].gov/. It is important to note that some COVID mobile vaccine clinics are held outdoors and may be canceled in rainy or stormy conditions. To learn more about pediatric vaccinations (ages 5-11), we invite you to visit the [facility] webpage. https://www.[facility].org/pages/2186-Qdwzl-Sajrckhjjph-Mcppkgmmdc-Gmgbc-Gdi stions.htmlTo learn more about the COVID-19 vaccine, we invite you to visit the CDC website for a list of frequently asked questions. https://www.cdc.gov/coronavirus/2019-ncov/vaccines/faq.html [facility] Patient Portal Access Instructions: Stay connected with your healthcare team and access your personal medical information anytime with the [facility] Patient Portal. If you would like a full copy of your medical records please contact the [facility] Medical Records Department Thursday through Thursday between 8a.m. and 4:30p.m. Please follow the directions below to access the portal: 1.Access the email account you provided upon [facility] to the [facility].2.Look for an invitation email from [facility].3.Open the email and access the invitation link: Accept Invitation to [facility]4.Fill in the required dennis to create your [...] you will allow to register on the [facility] Patient Portal for access to your information. You can also access the [facility] Patient Portal on the Smart Panel te. Simply click on Health Records under [place] and then click on the Kaushik logo. [...] Call your local pharmacy or go to http://[employer]MediaTrust/4T7Wi7n to find one close to you.3.Make use of household items: Use cat litter or old coffee grounds to dispose medications if other options arenot available. Mix your drugs with these household products, seal them in an airtight container andthrow it into the garbage. Call [facility]: [phone] to be sure your drugs can be [...] aware that I should contact my doctor. 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 Signature: Date/Time: Relationship to Patient: Witness Name/Signature: Date/Time: [facility]02-19-2023 Note ORIGINAL EXAMINATION: ONE XRAY VIEW [...] Sign Date: 09/14/2022 6:57:36 PM Ordering Provider: [facility]02-19-2023 Note ORIGINAL EXAMINATION: ONE XRAY VIEW [...] Sign Date: 09/14/2022 6:57:36 PM Ordering Provider: [facility]11-10-2022 Note ORIGINAL NM MYOCARDIAL SPECT STRESS/REST CLINICAL [...] AM Sign Date: 06/05/2022 12:27:17 PM Ordering Provider:[facility]11-10-2022 Note ORIGINAL NM MYOCARDIAL SPECT [...] AM Sign Date: 06/05/2022 12:27:17 PM [facility] Evaluation + Plan note Diagnostic Tests Pending * .Immunofixation Screen, Serum 04/15/22 * SILVA (urine) 04/15/22 * [place]/Lambda, Free, Serum 04/15/22 [facility] 07-30-2022 Note ORIGINAL EXAMINATION: CT OF [...] Sign Date: 02/22/2022 8:07:24 AM Ordering Provider: [facility]07-30-2022 Note ORIGINAL EXAMINATION: ONE XRAY VIEW OF [...] Sign Date: 02/22/2022 8:05:31 AM Ordering Provider: [facility]07-30-2022 Note ORIGINAL EXAMINATION: CT OF THE CERVICAL [...] Sign Date: 02/22/2022 7:50:27 AM Ordering Provider: [facility]07-30-2022 SARS-CoV-2 (COVID-19) RNA TYESHA+probe Ql (Nph)Negative (02/22/22 7:43 AM)AO Auto Urine [id number] Note ORIGINAL EXAMINATION: CT OF THE CERVICAL [...] Sign Date: 02/22/2022 7:50:27 AM Ordering Provider: [facility]07-30-2022 Note ORIGINAL EXAMINATION: CT OF THE HEAD [...] Sign Date: 02/22/2022 8:07:24 AM Ordering Provider: [facility]07-30-2022 Note ORIGINAL EXAMINATION: ONE XRAY VIEW OF [...] Sign Date: 02/22/2022 8:05:31 AM Ordering Provider: [facility]12-22-2021 Hospital Discharge instructions Patient Education 07/17/2021 18:23:16 [...] directed by your healthcare provider Congested cough [phone] [employer]. [address] [place] [address], [place] [address]. All rights reserved. This information is not intended as a substitute for professional medical care. Always follow yourhealthcare professional's instructions. Follow Up Care 07/17/2021 15:41:54 With:JACKY LANCASTER MD, Internal Medicine Address: [address] [place] [address]- When:2-4 days [facility] Evaluation + Plan note No data available for this section [facility] Evaluation + Plan note Future Appointments Appointment Date:07/11/2022 09:15:00 AM Scheduled Provider: Location:[facility] Appointment Type:CV OV [facility] Hospital Discharge instructions No data available for this section [facility] Note* BRADY ADAM DO: SIGN, VERIFY Event Display: EKG [ED AO] - CV Authored Date: [id number] [facility] Progress note No data available for this section [facility] Summary Purpose Family History No Family History Records FoundNo Family History Records Found No data available for this section No data available for this section No Family History Records Found Advance Directives No Advanced Directives Records FoundNo Advanced Directives Records FoundNo Advanced Directives Records Found Procedure Findings Note HNO ID: [id number] Author: Justina Amin Service: Pulmonary Disease Author Type: Physician Type: Operative Report Filed: 07/07/2018 12:39 PM Note Text: See Epic Procedure note. Raheel Amin MD, [facility] [place] [address] P: [phone] F: [phone] Additional Source Comments (unrecognized sect ion and content) No Status Records FoundNo Status Records FoundNo Status Records Found INFORMATION SOURCE (unrecogn ized section and content) DATE CREATED AUTHOR AUTHOR'S ORGANIZ ATION 05/30/2022 [facility] DATE CREATED AUTHOR AUTHOR'S ORGANIZ ATION 08/07/2023 [facility] ([place] Care Team (unrecognized sect ion and content) Care Team Personnel Name: Jevon Lopezrdeb Martino PT Position: P3 Scheduling - Vice President Of Contracts Advanced Member Role: Other Name: PHYSICIAN, NOT RECORDED Member Role: Primary Care Physician Care Team Related Persons Name: JEREMIAS HATCH Address: Home [address] Care Team Personnel Name: Jevon Lopez PT Position: P3 Scheduling - Vice President Of Contracts Advanced Member Role: Other Name: ALEX FITZPATRICK MD Member Role: Primary Care Physician Address: Address: [address] [place] [address]- Care Team Related Persons Name: HOLDEN, JEREMIAS Dickerson Address: Home [address] [place] [id number] Care Team Personnel Name: Jevon Lopez PT Position: P3 Scheduling - Vice President Of Contracts Advanced Member Role: Other Name: ALEX FITZPATRICK MD Member Role: Primary Care Physician Address: Address: [address] [place], [place] [id number]- Care Team Related Persons Name: JEREMIAS HATCH Address: Home [address] [place], [place] [id number] Care Team Personnel Name: Jevon Lopez PT Position: P3 Scheduling - Vice President Of Contracts Advanced Member Role: Other Name: ALEX FITZPATRICK MD Member Role: Primary Care Physician Address: Address: [address] [place] [address] [place] [address]- Name: DUYEN NUR MD Position: ED Physician Member Role: ED Physician Address: Address: [address] [place] [address]- Care Team Related Persons Name: JEREMIAS HATCH Address: Home [address] [place], [place] [id number] [place] Patient Care team informatio n (unrecognized section and content) Care Team Personnel Name: Jevon Lopez Clerk Salena PT Position: P3 Scheduling - Vice President Of Contracts Advanced Member Role: Other Name: ALEX FITZPATRICK MD Member Role: Primary Care Physician Address: Address: [address] [place] [address]- Name: GARY WEN MD Position: ED Physician Member Role: ED Physician Address: Address: [address] [place] [address] Care Team Related Persons Name: JEREMIAS HATCH Address: Home [address] [place] [id number] Care Team Personnel Name: Jevon Lopez Clerk Salena PT Position: P3 Scheduling - Vice President Of Contracts Advanced Member Role: Other Name: ALEX FITZPATRICK MD Member Role: Primary Care Physician Address: Address: [address] [place] [address]- Name: GARY WEN MD Position: ED Physician Member Role: ED Physician Address: Address: [address] [place] [address] Care Team Related Persons Name: JEREMIAS HATCH Address: Home [address] [place], [place] [id number] FOR RECORDS PERTAINING TO PATIENTS WHO ARE [...] BE BASED ON THE PRIMARY CLINICAL RECORDS. [facility] [employer] provides no warranty or guarantee of the accuracy or completeness of information in this document.
--- NOTE | 2023-09-18 09:17 | WT_ITS ---
PSN 6 Minute Walk Test 6 Minute Walk Test 6 Minute Walk Test: 6 Minute Walk Test PSN:6-Minute Walk Test Start: 09/17/23 10:48 Freq: Status: Active Protocol: RESP.6MINW Document 09/17/23 10:30 [facility] (Rec: 09/17/23 10:57 [facility] Desktop) 6 Minute Walk Test Date Performed 09/17/23 Time Performed 10:30 Height 5 ft 8 in Weight: 127 lb Weight in Pounds 127.[address]: Dr Billy Assistive device used: Cane Pre-test Oxygen Delivery Method Room Air Pulse Ox 94 Pulse Rate (60-100) 61 Dyspnea Erika Scale (0-10) 0 Exertion Erika Scale (6-20) 6 1st minute Oxygen Delivery Method Room Air Pulse Ox 95 Pulse Rate (60-100) 73 Number of Rests Taken 1 2nd minute Oxygen Delivery Method Room Air Pulse Ox 94 Pulse Rate (60-100) 69 Number of Rests Taken 1 3rd minute Oxygen Delivery Method Room Air Pulse Ox 92 Pulse Rate (60-100) 71 Number of Rests Taken 1 4th minute Oxygen Delivery Method Room Air Pulse Ox 91 Pulse Rate (60-100) 73 5th minute Oxygen Delivery Method Room Air Pulse Ox 92 Pulse Rate (60-100) 72 Full Laps Walked 2 Partial Lap, Number of Tiles Walked 0 Total Distance Walked (ft) 118 09/17/23 10:51 Cardiopulmonary Services by Roslyn España Pt arrived this morning for his PFT. After multiple attempts to do PFT pt was not able to perform proper techniques due to the inability to follow commands. It was decided to cancel the PFT and to proceed with pt's walk test so he did not need to come back next week. During walk pt needed multiple breaks to sit in wheelchair and rest. At 5 minutes 30 seconds the test was ended with pt sitting in chair. Initialized on 09/17/23 10:51 - END OF NOTE Interpretation Interpretation: The patient ambulated 118 feet over the course of 6 minutes beginning on room air with use of a cane. Pretesting oxygen saturation was noted to be 94% on room air. With ambulation, the shaunna oxygen saturation was 91%. Respiratory therapy did report that the patient needed multiple breaks during testing. Although there was no significant exertional oxygen desaturation, there was evidence of significantly impaired walk distance. Recommendations Recommendations: There is no indication for the use of supplemental oxygen at this time.
== END | disposition home or self-care (01) ==
PROVIDERS: PCP Internal Medicine; Referring Provider Internal Medicine Critical Care Medicine; Visit Provider Internal Medicine Critical Care Medicine
DX: J44.9 Chronic obstructive pulmonary disease, unspecified (principal)
CPT/HCPCS: 94618

== ENCOUNTER → 2023-09-24 | Outpatient (CLI) | payer MEDICARE, BC, SELFPAY ==
--- NOTE | 2023-09-24 12:22 | CT_ITS ---
EXAM: CT CHEST WITHOUT INTRAVENOUS CONTRAST CLINICAL INDICATION: 11 mm Nodule, previous pna TECHNIQUE: Helically acquired images were obtained of the chest without intravenous contrast. This CT exam was performed using one or more of the following dose reduction techniques: automated exposure control, adjustment of the mA and/or kV according to patient size, and/or use of iterative reconstruction technique. COMPARISON: CT chest, 07/13/2023. CTA chest, 05/04/2018. FINDINGS: LIMITATIONS: The examination is minimally limited due to motion. LUNGS AND PLEURAL SPACES: Medium to large left pleural effusion and small right pleural effusion. Dependent airspace disease likely atelectasis rather than pneumonia. Severe predominantly centrilobular emphysema bilaterally. 3 mm pleural-based nodule in the right upper lobe. The 11 mm previously identified right lower lobe pulmonary nodule is no longer present, likely related to airspace disease. HEART: Coronary artery calcifications and/or stents. Heart size is normal. No pericardial effusion. MEDIASTINUM: No significant abnormality. No mediastinal or hilar adenopathy. Esophagus is unremarkable. No hiatal hernia. THYROID: No significant abnormality. No thyroid lesions. BONES/JOINTS: No significant abnormality. No suspicious lytic or blastic abnormality. VASCULATURE: Atherosclerosis of the aorta and its branch vessels. INTRAPERITONEAL SPACE: Trace ascites partially visualized in the right upper quadrant of uncertain etiology. CT/Chest without Contrast IMPRESSION: 1. Medium to large left pleural effusion and small right pleural effusion. Dependent airspace disease likely atelectasis rather than pneumonia. 2. Severe predominantly centrilobular emphysema bilaterally. Consider ongoing surveillance for potential pulmonary malignancy. The 3 mm pleural nodule identified would not require follow-up based on Fleischner Society criteria. Electronically Signed: Lefty Collins DO at 0:00 EST ,
--- OUTSIDE RECORDS SUMMARY | 2023-09-24 19:36 | XMS RPT_ITS | CCD ---
Author Name Unknown Address [address] [place] [address] Organization [facility] Care Team Providers Care Signal Repairer Name Role Phone RAHEEL AMIN Admitting Unavailable [...] NANETTE GUNN, ALEX Primary Care Unavailable CYNDY COBOL ENGINEER-GUARD LIEUTENANT, ENRIQUE Admitting Unavailab lolita MULLER, LOREN Consulting Unavailab YRIS Sanz DO Attending Unavailable Allergies Allergy Classification Reported Allergen(s) Allergy Type Date of Onset Reaction(s) Facility (9 sources) Ciprofloxacin; Translations: [CIPROFLOXACIN] Drug Allergy 7 [facility] Repository (2 sources) Codeine; Translations: [CODEINE] Drug Allergy 8 [facility] Repository (2 sources) Contrast media; Translations: [CONTRAST DYE] Propensity to adverse reactions to drug (disorder) 9 [facility] Repository (2 sources) Doxycycline; Translations: [DOXYCYCLINE] Drug Allergy 4 [facility] Repository (5 sources) Iodine; Translations: [iodine] Drug Allergy Weal (disorder) [facility] CV Medications Current Medications Medication Drug Class(es) Dates Sig (Normalized) Sig (Original) amLODIPine 10 mg oral tablet (4 sources) Dihydropyridine Calcium Channel Zoe Start: 03-18-2022 amLODIPine 10 mg oral tablet Dose : 10 mg = 1 tab(s), Oral, qDay, # 30 tab(s), 0 Refill(s), [facility]: [id number], 170, cm, 03/11/22 18:36:00 EDT, Height Start [...] Non-Invasive 83 mm[Hg] DR GARY WEN MD [facility] 08-01-2023 07:00-0500 Heart rate 86 /min DR GARY WEN MD [facility] 08-01-2023 07:00-0500 Respiratory rate 16 /min DR GARY WEN MD [facility] 08-01-2023 07:00-0500 Systolic Blood Pressure Non-Invasive 166 mm[Hg] DR GARY WEN MD [facility] 08-01-2023 04:03-0500 Body height 172.[address] GARY WEN MD [facility] 08-01-2023 04:03-0500 Body temperature 97.34 [degF] DR GARY WEN MD [facility] 08-01-2023 04:03-0500 Body weight 57.[address] GARY WEN MD [facility] 08-01-2023 04:03-0500 Diastolic Blood Pressure Non-Invasive 138 mm[Hg] DR GARY WEN MD [facility] 08-01-2023 04:03-0500 Heart rate 110 /min DR GARY WEN MD [facility] 08-01-2023 04:03-0500 Respiratory rate 18 /min DR GARY WEN MD [facility] 08-01-2023 04:03-0500 Systolic Blood Pressure Non-Invasive 152 mm[Hg] DR GARY WEN MD [facility] 07-15-2023 13:16-0500 Body temperature 97.34 [degF] ENRIQUE NAYLOR APRN-GUARD LIEUTENANT [facility] 07-15-2023 13:16-0500 Diastolic Blood Pressure Non-Invasive 73 mm[Hg] ENRIQUE NAYLOR COBOL ENGINEER-GUARD LIEUTENANT [facility] 07-15-2023 13:16-0500 Heart rate 62 /min ENRIQUE NAYLOR COBOL ENGINEER-GUARD LIEUTENANT [facility] 07-15-2023 13:16-0500 Reason For Taking VItal Signs ENRIQUE NAYLOR COBOL ENGINEER-GUARD LIEUTENANT [facility] 07-15-2023 13:16-0500 Respiratory rate 18 /min ENRIQUE NAYLOR COBOL ENGINEER-GUARD LIEUTENANT [facility] 07-15-2023 13:16-0500 Systolic Blood Pressure Non-Invasive 132 mm[Hg] ENRIQUE NAYLOR COBOL ENGINEER-GUARD LIEUTENANT [facility] 07-15-2023 10:20-0500 Heart rate 78 /min ENRIQUE NAYLOR COBOL ENGINEER-GUARD LIEUTENANT [facility] 07-15-2023 10:20-0500 Respiratory rate 20 /min ENRIQUE NAYLOR COBOL ENGINEER-GUARD LIEUTENANT [facility] 07-15-2023 09:44-0500 Diastolic Blood Pressure Non-Invasive 67 mm[Hg] ENRIQUE NAYLOR COBOL ENGINEER-GUARD LIEUTENANT [facility] 07-15-2023 09:44-0500 Heart rate 68 /min ENRIQUE NAYLOR COBOL ENGINEER-GUARD LIEUTENANT [facility] 07-15-2023 09:44-0500 Systolic Blood Pressure Non-Invasive 168 mm[Hg] ENRIQUE NAYLOR COBOL ENGINEER-GUARD LIEUTENANT [facility] 07-15-2023 07:22-0500 Body temperature 98.06 [degF] ENRIQUE NAYLOR COBOL ENGINEER-GUARD LIEUTENANT [facility] 07-15-2023 07:22-0500 Diastolic Blood Pressure Non-Invasive 68 mm[Hg] ENRIQUE NAYLOR COBOL ENGINEER-GUARD LIEUTENANT [facility] 07-15-2023 07:22-0500 Heart rate 43 /min ENRIQUE NAYLOR COBOL ENGINEER-GUARD LIEUTENANT [facility] 07-15-2023 07:22-0500 Respiratory rate 16 /min ENRIQUE NAYLOR COBOL ENGINEER-GUARD LIEUTENANT [facility] 07-15-2023 07:22-0500 Systolic Blood Pressure Non-Invasive 168 mm[Hg] ENRIQUE NAYLOR COBOL ENGINEER-GUARD LIEUTENANT [facility] 07-15-2023 04:25-0500 Body temperature 97.52 [degF] ENRIQUE NAYLOR COBOL ENGINEER-GUARD LIEUTENANT [facility] 07-15-2023 04:25-0500 Heart rate 48 /min ENRIQUE NAYLOR COBOL ENGINEER-GUARD LIEUTENANT [facility] 07-15-2023 04:25-0500 Reason For Taking VItal Signs ENRIQUE NAYLOR COBOL ENGINEER-GUARD LIEUTENANT [facility] 07-14-2023 23:50-0500 Heart rate 61 /min ENRIQUE NAYLOR COBOL ENGINEER-GUARD LIEUTENANT [facility] 07-14-2023 23:50-0500 Reason For Taking VItal Signs ENRIQUE NAYLOR COBOL ENGINEER-GUARD LIEUTENANT [facility] 07-14-2023 18:41-0500 Body temperature 98.06 [degF] ENRIQUE NAYLOR COBOL ENGINEER-GUARD LIEUTENANT [facility] 07-14-2023 18:41-0500 Heart rate 55 /min ENRIQUE NAYLOR COBOL ENGINEER-GUARD LIEUTENANT [facility] 07-14-2023 18:25-0500 Heart rate 60 /min ENRIQUE CYNDY COBOL ENGINEER-GUARD LIEUTENANT [facility] 07-14-2023 11:30-0500 Heart rate 57 /min ENRIQUE NAYLOR COBOL ENGINEER-GUARD LIEUTENANT [facility] 07-12-2023 07:45-0500 Blood Pressure Cuff Size ENRIQUE NAYLOR COBOL ENGINEER-GUARD LIEUTENANT [facility] 07-12-2023 07:45-0500 Blood Pressure Location ENRIQUE NAYLOR COBOL ENGINEER-GUARD LIEUTENANT [facility] 07-12-2023 07:45-0500 Blood Pressure Method ENRIQUE NAYLOR COBOL ENGINEER-GUARD LIEUTENANT [facility] 07-12-2023 04:26-0500 Body height 172.7 cm ENRIQUE NAYLOR COBOL ENGINEER-GUARD LIEUTENANT [facility] 07-12-2023 04:26-0500 Body weight 59.4 kg ENRIQUE NAYLOR COBOL ENGINEER-GUARD LIEUTENANT [facility] 07-12-2023 04:26-0500 Body weight 19.92 kg/m2 ENRIQUE NAYLOR COBOL ENGINEER-GUARD LIEUTENANT [facility] 09-14-2022 19:50-0500 Diastolic Blood Pressure Non-Invasive 62 1 MARY MORILLO MD [facility] 09-14-2022 19:50-0500 Heart rate 72 /min MARY MORILLO MD [facility] 09-14-2022 19:50-0500 Respiratory rate 18 /min MARY MORILLO MD [facility] 09-14-2022 19:50-0500 Systolic Blood Pressure Non-Invasive 146 1 MARY MORILLO MD [facility] 09-14-2022 18:07-0500 Body temperature 97.52 [degF] MARY MORILLO MD [facility] 09-14-2022 18:07-0500 Diastolic Blood Pressure Non-Invasive 65 1 MARY MORILLO MD [facility] 09-14-2022 18:07-0500 Heart rate 61 /min MARY MORILLO MD [facility] 09-14-2022 18:07-0500 Respiratory rate 18 /min MARY MORILLO MD [facility] 09-14-2022 18:07-0500 Systolic Blood Pressure Non-Invasive 145 1 MARY MORILLO MD [facility] 02-22-2022 10:13-0400 Diastolic blood pressure 78 mm[Hg] BRADY ADAM DO [facility] 02-22-2022 10:13-0400 Heart rate 45 /min BRADY ADAM DO [facility] 02-22-2022 10:13-0400 Respiratory rate 16 /min BRADY ADAM DO [facility] 02-22-2022 10:13-0400 Systolic blood pressure 132 mm[Hg] BRADY ADAM DO [facility] 02-22-2022 09:18-0400 Diastolic blood pressure 86 mm[Hg] BRADY ADAM DO [facility] 02-22-2022 09:18-0400 Heart rate 43 /min BRADY ADAM DO [facility] 02-22-2022 09:18-0400 Respiratory rate 15 /min BRADY ADAM DO [facility] 02-22-2022 09:18-0400 Systolic blood pressure 110 mm[Hg] BRADY ADAM DO [facility] 02-22-2022 09:03-0400 Diastolic blood pressure 94 mm[Hg] BRADY ADAM DO [facility] 02-22-2022 09:03-0400 Heart rate 42 /min BRADY ADAM DO [facility] 02-22-2022 09:03-0400 Respiratory rate 14 /min BRADY ADAM DO [facility] 02-22-2022 09:03-0400 Systolic blood pressure 131 mm[Hg] BRADY ADAM DO [facility] 02-22-2022 08:38-0400 Heart rate 43 /min BRADY ADAM DO [facility] 02-22-2022 08:20-0400 Heart rate 43 /min BRADY ADAM DO [facility] 02-22-2022 06:46-0400 Body temperature 98.78 [degF] BRADY ADAM DO [facility] 07-17-2021 17:08-0500 Diastolic blood pressure 80 mm[Hg] MARY MORILLO MD [facility] 07-17-2021 17:08-0500 Heart rate 63 /min MARY MORILLO MD [facility] 07-17-2021 17:08-0500 Mean blood pressure 116 mm[Hg] MARY MORILLO MD [facility] 07-17-2021 17:08-0500 Respiratory rate 16 /min MARY MORILLO MD [facility] 07-17-2021 17:08-0500 Systolic blood pressure 189 mm[Hg] MARY MORILLO MD [facility] 07-17-2021 15:51-0500 Body temperature 98.24 [degF] MARY MORILLO MD [facility] 07-17-2021 15:51-0500 Diastolic blood pressure 86 mm[Hg] MARY MORILLO MD [facility] 07-17-2021 15:51-0500 Heart rate 65 /min MARY MORILLO MD [facility] 07-17-2021 15:51-0500 Mean blood pressure 124 mm[Hg] MARY MORILLO MD [facility] 07-17-2021 15:51-0500 Respiratory rate 16 /min MARY MORILLO MD [facility] 07-17-2021 15:51-0500 Systolic blood pressure 200 mm[Hg] MARY MORILLO MD [facility] Encounters Encounter Date Encounter Type Care Provider Facility Start: 08-01-2023 End: 08-01-2023 Emergency department patient visit GARY WEN Facility:B Start: 08-01-2023 End: 08-01-2023 Emergency department patient visit DR GARY WEN MD [facility] Start: 07-12-2023 End: 07-15-2023 Evaluation and management of inpatient ALEX FITZPATRICK MD Facility:B Start: 07-11-2023 End: 07-15-2023 Evaluation and management of inpatient ENRIQUE NAYLOR COBOL ENGINEER-GUARD LIEUTENANT [facility] Start: 09-14-2022 End: 09-14-2022 Emergency department patient visit ALEX FITZPATRICK MD Facility:B Start: 09-14-2022 End: 09-14-2022 Emergency department patient visit MARY MORILLO MD [facility] Start: 06-05-2022 End: 06-05-2022 Patient encounter procedure DARA GREY MD [facility] Start: 04-15-2022 End: 04-15-2022 Patient encounter procedure DARA GREY MD [facility] Start: 02-22-2022 End: 02-22-2022 Emergency department patient visit BRADY ADAM DO [facility] Start: 07-17-2021 End: 07-17-2021 Emergency department patient visit MARY MORILLO MD [facility] Start: 10-29-2020 End: 10-29-2020 ambulatory COLLEEN [facility] Start: 07-07-2018 End: 07-07-[address] [facility] Procedures Date Procedure Procedure Detail Performing Clinician Start: 06-05-2022 Cardiovascular stres s testing MARY MORILLO MD Immunizations Immunization Date Immunization Notes Care Provider Fa brittani 01-07-2020 tetanus toxoid, redu abner diphtheria toxoid, and acellular pertussis vaccine, adsorbed; Translations: [Boostrix (Tdap)] MARY MORILLO MD [facility] 05-28-2015 tetanus toxoid, redu abner diphtheria toxoid, and acellular pertussis vaccine, adsorbed MARY MORILLO MD [facility] Payers Date Payer Category Payer Unknown [id number] 2004 Medicare [id number] 1940 Unknown [id number] 1940 Unknown [id number] 1940 Unknown [id number] Social History Date Type Detail Facility Start: 12-24-2018 Ex-smoker (finding) [facility] Sex Assigned At [facility] Start: 07-11-2023 Tobacco smoking status Never s moked tobacco (finding) [facility] Functional Status Date Assessment Result Facility 08-01-2023 Functional Status ID band on, Allergy Band on, Safety level maintained [facility] 07-15-2023 Functional Status Nurse Safety C hecks q2hrs Performed 7am-3pm [facility] 07-15-2023 Functional Status Sequential Com pression Device bilateral knee high removed/off [facility] 07-15-2023 Functional Status Kaushik [facility] 07-15-2023 Functional Status Identified as high risk, Fall ID band on, Bed alert on, Door open, Non-Slip footwear, Room check performed [facility] 07-15-2023 Functional Status [facility] 07-14-2023 Functional Status [facility]ik [facility] 07-14-2023 Functional Status K[facility] 07-14-2023 Functional Status K[facility]ik [facility] 07-14-2023 Functional Status Min A 1 Kaushik [facility] 07-14-2023 Functional Status Supervised Kaushik [facility] 07-14-2023 Functional Status Breakfast Percent 85 [facility] 07-13-2023 Functional Status Kaushik [facility] 07-13-2023 Functional Status Split level home [facility] 07-13-2023 Functional Status K[facility]hik [facility] 07-13-2023 Functional Status K[facility]ik [facility] 07-13-2023 Functional Status [facility] 07-13-2023 Functional Status Repositions self [facility] 07-12-2023 Functional Status K[facility]hik [facility] 07-12-2023 Functional Status K[facility]hik [facility] 07-12-2023 Functional Status Sensory Defici ts Cognitive deficit [facility] 09-14-2022 Functional Status Independent [facility] Emeterio shrestha [facility] 09-14-2022 Functional Status Standard Safet y ID band on, Allergy Band on, Call device within reach, Bed in low position, Wheels locked, Upper/Half-Length side-rails up, Phone within reach, personal items within reach, Bedside Cart Locked, Visitor at bedside [facility] 02-22-2022 Functional Status Assistive Device None A [facility] 02-22-2022 Functional Status Standard Safet y ID band on, Call device within reach, Bed in low position, Wheels locked [facility] Mental Status Date Assessment Result Facility 08-01-2023 Mental Status Forgetful, Follows simple commands [facility] 07-15-2023 Mental Status Not oriented to time, Forgetful [facility] 07-14-2023 Mental Status [facility] 07-14-2023 Mental Status [facility] 07-14-2023 Mental Status [facility] 09-14-2022 Mental Status Orientation Oriented x 4 [facility] 09-14-2022 Mental Status [facility] 02-22-2022 Mental Status Orientation Does not intera ct [facility] 02-22-2022 Mental Status [facility] Clinical Notes 07-17-2021 to 08-01-2023 Note [...] out oCatheter stops draining for 6 hours [id number] [employer]. [address] [place] [address], [place] [address]. All rights reserved. This information is not intended as a substitute for professional medical care. Always follow your healthcare professional's instructions. Follow Up Care 08/01/2023 03:57:29 With:JOEL BROOKE Address: [address] [place] [address] [phone] Business (1) When:2-4 days [facility] 08-01-2023 Note Discharge Instructions Thank you for allowing [facility] to assist you with your healthcare needs. The following is important discharge information regarding your hospital visit. Diagnosis from Today's Visit Frequent Urination Urinary incontinence What to Do Next Instructions from Your Care Team No qualifying data available. Post Acute Orders No qualifying data available. You Need to Schedule the Following Appointments Follow Up with JOEL BROOKE When Within 2-4 days Where: [address] [place] [id number] [phone] Business (1) Allergies Cipro iodine (Hives) Medications [...] out oCatheter stops draining for 6 hours [id number] [employer]. [address] [place] [address]. All rights reserved. This information is not intended as a substitute for professional medical care. Always follow your healthcare professional's instructions. Additional Information VACCINATE! IT SAVES LIVES! Members of the community who have not yet received the COVID-19 vaccine and would like to receive it can visit one of [facility] vaccine clinics. There are many vaccine clinic locations within the [facility]. For locations and available times, please visit [email or web address] It is important to note that some COVID mobile vaccine clinics are held outdoors and may be canceled in rainy or stormy conditions. To learn more about pediatric vaccinations (ages 5-11), we invite you to visit the [facility] webpage. [email or web address]/p [email or web address]-[email or web address]-Freq [email or web address] To learn more about the COVID-19 vaccine, we invite you to visit the CDC website for a list of frequently asked questions. https://www.cdc.gov/coronavirus/ 2019-ncov/vaccines/faq.html [facility] Patient Portal Access Instructions: Stay connected with your healthcare team and access your personal medical information anytime with the [facility] Patient Portal. If you would like a full copy of your medical records please contact the [facility] Medical Records Department Thursday through Thursday between 8a.m. and 4:30p.m. Please follow the directions below to access the portal: 1.Access the email account you provided upon registration to the [facility].2.Look for an invitation email from [facility].3.Open the email and access the invitation link: Accept Invitation to [employer]4.Fill in the required dennis to create your account. Sign into [email or web address] with your username and password that you [...] you will allow to register on the [employer] Patient Portal for access to your information. You can also access the [facility] [employer] Patient Portal on the [employer] Simply click on Health Records under [email or web address] Data and then click on the Access Information Management logo. HOW TO SAFELY DISPOSE OF PRESCRIPTION [...] Call your local pharmacy or go to [email or web address]/[email or web address] to find one close to you.3.Make use of household items: Use cat litter or old coffee grounds to dispose medications if other options are not available. Mix your drugs with these household products, seal them in an airtight container and throw it into the garbage. Call [facility]: [phone] to be sure your drugs can be [...] aware that I should contact my doctor. 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 MICRO - Microbiology PROCEDURE: [...] Locations *1: This test was performed at: [address], [address]- , [facility]) 07-18-2023 Note . 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 SEEK MEDICAL CARE IF: Your urine is [...] Document Reviewed: 07/14/2014 ExitCare Patient Information 2015 [employer] [facility]. This information is not intended to replace [...] on each side. Do this in a pxtar-xk-cxee direction. ?If you are male: ?Use one [...] Clean the drainage bag according to the amortization schedule clerk's instructions or as told by your health [...] and water are not available, use hand puppy walker. Always make sure there are no twists [...] 07/13/2006 Document Revised: 11/04/2019 Document Reviewed: 02/26/2018 [employer] Patient Education 2020 [employer]. 07/15/2023 12:00:23 Heart Failure Exacerbation Heart Failure [...] Follow these instructions at home: Medicines Take rtgk-rlr-ljazrci and prescription medicines only as told by your health care provider. Do not stop taking your medicines or change the amount you take. If you are having problems or side effects from your medicines, talk to your health care provider. If you are having difficulty paying for your medicines, contact a psychotherapist social worker or your clinic. There are many programs [...] 11/24/2017 Document Revised: 06/25/2018 Document Reviewed: 11/24/2017 [employer] Patient Education 2020 [employer]. 07/15/2023 12:00:17 Acute Kidney Injury, Adult Acute [...] Follow these instructions at home: Medicines Take ilgk-avo-rkabvto and prescription medicines only as told by [...] is important. Where to find more information [place] [employer]: www.aakp.org National Kidney Foundation: www.kidney.org [employer]: www.akfinc.org [facility]: [...] 01/26/2012 Document Revised: 06/25/2018 Document Reviewed: 07/03/2017 [employer] Patient Education 2020 [employer]. Follow Up Care 07/11/2023 23:21:28 With:ALEX FITZPATRICK MD Address: [address] [place] [address] [place] [phone]- [phone] When:3-5 days Comments:Please call to schedule your post-hospital follow-up appointment. [facility] Kaushikalisa Lundy 07-15-2023 Note Discharge Instructions Thank you for allowing [facility] to assist you with your healthcare needs. [...] also recommend scheduling an appointment with your yarn man due to your kidney function being a [...] to schedule your post-hospital follow-up appointment. 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 SEEK MEDICAL CARE IF: Your urine is [...] 07/13/2006 Document Revised: 06/29/2013 Document Reviewed: 07/14/2014 [facility] 2015 [employer]. This information is not intended to replace [...] on each side. Do this in a yedzx-ib-uwlv direction. ? If you are male: ? [...] Clean the drainage bag according to the amortization schedule clerk's instructions or as told by your health [...] and water are not available, use hand puppy walker. Always make sure there are no twists [...] 07/13/2006 Document Revised: 11/04/2019 Document Reviewed: 02/26/2018 [employer] Patient Education 2020 [employer]. Heart Failure Exacerbation Heart failure is a [...] Follow these instructions at home: Medicines Take xldj-ogp-bvbwzsq and prescription medicines only as told by your health care provider. Do not stop taking your medicines or change the amount you take. If you are having problems or side effects from your medicines, talk to your health care provider. If you are having difficulty paying for your medicines, contact a psychotherapist social worker or your clinic. There are many programs [...] 11/24/2017 Document Revised: 06/25/2018 Document Reviewed: 11/24/2017 [employer] Patient Education 2020 [employer] Acute Kidney Injury, Adult Acute kidney [...] Follow these instructions at home: Medicines Take vpvq-iao-mhnfcpv and prescription medicines only as told by [...] is important. Where to find more information [place] [employer]: www.aakp.org National Kidney Foundation: www.kidney.org [employer]: www.akfinc.org [facility] Program: [...] 01/26/2012 Document Revised: 06/25/2018 Document Reviewed: 07/03/2017 [employer] Patient Education 2020 [employer]. Additional Information VACCINATE! IT SAVES LIVES! Members of the community who have not yet received the COVID-19 vaccine and would like to receive it can visit one of [facility] vaccine clinics. There are many vaccine clinic locations within the [facility]. For locations and available times, please visit https://gettheshot.coronavirus.[place].gov/. It is important to note that some COVID mobile vaccine clinics are held outdoors and may be canceled in rainy or stormy conditions. To learn more about pediatric vaccinations (ages 5-11), we invite you to visit the [facility] webpage. https://www.Aphrias.org/p ages/7178-Ssqrg-Utqfsnvmfnk-Freq jolhpb-Mcnsa-Crdtuktpz.html To learn more about the COVID-19 vaccine, we invite you to visit the CDC website for a list of frequently asked questions.https://www.cdc.gov/co ronavirus/2019-ncov/vaccines/faq .html [employer] Patient Portal Access Instructions: Stay connected with your healthcare team and access your personal medical information anytime with the [employer] Patient Portal. Please follow the directions below to create your [employer] account: 1.Access the email account you provided upon registration to the hospital/physician office.2.Look for an invitation email from [facility].3.Open the email and access the invitation link: Accept Invitation to [employer].4.Fill in the required dennis to create your account. To access your account, visit [employer]/Access Information ManagementOneChart. Click the blue button labeled Access Patient [...] you will allow to register on the [facility] for access to your information. You can also access the [facility] on the [employer] te. Simply click on Patient Portal and then log into your account. If you would like to receive a full copy of your medical records, please contact the [facility] Medical Records Department by calling [phone], Thursday through Thursday between 8 a.m. and [...] Call your local pharmacy or go to http://[employer].Posterbee/1I8Qr0z to find one close to you.3.Make use of household items: Use cat litter or old coffee grounds to dispose medications if other options are not available. Mix your drugs with these household products, seal them in an airtight container and throw it into the garbage. Call [facility]: [phone] to be sure your drugs can be [...] CHART COPY. Signatures Patient Education Materials - [facility] (04/2018)(CUSTOM) Indwelling Urinary Catheter Care, Adult Heart [...] aware that I should contact my doctor. 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 He apparently is seeing a yarn man in [place] due to worsening renal function. Patient just [...] Oral, BID hydrocortisone/neomycin/polymyxi n B OTIC SUSPENSION 1%-0.35%-55892 u/mL 4 drop(s), Ear, both, TID pantoprazole [...] onset, unknown etiology. Patient follows with a yarn man in [place], Dr. Wharton for worsening renal function. Last creatinine on 06/30 was 2.22 and GFR 30. This morning creatinine 2.53/GFR 24. Will encourage PO intake and hold off on additional IV fluids for now. Cardiology consulted and ordered 40 mg Lasix IV x 1 again today. If patient's overall status is improved tomorrow, we will discharge him home and have him follow-up with his yarn man. Repeat BMP in the am. 2. Pneumonia [...] by SALENA RAMOS on 07/14/2023 05:06 PM [facility] 07-14-2023 Note Date of Service 07/14/23 Chief [...] Oral, BID hydrocortisone/neomycin/polymyxi n B OTIC SUSPENSION 1%-0.35%-64893 u/mL 4 drop(s), Ear, both, TID pantoprazole [...] mg yesterday. Patient did start with the yarn man last month at [facility]. They did do a renal ultrasound which patient is waiting for results. They have an appointment with her yarn man 08/03/2023. 6. Amyloidosis Patient had been referred [...] by LOREN FLORIAN on 07/14/2023 01:56 PM [facility] 07-14-2023 Note ORIGINAL EXAMINATION: ULTRASOUND OF THE [...] 07/14/2023 11:07:42 AM Ordering Provider: SALENA RAMOS [facility] 07-13-2023 Note Date of Service 07/13/2023 Chief [...] Oral, BID hydrocortisone/neomycin/polymyxi n B OTIC SUSPENSION 1%-0.35%-20577 u/mL 4 drop(s), Ear, both, TID pantoprazole [...] by SALENA RAMOS on 07/13/2023 02:01 PM [facility] 12-18-2023 Note ORIGINAL EXAMINATION: CT OF THE [...] HISTORY: Reason for Exam: pleural effusion FINDINGS: Wdzj-cb-phehnlkp degenerative changes are noted in the spine. [...] Sign Date: 07/13/2023 10:19:01 AM Ordering Provider: [facility]12-18-2023 Note. MICRO - Microbiology PROCEDURE: Legionella Urine [...] Locations *1: This test was performed at: [facility], [address] [place] [address], [id number]- , [facility] ([place])07-12-2023 Evaluation + Plan noteExtracted from: Title:History and Physical Author:SALENA RAMOS APRN-GUARD LIEUTENANT Date:07/12/23 1. IVANIA (acute kidney injury) Acute, [...] collaborating with physician, and documenting in chart. [facility] 12-17-2023 Note Date of Service 07/12/2023 Chief Complaint c/o weakness and sob today s/p cough x 1 week History of Present Illness Patient is an 83-year-old male, who follows with Dr. Alex Fitzpatrick with a past medical history significant for hypertension, hyperlipidemia, amyloidosis, chronic kidney disease, CVA and dementia, presented to [facility] emergency department with the chief complaint of [...] 150, BUN 54 and creatinine 2.71. BNP 30921. Troponin negative. 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 [...] skin or eyes Rapid, unexplained weight gain [phone] [employer] [place] [address], [place] [address]. All rights reserved. This information is not intended as a substitute for professional medical care. Always follow yourhealthcare professional's instructions. Follow Up Care 09/14/2022 17:54:20 With:ALEX FITZPATRICK MD Address: [address] [place] [phone]- [phone] When:3-5 days [facility] 02-19-2023 Note Discharge Instructions Thank you for [...] MD When Within 3-5 days Where: [address] [facility] [address] [place] [address]- [phone] Allergies Cipro iodine (Hives) Medications Please ask [...] insufficiency or varicose veins, don't sit or watchstander one place for long periods of time. [...] skin or eyes Rapid, unexplained weight gain [phone] [employer]. [address] [place] [address]. All rights reserved. This information is not intended as a substitute for professional medical care. Always follow yourhealthcare professional's instructions. Additional Information VACCINATE! IT SAVES LIVES! Members of the community who have not yet received the COVID-19 vaccine and would like to receive it can visit one of [facility] vaccine clinics. There are many vaccine clinic locations within the [facility]. For locations and available times, please visit www.gettheshot.coronavirus.[place].gov/. It is important to note that some COVID mobile vaccine clinics are held outdoors and may be canceled in rainy or stormy conditions. To learn more about pediatric vaccinations (ages 5-11), we invite you to visit the [facility] webpage. https://www.[facility].org/pages/1432-Ajdng-Pchittsrtjh-Ywtuoxqymk-Gjqmm-Sin stions.htmlTo learn more about the COVID-19 vaccine, we invite you to visit the CDC website for a list of frequently asked questions. https://www.cdc.gov/coronavirus/2019-ncov/vaccines/faq.html [employer] Patient Portal Access Instructions: Stay connected with your healthcare team and access your personal medical information anytime with the [employer] Patient Portal. If you would like a full copy of your medical records please contact the [facility] Medical Records Department Thursday through Thursday between 8a.m. and 4:30p.m. Please follow the directions below to access the portal: 1.Access the email account you provided upon registration to the [facility].2.Look for an invitation email from [facility].3.Open the email and access the invitation link: Accept Invitation to [employer] How To4.Fill in the required dennis to create your [...] you will allow to register on the [employer] Patient Portal for access to your information. You can also access the [employer] Patient Portal on the StyleQ te. Simply click on Health Records under IntoOutdoors and then click on the [employer] logo. [...] Call your local pharmacy or go to http://[employer].Posterbee/3R5Md4l to find one close to you.3.Make use of household items: Use cat litter or old coffee grounds to dispose medications if other options arenot available. Mix your drugs with these household products, seal them in an airtight container andthrow it into the garbage. Call [facility]: [phone] to be sure your drugs can be [...] aware that I should contact my doctor. 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02-19-2023 Note ORIGINAL EXAMINATION: ONE XRAY VIEW [...] Sign Date: 09/14/2022 6:57:36 PM Ordering Provider: [facility]11-10-2022 Note ORIGINAL NM MYOCARDIAL SPECT STRESS/REST CLINICAL [...] By: Kayode Haywood MD Preliminary Report By: Mlia Matias Electronically Signed By: Kayode Haywood MD Dictated Date: 06/05/2022 10:37:12 AM Prelim Date: 06/05/2022 11:16:29 AM Sign Date: 06/05/2022 12:27:17 PM Ordering Provider:[facility]11-10-2022 Note ORIGINAL NM MYOCARDIAL SPECT STRESS/REST CLINICAL [...] AM Sign Date: 06/05/2022 12:27:17 PM [facility]20[facility] Evaluation + Plan note Diagnostic Tests Pending * .Immunofixation Screen, Serum 04/15/22 * SILVA (urine) 04/15/22 * [place]/Lambda, Free, Serum 04/15/22 [facility] 07-30-2022 Note ORIGINAL EXAMINATION: CT OF THE [...] Sign Date: 02/22/2022 8:07:24 AM Ordering Provider: [facility]07-30-2022 Note ORIGINAL EXAMINATION: ONE XRAY VIEW [...] Sign Date: 02/22/2022 8:05:31 AM Ordering Provider: [facility]07-30-2022 Note ORIGINAL EXAMINATION: CT OF THE CERVICAL [...] Sign Date: 02/22/2022 7:50:27 AM Ordering Provider: [facility]07-30-2022 SARS-CoV-2 (COVID-19) RNA TYESHA+probe Ql (Nph)Negative (02/22/22 7:43 AM)AO Auto Urine [id number] Note ORIGINAL EXAMINATION: CT OF THE CERVICAL [...] Sign Date: 02/22/2022 7:50:27 AM Ordering Provider: [facility]07-30-2022 Note ORIGINAL EXAMINATION: CT OF THE HEAD [...] Sign Date: 02/22/2022 8:07:24 AM Ordering Provider: [facility]07-30-2022 Note ORIGINAL EXAMINATION: ONE XRAY VIEW OF [...] Sign Date: 02/22/2022 8:05:31 AM Ordering Provider: [facility]12-22-2021 Hospital Discharge instructions Patient Education 07/17/2021 18:23:16 [...] directed by your healthcare provider Congested cough [phone] [employer]. [address] [place] [address], [place] [address]. All rights reserved. This information is not intended as a substitute for professional medical care. Always follow yourhealthcare professional's instructions. Follow Up Care 07/17/2021 15:41:54 With:JACKY LANCASTER MD, Internal Medicine Address: [address] [place] [address]- When:2-4 days [facility] Evaluation + Plan note No data available for this section [facility] Evaluation + Plan note Future Appointments Appointment Date:07/11/2022 09:15:00 AM Scheduled Provider: Location:[facility] Appointment Type:CV OV [facility] Hospital Discharge instructions No data available for this section [facility] Note* BRADY ADAM DO: SIGN, VERIFY Event Display: EKG [ED AO] - CV Authored Date: [id number] [facility] Progress note No data available for this section [facility] Summary Purpose Family History No Family History Records FoundNo Family History Records Found No data available for this section No data available for this section No Family History Records Found Advance Directives No Advanced Directives Records FoundNo Advanced Directives Records FoundNo Advanced Directives Records Found Procedure Findings Note HNO ID: [id number] Author: Justina Amin Service: Pulmonary Disease Author Type: Physician Type: Operative Report Filed: 07/07/2018 12:39 PM Note Text: See Epic Procedure note. Raheel Amin MD, [facility] [place] [address] P: [phone] F: [phone] Additional Source Comments (unrecognized sect ion and content) No Status Records FoundNo Status Records FoundNo Status Records Found INFORMATION SOURCE (unrecogn ized section and content) DATE CREATED AUTHOR AUTHOR'S ORGANIZ ATION 05/30/2022 [facility] DATE CREATED AUTHOR AUTHOR'S ORGANIZ ATION 08/07/2023 [facility] ([place]) Care Team (unrecognized sect ion and content) Care Team Personnel Name: Jevon Lopezrdeb Martino PT Position: P3 Scheduling - Overnight Cashier Advanced Member Role: Other Name: PHYSICIAN, NOT RECORDED Member Role: Primary Care Physician Care Team Related Persons Name: JEREMIAS HATCH Address: Home [address] Care Team Personnel Name: Jevon Lopez PT Position: P3 Scheduling - Overnight Cashier Advanced Member Role: Other Name: ALEX FITZPATRICK MD Member Role: Primary Care Physician Address: Address: [address] [place] [address]- Care Team Related Persons Name: HOLDEN, JEREMIAS Dickerson Address: Home [address] [place] [id number] Care Team Personnel Name: Jevon Lopez PT Position: P3 Scheduling - Overnight Cashier Advanced Member Role: Other Name: ALEX FITZPATRICK MD Member Role: Primary Care Physician Address: Address: [address] [place], [place] [id number]- Care Team Related Persons Name: JEREMIAS HATCH Address: Home [address] [place], [place] [id number] Care Team Personnel Name: Jevon Lopez PT Position: P3 Scheduling - Overnight Cashier Advanced Member Role: Other Name: ALEX FITZPATRICK MD Member Role: Primary Care Physician Address: Address: [address] [place] [address] [place] [address]- Name: DUYEN NUR MD Position: ED Physician Member Role: ED Physician Address: Address: [address] [place] [address]- Care Team Related Persons Name: JEREMIAS HATCH Address: Home [address] [place], [place] [id number] [place] Patient Care team informatio n (unrecognized section and content) Care Team Personnel Name: Jevon Lopez Clerk Salena PT Position: P3 Scheduling - Overnight Cashier Advanced Member Role: Other Name: ALEX FITZPATRICK MD Member Role: Primary Care Physician Address: Address: [address] [place] [address]- Name: GARY WEN MD Position: ED Physician Member Role: ED Physician Address: Address: [address] [place] [address] Care Team Related Persons Name: JEREMIAS HATCH Address: Home [address] [place] [id number] Care Team Personnel Name: Jevon Lopez Clerk Salena PT Position: P3 Scheduling - Overnight Cashier Advanced Member Role: Other Name: ALEX FITZPATRICK MD Member Role: Primary Care Physician Address: Address: [address] [place] [address]- Name: GARY WEN MD Position: ED Physician Member Role: ED Physician Address: Address: [address] [place] [address] Care Team Related Persons Name: JEREMIAS HATCH Address: Home [address] [place], [place] [phone] FOR RECORDS PERTAINING TO PATIENTS WHO ARE [...] BE BASED ON THE PRIMARY CLINICAL RECORDS. [facility] [employer] provides no warranty or guarantee of the accuracy or completeness of information in this document.
== END | disposition home or self-care (01) ==
LOC: CT 12:21
PROVIDERS: PCP Internal Medicine; Referring Provider Internal Medicine Critical Care Medicine; Visit Provider Internal Medicine Critical Care Medicine
DX: R91.1 Solitary pulmonary nodule (principal)
CPT/HCPCS: 71250

== ENCOUNTER → 2023-09-26 | Outpatient (CLI) | payer MEDICARE, BC, SELFPAY ==
[2023-09-26 12:06] LABS: International Normalized Ratio 1.1; Prothrombin Time (Protime)PT. 13.8 SECONDS (11.7-14.9)
[2023-09-26 12:07] LABS: Partial Thromboplast Time 28.6 Seconds (24.1-36.2)
[2023-09-26 12:17] LABS: ALB/GLOB Ratio 1.2 RATIO (0.9-2.4); Globulin 2.6 g/dL (2.2-4.2); LDH 275 U/L (87-241); Protein, Total 5.6 g/dL (6.4-8.2)
== END | disposition home or self-care (01) ==
LOC: LAB 10:31
PROVIDERS: PCP Internal Medicine; Referring Provider Nurse Practitioner Acute Care; Visit Provider Nurse Practitioner Acute Care
DX: J90 Pleural effusion, not elsewhere classified (principal)
CPT/HCPCS: 36415; 83615; 84156; 85610; 85730

== ENCOUNTER → 2023-09-28 | Outpatient (CLI) | payer MEDICARE, BC, SELFPAY ==
--- NOTE | 2023-09-28 | FLU_PTH ---
PATHOLOGY RESULTS PATIENT: MELY HATCH LOC: [facility]#:[id number] AGE/SX: 83/M ROOM: RE09/28/[address]: KWAKU Gonzalez : 1940 BED: DIS: 09/28/2023 SPEC #: [id number] RECD: 09/28/23 08:26 STATUS: ARIN FRITZ #: [id number] ALCIDES: 09/28/23 00:[address]: Alix Rosa NP DEPT: CYTOLOGY RECD BY: Omayra Abbott ENTERED: 09/28/23 09:41 SP TYPE: Fluid OTHR DR: Dr. Leda Verdin MD Tissues: THORACIC FLUID Procedures: Special Stain Group II Surgery Specimen Level IV Cytospin Fluid HEADER OPERATION: Ultrasound-guided left thoracentesis PRE-OP DIAGNOSIS: Left pleural effusion TISSUE SUBMITTED: Thoracentesis fluid for cytology DIAGNOSIS CYTOLOGY Thoracentesis fluid for cytology (cytospin and cell block): Negative for malignant cells. See comment. SJ:gwendolyn 09/29/2023 COMMENT Clinical correlation and appropriate follow up are necessary. CYTOLOGY STUDY Slides are reviewed. CYTOLOGY GROSS Received is 80 ml of yellow cloudy fluid labeled with the patient's name and and designated per the requisition as thoracentesis. Submitted for cytology preparation including cell block. / gwendolyn 09/28/2023 TC:5 CPT: 19991, 74232
--- OUTSIDE RECORDS SUMMARY | 2023-09-28 07:56 | XMS RPT_ITS | CCD ---
Author Name Unknown Address [address] [place] [address] Organization [facility] Care Team Providers Care National Account Manager Name Role Phone RAHEEL AMIN Admitting Unavailable RAHEEL AMIN Attending Unavailable ANISHA GUNN, DR JACKY Flaherty Primary Care Physician ( [phone] John PT, Salena Unavailable Unavailable PHYSICIAN, NOT RECORDED Primary Care Physician U gisselle FITZPATRICK MD, ALEX Primary Care Physician [phone] COLLEEN HOWELL Referring Unavailable COLLEEN HOWELL Primary Care Unavailable GARY WEN Attending Unavailable NANETTE GUNN, ALEX Primary Care Unavailable NANETTE GUNN, ALEX Primary Care Unavailable MARY MORILLO MD Attending Unavail able NANETTE GUNN, ALEX Primary Care Unavailable CYNDY WELDING MACHINE OPERATOR GAS METAL ARC-BRASS SORTER, ENRIQUE Admitting Unavailab lolita MULLER, LOREN Consulting Unavailab YRIS Sanz DO Attending Unavailable Allergies Allergy Classification Reported Allergen(s) Allergy Type Date of Onset Reaction(s) Facility (9 sources) Ciprofloxacin; Translations: [CIPROFLOXACIN] Drug Allergy 7 [facility] Repository (2 sources) Codeine; Translations: [CODEINE] Drug Allergy 8 [facility] Repository (2 sources) Contrast media; Translations: [CONTRAST DYE] Propensity to adverse reactions to drug (disorder) 9 [facility] Repository (2 sources) Doxycycline; Translations: [DOXYCYCLINE] Drug Allergy 4 [facility] Repository (5 sources) Iodine; Translations: [iodine] Drug Allergy Weal (disorder) [facility] CV Medications Current Medications Medication Drug Class(es) Dates Sig (Normalized) Sig (Original) amLODIPine 10 mg oral tablet (4 sources) Dihydropyridine Calcium Channel Zoe Start: 03-18-2022 amLODIPine 10 mg oral tablet Dose : 10 mg = 1 tab(s), Oral, qDay, # 30 tab(s), 0 Refill(s), [facility]: [id number], 170, cm, 03/11/22 18:36:00 EDT, Height Start [...] Non-Invasive 83 mm[Hg] DR GARY WEN MD [facility] 08-01-2023 07:00-0500 Heart rate 86 /min DR GARY WEN MD [facility] 08-01-2023 07:00-0500 Respiratory rate 16 /min DR GARY WEN MD [facility] 08-01-2023 07:00-0500 Systolic Blood Pressure Non-Invasive 166 mm[Hg] DR GARY WEN MD [facility] 08-01-2023 04:03-0500 Body height 172.[address] GARY WEN MD [facility] 08-01-2023 04:03-0500 Body temperature 97.34 [degF] DR GARY WEN MD [facility] 08-01-2023 04:03-0500 Body weight 57.[address] GARY WEN MD [facility] 08-01-2023 04:03-0500 Diastolic Blood Pressure Non-Invasive 138 mm[Hg] DR GARY WEN MD [facility] 08-01-2023 04:03-0500 Heart rate 110 /min DR GARY WEN MD [facility] 08-01-2023 04:03-0500 Respiratory rate 18 /min DR GARY WEN MD [facility] 08-01-2023 04:03-0500 Systolic Blood Pressure Non-Invasive 152 mm[Hg] DR GARY WEN MD [facility] 07-15-2023 13:16-0500 Body temperature 97.34 [degF] ENRIQUE NAYLOR APRN-BRASS SORTER [facility] 07-15-2023 13:16-0500 Diastolic Blood Pressure Non-Invasive 73 mm[Hg] ENRIQUE NAYLOR WELDING MACHINE OPERATOR GAS METAL ARC-BRASS SORTER [facility] 07-15-2023 13:16-0500 Heart rate 62 /min ENRIQUE NAYLOR WELDING MACHINE OPERATOR GAS METAL AR[employer]-BRASS SORTER [facility] 07-15-2023 13:16-0500 Reason For Taking VItal Signs ENRIQUE NAYLOR WELDING MACHINE OPERATOR GAS METAL AR[employer]-BRASS SORTER [facility] 07-15-2023 13:16-0500 Respiratory rate 18 /min ENRIQUE NAYLOR WELDING MACHINE OPERATOR GAS METAL ARC-BRASS SORTER [facility] 07-15-2023 13:16-0500 Systolic Blood Pressure Non-Invasive 132 mm[Hg] ENRIQUE NAYLOR WELDING MACHINE OPERATOR GAS METAL ARC-BRASS SORTER [facility] 07-15-2023 10:20-0500 Heart rate 78 /min ENRIQUE NAYLOR WELDING MACHINE OPERATOR GAS METAL ARC-BRASS SORTER [facility] 07-15-2023 10:20-0500 Respiratory rate 20 /min ENRIQUE NAYLOR WELDING MACHINE OPERATOR GAS METAL ARC-BRASS SORTER [facility] 07-15-2023 09:44-0500 Diastolic Blood Pressure Non-Invasive 67 mm[Hg] ENRIQUE NAYLOR WELDING MACHINE OPERATOR GAS METAL ARC-BRASS SORTER [facility] 07-15-2023 09:44-0500 Heart rate 68 /min ENRIQUE NAYLOR WELDING MACHINE OPERATOR GAS METAL ARC-BRASS SORTER [facility] 07-15-2023 09:44-0500 Systolic Blood Pressure Non-Invasive 168 mm[Hg] ENRIQUE NAYLOR WELDING MACHINE OPERATOR GAS METAL ARC-BRASS SORTER [facility] 07-15-2023 07:22-0500 Body temperature 98.06 [degF] ENRIQUE NAYLOR WELDING MACHINE OPERATOR GAS METAL ARC-BRASS SORTER [facility] 07-15-2023 07:22-0500 Diastolic Blood Pressure Non-Invasive 68 mm[Hg] ENRIQUE NAYLOR WELDING MACHINE OPERATOR GAS METAL ARC-BRASS SORTER [facility] 07-15-2023 07:22-0500 Heart rate 43 /min ENRIQUE NAYLOR WELDING MACHINE OPERATOR GAS METAL ARC-BRASS SORTER [facility] 07-15-2023 07:22-0500 Respiratory rate 16 /min ENRIQUE NAYLOR WELDING MACHINE OPERATOR GAS METAL ARC-BRASS SORTER [facility] 07-15-2023 07:22-0500 Systolic Blood Pressure Non-Invasive 168 mm[Hg] ENRIQUE NAYLOR WELDING MACHINE OPERATOR GAS METAL ARC-BRASS SORTER [facility] 07-15-2023 04:25-0500 Body temperature 97.52 [degF] ENRIQUE NAYLOR WELDING MACHINE OPERATOR GAS METAL ARC-BRASS SORTER [facility] 07-15-2023 04:25-0500 Heart rate 48 /min ENRIQUE NAYLOR WELDING MACHINE OPERATOR GAS METAL ARC-BRASS SORTER [facility] 07-15-2023 04:25-0500 Reason For Taking VItal Signs ENRIQUE NAYLOR WELDING MACHINE OPERATOR GAS METAL ARC-BRASS SORTER [facility] 07-14-2023 23:50-0500 Heart rate 61 /min ENRIQUE NAYLOR WELDING MACHINE OPERATOR GAS METAL ARC-BRASS SORTER [facility] 07-14-2023 23:50-0500 Reason For Taking VItal Signs ENRIQUE NAYLOR WELDING MACHINE OPERATOR GAS METAL ARC-BRASS SORTER [facility] 07-14-2023 18:41-0500 Body temperature 98.06 [degF] ENRIQUE NAYLOR WELDING MACHINE OPERATOR GAS METAL ARC-BRASS SORTER [facility] 07-14-2023 18:41-0500 Heart rate 55 /min ENRIQUE NAYLOR WELDING MACHINE OPERATOR GAS METAL ARC-BRASS SORTER [facility] 07-14-2023 18:25-0500 Heart rate 60 /min ENRIQUE CYNDY WELDING MACHINE OPERATOR GAS METAL ARC-BRASS SORTER [facility] 07-14-2023 11:30-0500 Heart rate 57 /min ENRIQUE NAYLOR WELDING MACHINE OPERATOR GAS METAL ARC-BRASS SORTER [facility] 07-12-2023 07:45-0500 Blood Pressure Cuff Size ENRIQUE NAYLOR WELDING MACHINE OPERATOR GAS METAL ARC-BRASS SORTER [facility] 07-12-2023 07:45-0500 Blood Pressure Location ENRIQUE NAYLOR WELDING MACHINE OPERATOR GAS METAL AR[employer]ASS S[employer] [facility] 07-12-2023 07:45-0500 Blood Pressure Method ENRIQUE NAYLOR WELDING MACHINE OPERATOR GAS METAL ARC-BRASS SORTER [facility] 07-12-2023 04:26-0500 Body height 172.7 cm ENRIQUE NAYLOR WELDING MACHINE OPERATOR GAS METAL ARC-BRASS SORTER [facility] 07-12-2023 04:26-0500 Body weight 59.4 kg ENRIQUE NAYLOR WELDING MACHINE OPERATOR GAS METAL ARC-BRASS SORTER [facility] 07-12-2023 04:26-0500 Body weight 19.92 kg/m2 ENRIQUE NAYLOR WELDING MACHINE OPERATOR GAS METAL ARC-BRASS SORTER [facility] 09-14-2022 19:50-0500 Diastolic Blood Pressure Non-Invasive 62 1 MARY MORILLO MD [facility] 09-14-2022 19:50-0500 Heart rate 72 /min MARY MORILLO MD [facility] 09-14-2022 19:50-0500 Respiratory rate 18 /min MARY MORILLO MD [facility] 09-14-2022 19:50-0500 Systolic Blood Pressure Non-Invasive 146 1 MARY MORILLO MD [facility] 09-14-2022 18:07-0500 Body temperature 97.52 [degF] MARY MORILLO MD [facility] 09-14-2022 18:07-0500 Diastolic Blood Pressure Non-Invasive 65 1 MARY MORILLO MD [facility] 09-14-2022 18:07-0500 Heart rate 61 /min MARY MORILLO MD [facility] 09-14-2022 18:07-0500 Respiratory rate 18 /min MARY MORILLO MD [facility] 09-14-2022 18:07-0500 Systolic Blood Pressure Non-Invasive 145 1 MARY MORILLO MD [facility] 02-22-2022 10:13-0400 Diastolic blood pressure 78 mm[Hg] BRADY ADAM DO [facility] 02-22-2022 10:13-0400 Heart rate 45 /min BRADY ADAM DO [facility] 02-22-2022 10:13-0400 Respiratory rate 16 /min BRADY ADAM DO [facility] 02-22-2022 10:13-0400 Systolic blood pressure 132 mm[Hg] BRADY ADAM DO [facility] 02-22-2022 09:18-0400 Diastolic blood pressure 86 mm[Hg] BRADY ADAM DO [facility] 02-22-2022 09:18-0400 Heart rate 43 /min BRADY ADAM DO [facility] 02-22-2022 09:18-0400 Respiratory rate 15 /min BRADY ADAM DO [facility] 02-22-2022 09:18-0400 Systolic blood pressure 110 mm[Hg] BRADY ADAM DO [facility] 02-22-2022 09:03-0400 Diastolic blood pressure 94 mm[Hg] BRADY ADAM DO [facility] 02-22-2022 09:03-0400 Heart rate 42 /min BRADY ADAM DO [facility] 02-22-2022 09:03-0400 Respiratory rate 14 /min BRADY ADAM DO [facility] 02-22-2022 09:03-0400 Systolic blood pressure 131 mm[Hg] BRADY ADAM DO [facility] 02-22-2022 08:38-0400 Heart rate 43 /min BRADY ADAM DO [facility] 02-22-2022 08:20-0400 Heart rate 43 /min BRADY ADAM DO [facility] 02-22-2022 06:46-0400 Body temperature 98.78 [degF] BRADY ADAM DO [facility] 07-17-2021 17:08-0500 Diastolic blood pressure 80 mm[Hg] MARY MORILLO MD [facility] 07-17-2021 17:08-0500 Heart rate 63 /min MARY MORILLO MD [facility] 07-17-2021 17:08-0500 Mean blood pressure 116 mm[Hg] MARY MORILLO MD [facility] 07-17-2021 17:08-0500 Respiratory rate 16 /min MARY MORILLO MD [facility] 07-17-2021 17:08-0500 Systolic blood pressure 189 mm[Hg] MARY MORILLO MD [facility] 07-17-2021 15:51-0500 Body temperature 98.24 [degF] MARY MORILLO MD [facility] 07-17-2021 15:51-0500 Diastolic blood pressure 86 mm[Hg] MARY MORILLO MD [facility] 07-17-2021 15:51-0500 Heart rate 65 /min MARY MORILLO MD [facility] 07-17-2021 15:51-0500 Mean blood pressure 124 mm[Hg] MARY MORILLO MD [facility] 07-17-2021 15:51-0500 Respiratory rate 16 /min MARY MORILLO MD [facility] 07-17-2021 15:51-0500 Systolic blood pressure 200 mm[Hg] MARY MORILLO MD [facility] Encounters Encounter Date Encounter Type Care Provider Facility Start: 08-01-2023 End: 08-01-2023 Emergency department patient visit GARY WEN Facility:B Start: 08-01-2023 End: 08-01-2023 Emergency department patient visit DR GARY WEN MD [facility] Start: 07-12-2023 End: 07-15-2023 Evaluation and management of inpatient ALEX FITZPATRICK MD Facility:B Start: 07-11-2023 End: 07-15-2023 Evaluation and management of inpatient ENRIQUE NAYLOR WELDING MACHINE OPERATOR GAS METAL ARC-BRASS SORTER [facility] Start: 09-14-2022 End: 09-14-2022 Emergency department patient visit ALEX FITZPATRICK MD Facility:B Start: 09-14-2022 End: 09-14-2022 Emergency department patient visit MARY MORILLO MD [facility] Start: 06-05-2022 End: 06-05-2022 Patient encounter procedure DARA GREY MD [facility] Start: 04-15-2022 End: 04-15-2022 Patient encounter procedure DARA GREY MD [facility] Start: 02-22-2022 End: 02-22-2022 Emergency department patient visit BRADY ADAM DO [facility] Start: 07-17-2021 End: 07-17-2021 Emergency department patient visit MARY MORILLO MD [facility] Start: 10-29-2020 End: 10-29-2020 ambulatory COLLEEN [facility] Start: 07-07-2018 End: 07-07-2018 Patient encounter procedure [facility] Procedures Date Procedure Procedure Detail Performing Clinician Start: 06-05-2022 Cardiovascular stres s testing MARY MORILLO MD Immunizations Immunization Date Immunization Notes Care Provider Fa brittani 01-07-2020 tetanus toxoid, redu abner diphtheria toxoid, and acellular pertussis vaccine, adsorbed; Translations: [Boostrix (Tdap)] MARY MORILLO MD [facility] 05-28-2015 tetanus toxoid, redu abner diphtheria toxoid, and acellular pertussis vaccine, adsorbed MARY MORILLO MD [facility] Payers Date Payer Category Payer Unknown [id number] 2004 Medicare [id number] 1940 Unknown [id number] 1940 Unknown [id number] 1940 Unknown [id number] Social History Date Type Detail Facility Start: 12-24-2018 Ex-smoker (finding) [facility] Assigned At [facility] Start: 07-11-2023 Tobacco smoking status Never s moked tobacco (finding) [facility] Functional Status Date Assessment Result Facility 08-01-2023 Functional Status ID band on, Allergy Band on, Safety level maintained [facility] 07-15-2023 Functional Status Nurse Safety C hecks q2hrs Performed 7am-3pm [facility] 07-15-2023 Functional Status Sequential Com pression Device bilateral knee high removed/off [facility] 07-15-2023 Functional Status [facility] 07-15-2023 Functional Status Identified as high risk, Fall ID band on, Bed alert on, Door open, Non-Slip footwear, Room check performed [facility] 07-15-2023 Functional Status [facility] 07-14-2023 Functional Status [facility] 07-14-2023 Functional Status K[facility] 07-14-2023 Functional Status K[facility] 07-14-2023 Functional Status Min A 1 Kaushik [facility] 07-14-2023 Functional Status Supervised Kaushik [facility] 07-14-2023 Functional Status Breakfast Percent [facility] 07-13-2023 Functional Status [facility] 07-13-2023 Functional Status Split level home [facility] 07-13-2023 Functional Status [facility] 07-13-2023 Functional Status [facility] 07-13-2023 Functional Status [facility] 07-13-2023 Functional Status Repositions self [facility] 07-12-2023 Functional Status [facility] 07-12-2023 Functional Status [facility] 07-12-2023 Functional Status Sensory Defici ts Cognitive deficit [facility] 09-14-2022 Functional Status Independent [facility] Emeterio shrestha [facility] 09-14-2022 Functional Status Standard Safet y ID band on, Allergy Band on, Call device within reach, Bed in low position, Wheels locked, Upper/Half-Length side-rails up, Phone within reach, personal items within reach, Bedside Cart Locked, Visitor at bedside [facility] 02-22-2022 Functional Status Assistive Device None A [facility] 02-22-2022 Functional Status Standard Safet y ID band on, Call device within reach, Bed in low position, Wheels locked [facility] Mental Status Date Assessment Result Facility 08-01-2023 Mental Status Forgetful, Follows simple commands [facility] 07-15-2023 Mental Status Not oriented to time, Forgetful [facility] 07-14-2023 Mental Status [facility] 07-14-2023 Mental Status [facility] 07-14-2023 Mental Status [facility] 09-14-2022 Mental Status Orientation Oriented x [facility] 09-14-2022 Mental Status [facility] 02-22-2022 Mental Status Orientation Does not intera ct [facility] 02-22-2022 Mental Status [facility] Clinical Notes 07-17-2021 to 08-01-2023 Note Date [...] out oCatheter stops draining for 6 hours [id number] [employer]. [address] [place] [address], [place] [address]. All rights reserved. This information is not intended as a substitute for professional medical care. Always follow your healthcare professional's instructions. Follow Up Care 08/01/2023 03:57:29 With:JOEL BROOKE Address: [address] [place] [id number] [phone] Business (1) When:2-4 days [facility] 08-01-2023 Note Discharge Instructions Thank you for allowing [facility] to assist you with your healthcare needs. The following is important discharge information regarding your hospital visit. Diagnosis from Today's Visit Frequent Urination Urinary incontinence What to Do Next Instructions from Your Care Team No qualifying data available. Post Acute Orders No qualifying data available. You Need to Schedule the Following Appointments Follow Up with JOEL BROOKE When Within 2-4 days Where: [address] [place] [id number] [phone] Business (1) Allergies Cipro iodine (Hives) Medications [...] out oCatheter stops draining for 6 hours [id number] [employer]. [address] [place] [address]. All rights reserved. This information is not intended as a substitute for professional medical care. Always follow your healthcare professional's instructions. Additional Information VACCINATE! IT SAVES LIVES! Members of the community who have not yet received the COVID-19 vaccine and would like to receive it can visit one of [facility] vaccine clinics. There are many vaccine clinic locations within the [facility]. For locations and available times, please visit [email or web address] It is important to note that some COVID mobile vaccine clinics are held outdoors and may be canceled in rainy or stormy conditions. To learn more about pediatric vaccinations (ages 5-11), we invite you to visit the [facility] webpage. [email or web address] [email or web address] To learn more about the COVID-19 vaccine, we invite you to visit the CDC website for a list of frequently asked questions. https://www.cdc.gov/coronavirus/ 2019-ncov/vaccines/faq.html [facility] Access Instructions: Stay connected with your healthcare team and access your personal medical information anytime with the [facility] Patient Portal. If you would like a full copy of your medical records please contact the [facility] Medical Records Department Thursday through Thursday between 8a.m. and 4:30p.m. Please follow the directions below to access the portal: 1.Access the email account you provided upon registration to the [facility].2.Look for an invitation email from [facility].3.Open the email and access the invitation link: Accept Invitation to [facility].Fill in the required dennis to create your account. Sign into [email or web address] with your username and password that you [...] you will allow to register on the [employer] Patient Portal for access to your information. You can also access the [employer] Patient Portal on the [employer]. Simply click on Health Records under [employer] and then click on the archify logo. HOW TO SAFELY DISPOSE OF PRESCRIPTION [...] Call your local pharmacy or go to http://VenueBook/5D0Sd0n to find one close to you.3.Make use of household items: Use cat litter or old coffee grounds to dispose medications if other options are not available. Mix your drugs with these household products, seal them in an airtight container and throw it into the garbage. Call [facility]: [phone] to be sure your drugs can be [...] aware that I should contact my doctor. Patient/Regional Engagement Consultant Signature: Date/Time: Relationship to Patient: Witness Name/Signature: Date/Time: [facility] 07-18-2023 Note . MICRO - Microbiology PROCEDURE: [...] Locations *1: This test was performed at: [address], [address]- , [facility]) 07-18-2023 Note . MICRO - [...] Locations *1: This test was performed at: [address], [id number] [place] [address] [place] 07-15-2023 Hospital Discharge instructions Patient Education 07/15/2023 [...] to absorb moisture and to keep your atmospheric drier tender. SEEK MEDICAL CARE IF: Your urine is [...] Document Reviewed: 07/14/2014 ExitCare Patient Information 2015 [employer] [facility]. This information is not intended to [...] on each side. Do this in a [id number]-[id number] direction. ?If you are male: ?Use one [...] Clean the drainage bag according to the radial saw operator's instructions or as told by your health [...] and water are not available, use hand apparel embroidery digitizer. Always make sure there are no twists [...] 07/13/2006 Document Revised: 11/04/2019 Document Reviewed: 02/26/2018 [employer] Patient Education 2020 Expa. 07/15/2023 12:00:23 Heart Failure Exacerbation Heart Failure [...] Follow these instructions at home: Medicines Take wvka-tcp-nodxgsa and prescription medicines only as told by your health care provider. Do not stop taking your medicines or change the amount you take. If you are having problems or side effects from your medicines, talk to your health care provider. If you are having difficulty paying for your medicines, contact a social services aide or your clinic. There are many programs [...] 11/24/2017 Document Revised: 06/25/2018 Document Reviewed: 11/24/2017 [employer] Patient Education 2020 Expa. 07/15/2023 12:00:17 Acute Kidney Injury, Adult Acute [...] Follow these instructions at home: Medicines Take mdtb-cxr-rtuayrh and prescription medicines only as told by [...] is important. Where to find more information [employer]ney Patients: www.aakp.org National Kidney Foundation: www.kidney.org [employer]: www.akfinc.org Life Options Rehabilitation Program: [...] 01/26/2012 Document Revised: 06/25/2018 Document Reviewed: 07/03/2017 [employer] Patient Education 2020 Expa. Follow Up Care 07/11/2023 23:21:28 With:ALEX FITZPATRICK MD Address: [address] [place] [address] [place] [phone] [phone] When:3-5 days Comments:Please call to schedule your post-hospital follow-up appointment. [facility] Kaushikalisa Lundy 07-15-2023 Note Discharge Instructions Thank you for allowing [facility] to assist you with your healthcare needs. [...] also recommend scheduling an appointment with your pediatric neurologist due to your kidney function being a [...] to schedule your post-hospital follow-up appointment. Where: [address] [facility] [address] [place] [address] [phone] The Following Activity and Diet Have Been [...] times a day Pickup at [id number] Unchanged aspirin 81 Milligram by mouth Once [...] (in the morning) Pharmacy Information [id number]: [address], [place] [phone] What How Much When Why Comments Stop [...] to absorb moisture and to keep your atmospheric drier tender. SEEK MEDICAL CARE IF: Your urine is [...] 07/13/2006 Document Revised: 06/29/2013 Document Reviewed: 07/14/2014 [facility] Patient Information 2015 [employer]. This information is not intended to replace [...] on each side. Do this in a mmqbx-yn-sqjp direction. ? If you are male: ? [...] Clean the drainage bag according to the radial saw operator's instructions or as told by your health [...] and water are not available, use hand apparel embroidery digitizer. Always make sure there are no twists [...] 07/13/2006 Document Revised: 11/04/2019 Document Reviewed: 02/26/2018 [employer] Patient Education 2020 Expa. Heart Failure Exacerbation Heart failure is a [...] Follow these instructions at home: Medicines Take znjk-bih-noqqajv and prescription medicines only as told by your health care provider. Do not stop taking your medicines or change the amount you take. If you are having problems or side effects from your medicines, talk to your health care provider. If you are having difficulty paying for your medicines, contact a social services aide or your clinic. There are many programs [...] 11/24/2017 Document Revised: 06/25/2018 Document Reviewed: 11/24/2017 [employer]erie Patient Education 2020 [employer] Acute Kidney Injury, Adult Acute kidney [...] Follow these instructions at home: Medicines Take tfgq-qkz-arrlpvu and prescription medicines only as told by [...] is important. Where to find more information [employer] of Kidney Patients: www.aakp.org National Kidney Foundation: www.kidney.org [employer] Kidney Fund: www.akfinc.org Life Options Rehabilitation Program: [...] 01/26/2012 Document Revised: 06/25/2018 Document Reviewed: 07/03/2017 [employer] Patient Education 2020 Expa. Additional Information VACCINATE! IT SAVES LIVES! Members of the community who have not yet received the COVID-19 vaccine and would like to receive it can visit one of [facility] vaccine clinics. There are many vaccine clinic locations within the [facility]. For locations and available times, please visit https://gettheshot.coronavirus.[place].gov/. It is important to note that some COVID mobile vaccine clinics are held outdoors and may be canceled in rainy or stormy conditions. To learn more about pediatric vaccinations (ages 5-11), we invite you to visit the [facility] webpage. https://www.Tapjoys.org/p ages/1048-Qjkwt-Azkdgzmhfoz-Freq avzbkp-Ovndl-Ksszzzahi.html To learn more about the COVID-19 vaccine, we invite you to visit the CDC website for a list of frequently asked questions.https://www.cdc.gov/co ronavirus/2019-ncov/vaccines/faq .html [employer] Patient Portal Access Instructions: Stay connected with your healthcare team and access your personal medical information anytime with the [employer] Patient Portal. Please follow the directions below to create your [employer] account: 1.Access the email account you provided upon registration to the hospital/physician office.2.Look for an invitation email from [facility].3.Open the email and access the invitation link: Accept Invitation to [employer].4.Fill in the required dennis to create your account. To access your account, visit [email or web address]. Click the blue button labeled Access Patient [...] you will allow to register on the [facility] for access to your information. You can also access the [facility] on the [facility] te. Simply click on Patient Portal and then log into your account. If you would like to receive a full copy of your medical records, please contact the [facility] Medical Records Department by calling [phone], Thursday through Thursday between 8 a.m. and [...] Call your local pharmacy or go to [email or web address].Enprise [email or web address] to find one close to you.3.Make use of household items: Use cat litter or old coffee grounds to dispose medications if other options are not available. Mix your drugs with these household products, seal them in an airtight container and throw it into the garbage. Call [facility]: [phone] to be sure your drugs can be [...] CHART COPY. Signatures Patient Education Materials - [facility] (04/2018)(CUSTOM) Indwelling Urinary Catheter Care, Adult Heart [...] aware that I should contact my doctor. Patient/Regional Engagement Consultant Signature: Date/Time: Relationship to Patient: Witness Name/Signature: Date/Time: [facility] 07-14-2023 Note Date of Service 07/14/2023 Chief [...] placed yesterday. He apparently is seeing a pediatric neurologist in [place] due to worsening renal function. Patient just [...] Oral, BID hydrocortisone/neomycin/polymyxi n B OTIC SUSPENSION 1%-0.35%-03171 u/mL 4 drop(s), Ear, both, TID pantoprazole [...] onset, unknown etiology. Patient follows with a pediatric neurologist in [place], Dr. Wharton for worsening renal function. Last creatinine on 06/30 was 2.22 and GFR 30. This morning creatinine 2.53/GFR 24. Will encourage PO intake and hold off on additional IV fluids for now. Cardiology consulted and ordered 40 mg Lasix IV x 1 again today. If patient's overall status is improved tomorrow, we will discharge him home and have him follow-up with his pediatric neurologist. Repeat BMP in the am. 2. Pneumonia [...] by SALENA RAMOS on 07/14/2023 05:06 PM [facility] 07-14-2023 Note Date of Service 07/14/23 Chief [...] Oral, BID hydrocortisone/neomycin/polymyxi n B OTIC SUSPENSION 1%-0.35%-41182 u/mL 4 drop(s), Ear, both, TID pantoprazole [...] mg yesterday. Patient did start with the pediatric neurologist last month at [facility]. They did do a renal ultrasound which patient is waiting for results. They have an appointment with her pediatric neurologist 08/03/2023. 6. Amyloidosis Patient had been referred [...] by LOREN FLORIAN on 07/14/2023 01:56 PM [facility] 07-14-2023 Note ORIGINAL EXAMINATION: ULTRASOUND OF THE [...] 07/14/2023 11:07:42 AM Ordering Provider: SALENA RAMOS [facility] 07-13-2023 Note Date of Service 07/13/2023 Chief [...] Oral, BID hydrocortisone/neomycin/polymyxi n B OTIC SUSPENSION 1%-0.35%-27482 u/mL 4 drop(s), Ear, both, TID pantoprazole [...] by SALENA RAMOS on 07/13/2023 02:01 PM [facility] 12-18-2023 Note ORIGINAL EXAMINATION: CT OF THE [...] HISTORY: Reason for Exam: pleural effusion FINDINGS: Ldee-ys-syrcljlc degenerative changes are noted in the spine. [...] Sign Date: 07/13/2023 10:19:01 AM Ordering Provider: [facility]12-18-2023 Note. MICRO - Microbiology PROCEDURE: Legionella Urine [...] Locations *1: This test was performed at: [facility], [address] [place] [address], [phone] , [facility] [place]07-12-2023 Evaluation + Plan noteExtracted from: Title:History and Physical Author:SALENA RAMOS APRN-BRASS SORTER Date:07/12/23 1. IVANIA (acute kidney injury) Acute, [...] collaborating with physician, and documenting in chart. [facility] 12-17-2023 Note Date of Service 07/12/2023 Chief Complaint c/o weakness and sob today s/p cough x 1 week History of Present Illness Patient is an 83-year-old male, who follows with Dr. Alex Fitzpatrick with a past medical history significant for hypertension, hyperlipidemia, amyloidosis, chronic kidney disease, CVA and dementia, presented to [facility] emergency department with the chief complaint of [...] 150, BUN 54 and creatinine 2.71. BNP 10004. Troponin negative. 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 [address] [place] [address], [place] [address]. All rights reserved. This information is not intended as a substitute for professional medical care. Always follow yourhealthcare professional's instructions. Follow Up Care 09/14/2022 17:54:20 With:ALEX FITZPATRICK MD Address: [address] [place] [phone] [phone] When:3-5 days [facility] 02-19-2023 Note Discharge Instructions Thank you for [...] Within 3-5 days Where: [address] [facility] [address] [place] [phone] Allergies Cipro iodine (Hives) Medications Please ask [...] insufficiency or varicose veins, don't sit or television inspector one place for long periods of [...] skin or eyes Rapid, unexplained weight gain [phone] [employer]. [address] [place] [address]. All rights reserved. This information is not intended as a substitute for professional medical care. Always follow yourhealthcare professional's instructions. Additional Information VACCINATE! IT SAVES LIVES! Members of the community who have not yet received the COVID-19 vaccine and would like to receive it can visit one of [facility] vaccine clinics. There are many vaccine clinic locations within the [facility]. For locations and available times, please visit www.gettheshot.coronavirus.[place].gov/. It is important to note that some COVID mobile vaccine clinics are held outdoors and may be canceled in rainy or stormy conditions. To learn more about pediatric vaccinations (ages 5-11), we invite you to visit the [facility] webpage. https://www.[facility].org/pages/8620-Nhcfd-Qsculrerzdr-Qljthzuznt-Whpbx-Tqn stions.htmlTo learn more about the COVID-19 vaccine, we invite you to visit the CDC website for a list of frequently asked questions. https://www.cdc.gov/coronavirus/2019-ncov/vaccines/faq.html [facility] Patient Portal Access Instructions: Stay connected with your healthcare team and access your personal medical information anytime with the [facility] Patient Portal. If you would like a full copy of your medical records please contact the [facility] Medical Records Department Thursday through Thursday between 8a.m. and 4:30p.m. Please follow the directions below to access the portal: 1.Access the email account you provided upon registration to the [facility].2.Look for an invitation email from [facility].3.Open the email and access the invitation link: Accept Invitation to [facility]4.Fill in the required dennis to create your [...] you will allow to register on the [facility] Patient Portal for access to your information. You can also access the [facility] Patient Portal on the [employer] te. Simply click on Health Records under [employer] and then click on the K[facility] logo. [...] Call your local pharmacy or go to http://Kuldat.Enprise Solutions/8F9Mr0n to find one close to you.3.Make use of household items: Use cat litter or old coffee grounds to dispose medications if other options arenot available. Mix your drugs with these household products, seal them in an airtight container andthrow it into the garbage. Call [facility]: [phone] to be sure your drugs can be [...] aware that I should contact my doctor. Patient/Regional Engagement Consultant Signature: Date/Time: Relationship to Patient: Witness Name/Signature: Date/Time: [facility]02-19-2023 Note ORIGINAL EXAMINATION: ONE XRAY VIEW OF [...] Sign Date: 09/14/2022 6:57:36 PM Ordering Provider: [facility]02-19-2023 Note ORIGINAL EXAMINATION: ONE XRAY VIEW [...] 6:57:36 PM Ordering Provider: [facility]11-10-2022 Note ORIGINAL NM MYOCARDIAL SPECT STRESS/REST CLINICAL [...] AM Sign Date: 06/05/2022 12:27:17 PM Ordering Provider:[facility]11-10-2022 Note ORIGINAL NM MYOCARDIAL SPECT STRESS/REST [...] AM Sign Date: 06/05/2022 12:27:17 PM [facility]20[facility] Evaluation + Plan note Diagnostic Tests Pending * .Immunofixation Screen, Serum 04/15/22 * SILVA (urine) 04/15/22 * [place]/Lambda, Free, Serum 04/15/22 [facility] 07-30-2022 Note ORIGINAL EXAMINATION: CT OF THE [...] Sign Date: 02/22/2022 8:07:24 AM Ordering Provider: [facility]07-30-2022 Note ORIGINAL EXAMINATION: ONE XRAY VIEW OF [...] Sign Date: 02/22/2022 8:05:31 AM Ordering Provider: [facility]07-30-2022 Note ORIGINAL EXAMINATION: CT OF THE CERVICAL [...] Sign Date: 02/22/2022 7:50:27 AM Ordering Provider: [facility]07-30-2022 SARS-CoV-2 (COVID-19) RNA TYESHA+probe Ql (Nph)Negative (02/22/22 7:43 AM)AO Auto Urine [id number] Note ORIGINAL EXAMINATION: CT OF THE CERVICAL [...] Sign Date: 02/22/2022 7:50:27 AM Ordering Provider: [facility]07-30-2022 Note ORIGINAL EXAMINATION: CT OF THE HEAD [...] Sign Date: 02/22/2022 8:07:24 AM Ordering Provider: [facility]07-30-2022 Note ORIGINAL EXAMINATION: ONE XRAY [...] Sign Date: 02/22/2022 8:05:31 AM Ordering Provider: [facility]12-22-2021 Hospital Discharge instructions Patient Education 07/17/2021 18:23:16 [...] directed by your healthcare provider Congested cough [phone] [employer]. [address] [place] [address], [place] [address]. All rights reserved. This information is not intended as a substitute for professional medical care. Always follow yourhealthcare professional's instructions. Follow Up Care 07/17/2021 15:41:54 With:JACKY LANCASTER MD, Internal Medicine Address: [address] [place] [address]- When:2-4 days [facility] Evaluation + Plan note No data available for this section [facility] Evaluation + Plan note Future Appointments Appointment Date:07/11/2022 09:15:00 AM Scheduled Provider: Location:[facility] Appointment Type:CV OV [facility] Hospital Discharge instructions No data available for this section [facility] Note* BRADY ADAM DO: SIGN, VERIFY Event Display: EKG [ED AO] - CV Authored Date: [id number] [facility] Progress note No data available for this section [facility] Summary Purpose Family History No Family History Records FoundNo Family History Records Found No data available for this section No data available for this section No Family History Records Found Advance Directives No Advanced Directives Records FoundNo Advanced Directives Records FoundNo Advanced Directives Records Found Procedure Findings Note HNO ID: [id number] Author: Justina Amin Service: Pulmonary Disease Author Type: Physician Type: Operative Report Filed: 07/07/2018 12:39 PM Note Text: See Epic Procedure note. Raheel Amin MD, [facility] Medical Office [place] [address] P: [phone] F: [phone] Additional Source Comments (unrecognized sect ion and content) No Status Records FoundNo Status Records FoundNo Status Records Found INFORMATION SOURCE (unrecogn ized section and content) DATE CREATED AUTHOR AUTHOR'S ORGANIZ ATION 05/30/2022 [facility] DATE CREATED AUTHOR AUTHOR'S ORGANIZ ATION 08/07/2023 [facility] Care Team (unrecognized sect ion and content) Care Team Personnel Name: Jevon Lopezrdeb Martino PT Position: P3 Scheduling - Fashion Stylist Advanced Member Role: Other Name: PHYSICIAN, NOT RECORDED Member Role: Primary Care Physician Care Team Related Persons Name: JEREMIAS HATCH Address: Home [address] Care Team Personnel Name: Jevon Lopez PT Position: P3 Scheduling - Fashion Stylist Advanced Member Role: Other Name: ALEX FITZPATRICK MD Member Role: Primary Care Physician Address: Address: [address] [place] [address]- Care Team Related Persons Name: HOLDEN, JEREMIAS Dickerson Address: Home [address] [place] [address] Care Team Personnel Name: Jevon Lopez PT Position: P3 Scheduling - Fashion Stylist Advanced Member Role: Other Name: ALEX FITZPATRICK MD Member Role: Primary Care Physician Address: Address: [address] [place], [place] [id number]- Care Team Related Persons Name: JEREMIAS HATCH Address: Home [address] [place], [place] [id number] Care Team Personnel Name: Jevon Lopez PT Position: P3 Scheduling - Fashion Stylist Advanced Member Role: Other Name: ALEX FITZPATRICK MD Member Role: Primary Care Physician Address: Address: [address] [place] [address] [place] [address]- Name: DUYEN NUR MD Position: ED Physician Member Role: ED Physician Address: Address: [address] [place] [address]- Care Team Related Persons Name: JEREMIAS HATCH Address: Home [address] [place], [place] [id number] [place] Patient Care team informatio n (unrecognized section and content) Care Team Personnel Name: Jevon Lopez Clerk Salena PT Position: P3 Scheduling - Fashion Stylist Advanced Member Role: Other Name: ALEX FITZPATRICK MD Member Role: Primary Care Physician Address: Address: [address] [place] [address]- Name: GARY WEN MD Position: ED Physician Member Role: ED Physician Address: Address: [address] [place] [address] Care Team Related Persons Name: JEREMIAS HATCH Address: Home [address] [place] [phone] Care Team Personnel Name: Jevon Lopez Clerk Salena PT Position: P3 Scheduling - Fashion Stylist Advanced Member Role: Other Name: ALEX FITZPATRICK MD Member Role: Primary Care Physician Address: Address: [address] [place] [address]- Name: GARY WEN MD Position: ED Physician Member Role: ED Physician Address: Address: [address] [place] [address] Care Team Related Persons Name: JEREMIAS HATCH Address: Home [address] [place], [place] [phone] FOR RECORDS PERTAINING TO PATIENTS WHO ARE [...] BE BASED ON THE PRIMARY CLINICAL RECORDS. [facility] [employer] provides no warranty or guarantee of the accuracy or completeness of information in this document.
[2023-09-28 08:05] VITALS: BP 111/54; PULSE 60; RESP 18; TEMP 36.4; O2SAT 96
[2023-09-28 08:09] VITALS: BP 102/51; PULSE 58; RESP 18; O2SAT 95
[2023-09-28] MEDS: Lidocaine 2% (20 ml mdv) 20 ML Vial INFILT (08:09)
[2023-09-28 08:15] VITALS: BP 102/57; PULSE 58; RESP 18; TEMP 36.4; O2SAT 95
--- NOTE | 2023-09-28 08:15 | RAD_ITS ---
INDICATION: POST THORA EXAMINATION/TECHNIQUE: X-RAY - XR Chest 2 Views COMPARISON: Prior study dated: 08/30/2023 FINDINGS: LINES/DEVICES: None. LUNGS: The lungs remain hyperinflated with COPD changes. Decreased left pleural effusion. Since in the left lung base essentially unchanged. Nodular density overlying the left costophrenic angle. Persistent small right pleural effusion. MEDIASTINUM AND CARDIOVASCULAR STRUCTURES: Cardiac silhouette not enlarged. Central airways and mediastinal contour are unremarkable. BONES AND SOFT TISSUES: Unchanged. RAD/Chest Insp/Exp 2 View IMPRESSION: 1. Decreased left pleural effusion. 2. Lucency in the left lung base unchanged. No definite pneumothorax. 3. Otherwise no significant change. Electronically Signed: Fred Arellano MD at 8:35 EST ,
[2023-09-28 08:20] VITALS: BP 112/61; PULSE 59; RESP 18; O2SAT 98
[2023-09-28 08:26] LABS: Cytology, Body Fluid / CSF SEE PATHOLOGY REPORT
--- NOTE | 2023-09-28 08:47 | PRO.PCM_ITS ---
Procedure Report Date of Procedure: 09/28/23 Assessment & Plan Assessment/Plan (1) Pleural effusion, left: PLAN: PROCEDURE: Ultrasound Guided Thoracentesis ORDERING PROVIDER: Alix Rosa CNP INDICATION: Male, 83 years old. Left pleural effusion. PROVIDER: RENZO Bella PROCEDURE: The risks, benefits, and alternatives to the procedure were explained to the patient. The specific risks of bleeding, infection, and pneumothorax requiring chest tube insertion were discussed and accepted. Written informed consent was obtained. The patient was placed in the sitting, upright position. Ultrasonographic evaluation of the bilateral lower pleural spaces was carried out. An adequate pocket was identified in the left lower pleural space.The overlying skin was prepped and draped in sterile fashion. 2% lidocaine was administered subcutaneously for local anesthesia. Under ultrasound guidance, a 5-Lithuanian thoracentesis needle/catheter system was advanced into the left posterior lower pleural fluid collection. 990 ml of clear yellow colored fluid was drained. 100 mL of this fluid was sent to the laboratory for analysis. The catheter was removed, and a sterile dressing was applied. The patient tolerated the procedure well. A chest x-ray was ordered. IMPRESSION: Successful ultrasound-guided thoracentesis of left pleural effusion. Procedures Radiology Radiology US Procedures: [id number] Thoracentesis
[2023-09-28 08:55] LABS: Body Fluid Mononuclear WBC # 0.128 10^3/uL; Body Fluid Mononuclear WBC % 85.9 %; Body Fluid Polynuclear WBC # 0.021 10^3/uL; Body Fluid Polynuclear WBC % 14.1 %; White Blood Count/Body Fluid 0.149 10^3/uL
[2023-09-28 09:07] LABS: LDH,Body Fluid 64 Units/L (Not Establ.); Protein, Body Fluid 1.1 g/dL (Not Establ.)
[2023-09-28 11:32] LABS: Lymphocytes 5 %; Other Cell Type/BF 95 %
[2023-09-28 11:33] LABS: Appearance/Body Fluid CLEAR; Color/Body Fluid YELLOW; Source- Body Fluid THORACENTESIS
[2023-09-28 12:33] LABS: Auto B Fluid Analyzer BKGD Ct COUNTS W/IN LIMITS (W/IN LIMITS)
[2023-09-28 12:36] LABS: Red Cell Count/Body Fluid 10 /mm3
[2023-09-30 09:12] LABS: Pathologist Comment/Body Fluid Reviewed
== END | disposition home or self-care (01) ==
PROVIDERS: PCP Internal Medicine; Referring Provider Nurse Practitioner Acute Care; Visit Provider Nurse Practitioner Acute Care
DX: J90 Pleural effusion, not elsewhere classified (principal)
CPT/HCPCS: 32555; 71046; 83615; 84157; 87070; 87075; 87205; 88108; 88305; 88313; 89050

== ENCOUNTER 2023-10-10 07:30 | Emergency (ER) | payer MEDICARE, BC, SELFPAY ==
[2023-10-10 07:31] VITALS: BP 174/74; PULSE 71; RESP 14; TEMP 36.6; O2SAT 93
[2023-10-10 07:33] VITALS: BMI 18.6
--- NOTE | 2023-10-10 07:40 | ED.VIS.FALL ---
HPI HPI - Fall History of Present Illness Chief Complaint: Fall Informant: patient Occured/Mechanism Occurred: Today Mechanism/Context: Yes trip Pain/Injury Pain Location: upper extremity (Right elbow) and lower extremity (Right hip) Quality of Pain: Dull Worsened by: Palpation, movement Relieved by: Nothing Associated Symptoms Associated Symptoms: Negative for Parasthesias, Weakness, Loss of function, Inability to ambulate, Loss of consciousness or Amnesia Narrative Narrative: Patient presents after a fall that occurred this morning. Patient states he got up to use the restroom. Patient states he had a hand railing and fell. Patient states he has pain in his right elbow and the right hip area. Patient was able to get up and ambulate after the fall. Patient states she has been urinating more frequently and having some dysuria. Patient denies any fevers or chills. Patient describes his pain as dull. Patient states his pain is worse with palpation over the area and with movement of his elbow. Patient denies any loss of consciousness. Patient did hit his head and had a laceration to the right side of his nose. Patient is unsure of his last tetanus. Tetanus Immunization: Unknown [facility] Medical History Anxiety Back problem Carotid artery occlusion without infarction Cataracts, bilateral Chronic prostatitis Chronic pulmonary heart disease CKD (chronic kidney disease), stage II COPD (chronic obstructive pulmonary disease) Degenerative disc disease Esophageal reflux Essential tremor Hearing problem Heart murmur History of common carotid artery stent placement History of stroke History of tobacco use HTN (hypertension) Hyperlipidemia IBS (irritable bowel syndrome) Osteoarthritis Personal history of transient ischemic attack (TIA) and cerebral infarction without residual deficit Pneumonia RLL pneumonia Spinal stenosis of lumbar region without neurogenic claudication Stroke Home Medications finasteride 5 mg tablet 5 mg PO DAILY 04/23/22 [History Last Taken Unknown] Disability Placard #1 ea 05/20/22 [Rx Last Taken Unknown] Symbicort 160 mcg-4.5 mcg/actuation HFA aerosol inhaler (budesonide-formoterol) 2 puff inhalation BID #10.2 grams 10/17/22 [Rx Last Taken Unknown] atorvastatin 40 mg tablet 40 mg PO QHS #90 tabs 12/02/22 [Rx Last Taken Unknown] hydralazine 50 mg tablet 50 mg PO BID #180 tabs 03/25/23 [Rx Last Taken Unknown] quetiapine 25 mg tablet (Seroquel) See Rx Instructions PO .COMPLEX #270 tabs 04/02/23 [Rx Last Taken Unknown] albuterol sulfate 90 mcg/actuation aerosol inhaler 2 puff inhalation Q6H PRN shortness of breath or wheezing #8.5 grams 08/31/23 [Rx Last Taken Unknown] carvedilol 25 mg tablet (Coreg) 25 mg PO BID 08/31/23 [History Last Taken Unknown] ibuprofen 400 mg tablet 400 mg PO Q8H PRN 08/31/23 [History Last Taken Unknown] omeprazole 20 mg capsule,delayed release 20 mg PO DAILY #90 caps 09/07/23 [Rx Last Taken Unknown] lisinopril 40 mg tablet 40 mg PO DAILY 10/10/23 [History Last Taken Unknown] tamsulosin 0.4 mg capsule 0.4 mg PO DAILY 10/10/23 [History Last Taken Unknown] Allergy/AdvReac Type Severity Reaction Status Date / Time Iodine and Iodide Containing Allergy Rash Verified 10/10/23 07:31 Produc Sulfa (Sulfonamide Allergy Rash Verified 10/10/23 07:31 Antibiotics) Family History Daughter Alcoholism Sister Alcoholism Surgical History History of colonoscopy History of hernia repair Social History Smoking Status: Former smoker quit date: 07/27/78 Tobacco: How many years used: 30 alcohol intake: never substance use type: does not use what type of physical activity do you participate in: none ROS ROS ED Constitutional Constitutional ED: Denies chills or fever(s) Eyes Eyes: Denies blurry vision or change in vision ENT ENT ED: Reports rhinorrhea; Denies sore throat Cardiovascular Cardiovascular: Reports chest pain; Denies palpitations Respiratory/Chest Respiratory/Chest: Denies cough or dyspnea Gastrointestinal Gastrointestinal: Denies nausea or vomiting Genitourinary Genitourinary ED: Reports dysuria and urinary frequency; Denies hematuria Musculoskeletal Musculoskeletal: Denies back pain or neck pain Integumentary Denies abscess or rash Neurologic Neurologic: Reports headache(s); Denies weakness Allergic/Immunologic Allergic/Immunologic ED: Denies mouth swelling or urticaria EXAM Physical Exam Const Vital Signs: 10/10/23 07:31 10/10/23 07:30 10/10/23 09:30 Temperature 98 F Temperature Source Temporal Pulse Rate 71 64 Respiratory Rate 14 14 Respiratory Effort Normal Respiratory Depth Normal Respiratory Pattern Normal Blood Pressure 174/74 H 136/76 H Blood Pressure Mean 107 96 Pulse Ox 93 98 Oxygen Delivery Method Room Air Room Air Room Air Positive well nourished and well developed General Appearance ED: well developed and NAD HEENT Reports normocephalic HEENT Narrative: There is a small superficial linear laceration over the right side of the nose. There is no active bleeding. There is no gapping of the wound margins. There is mild tenderness over the right infraorbital area. There is no edema or ecchymosis. There is no bony crepitance or step-off noted. Eyes PERRL and EOMs intact bilaterally Neck full ROM and supple Chest Wall inspection of chest normal and palpation of chest normal Resp normal respiratory effort and clear to auscultation bilaterally Cardio regular rate and regular rhythm GI non-tender and non-distended Palpation: soft Neuro oriented x3, CN's II-XII intact bilaterally, moves all extremities, no focal motor deficits and no sensory deficits noted Max Coma Scale: document GCS findings Spontaneous Obeys Commands Oriented 15 Sensorium / Orientation: alert Motor Exam: strength 5/5 throughout Psych mental status grossly normal and thought process normal Skin Skin Narrative: There is a skin tear over the lateral aspect of the right elbow. There is no active bleeding noted. There are no foreign bodies noted. MDM MDM MDM Narrative Medical decision making narrative: Differential diagnosis includes urinary tract infection, right hip fracture, hip contusion, right elbow fracture, right elbow contusion, and closed head injury. X-rays of the right elbow will be obtained to assess for fracture. X-rays of the right hip will be obtained to assess for fracture. Urinalysis will be obtained to assess for urinary tract infection. Lab Data Attestation: I reviewed the patient's lab results. Lab results narrative: Urinalysis was reviewed. There is no evidence of urinary tract infection or hematuria. Labs: Laboratory Results - last 24 hr 10/10/23 09:34 Urine Color Yellow Urine Clarity Clear Urine pH 5.0 Ur Specific [place] 1.020 Urine Protein 30 H Urine Glucose (UA) Normal Urine Ketones 5 H Urine Occult Blood 10 H Urine Nitrite Negative Urine Bilirubin 1 H Urine Urobilinogen 4 H Ur Leukocyte Esterase 25 H Urine RBC 0 SEEN Urine WBC 0 SEEN Ur Squamous Epith Cells 0 SEEN Urine Bacteria 0 SEEN Urine Mucus 0 SEEN Radiography Diagnostic Testing: Clinical Impression(s) from Imaging Studies Elbow X-Ray 10/10/23 08:03 IMPRESSION: No demonstrated fracture or suspicious osseous lesion. However there is arthritic narrowing of the radiocapitellar and ulnotrochlear articulations. There is also subtle nonspecific soft tissue swelling. A subtle occult fracture could be present and overlooked. If fracture is a strong clinical concern, recommend further evaluation with cross-sectional imaging or conservative therapy and repeat study in 3-5 days Electronically Signed: Per Bañuelos MD at 9:20 EDT , Hip/Pelvis X-Ray 10/10/23 08:03 IMPRESSION: Age consistent hip and SI joint arthrosis without fracture or suspicious osseous lesion Electronically Signed: Per Bañuelos MD at 9:21 EDT , X-rays of the right elbow were obtained. There are 3 views. On my independent interpretation, there is no acute fracture or dislocation noted. There are some degenerative changes noted. Radiologist also interpreted the x-rays and agrees. X-rays of the right hip were obtained. There are 3 views. On my independent interpretation, there is no acute fracture or dislocation. There are degenerative changes noted. Radiologist also interpreted the x-rays and agrees. Treatment and Re-Evaluation Narrative: Patient was advised of his findings. The skin tear was closed with Steri-Strips. Patient was instructed to keep the wound clean and dry. Patient was instructed to follow-up with his primary care physician in 5 to 7 days. Patient understood and was agreeable with the plan. All questions were answered. Discharge Plan Triage Chief Complaint: Fall ED Provider: Jorge Sanchez Dx/Rx/DC Orders Clinical Impression: Urinary frequency, Skin tear of right elbow without complication, Fall, Contusion of right hip, initial encounter Instructions: ED Soft Tissue Contusion, ED Skin Tear (Skin Avulsion) Prescriptions: No Action ibuprofen 400 mg tablet 400 mg PO Q8H PRN finasteride 5 mg tablet 5 mg PO DAILY (DME) Disability Placard See Rx Instructions .Route .MEDSUPPLY Qty: 1 0RF Rx Instructions: . carvedilol [Coreg] 25 mg tablet 25 mg PO BID Rx Instructions: must administer with a meal/food albuterol sulfate 90 mcg/actuation HFA aerosol inhaler 2 puff inhalation Q6H PRN (Reason: shortness of breath or wheezing) Qty: 8.5 3RF lisinopril 40 mg tablet 40 mg PO DAILY tamsulosin 0.4 mg capsule 0.4 mg PO DAILY budesonide-formoterol [Symbicort] 160-4.5 mcg/actuation HFA aerosol inhaler 2 puff inhalation BID Qty: 10.2 3RF Rx Instructions: Please fill for 90-day supply, 3 inhalers. atorvastatin 40 mg tablet 40 mg PO QHS Qty: 90 3RF Rx Instructions: 40mg in total hydralazine 50 mg tablet 50 mg PO BID Qty: 180 3RF quetiapine [Seroquel] 25 mg tablet See Rx Instructions PO .COMPLEX Qty: 270 3RF Rx Instructions: Take 1 tab each morning and 2 tabs each evening; omeprazole 20 mg capsule,delayed release(DR/EC) 20 mg PO DAILY Qty: 90 3RF Primary Care Provider: Leda Verdin Referrals: Leda Verdin MD [Primary Care Provider] - 5-7 Days Disposition Disposition: Home, Self Care
--- NOTE | 2023-10-10 08:03 | RAD_ITS ---
STUDY: X-RAY - PELVIS AND RIGHT HIP REASON FOR EXAM: Male, 83 years old. Injury/Pain TECHNIQUE: 3 views of the pelvis and hip. COMPARISON: None. FINDINGS: There is a non-specific bowel gas pattern. Normal visualized soft tissue structures. There is diffuse demineralization of the osseous structures. There is narrowing with cortical sclerosis and osteophyte formation of the sacroiliac joint consistent with degenerative osteoarthritic changes. Normal bilateral superior and inferior pubic rami. Normal pubic symphysis. Normal bilateral ischial tuberosities. Normal visualized femoral head. Normal acetabulum. There is moderate articular joint space narrowing of the hip. Similar age consistent left hip arthrosis RAD/HIP, UNI W/ Pelvis 2-3 Views IMPRESSION: Age consistent hip and SI joint arthrosis without fracture or suspicious osseous lesion Electronically Signed: Per Bañuelos MD at 9:21 EDT ,
--- NOTE | 2023-10-10 08:03 | RAD_ITS ---
STUDY: X-RAY - RIGHT ELBOW REASON FOR EXAM: Male, 83 years old. Injury/Pain TECHNIQUE: 3 view(s) of the elbow. COMPARISON: None. FINDINGS: There is demineralization of the visualized humerus, radius and ulna. There is degenerative arthrosis of the radiocapitellar and ulnotrochlear articulations. Nonspecific soft tissue swelling with a joint effusion. RAD/Elbow min 3 Views IMPRESSION: No demonstrated fracture or suspicious osseous lesion. However there is arthritic narrowing of the radiocapitellar and ulnotrochlear articulations. There is also subtle nonspecific soft tissue swelling. A subtle occult fracture could be present and overlooked. If fracture is a strong clinical concern, recommend further evaluation with cross-sectional imaging or conservative therapy and repeat study in 3-5 days Electronically Signed: Per Bañuelos MD at 9:20 EDT ,
[2023-10-10 09:30] VITALS: BP 136/76; PULSE 64; RESP 14; O2SAT 98
[2023-10-10 09:38] LABS: Bacteria 0 SEEN /hpf (None Seen); Mucous, Urine 0 SEEN /hpf (<or=2+); Red Blood Cells-Urine 0 SEEN /hpf (0-5); Squamous Epithelial Cells - UA 0 SEEN /hpf (0-5); White Blood Cells 0 SEEN /hpf (0-5)
[2023-10-10 09:40] LABS: Color, Urine Yellow (Yellow); Glucose, Dipstick Normal (Normal); Ketone-Dipstick 5 mg/dl (Negative); Leukocyte Esterase-Dipstick 25 /ul (Negative); Nitrite-Dipstick Negative (Negative); Occult Blood-Urine 10 /ul (Negative); Protein-Dipstick 30 mg/dl (Negative); Urine Clarity Clear (Clear); Urine Urobilinogen 4 mg/dl (Normal)
[2023-10-10 09:42] LABS: Urine Bilirubin Dipstick 1 mg/dL (Negative)
[2023-10-10 10:15] VITALS: BP 124/76; PULSE 64; RESP 14; TEMP 36.4; O2SAT 99
== END 2023-10-10 10:16 | disposition home or self-care (01) ==
PROVIDERS: Emergency Provider Emergency Medicine; PCP Internal Medicine; Visit Provider Emergency Medicine
DX: R35.0 Frequency of micturition (principal); J44.9 Chronic obstructive pulmonary disease, unspecified; S70.01XA Contusion of right hip, initial encounter; Z87.891 Personal history of nicotine dependence; S01.91XA Laceration without foreign body of unspecified part of head, initial encounter; W18.00XA Striking against unspecified object with subsequent fall, initial encounter; N18.2 Chronic kidney disease, stage 2 (mild); I12.9 Hypertensive chronic kidney disease with stage 1 through stage 4 chronic kidney disease, or unspecified chronic kidney disease; E78.5 Hyperlipidemia, unspecified; Z86.73 Personal history of transient ischemic attack (TIA), and cerebral infarction without residual deficits; S51.011A Laceration without foreign body of right elbow, initial encounter
CPT/HCPCS: 73080; 73502; 81001; 99282